=== PATIENT | female | born 1960 | race Caucasian/White ===

== ENCOUNTER → 2018-10-13 10:33 | Outpatient (CLI) | payer OTHER, SELFPAY ==
--- NOTE | 2018-10-13 10:36 | BI_ITS ---
MAMMOGRAPHY - BILATERAL SCREENING 3-D DARIO SYNTHESIS REASON FOR EXAM: Female, 58 years old. Bilateral Screening 3-D tomosynthesis PERTINENT HISTORY: History of benign right breast biopsy in July 2016. History of benign right stereotactic biopsy in 2007. 4-5 past aspirations bilaterally. TECHNIQUE: Digital bilateral breast dario (3D mammographic acquisition) in the CC and MLO projections. 2-D mediolateral oblique (MLO) and craniocaudad (CC) views of both breasts were obtained. CAD: Full Field Digital Mammography with Computer Added Detection was performed. COMPARISON: July 17, 2017 FINDINGS: The breast composition is heterogeneously dense that can obscure small breast masses. There are 4 tissue clip markers in the right breast unchanged. There are scattered benign calcifications are unchanged. At the 12:00 position of the right breast there are 2 partially obscured low density circumscribed masses, one measuring 11 mm and the other 17 mm in widest diameter. These are likely small cysts. However, the patient should return for compression spot images and targeted ultrasound of the upper half of the right breast to confirm this finding. The left breast is stable. BI/SCREENING MAMM (CAD), BILAT IMPRESSION: 2 low-density partially obscured masses in the upper aspect of the right breast for which ultrasound is recommended. See discussion above. ASSESSMENT CATEGORY: BIRADS Category 0: Incomplete. Need additional imaging evaluation as above. A letter regarding these results will be sent to the patient by the facility within 30 days. FOLLOW UP RECOMMENDATION: Additional imaging recommended as above. (E) Approximately 10% of breast cancers are not detected by mammography. A normal mammogram should not delay biopsy of a clinically suspicious abnormality. Electronically Signed: Andi Sanders MD at 12:02 EST , Service support ,
== END ==
PROVIDERS: Family Provider Family Medicine; PCP Family Medicine; Referring Provider Obstetrics & Gynecology; Visit Provider Obstetrics & Gynecology
DX: Z12.31 Encounter for screening mammogram for malignant neoplasm of breast (principal)
CPT/HCPCS: 77063; 77067

== ENCOUNTER → 2018-10-21 13:22 | Outpatient (CLI) | payer OTHER, SELFPAY ==
--- NOTE | 2018-10-21 13:24 | US_ITS ---
STUDY: ULTRASOUND BREAST - RIGHT REASON FOR EXAM: Female, 58 years old. Abnormal screening mammogram. TECHNIQUE: Axial and longitudinal images of the RIGHT breast were performed with a high resolution ultrasound transducer. COMPARISON: Comparison is made with prior mammogram dated October 13, 2018 and October 21, 2018. Comparison is also made to prior ultrasound right breast dated March 11, 2017. FINDINGS: RIGHT Breast: There is a 1.2 cm x 1.6 cm x 1.1 cm cyst at the 12:00 position breast at 1 cm from the nipple. There is also evidence of a 0.9 cm x 1.0 cm x 0.9 cm cyst at the 11:00 position breast at 1 cm from the nipple. US/Breast Limited Unilateral IMPRESSION: The mammographic abnormality corresponds to 2 cysts as described. Routine mammographic follow-up is recommended. ASSESSMENT CATEGORY: BIRADS Category 2: Benign. A letter regarding these results will be sent to the patient by the facility within 30 days. Electronically Signed: Mauri Cage MD at 14:38 EST Tel [phone], Service support ,
--- NOTE | 2018-10-21 13:24 | BI_ITS ---
MAMMOGRAPHY - UNILATERAL DIAGNOSTIC: RIGHT BREAST REASON FOR EXAM: Female, 58 years old. Abnormal screening mammogram. PERTINENT HISTORY: Non-contributory. TECHNIQUE: Compression spot views of the right breast in the craniocaudad and mediolateral oblique views were obtained. CAD: Full Field Digital Mammography with Computer Added Detection was performed. COMPARISON: Comparison is made with prior mammogram dated October 13, 2018. FINDINGS: Breast Composition: The breasts are heterogeneously dense, which may obscure small masses. Once again, there are 4 tissue markers in the right breast. This is unchanged. The previously seen 2 nodular densities in the central portion of the breast are once again seen. Correlation with ultrasound is recommended. No other significant abnormalities are identified. BI/DIAG MAMM W/CAD, UNILAT IMPRESSION: Persistent small nodular densities in the midportion of the right breast as described. Correlation with ultrasound is recommended. ASSESSMENT CATEGORY: BIRADS Category 0: Incomplete. Need additional imaging evaluation. A letter regarding these results will be sent to the patient by the facility within 30 days. Approximately 10% of breast cancers are not detected by mammography. A normal mammogram should not delay biopsy of a clinically suspicious abnormality. Electronically Signed: Mauri Cage MD at 14:37 EST Tel [phone], Service support ,
== END ==
PROVIDERS: Family Provider Family Medicine; PCP Family Medicine; Visit Provider Obstetrics & Gynecology
DX: N60.01 Solitary cyst of right breast (principal)
CPT/HCPCS: 76642; 77065

== ENCOUNTER → 2018-10-27 18:58 | Outpatient (CLI) | payer OTHER, SELFPAY ==
[2018-10-30 20:12] LABS: HPV Reflexed? NOT INDICATED
== END ==
PROVIDERS: Family Provider Family Medicine; PCP Family Medicine; Referring Provider Obstetrics & Gynecology; Visit Provider Obstetrics & Gynecology
DX: Z12.4 Encounter for screening for malignant neoplasm of cervix (principal)
CPT/HCPCS: 88175; G0145

== ENCOUNTER → 2019-10-28 13:33 | Outpatient (CLI) | payer OTHER, SELFPAY ==
[2018-10-29 15:10] VITALS: BMI 27.4
--- NOTE | 2019-10-28 11:00 | CER_PTH ---
PATIENT: SHELIA FLEMING LOC: [facility] U#:[id number] AGE/SX: 65/F ROOM: RE10/28/[address]: Dr. Tanya Viveros MD : 1960 BED: DIS: SPEC #: [id number] RECD: 10/28/19 13:59 STATUS: STEVE RENicole #: [id number] PILI: 10/28/19 11:[address]: Ernestina Ocampo DEPT: SURGICAL PATHOLOGY RECD BY: Jas Gilmore ENTERED: 10/31/19 08:50 SP TYPE: CERV OTHR DR: MD Dr. Rhett Brown III, MD Tissues: Uterine cervix, NOS Procedures: Surgery Specimen Level IV HEADER OPERATION: Polypectomy PRE-OP DIAGNOSIS: Cervical polyp TISSUE SUBMITTED: Cervical polyp MICROSCOPIC DIAGNOSIS Cervical polyp, polypectomy: Fragments of benign endocervical polyp, blood and mucous. SJ:patricia 10/31/19 MICROSCOPIC DESCRIPTION Slides are reviewed. GROSS DESCRIPTION Received in fixative is one container labeled with the patient's name and designated polyp. The specimen consists of multiple fragments of james-pink soft tissue mixed with mucoid tissue that in aggregate measure 2.5 x 2.5 x 0.1 cm. The specimen is totally submitted in one cassette. / SJ:patricia 10/28/19 TC:5 CPT: 48236
--- NOTE | 2019-10-28 13:35 | BI_ITS ---
MAMMOGRAPHY - BILATERAL SCREENING REASON FOR EXAM: Female, 59 years old. Routine annual screening examination. PERTINENT HISTORY: Non-contributory. Remote right excisional and stereotactic breast biopsies. TECHNIQUE: Digital bilateral breast dario (3D mammographic acquisition) in the CC and MLO projections. 2-D mediolateral oblique (MLO) and craniocaudad (CC) views of both breasts were obtained. CAD: Full Field Digital Mammography with Computer Added Detection was performed. COMPARISON: Comparison is made with prior study dated July 17, 2017 and October 13, 2018. FINDINGS: Breast Composition: The breasts are extremely dense, which lowers the sensitivity of mammography. There are no dominant masses or suspicious calcifications. 2 tissue markers from prior breast biopsies are seen in the right breast. Once again, 2 well-defined nodular densities are seen in the central slightly medial portion of the right breast. These are unchanged. Prior ultrasound demonstrated these to be cysts. No other significant abnormalities are identified. There has been no significant change since the prior study. BI/SCREEN MAMM (CAD) W/DARIO BILAT IMPRESSION: Stable bilateral screening mammogram. Yearly follow-up mammogram recommended. (A) ASSESSMENT CATEGORY: BIRADS Category 2: Benign. A letter regarding these results will be sent to the patient by the facility within 30 days. Approximately 10% of breast cancers are not detected by mammography. A normal mammogram should not delay biopsy of a clinically suspicious abnormality. [id number] Electronically Signed: Mauri Cage, at 14:37 EST , Service support ,
[2019-11-02 07:07] LABS: Age Gdln ACOG Testing 30-65 (.)
[2019-11-02 12:43] LABS: HPV APTIMA, High Risk Negative (Negative)
[2019-11-02 12:44] LABS: HPV Reflexed? YES, CHARGE PATIENT
== END ==
PROVIDERS: Family Provider Family Medicine; PCP Family Medicine; Referring Provider Obstetrics & Gynecology; Visit Provider Obstetrics & Gynecology
DX: Z12.31 Encounter for screening mammogram for malignant neoplasm of breast (principal); Z12.4 Encounter for screening for malignant neoplasm of cervix; N84.1 Polyp of cervix uteri
CPT/HCPCS: 77063; 77067; 87624; 88175; 88305; G0145

== ENCOUNTER → 2021-02-20 07:21 | Outpatient (CLI) | payer OTHER, SELFPAY ==
[2018-10-29 15:10] VITALS: BMI 27.4
--- NOTE | 2021-02-20 07:24 | BI_ITS ---
MAMMOGRAPHY - BILATERAL SCREENING REASON FOR EXAM: Female, 60 years old. Routine annual screening examination. PERTINENT HISTORY: Non-contributory. Prior right ultrasound guided N stereotactic breast biopsies. TECHNIQUE: Digital bilateral breast dario (3D mammographic acquisition) in the CC and MLO projections. 2-D mediolateral oblique (MLO) and craniocaudad (CC) views of both breasts were obtained. CAD: Full Field Digital Mammography with Computer Added Detection was performed. COMPARISON: Comparison is made with prior study dated 10/28/2019 and 10/13/2018. FINDINGS: Breast Composition: The breasts are extremely dense, which lowers the sensitivity of mammography. There are no dominant masses or suspicious calcifications. Once again, 3 tissue clip markers are seen in the right breast. The previously seen 2 well defined nodular densities in the central slightly medial portion of the right breast have decreased in size. On prior sonogram, these were demonstrated to be small cysts. No other significant abnormalities are identified. BI/SCRN MAMM (CAD)W/DARIO BILAT IMPRESSION: Stable bilateral screening mammogram. Yearly follow-up mammogram recommended. (A) ASSESSMENT CATEGORY: BIRADS Category 2: Benign. A letter regarding these results will be sent to the patient by the facility within 30 days. Approximately 10% of breast cancers are not detected by mammography. A normal mammogram should not delay biopsy of a clinically suspicious abnormality. [id number] Electronically Signed: Mauri Cage MD at 9:17 EDT , Service support ,
== END ==
PROVIDERS: PCP Family Medicine; Referring Provider Student in an Organized Health Care Education/Training Program; Visit Provider Student in an Organized Health Care Education/Training Program
DX: Z12.31 Encounter for screening mammogram for malignant neoplasm of breast (principal)
CPT/HCPCS: 77063; 77067

== ENCOUNTER → 2021-02-22 | Outpatient (CLI) | payer OTHER, SELFPAY ==
[2018-10-29 15:10] VITALS: BMI 27.4
[2021-02-27 13:08] LABS: HPV APTIMA, High Risk Negative (Negative)
== END | disposition home or self-care (01) ==
LOC: LABSPEC 13:56
PROVIDERS: PCP Family Medicine; Visit Provider Obstetrics & Gynecology
DX: Z12.4 Encounter for screening for malignant neoplasm of cervix (principal)
CPT/HCPCS: 87624; 88175; G0145

== ENCOUNTER → 2022-02-21 | Outpatient (CLI) | payer OTHER, SELFPAY ==
--- NOTE | 2022-02-21 07:32 | BI_ITS ---
MAMMOGRAPHY - BILATERAL SCREENING REASON FOR EXAM: Female, 61 years old. Routine annual screening examination. PERTINENT HISTORY: Non-contributory. History of multiple prior right ultrasound-guided breast biopsies. TECHNIQUE: Digital bilateral breast dario (3D mammographic acquisition) in the CC and MLO projections. 2-D mediolateral oblique (MLO) and craniocaudad (CC) views of both breasts were obtained. CAD: Full Field Digital Mammography with Computer Added Detection was performed. COMPARISON: Comparison is made with prior study dated 02/20/2021 and 10/28/2019. FINDINGS: Breast Composition: The breasts are extremely dense, which lowers the sensitivity of mammography. There are no dominant masses or suspicious calcifications. Once again, 3 tissue clip markers are seen in the right breast. Persistent 1.5 cm well-defined nodule in the central aspect of the right breast. Stable 9 mm well-defined nodule in the inferior aspect of the right breast. These were demonstrated to be small cysts on prior sonogram. No other significant abnormalities are identified. There has been no significant change since the prior study. BI/SCRN MAMM (CAD)W/DARIO BILAT IMPRESSION: Stable bilateral screening mammogram. Yearly follow-up mammogram recommended. (A) ASSESSMENT CATEGORY: BIRADS Category 2: Benign. A letter regarding these results will be sent to the patient by the facility within 30 days. Approximately 10% of breast cancers are not detected by mammography. A normal mammogram should not delay biopsy of a clinically suspicious abnormality. [id number] Electronically Signed: Mauri Cage MD at 8:47 EDT ,
== END | disposition home or self-care (01) ==
LOC: OPBI 07:31
PROVIDERS: PCP Physician Assistant; Referring Provider Student in an Organized Health Care Education/Training Program; Visit Provider Student in an Organized Health Care Education/Training Program
DX: Z12.31 Encounter for screening mammogram for malignant neoplasm of breast (principal)
CPT/HCPCS: 77063; 77067

== ENCOUNTER → 2023-04-20 | Outpatient (CLI) | payer OTHER, SELFPAY ==
--- NOTE | 2023-04-20 10:25 | BI_ITS ---
MAMMOGRAPHY - BILATERAL SCREENING REASON FOR EXAM: Female, 63 years old. Routine annual screening examination. PERTINENT HISTORY: Non-contributory. Prior right ultrasound breast biopsies and excisional and stereotactic breast biopsies. TECHNIQUE: Digital bilateral breast dario (3D mammographic acquisition) in the CC and MLO projections. 2-D mediolateral oblique (MLO) and craniocaudad (CC) views of both breasts were obtained. CAD: Full Field Digital Mammography with Computer Added Detection was performed. COMPARISON: Comparison is made with prior study dated February 21, 2022 and February 20, 2021. FINDINGS: Breast Composition: The breasts are extremely dense, which lowers the sensitivity of mammography. There are no dominant masses or suspicious calcifications. Once again, 3 tissue markers are seen in the right breast. Stable 1.5 cm well-defined nodule in the central aspect of the right breast. Stable 9 mm well-defined nodule in the inferior aspect of the right breast as well. No other significant abnormalities are identified. There has been no significant change since the prior study. BI/SCRN MAMM (CAD)W/DARIO BILAT IMPRESSION: Stable bilateral screening mammogram. Yearly follow-up mammogram recommended. (A) ASSESSMENT CATEGORY: BIRADS Category 2: Benign. A letter regarding these results will be sent to the patient by the facility within 30 days. Approximately 10% of breast cancers are not detected by mammography. A normal mammogram should not delay biopsy of a clinically suspicious abnormality. [id number] Electronically Signed: Mauri Cage MD at 12:05 EDT ,
== END | disposition home or self-care (01) ==
LOC: OPBI 10:21
PROVIDERS: PCP Physician Assistant; Referring Provider Obstetrics & Gynecology; Visit Provider Obstetrics & Gynecology
DX: Z12.31 Encounter for screening mammogram for malignant neoplasm of breast (principal)
CPT/HCPCS: 77063; 77067

== ENCOUNTER → 2023-08-27 | Outpatient (CLI) | payer OTHER, SELFPAY ==
--- NOTE | 2023-08-27 11:52 | EKG12_ITS ---
Test Reason : PRE OP Blood Pressure : / mmHG Vent. Rate : 076 BPM Atrial Rate : 076 BPM P-R Int : 136 ms QRS Dur : 154 ms QT Int : 410 ms P-R-T Axes : 040 -45 118 degrees QTc Int : 461 ms Normal sinus rhythm Sootr-Kwpriqicw-Cmtgb Abnormal ECG Confirmed by BERE SUTTON, RAUL ([id number]), story editor ATTILA REDDY ([id number]) on 08/31/2023 10:40:13 AM Referred By: Kobi Yan Confirmed By:JOHNNY BLACKBURN MD
[2023-08-27 12:18] LABS: Absolute Lymphocyte Count 1.67 X10^3/uL (0.83-4.51); Absolute Neutrophil Count 4.5 X10^3/uL (2.0-7.7); Basophil# 0.06 X10^3/uL; Basophil% 0.8 % (0-1); Eosinophil# 0.38 X10^3/uL; Eosinophils% 5.3 % (0-5); Hematocrit 41.9 % (37-47); Hemoglobin 14.3 g/dL (12.0-15.0); Lymphocyte # 1.67 X10^3/ul (0.83-4.51); Lymphocyte % 23.2 % (19-41); Mean Corp Hgb Conc 34.1 g/dL (32-36); Mean Corpuscular Hgb 31.7 pg (27.0-32.0); Mean Corpuscular Volume 92.9 fL (81-99); Mean Platelet Vol. 9.3 fl (6.2-12.0); Monocyte# 0.55 X10^3/uL; Monocyte% 7.6 % (0-10); NRBC Flagged by Analyzer 0 % (0-5); Neutrophil # 4.52 X10^3/uL (2.7-7.7); Platelet Count 278 K/mm3 (150-450); RBC Distribution Width CV 11.9 % (11.6-14.6); RBC Distribution Width SD 40.1 fl (35.1-43.9); Red Blood Count 4.51 M/mm3 (4.2-5.4); White Blood Count 7.2 K/mm3 (4.4-11.0)
[2023-08-27 12:52] LABS: Anion Gap 3 (5-15); BUN 25 mg/dL (7-18); BUN/Creat Ratio 27.3 RATIO (10-20); Calcium,Total 9.6 mg/dL (8.5-10.1); Chloride 108 mmol/L (98-107); Creatinine, Serum 0.92 mg/dL (0.55-1.02); EST Glomerular Filtration Rate 66 mL/min (>60); Est Glom Filt Rate - Afr Amer 80 mL/min (>60); Glucose 115 mg/dL (74-106); Sodium Level 140 mmol/L (136-145)
== END | disposition home or self-care (01) ==
LOC: PSN 11:51
PROVIDERS: PCP Physician Assistant; Referring Provider Specialist; Visit Provider Specialist
DX: Z01.810 Encounter for preprocedural cardiovascular examination (principal)
CPT/HCPCS: 36415; 80048; 85025; 93005

== ENCOUNTER 2024-03-02 10:00 | Outpatient (CLI) | payer OTHER, SELFPAY ==
[2024-03-02 10:28] LABS: Magnesium 2.2 mg/dL (1.6-2.6)
[2024-03-04 12:09] LABS: Vitamin D 1,25-Dihydroxy 46.7 pg/mL (24.8-81.5)
[2024-03-07 16:56] LABS: Cotinine Screen Blood <1.0 ng/mL (.); Nicotine Blood <1.0 ng/mL (.)
== END 2024-03-02 23:59 | disposition home or self-care (01) ==
LOC: PAT 09-08 10:26
PROVIDERS: PCP Physician Assistant; Referring Provider Podiatrist Foot & Ankle Surgery; Visit Provider Podiatrist Foot & Ankle Surgery
DX: Z01.818 Encounter for other preprocedural examination (principal)
CPT/HCPCS: 36415; 80323; 82652; 83036; 83735; 87081; G0480

== ENCOUNTER → 2024-04-07 | Outpatient (CLI) | payer OTHER, SELFPAY ==
--- NOTE | 2024-04-07 10:48 | ECHOCS_ITS ---
Reason For Study: CHEST PAIN Procedure This was a 2D Doppler, Color Flow transthoracic echocardiogram. The study was technically difficult. Contrast injection was performed. Exam performed in department. Left Ventricle Normal size and thickness. The left ventricular ejection fraction is 65 %. Diastolic function is indeterminate. Right Ventricle Normal right ventricle. Atria The left atrium is mildly enlarged. Normal right atrium. Mitral Valve Trivial mitral valve insufficiency. Tricuspid Valve Trivial tricuspid valve insufficiency. Right ventricular systolic pressure estimated to be 47 mmHg. Aortic Valve Trisinus/trileaflet aortic valve. Pulmonic Valve Trivial pulmonic valve insufficiency. Great Vessels Normal sized aortic root. Pericardium/Pleural No pericardial effusion. Medication 22 gauge I.V. with prn adaptor inserted into right arm. Diluted definity 2ml given slow IV push to enhance endocardial definition. MMode/2D Measurements & Calculations LVIDd: 4.6 cm IVSd: 1.0 cm Ao root diam: 3.2 cm LVIDs: 3.4 cm LVPWd: 0.76 cm FS: 24.9 % LAV(MOD-bp): 33.1 ml LVAd ap4: 28.4 cm2 SV(MOD-sp4): 61.6 ml LAV(MOD-bp) Indexed: 17.1 ml/m2 LVLd ap4: 7.7 cm LAV(MOD-sp2): 43.9 ml EDV(MOD-sp4): 86.7 ml LAV(MOD-sp4): 24.3 ml EDV(sp4-el): 88.7 ml LVAs ap4: 13.9 cm2 LVLs ap4: 6.4 cm ESV(MOD-sp4): 25.1 ml ESV(sp4-el): 25.6 ml EF(MOD-sp4): 71.1 % EF(sp4-el): 71.1 % SV(sp4-el): 63.1 ml LA A4 area: 12.1 cm2 LA dimension(2D): 4.2 cm RA A4 area: 11.0 cm2 TAPSE: 1.2 cm Time Measurements MV dec time: 0.22 sec Doppler Measurements & Calculations MV E max ayaz: 77.7 cm/sec Lat Peak E' Ayaz: 7.3 cm/sec Med Peak E' Ayaz: 6.6 cm/sec MV A max ayaz: 92.5 cm/sec E/E' lat: 10.6 E/E' med: 11.7 MV E/A: 0.84 MV V2 max: 89.5 cm/sec MV dec slope: 351.9 cm/sec2 Ao V2 max: 140.1 cm/sec MV max P.2 mmHg Ao max P.9 mmHg MV V2 mean: 58.2 cm/sec Ao V2 mean: 97.7 cm/sec MV mean P.5 mmHg Ao mean P.4 mmHg MV V2 VTI: 26.7 cm Ao V2 VTI: 28.8 cm AV (velocity ratio): 0.80 LV V1 max: 126.2 cm/sec PA V2 max: 156.2 cm/sec TR max ayaz: 304.7 cm/sec LV V1 max P.4 mmHg PA V2 mean: 95.0 cm/sec TR max P.1 mmHg LV V1 mean P.3 mmHg LV V1 mean: 83.2 cm/sec LV V1 VTI: 23.0 cm ECHO/Echo Complete W/ Contrast Interpretation Summary The left ventricular ejection fraction is 65 %. Diastolic function is indeterminate. The left atrium is mildly enlarged. Right ventricular systolic pressure estimated to be 47 mmHg. Ordering Physician: Kb Valdivia Referring Physician: Kb Valdivia Performed By: Lakia Xiong RCS
== END | disposition home or self-care (01) ==
PROVIDERS: PCP Physician Assistant; Referring Provider Internal Medicine Cardiovascular Disease; Visit Provider Internal Medicine Cardiovascular Disease
DX: I47.10 Supraventricular tachycardia, unspecified (principal)
CPT/HCPCS: 93306; Q9957; A4216; C8929

== ENCOUNTER 2024-04-15 11:47 | Day surgery (SDC) | payer OTHER, SELFPAY ==
[2024-04-11 09:26] LABS: Magnesium 2.2 mg/dL (1.6-2.6)
[2024-04-15] VITALS (9 sets, daily range): BP systolic 121–144; BP diastolic 76–97; PULSE 90–105; RESP 16; TEMP 36.3–36.6; O2SAT 94–100; BMI 29.0
--- NOTE | 2024-04-15 | TESH_PTH ---
PATIENT: SHELIA FLEMING LOC: [facility] [place] U#:[id number] AGE/SX: 64/F ROOM: RE04/15/[address]: Dr. Silvio Puente DPM : 1960 BED: DIS: 04/15/2024 SPEC #: [id number] RECD: 04/15/24 18:26 STATUS: STEVE TRANG #: [id number] PILI: 04/15/24 00:[address]: Silvio Puente DEPT: SURGICAL PATHOLOGY RECD BY: Wiliam Salcido ENTERED: 04/18/24 07:42 SP TYPE: TENDON OTHR DR: AYAAN Nova Tissues: Tendon and tendon sheath, NOS Procedures: Surgery Specimen Level III HEADER OPERATION: ERAS, Achilles tendon debirdment/repair and partial excision PRE-OP DIAGNOSIS: Achilles tendonitis, calcaneal heel spur, right leg pain TISSUE SUBMITTED: Tendosynovitis, Right Achilles tendon MICROSCOPIC DIAGNOSIS Right Achilles tendon, partial excision: Fragments of dense fibroconnective tissue with reactive changes. [facility] 04/19/2024 MICROSCOPIC DESCRIPTION Slides are reviewed. GROSS DESCRIPTION Received in fixative is one container labeled with the patient's name and designated Tendosynovitis right achilles tendon. The specimen consists of multiple irregular fragments of james-light yellow indurated tissue that in aggregate measure 4.5 x 3.2 x 1.0 cm. The specimen is totally submitted in one cassette. Belt Sewer sections are submitted in one cassette. [facility] 04/18/2024 TC:5 CPT:08671
[2024-04-15] MEDS: Acetaminophen 500 MG Tablet 1000 MG PO (12:22)
[2024-04-15] MEDS: Gabapentin 600 MG Tablet PO (12:22)
[2024-04-15] MEDS: Magnesium 1 GM over 15 mins IV (12:22)
[2024-04-15] MEDS: Lactated Ringers 1,000 ML 15 ML IV (12:22)
[2024-04-15 12:45] LABS: Bedside Glucose 104 mg/dL (74-106)
--- NOTE | 2024-04-15 13:40 | PRE.ANES_ITS ---
ASA Classification* ASA Classification ASA Classification: 3 Assessment & Plan Anesthesia* Anesthesia Assessment Anesthesia Assessment: Discussed sedation and/or anesthesia options, risks, benefits, and alternatives with patient/parents/legal guardian/POA. Questions invited. The patient/parents/legal guardian/POA seems to understand and agrees to proceed with anesthesia plan. Reviewed the physical assessment, medical history, allergy history and patient home medications list prior to surgery/procedure/anesthetic and documented any changes. Performed airway and anesthesia risk assessments. Anesthesia Type Anesthesia Type: General (Patient is also consented for a popliteal block for pain control) History Source History Obtained from:: Patient and Chart Anesthesia Focused Assessment* Temperature: 97.9 F Pulse Rate: 100 Blood Pressure: 121/88 Respiratory Rate: 16 Pulse Ox: 100 Oxygen Delivery Method: Room Air Airway Assessment Mouth opens: >3 cm Mallampati Score: III Teeth Condition: Chipped/Broken (Patient is on antibiotics for a cracked tooth. Patient just had a root canal on tooth #31.) Neck Range of motion (ROM): Full ROM Pertinent Findings EKG Pertinent Findings:: April 04, 2024 sinus rhythm. Left bundle branch block. 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 EKG appears similar to 1 done August 2023 at which time the EKG was read as Ovedy-Ffblkokbm-Nlvhl ECHO Pertinent Findings:: April 07, 2024. Ejection fraction 65%. Right ventricular systolic pressure is 47 mm Hg. Consults Pertinent Findings:: April 04, [address] Valdivia. Good functional capacity. Acceptable risk for proposed procedure. History of Lrlhw-Thnldzthf-Gccec. On diltiazem which we will continue. Hypertension continue medical management. Focused Labs Anesthesia Preop lab: CBC WBC 7.2 K/mm3 (4.4-11.0) 08/27/23 12:06 RBC 4.51 M/mm3 (4.2-5.4) 08/27/23 12:06 Hgb 14.3 g/dL (12.0-15.0) 08/27/23 12:06 Hct 41.9 % (37-47) 08/27/23 12:06 Plt Count 278 K/mm3 (150-450) 08/27/23 12:06 CHEMISTRY Potassium 4.0 mmol/L (3.5-5.1) 08/27/23 12:06 Sodium 140 mmol/L (136-145) 08/27/23 12:06 Magnesium 2.2 mg/dL (1.6-2.6) 04/11/24 08:27 BUN 25 mg/dL (7-18) H 08/27/23 12:06 Creatinine 0.92 mg/dL (0.55-1.02) 08/27/23 12:06 Glucose 115 mg/dL (74-106) H 08/27/23 12:06 POC Glucose 104 mg/dL (74-106) 04/15/24 12:16 TSH 1.80 uIU/mL (0.358-3.74) 09/05/16 14:19 COAG Pre-Assessment Diagnosis/Proposed Procedure Planned Operative Procedure(s): (R) Achilles tendon debridement/repair with partial excision of calcaneus, possible flexor hallucis longus transfer and excision of bursa Anesthesia History 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 When Was Last Pacemaker Check QUESTION #4 FULL TEXT: You/Your Family Experience fever (hyperthermia) with Anesthesia Last Oral Intake Last Oral intake: Last Oral Intake NPO since 07:15 04/15/24 12:07 Meds taken in AM with sips of Yes 04/15/24 12:07 water? Meds patient instructed to SEE 04/15/24 12:07 take am of surgery Any additional information?: Yes NPO since: 09:55 Meds taken in AM with sips of water?: Yes Meds patient instructed to take am of surgery: Patient had Ensure at 955 PONV PONV - pipe supervisor: PONV - pipe supervisor Female Yes 04/08/24 09:50 HX of Motion Sickness No 04/08/24 09:50 HX of N/V After Surgery No 04/08/24 09:50 Non-Smoker Yes 04/08/24 09:50 Duration of Surgery greater Yes 04/08/24 09:50 than 60 minutes Number of Risk Factors 3 04/08/24 09:50 PONV Score Moderate Risk 04/08/24 09:50 Height & Weight Height & Weight: Anesthesia: Height & Weight Height 5 ft 6 in 04/15/24 12:07 Weight: 81.647 kg 04/15/24 12:07 Body Mass Index (BMI) 29.0 04/15/24 12:07 Respiratory Assessment Respiratory Assessment - pipe supervisor: Respiratory Tract Infection Hx - pipe supervisor Hx Respiratory Tract Infection No 04/08/24 09:50 STOP Sleep Apnea STOP Sleep Apnea - pipe supervisor: STOP Sleep Apnea - pipe supervisor Hx Hypertension Yes: CONTROLLED WITH MED 04/08/24 09:50 Hx Sleep Apnea No 04/08/24 09:50 CPAP BIPAP Do you snore loudly (louder No 04/08/24 09:50 than talking or can be heard Do you often feel tired/ No 04/08/24 09:50 fatigued/ sleepy during daytime? Has anyone observed you stop No 04/08/24 09:50 breathing during sleep? STOP Results Negative 04/08/24 09:50 QUESTION #5 FULL TEXT : Do you snore loudly (louder than talking or can be heard through closed doors)? 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 Specify any problems Hx of Preganancy in last 3 No 04/08/24 09:50 Months Nurse Filling Out Transfusion MGRIFFITH 04/08/24 09:50 & Questions: Date: 04/08/24 04/08/24 09:50 Time: 09:52 04/08/24 09:50 Patient unable to answer at this time (ie. confused, unrespo /Reproduction History /Reproductive History - pipe supervisor: /Reproductive Hx- pipe supervisor Hx Now No 04/08/24 09:50 Gestational Age (in weeks): EDC: Hx Hx Para Hx Section SAB No 04/08/24 09:50 Active Medications Active Medications: Current Medications Generic Name Dose Route Start Last Admin Trade Name Freq PRN Reason Stop Dose Admin Acetaminophen 1,000 mg 04/15/24 14:00 04/15/24 12:22 Acetaminophen 500 Mg Tablet PO 04/15/24 14:01 1,000 mg X1 ONE Administration Gabapentin 600 mg 04/15/24 14:00 04/15/24 12:22 Gabapentin 600 Mg Tablet PO 04/15/24 14:01 600 mg X1 ONE Administration Cefazolin Sodium 2 gm/ Sodium 110 mls @ 150 mls/hr 04/15/24 14:00 Chloride IV 04/15/24 14:43 PREOP ONE Magnesium Sulfate 1 gm/ 102 mls @ 408 mls/hr 04/15/24 14:00 04/15/24 12:22 Dextrose IV 04/15/24 14:14 408 mls/hr X1 ONE Administration Lactated Ringer's 1,000 mls @ 15 mls/hr 04/15/24 12:00 04/15/24 12:22 IV 15 mls/hr .Q48H MYRNA Administration Insulin Human Lispro 1 - 6 unit 04/15/24 14:00 Insulin Lispro 100 Unit/Ml Insuln.Pen SC 04/15/24 20:00 Q4H PRN PRN BG>/= 180, SEE PROTOCOL Protocol PFSH Medical History Loose, teeth Hyperlipidemia SVT (supraventricular tachycardia) PVC (premature ventricular contraction) Diffuse cystic mastopathy of left breast Right foot pain Wears glasses Alcohol use Thyroid disease High cholesterol Non-smoker History of stress test History of echocardiogram Cardiology follow-up encounter History of atrial fibrillation History of irregular heartbeat Hypothyroid HTN (hypertension) Wtatd-Vpjkwftab-Soklx (WPW) syndrome Breast lesion on mammography Home Medications ?Medication ?Instructions ?Recorded ?Last Taken ?Type levothyroxine 25 mcg tablet 25 mcg PO DAILY 03/27/16 08/21/16 07:00 History coenzyme Q10 200 mg capsule 200 mg PO DAILY 08/22/16 08/21/16 07:00 History diltiazem HCl 120 mg 120 mg PO DAILY 08/22/16 04/15/24 07:15 History capsule,extended release 24 hr atorvastatin 20 mg tablet 20 mg PO QHS 03/01/24 Unknown History lisinopril 20 1 tab PO DAILY 03/22/24 04/15/24 07:15 History mg-hydrochlorothiazide 12.5 mg tablet multivitamin 1 tab PO DAILY 04/04/24 Unknown History amoxicillin 500 mg capsule 500 mg PO TID 04/08/24 Unknown History Allergy/AdvReac Type Severity Reaction Status Date / Time No Known Allergies Allergy Verified 04/15/24 12:05 Family History Brother Diabetes Mother Hypertension Father Hypertension Diabetes Grandmother Breast cancer Grandfather CVA (cerebral vascular accident) Son IBS (irritable bowel syndrome) Surgical History Hx of breast biopsy Hx of dilation and curettage Hx of section History of colonoscopy History of tonsillectomy History of arthroplasty of left knee History of cardiac radiofrequency ablation S/P right oophorectomy Social History Smoking Status: Never smoker alcohol intake: current alcohol intake frequency: a few times a week substance use type: does not use caffeine: Yes (2.5 cups/day) Type: coffee Number of servings: 2 Review of Systems (Anesthesia) ROS Narrative System reviewed and no additional complaints, except as documented.
--- NOTE | 2024-04-15 15:13 | PCM.OPRPT ---
Problems Associated Problem List Diagnoses (1) Achilles tendinitis, right leg: (2) Calcaneal spur, right foot: (3) Other bursitis, not elsewhere classified, right ankle and foot: (4) Right foot pain: Report of Operation Date of Procedure: 04/15/24 Pre-Operative Diagnosis: 1. Achilles tendinitis, right lower extremity 2. Retrocalcaneal bursitis, right lower extremity 3. Calcaneal spur, right foot 4. Pain, right foot Post-Operative Diagnosis: 1. Achilles tendinitis, right lower extremity 2. Retrocalcaneal bursitis, right lower extremity 3. Calcaneal spur, right foot 4. Pain, right foot Surgery/Procedure Performed:: 1. Acute Achilles tendon debridement repair, right lower extremity 2. Partial excision of calcaneus, right lower extremity 3. Excision of bursa, right lower extremity Description of Surgical Findings:: 1. Complete removal of bursa and exostosis of bone from the calcaneus, right lower extremity 2. Evidence of thickened Achilles/tenosynovitis which was removed and sent for pathology Surgeon: Silvio Puente raise miner: Le Paez Type of Anesthesia: Block,Regional, General and Local Anesthesiologist: Anderson Gillespie Special Medications: Per anesthesia Specimen's removed: 1. Tenosynovitis, right Achilles tendon Drains: None Estimated Blood Loss (mL): 30 mL Fluids Replaced: Per anesthesia Description of Procedure: Indications For Operation: Mrs Carballo is a 64-year-old female who was admitted to [facility] for elective surgery to right lower extremity consisting of Achilles tendon repair, partial excision of calcaneus, retrocalcaneal bursectomy, right lower extremity. Patient was seen in the office for surgical consultation with all risk and benefits discussed with her in great detail. Patient was explained the preop IntraOp and postoperative recovery for the procedure. She elects to move forward with the elective procedure above. Due to the increased pain, increased and retrocalcaneal bursitis as well as Achilles tendinitis versus tendinosis it had deemed necessary at this time to take the patient to the operating room to perform the procedure above to decrease and rid her of her constant pain. The nature of the problem, anticipated procedures, postop recovery/convalences and risk/complications include but not limited to infection, wound healing complications, hypertrophic scarring, numbness, tingling, chronic pain, CRPS, over and under correction, recurrence of deformity, DVT and or PE and the need for further surgery have been discussed in great detail with the patient. All questions have been answered to the patient's satisfaction. There are no guarantees given as to the outcome of the procedure. Description of Procedure: Under mild sedation, the patient was brought into the operating room and placed on the operating table in supine position. Once the patient was under general anesthesia with endotracheal tube, the right lower extremity was blocked using approximately 10 cc 0.5% Marcaine plain for saphenous block, anesthesia provided popliteal block please see per anesthesia note for further detail. Next, a well-padded thigh tourniquet was applied to the right lower extremity. Next, the right lower extremity was prepped and draped in normal aseptic manner. Next, a timeout was then undertaken verifying the correct patient, extremity, visibility of preoperative markings, availability of the equipment. Next, attention was directed to the right lower extremity. Using a 6 inch Esmarch, right lower extremity was exsanguinated and elevated to 60 degrees for 1 minute. Procedure #1: Excision of bursa, right lower extremity (CPT code: 63161) Next, attention was directed to the Achilles tendon, a skin marker was used to map out the incision which would be slightly posterior medial. Using a #15 blade a full-thickness incision down to subcutaneous tissue was made. Continued blunt dissection was carried down to the level of the peritenon. Next, using a deep #15 blade the Achilles tendon was incised centrally all the way down to the enthesophyte. The Achilles tendon was booked ended allowing for exposure of the Sayda's deformity as well as enthesophyte. The retrocalcaneus bursa was identified and removed at this time. Copious amounts of normal saline were used to flush the incision area. Procedure #2: Partial excision of calcaneus, right lower extremity (CPT code: 20487) Next, using a sagittal saw and blade, the enthesophyte was cut and removed without incident. It was noted that there was a depression after removal of the enthesophyte which was completely removed. Next, using the sagittal saw and blade, the Sayda's deformity was removed via partial excision of the calcaneus. All sharp edges were made smoothed with a reciprocating rasp. Procedure #3: Achilles tendon debridement and repair, right lower extremity (CPT code: 33400) Next, attention was redirected back to the Achilles tendon, there showed evidence on the operating table of Achilles tendinosis. Using a #15 blade Achilles tendon was debrided down to and including tendon which was removed and sent to the back table to be sent off for pathology. Incision area was again flushed with copious rounds of normal saline. Next, the Achilles tendon was reattached to its insertion using the Ras citrefix anchoring system and a double row fashion per the director informatics's recommendation with the rep in the room. The has Achilles tendon was reapproximated and closed with 2-0 FiberWire in running suture technique. Again, copious amounts of normal saline were used to flush out the incision area. Next, time was taken to perform a Daugherty test, the right lower extremity was elevated to 90 degrees with the knee flexed, palpation was applied to the gastrocnemius and soleus complex and plantarflexion of the right foot was observed. The right foot also showed a plantarflexory attitude with the foot in the air. Next the right thigh tourniquet was deflated with reperfusion noted instantly to the right lower extremity. All bleeders were cauterized and ligated as necessary. A 1 x 2 inch graft jacket was applied over the Achilles tendon and sutured in place with 4-0 Monocryl to decrease adhesions. The peritenon was reapproximated and closed with 4-0 Monocryl and running locking suture technique. The subcutaneous layer was reapproximated closed with 3-0 Monocryl and running suture technique. The vein was reapproximated and closed with 4-0 Monocryl and running subcuticular suture technique. 1 cc of via flow was injected to the incision to help with healing as well as decrease inflammatory effects in the postoperative phase. The patient tolerated the procedure and anesthesia well and apparent satisfactory condition and was transported to the PACU for further monitoring prior to discharge home. Vital signs stable and vascular status intact to all digits bilateral. Post Operative Plan: Weightbearing: Nonweightbearing to right lower extremity with assistive crutches for 2 to 4 weeks, right lower extremity Antibiotics: 2 g Ancef through the IV DVT Prophylaxis: 81 mg twice daily for 30 days Bueno: None Dressing: Steri-Strips, Betadine soaked Adaptic, dry sterile dressing and a double layer Juarez AO splint X-Rays: Post-operative films taken on the operating room. Pain Medication: Percocet 3/325, [id number] Tylenol and ibuprofen Follow-up: [address] Puente in office. Grafts/Implants Used: 1 cc of via flow Complications None Admit VTE Documentation VTE Present on Admission: No VTE Mechan Device Prophylaxis: SCD's VTE Pharm Prophylaxis ordered?: Yes
[2024-04-15] MEDS: Cefazolin 2 GM in 0.9% Normal Saline (100mL Bag) 100 ML IV (15:25)
--- NOTE | 2024-04-15 16:10 | RAD_ITS ---
STUDY: X-RAY - RIGHT ANKLE REASON FOR EXAM: Female, 64 years old. ERAS ACHILLES TENDON DEBRIDEMENT, REPAIR TECHNIQUE: 2 intraoperative fluoroscopic views of the posterior calcaneus were obtained. COMPARISON: None. FINDINGS: Lateral images of the posterior aspect of the calcaneus shows surgical instrumentation hardware over this region with subsequent intervention and multiple osteotomy defects with anchoring, as well as Achilles tendon repair. RAD/Ankle 2 Views IMPRESSION: 1. Intraoperative fluoroscopic visualization of the calcaneus Electronically Signed: Charles Roa MD at 16:58 EDT ,
--- NOTE | 2024-04-15 17:31 | PCM.POST.ANE ---
Anesthesia: Postop Eval I Current Vital Signs Temperature: 97.4 F Pulse Rate: 105 Blood Pressure: 144/86 Respiratory Rate: 16 Pulse Ox: 94 Oxygen Delivery Method: Room Air Assessment Airway patent: Yes Spontaneous unlabored respirations: Yes Mental status: Awake and Calm nausea: No Vomiting: No Anesthesia Complication: No Fluid Hydration Crystalloid volume administer (ml): 1,400 Total IV fluid infused: 1,400 Progress Note Anesthesia document: Postop Eval 1 completed: Yes
--- NOTE | 2024-04-15 17:32 | POSTOPAN2_ITS ---
Anesthesia Postop Eval I Sum Postop Eval Completion status Anesthesia document: Postop Eval 1 completed: Yes Anesthesia Postop Eval I Summary Anesthesia Postop Eval I Summary: Anesthesia Postop Eval I: Assessment Summary Airway patent Yes 04/15/24 17:32 HOMICIDE DETECTIVE.MDOT Spontaneous unlabored Yes 04/15/24 17:32 HOMICIDE DETECTIVE.MDOT respirations Mental status Awake,Calm 04/15/24 17:32 HOMICIDE DETECTIVE.MDOT nausea No 04/15/24 17:32 HOMICIDE DETECTIVE.MDOT Vomiting No 04/15/24 17:32 HOMICIDE DETECTIVE.MDOT Anesthesia Postop Eval I: Fluid Summary Crystalloid volume administer 1,400 04/15/24 17:32 HOMICIDE DETECTIVE.MDOT (ml) Colloids volume administered ( ml) Blood Product volume administered (ml) Total IV fluid infused 1,400 04/15/24 17:32 HOMICIDE DETECTIVE.MDOT Anesthesia Postop Eval I: Summary Notes Anesthesia Complication No 04/15/24 17:32 HOMICIDE DETECTIVE.MDOT Anesthesia Complication Comment: Post-operative progress note Anesthesia: Postop Eval II Evaluation Mental status: Awake and Calm Pain Level: 0 nausea: No Vomiting: No Complications Anesthesia Complication: No
--- NOTE | 2024-04-15 17:32 | PCM.POSTANE2 ---
Anesthesia Postop Eval I Sum Postop Eval Completion status Anesthesia document: Postop Eval 1 completed: Yes Anesthesia Postop Eval I Summary Anesthesia Postop Eval I Summary: Anesthesia Postop Eval I: Assessment Summary Airway patent Yes 04/15/24 17:32 CRIMINAL INTELLIGENCE ANALYST.MDOT Spontaneous unlabored Yes 04/15/24 17:32 CRIMINAL INTELLIGENCE ANALYST.MDOT respirations Mental status Awake,Calm 04/15/24 17:32 CRIMINAL INTELLIGENCE ANALYST.MDOT nausea No 04/15/24 17:32 CRIMINAL INTELLIGENCE ANALYST.MDOT Vomiting No 04/15/24 17:32 CRIMINAL INTELLIGENCE ANALYST.MDOT Anesthesia Postop Eval I: Fluid Summary Crystalloid volume administer 1,400 04/15/24 17:32 CRIMINAL INTELLIGENCE ANALYST.MDOT (ml) Colloids volume administered ( ml) Blood Product volume administered (ml) Total IV fluid infused 1,400 04/15/24 17:32 CRIMINAL INTELLIGENCE ANALYST.MDOT Anesthesia Postop Eval I: Summary Notes Anesthesia Complication No 04/15/24 17:32 CRIMINAL INTELLIGENCE ANALYST.MDOT Anesthesia Complication Comment: Post-operative progress note Anesthesia: Postop Eval II Evaluation Mental status: Awake and Calm Pain Level: 0 nausea: No Vomiting: No Complications Anesthesia Complication: No
== END 2024-04-15 18:35 | disposition home or self-care (01) ==
LOC: SDC 11:47 → AC 11:48
PROVIDERS: Anesthesiology; PCP Physician Assistant; Referring Provider Physician Assistant; Visit Provider Podiatrist Foot & Ankle Surgery
PROC: (CPT 27650; principal; 2024-04-15 13:45)
DX: M76.61 Achilles tendinitis, right leg (principal); M77.31 Calcaneal spur, right foot; M76.891 Other specified enthesopathies of right lower limb, excluding foot; I10 Essential (primary) hypertension; E03.9 Hypothyroidism, unspecified; E78.00 Pure hypercholesterolemia, unspecified; Z79.899 Other long term (current) drug therapy
CPT/HCPCS: 28090; 28120; 27652; 64445; 01470; 36415; 73600; 76000; 82962; 83735; 87081; 88304; C1713; J7120; J2405; J3475

== ENCOUNTER → 2025-04-07 | Outpatient (CLI) | payer BC, SELFPAY ==
--- OUTSIDE RECORDS SUMMARY | 2025-04-07 07:14 | XMS RPT_ITS | CCD ---
Author Organization [facility] CliniSyri Care Team Providers Care Funnel Coater Name Role Phone KIRIT Shay RN, Tanya A Unavailable Unavailabl e Jaspal TECHNICAL SUPPORT MANAGER, Tanya A Unavailable Unavailable Jaspal TECHNICAL SUPPORT MANAGER, Tanya A Unavailable Unavailable VITEBSKJaninaY, KACEY Attending Unavailable CEBUL, CEASAR Primary Care Unavailable CEBUL, CEASAR Referring Unavailable VITEBSKVICKEY KACEY Attending Unavailable CEBUL, CEASAR Referring Unavailable CEBUL, CEASAR Primary Care Unavailable Barrett SUTTNO, Alexandrea Elizabeth Unavailable Markie Gtz PA-C Primary Care Provider [phone] Markie Gtz PA-C Primary Care Provider [phone] Markie Gtz PA-C Primary Care Provider [phone] Markie Gtz PA-C Primary Care Provider [phone] CATHY NDIAYE Referring Unavailable Markie GTZ Primary Care Unavailable Umesh Gtz PA-C Primary Care Provider Unavailable Haagen DREDGE ENGINEER.PUBLIC HEALTH EPIDEMIOLOGIST, Nori Unavailable Suppan DREDGE ENGINEER.ABDULKADIR, Radha A Unavailable Suppan DREDGE ENGINEER.PUBLIC HEALTH EPIDEMIOLOGIST, Radha A Unavailable Suppan DREDGE ENGINEER.ABDULKADIR, Radha A Primary Care Provi marquita SUPPJHOAN, RADHA A Referring Unavailable UMESH GTZ Primary Care Unavailable UMESH GTZ Primary Care Unavailable UMESH GTZ Referring Unavailable UMESH GTZ Primary Care Unavailable HAAGEN, NORI Referring Unavailable GTZUMESH MADISON Primary Care Unavailable HAAGEN, NORI Attending Unavailable SUPPAN, RADHA A Primary Care Unavailable SUPPAN, RADHA A Referring Unavailable SUPPAN, RADHA A Primary Care Unavailable SUPPAN, RADHA A Attending Unavailable UMESH GTZ Primary Care Unavailable CATHY NDIAYE Attending Unavailable SUPPAN, RADHA A Referring Unavailable GTZUMESH MADISON Primary Care Unavailable SUPPAN, RADHA A Referring Unavailable Gtz Markie KUO Primary Care Unavailable Skip, Kb Attending Unavailable Suppan, Radha Primary Care Unavailable Skip, Kb Attending Unavailable Skip, Kb Referring Unavailable Gtz PA M Shivam Referring Unavailable Suppan, Radha Primary Care Unavailable Skip, Kb Attending Unavailable Gtz PA, M Shivam Primary Care Unavailable Gtz PA, M Shivam Referring Unavailable Skip, Kb Attending Unavailable Gtz PA, Markie Langley Primary Care Unavailable Gtz PAMarkie Referring Unavailable Silvio Puente Attending Unavailable Gtz PA, Markie Langley Primary Care Unavailable Skip, Kb Attending Unavailable Skip, Kb Referring Unavailable Gtz AYAAN M Shivam Referring Provider Dr. Kb Valdivia MD Attending Provider [phone] SuppRadha Culp Primary Care Provider [phone] Allergies Allergy Classification Reported Allergen(s) Allergy Type Date of Onset Reaction(s) Facility (20 sources) Seasonal allergy; Translations: [SEASONAL ALLERGIES] Propensity to adverse reactions (disorder) 1 Other: See Comments [facility] Repository Medications Current Medications Medication Drug Class(es) Dates Sig (Normalized) Sig (Original) aspirin 81 mg delayed release oral tablet (1 source) Platelet Aggregation Inhibitor, Nonsteroidal Anti-inflammatory Drug Start: 04-15-2024 take 1 tablet by mouth once daily Aspirin 81 mg tablet,delayed release (DR/EC) Active 81 mg PO DAILY April 15, 2024 12:00am azithromycin 10 mg/ml ophthalmic solution (1 source) Macrolide Antimicrobial Start: 08-13-2022 End: 08-13-2022 take 1 drop(s) into the eye(s) twice daily, then take 1 drop(s) into the eye(s) once daily Azithromycin 1 % ophthalmic solution Indications: Eye drainage One drop twice a day for 2 days, then one drop daily for 5 days to right eye 2.5 mL 0 08/13/2022 08/13/2022 Discontinued (Cost of medication) Comment on above: One drop twice a day for 2 days, then one drop daily for 5 days to right eye ubidecarenone 200 mg oral capsule (20 sources) Start: 08-22-2016 take 10 capsules by mouth once daily Coenzyme Q10 200 MG capsule Active 200 mg PO DAILY August 22, 2016 12:00am coenzyme Q10 (CO ENZYME Q-10) 100 mg cap capsule Take 200 mg by mouth. Active take 1 tablet by mouth once laure y COQ10 200 MG CAPS One tablet by mouth daily COENZYME Q10 [id number] Alexandrea Hyde MD Comment on above: Take 200 mg by mouth . Inhalational Spacing Device (1 source) Start: 01-01-2023 End: 01-01-2023 Inhalational Spacing Device Indications: Post-viral cough syndrome 1 Device one time only for 1 dose. 1 Each 0 01/01/2023 01/01/2023 Active Comment on above: 1 Device one time on ly for 1 dose. multivit with calcium,iron,min (WOMEN'S MULTIPLE VITAMINS ORAL) (20 sources) Start: 08-19-2017 multivit with calcium,iron,min (WOMEN'S MULTIPLE VITAMINS ORAL) 08/19/2017 Active Start: 08-19-2017 multivit with calcium,iron,min (WOMEN'S MULTIPLE VITAMINS ORAL) Multivitamin tablet (1 source) Start: 04-04-2024 Multivitamin tablet Active 1 {tbl} PO DAILY April 04, 2024 12:00am polymyxin b [id number] unt/ml / trimethoprim 1 mg/ml ophthalmic solution (1 source) Dihydrofolate Reductase Inhibitor Antibacterial, Polymyxin-class Antibacterial Start: 08-13-2022 End: 08-18-2022 take 1 drop(s) into the eye(s) every four hours trimethoprim-polymy radha (POLYTRIM) 10,000 unit- 1 mg/mL ophthalmic solution Use 1 Drop in the right eye every 4 hours for 5 days. 1.5 mL 0 08/13/2022 08/18/2022 Active Comment on above: Use 1 Drop in the ri ght eye every 4 hours for 5 days. predniSONE 20 mg oral tablet (2 sources) Start: 01-01-2023 End: 01-05-2023 take 2 tablets by mouth once daily at mealtime predniSONE (DELTASONE) 20 mg tablet Indications: Post-viral cough syndrome Take 2 tablets by mouth once daily for 4 days. Take daily with food. 8 tablet 0 01/01/2023 01/05/2023 Active Comment on above: Take 2 tablets by mo [facility] once daily for 4 days. Take daily with food. levothyroxine sodium 0.025 mg oral tablet (20 sources) l-Thyroxine Start: 11-11-2024 take 1 tablet by mouth once daily levothyroxine (SYNTHROID) 25 mcg tablet Indications: Acquired hypothyroidism TAKE 1 TABLET BY MOUTH ONCE DAILY. TAKE ON AN EMPTY STOMACH 90 tablet 1 11/11/2024 Active Start: 03-27-2016 End: 10-04-2024 take 1 tablet by mouth once daily levothyroxine (SYNTHROID) 25 mcg tablet Indications: Acquired hypothyroidism TAKE 1 TABLET BY MOUTH ONCE DAILY. TAKE ON AN EMPTY STOMACH 90 tablet 1 10/04/2024 10/04/2024 Discontinued Comment on above: TAKE 1 TABLET BY [facility] ONCE DAILY. TAKE ON AN EMPTY STOMACH Completed/Discontinued Medications Medication Drug Class(es) Dates Sig (Normalized) Sig (Original) acetaminophen 325 mg / oxyCODONE hydrochloride 5 mg oral tablet (1 source) Opioid Agonist Start: 04-15-2024 End: 03-22-2025 Oxycodone-Acetami nophen (Endocet) 5-325 mg tablet Discontinued 1 {tbl} PO EVERY 6 HOURS 15 05April 15, 2024 March 22, 2025 1:03pm [id number] 200 actuat albuterol 0.09 mg/actuat metered dose inhaler (3 sources) beta2-Adrenergic Agonist Start: 01-01-2023 End: 02-20-2023 take 2 puff(s) by inhalation every six hours as needed for wheezing albuterol HFA (PROVENTIL HFA, VENTOLIN HFA) 90 mcg/actuation inhaler Indications: Post-viral cough syndrome Inhale 2 Puffs as instructed every 6 hours as needed for wheezing/shortnes s of breath. 1 Each 0 01/01/2023 02/20/2023 Discontinued (Course of therapy completed) Comment on above: Inhale 2 Puffs as in structed every 6 hours as needed for wheezing/shortness of breath. amoxicillin 500 mg oral capsule (1 source) Penicillin-class Antibacterial Start: 04-08-2024 End: 03-22-2025 take 1 capsule by mouth three times daily Amoxicillin 500 mg capsule Discontinued 500 mg PO THREE TIMES A DAY April 08, 2024 12:00am March 22, 2025 1:01pm ascorbic acid 1000 mg oral tablet (1 source) Vitamin C Start: 04-15-2024 End: 03-22-2025 take 1 g by mouth once daily Ascorbic Acid (Vitamin C) (Vitamin C) 1,000 mg tablet Discontinued 1 g PO DAILY April 15, 2024 12:00am March 22, 2025 1:02pm atorvastatin 20 mg oral tablet (20 sources) HMG-CoA Reductase Inhibitor Start: 08-09-2021 End: 02-28-2026 take 1 tablet by mouth once daily at bedtime for hyperlipidemia atorvastatin (LIPITOR) 20 mg tablet Indications: Hyperlipidemia, mixed Take 1 tablet by mouth daily at bedtime. For cholesterol. 90 tablet 1 02/28/2025 02/28/2025 Discontinued Comment on above: Take 1 tablet by ceci th daily at bedtime. For cholesterol. benzonatate 100 mg oral capsule (3 sources) Non-narcotic Antitussive Start: 07-21-2022 End: 08-15-2022 take 100-200 mg by mouth every eight hours as needed for cough and cough benzonatate (TESSALON PERLES) 100 mg capsule Indications: Acute cough Take 1-2 capsules by mouth three times daily as needed. 30 capsule 0 07/21/2022 08/15/2022 Discontinued (Course of therapy completed) Comment on above: Take 1-2 capsules by mouth three times daily as needed. calcium carbonate 1250 mg / cholecalciferol 600 unt oral tablet (1 source) Vitamin D Start: 04-15-2024 End: 03-22-2025 Calcium Carbonate-Vitamin D3 (Os-Erica 500 + D3) 500 mg-15 mcg (600 unit) tablet Discontinued 1 {tbl} PO DAILY April 15, 2024 12:00am March 22, 2025 1:02pm 24 hr dilTIAZem hydrochloride 120 mg extended release oral capsule (20 sources) Calcium Channel Azeem Start: 11-11-2024 End: 02-28-2026 take 1 capsule by mouth once daily dilTIAZem CD (CARDIZEM CD, CARTIA XT) 120 mg 24 hr capsule Indications: WPW (Ezra-Parkinson- White syndrome) , Hypertension, essential Take 1 capsule by mouth once daily. 90 capsule 1 02/28/2025 02/28/2025 Discontinued Start: 08-22-2016 End: 10-04-2024 take 1 capsule by mouth once daily dilTIAZem CD (CARDIZEM CD, CARTIA XT) 12 0 mg 24 hr capsule Indications: WPW (Efscy-Ztttyojto-Htzxo syndrome) Take 1 capsule by mouth once daily. 90 capsule 3 10/04/2024 10/04/2024 Discontinued Comment on above: Take 1 capsule by mo [facility] once daily. docusate sodium 100 mg oral capsule (1 source) Start: End: take 1 capsule by mouth once daily Docusate Sodium (Colace) 100 mg capsule Discontinued 100 mg PO DAILY 07 28April 15, 2024 12:00am March 22, 2025 1:03pm hydroCHLOROthiazide 12.5 mg / lisinopril 20 mg oral tablet (20 sources) Thiazide Diuretic, Angiotensin Converting Enzyme Inhibitor Start: End: take 1 tablet by mouth once daily in the morning lisinopril-hydroCHLO ROthiazide (ZESTORETIC) 20-12.5 mg per tablet Indications: Hypertension, essential Take 1 tablet by mouth every morning. 90 tablet 1 02/28/2025 02/28/2025 Discontinued Comment on above: Take 1 tablet by ceci every morning. Lidocaine (1 source) Antiarrhythmic, Amide Local Anesthetic Start: End: OTHER, NEEDED, Starting on Thu08/12/24 at 1321, Until Thu08/12/24 at 1321, Intraprocedure lisinopril 10 mg oral tablet (7 sources) Angiotensin Converting Enzyme Inhibitor Start: End: take 2 tablets by mouth once daily lisinopril (ZESTRIL, PRINIVIL) 10 mg tablet Take 2 tablets by mouth once daily. 90 tablet 1 09/17/2021 02/13/2022 Discontinued (Dosage adjustment) Start: 10-29-2018 End: 03-22-2024 take 1 tablet by mouth once daily Lisinopril 5 mg tablet Discontinued 5 mg PO DAILY October 29, 2018 1:00am March 22, 2024 2:33pm Comment on above: Take 2 tablets by mo uth once daily. Melatonin (17 sources) End: 02-29-2024 MELATONIN ORAL Take by mouth. 0 02/29/2024 Discontinued MELATONIN ORAL T myles by mouth. 0 Active Comment on above: Take by mouth. meloxicam 15 mg oral tablet (6 sources) Nonsteroidal Anti-inflammatory Drug Start: 3 End: 4 take 1 tablet by mouth once meloxicam (MOBIC) 15 mg tablet Take 1 tablet by mouth every afternoon. 0 07/30/2023 02/29/2024 Discontinued Comment on above: Take 1 tablet by ceci th every afternoon. Problems Active Problems Problem Classification Problem Date Documented Date Episodic/Chronic Cardiac dysrhythmias (20 sources) Ventricular premature depolarization; Translations: [Persistent atrial fibrillation] Onset: 04-15-2016 Resolved: 09-02-2017 09-02-2017 Chronic Conduction disorders (20 sources) Mqcmq-Dlgucuuls-Krstc pattern; Translations: [Pre-excitation syndrome] Onset: 04-15-2016 07-25-2016 Chronic Diabetes mellitus without complication (4 sources) Increased glucose level; Translations: [Other abnormal glucose] Episodic Disorders of lipid metabolism (13 sources) Mixed hyperlipidemia; Translations: [Mixed hyperlipidemia] Onset: 02-28-2025 Chronic Essential hypertension (20 sources) Essential hypertension; Translations: [Essential (primary) hypertension] Onset: 05-25-2015 09-15-2018 Chronic Comment on above: PER PT, CONTROLLED O N MEDS Immunizations and screening for infectious disease (3 sources) Needs influenza immunization; Translations: [Encounter for immunization] Onset: 02-28-2025 Episodic Joint disorders and dislocations; trauma-related (1 source) Acute tear of meniscus of left knee; Translations: [Unspecified tear of unspecified meniscus, current injury, left knee, sequela] 08-24-2023 Episodic Nonmalignant breast conditions (7 sources) Fibrocystic disease of breast; Translations: [Diffuse cystic mastopathy of right breast] Onset: 02-28-2025 10-29-2018 Chronic Nutritional deficiencies (1 source) Vitamin D deficiency; Translations: [Vitamin D deficiency, unspecified] 02-29-2024 Chronic Other and unspecified benign neoplasm (20 sources) Melanocytic nevus of trunk; Translations: [Melanocytic nevi of trunk] Onset: 08-08-2019 08-08-2019 Episodic Other circulatory disease (1 source) H/O: atrial fibrillation; Translations: [Personal history of other diseases of the circulatory system] 03-22-2024 Episodic Comment on above: IN THE PAST Other connective tissue disease (1 source) Disorder of Achilles tendon; Translations: [Unspecified disorder of synovium and tendon, right ankle and foot] 04-06-2024 Episodic Other connective tissue disease (1 source) Right achilles tendonitis; Translations: [Achilles tendinitis, right leg] 04-16-2024 Episodic Other connective tissue disease (1 source) Bursitis of bursa of ankle and/or foot; Translations: [Other bursitis, not elsewhere classified, right ankle and foot] 04-16-2024 Episodic Other connective tissue disease (1 source) Foot pain; Translations: [Pain in right foot] 03-22-2024 Episodic Other connective tissue disease (1 source) Calcaneal spur; Translations: [Calcaneal spur, right foot] 04-16-2024 Episodic Other eye disorders (1 source) Discharge from eye; Translations: [Other specified disorders of eye and adnexa] Episodic Other lower respiratory disease (2 sources) Cough; Translations: [Subacute cough] Episodic Other lower respiratory disease (1 source) Postviral cough; Translations: [Post-viral cough syndrome] Episodic Other nervous system disorders (1 source) Acute postoperative pain; Translations: [Other acute postprocedural pain] 04-15-2024 Episodic Pulmonary heart disease (4 sources) Pulmonary hypertension, unspecified; Translations: [Mild pulmonary hypertension] Onset: 03-22-2025 03-22-2025 Chronic Screening and history of mental health and substance abuse codes (4 sources) Patient encounter status; Translations: [Encounter for screening for depression] Onset: 02-28-2025 02-28-2025 Episodic Thyroid disorders (20 sources) Hypothyroidism; Translations: [Acquired hypothyroidism] Onset: 05-23-2010 07-25-2016 Chronic Unclassified (20 sources) Mammography abnormal; Translations: [Mammographic breast mass] Onset: 07-06-2015 Resolved: 07-06-2015 07-25-2016 Episodic Comment on above: right breast at 7 Oc lock Unclassified (1 source) Cancer cervix screening status 02-28-2025 Unclassified (1 source) Supraventricular tachycardia, unspecified; Translations: [Supraventricular tachycardia, unspecified] Onset: 04-15-2024 Past or Other Problems Problem Classification Problem Date Documented Da te Episodic/Chronic Nonmalignant breast conditions (7 sources) Breast lump; Translations: [Lesion of breast] Onset: 07-25-2016 03-12-2017 Episodic Other and unspecified benign neoplasm (1 source) Melanocytic nevi of trunk; Translations: [Melanocytic nevus of trunk] Onset: 08-08-2019 Episodic Other circulatory disease (1 source) Personal history of other diseases of the circulatory system; Translations: [Personal history of other diseases of the circulatory system] Onset: 04-04-2024 Episodic Other connective tissue disease (1 source) Achilles tendinitis, right leg; Translations: [Achilles tendinitis, right leg] Onset: 04-25-2024 Episodic Results Test Name Value Interpretation Reference Range Facility Cardiology Visit Reporton Cardiology Visit Report [facility] [address] [place] [address] OFFICE VISIT Date of Service: 03/22/25 MR#: [id number] Acct: [id number] Name: BRITT CARBALLO Rep #: [id number] : 1960 Provider: Dr. 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 Denies any complaints. No palpitations. No chest pains. No shortness of breath. No orthopnea or PND. No ankle edema. Intake Vital Signs 04/15/24 12:07 03/22/25 07:58 Height 5 ft 6 in 5 ft 6 in Weight: 185 lb BMI 29.8 BP 140/86 H Blood Pressure Location Lt brachial Position Sitting Respiration 16 Pulse 80 Pulse Source NIBP Intake Visit Reasons: 1 Y FU Line Maintainer Required: No Accompanied by: Self Is patient in pain?: No Allergies No Known Allergies Allergy (Verified 03/22/25 13:01) Medications ???Medication ???Instructions ???Recorded ???Confirmed ???Type levothyroxine 25 mcg tablet 25 mcg PO DAILY 03/27/16 03/22/25 History coenzyme Q10 200 mg capsule 200 mg PO DAILY 08/22/16 03/22/25 History diltiazem HCl 120 mg 120 mg PO DAILY 08/22/16 03/22/25 History capsule,extended release 24 hr atorvastatin 20 mg tablet 20 mg PO QHS 03/01/24 03/22/25 His tory lisinopril 20 1 tab PO DAILY 03/22/24 03/22/25 H istory mg-hydrochlorothiazide 12.5 mg tablet multivitamin 1 tab PO DAILY 04/04/24 03/22/25 H istory aspirin 81 mg tablet,delayed 81 mg PO DAILY 30 days #30 tabs 03/22/25 Rx release Ejection fraction %: 65 Have you fallen in the past year?: No PFSH Medical History (Updated 03/22/25 @ 13:[address] Kb Valdivia MD) Sayda deformity of right heel Loose, teeth Hyperlipidemia SVT (supraventricular tachycardia) PVC (premature ventricular contraction) Diffuse cystic mastopathy of left breast Right foot pain Wears glasses Alcohol use Thyroid disease High cholesterol Non-smoker History of stress test History of echocardiogram Cardiology follow-up encounter History of atrial fibrillation History of irregular heartbeat Hypothyroid HTN (hypertension) Dkpji-Nakgnxtza-Vtqnj (WPW) syndrome Breast lesion on mammography Surgical History Hx of breast biopsy Hx of dilation and curettage Hx of section History of colonoscopy History of tonsillectomy History of arthroplasty of left knee History of cardiac radiofrequency ablation S/P right oophorectomy Family History Brother Diabetes Mother Hypertension Father Hypertension Diabetes Grandmother Breast cancer Grandfather CVA (cerebral vascular accident) Son IBS (irritable bowel syndrome) Social History Smoking Status: Never smoker alcohol intake: current alcohol intake frequency: a few times a week substance use type: does not use caffeine: Yes (2.5 cups/day) Type: coffee Number of servings: 2 ROS Const Const: Negative for fatigue, weakness, headache(s) or weight gain ENT ENT: Negative for headache(s), dizziness, Nosebleed/epistaxis or balance problems Cardio Chest Pain: No Palpitations: No Edema: None Muscle aches with walking: None Resp Respiratory: Negative for SOB with activity, SOB at rest or SOB orthopnea SOB lying down GI GI: Negative nausea, vomiting or heartburn Musc Musc: Positive for joint pain (arthritis; chronic; unchanged); Negative for muscle aches/ myalgia, muscle weakness or balance problems Neuro Neuro: Negative for dizziness, lightheadedness, near syncope, syncope, headache(s) or weakness Endo Endo: Negative for fatigue Cardiology Exam Const Appearance: comfortable and no acute distress Nutritional Appearance: well nourished Neck Neck: no JVD Carotids: Negative bruit Chest Auscultation: Bilateral: Clear to Auscultation Cardio Rate: regular rate Rhythm: regular rhythm Heart sounds: S1 normal and S2 normal Neuro General: patient alert, patient awake and patient oriented x3 Extremities Lower Extremity Edema: None: Bilateral Supplemental Info Supplemental Information Echocardiogram 04/07/2024: Interpretation Summary The left ventricular ejection fraction is 65 %. Diastolic function is indeterminate. The left atrium is mildly enlarged. Right ventricular systolic pressure estimated to be 47 mmHg. ECHOCARDIOGRAM 03/28/16: FINAL IMPRESSIONS Right Ventricle Normal right ventricular size and systolic function Left Atrium Mildly dila (more content not included)... Normal [facility] CBC W Auto Differential pane l (Bld)on 02-28-2025 Basophils (Bld) [#/Vol] 0.05 10*3/uL [facility] Basophils/100 WBC (Bld) 0.9 % [facility] Differential cell count method Nom (Bld) Auto [facility] Eosinophils (Bld) [#/Vol] 0.27 10*3/uL [facility] Eosinophils/100 WBC (Bld) 4.8 % [facility] Erythrocyte distribution width (RBC) [Ratio] 11.8 % 11.5 - 15.0 % [facility] Hematocrit (Bld) [Volume fraction] 42.8 % 36.0 - 46.0 % [facility] Hemoglobin (Bld) [Mass/Vol] 14.2 g/dL 11.5 - 15.5 g/dL [facility] Immature granulocytes (Bld) [#/Vol] [facility] Immature granulocytes/100 WBC (Bld) 0.2 % [facility] Lymphocytes (Bld) [#/Vol] 1.34 10*3/uL [facility] Lymphocytes/100 WBC (Bld) 23.9 % [facility] MCH (RBC) [Entitic mass] 30 pg 26.0 - 34.0 pg [facility] MCHC (RBC) [Mass/Vol] 33.2 g/dL 30.5 - 36.0 g/dL [facility] MCV (RBC) [Entitic vol] 90.5 fL 80.0 - 100.0 fL [facility] Monocytes (Bld) [#/Vol] 0.41 10*3/uL [facility] Monocytes/100 WBC (Bld) 7.3 % [facility] Neutrophils (Bld) [#/Vol] 3.52 10*3/uL [facility] Neutrophils/100 WBC (Bld) 62.9 % [facility] Nucleated RBC (Bld) [#/Vol] [facility] Nucleated RBC/100 WBC (Bld) [Ratio] 0 % /100 WBC [facility] Platelet mean volume (Bld) [Entitic vol] 10.4 fL 9.0 - 12.7 fL [facility] Platelets (Bld) [#/Vol] 278 10*3/uL [facility] RBC (Bld) [#/Vol] 4.73 10*6/uL 3.90 - 5.2 0 m/uL [facility] WBC (Bld) [#/Vol] 5.6 10*3/uL [facility] Basophils (Bld) [#/Vol] 0.05 10*3/uL Normal <0.11 [facility] Comment on above: Order Comment: Speci men Type: BLOOD SPECIMENOrdering Facility: [facility] Address: [address] [place] [address] Performed By: #### [id number] 7021-8 ####[facility] LABCLIA [id number] [address] [place] Basophils/100 WBC (Bld) 0.9 % Normal [facility] Comment on above: Order Comment: Speci men Type: BLOOD SPECIMENOrdering Facility: [facility] Address: [address] [place] [address] Performed By: #### 5 7021-8 ####[facility] LABCLIA [id number] [place] [address] [place] Differential cell count method Nom (Bld) Auto Normal [facility] Comment on above: Order Comment: Speci men Type: BLOOD SPECIMENOrdering Facility: [facility] Address: [address] [place] [address] Performed By: #### 5 7021-8 ####[facility] LABCLIA [id number] [place] [address] [place] Eosinophils (Bld) [#/Vol] 0.27 10*3/uL Normal <0.46 [facility] Comment on above: Order Comment: Speci men Type: BLOOD SPECIMENOrdering Facility: [facility] Address: [address] [place] [address] Performed By: #### 5 7021-8 ####[facility] LABCLIA [id number] [place] [address] [place] Eosinophils/100 WBC (Bld) 4.8 % Normal [facility] Comment on above: Order Comment: Speci men Type: BLOOD SPECIMENOrdering Facility: [facility] Address: [address] [place] [address] Performed By: #### 5 7021-8 ####[facility] LABCLIA [id number] [place] [address] [place] Erythrocyte distribution width (RBC) [Ratio] 11.8 % Normal 11.5-15.0 [facility] Comment on above: Order Comment: Speci men Type: BLOOD SPECIMENOrdering Facility: [facility] Address: [address] [place] [address] Performed By: #### 5 7021-8 ####[facility] LABCLIA [id number] [place] [address] [place] Hematocrit (Bld) [Volume fraction] 42.8 % Normal 36.0-46.0 [facility] Comment on above: Order Comment: Speci men Type: BLOOD SPECIMENOrdering Facility: [facility] Address: [address] [place] [address] Performed By: #### 5 7021-8 ####[facility] LABCLIA [id number] [address], [place] [address] [place] Hemoglobin (Bld) [Mass/Vol] 14.2 g/dL Normal 11.5-15.5 [facility] Comment on above: Order Comment: Speci men Type: BLOOD SPECIMENOrdering Facility: [facility] Address: [address] [place] [address] Performed By: #### 5 7021-8 ####[facility] LABCLIA [id number] [place] [address] [place] Immature granulocytes (Bld) [#/Vol] 10*3/uL Normal <0.10 [facility] Comment on above: Order Comment: Speci men Type: BLOOD SPECIMENOrdering Facility: [facility] Address: [address] [place] [address] Performed By: #### 5 7021-8 ####[facility] LABCLIA [id number] [place] [address] [place] Immature granulocytes/100 WBC (Bld) 0.2 % Normal [facility] Comment on above: Order Comment: Speci men Type: BLOOD SPECIMENOrdering Facility: [facility] Address: [address] [place] [address] Performed By: #### 5 7021-8 ####[facility] LABCLIA [id number] [place] [id number] [place] Lymphocytes (Bld) [#/Vol] 1.34 10*3/uL Normal 1.00-4.00 [facility] Comment on above: Order Comment: Speci men Type: BLOOD SPECIMENOrdering Facility: [facility] Address: [address] [place] [address] Performed By: #### 5 7021-8 ####[facility] LABIA [id number] [place] [address] [place] Lymphocytes/100 WBC (Bld) 23.9 % Normal [facility] Comment on above: Order Comment: Speci men Type: BLOOD SPECIMENOrdering Facility: [facility] Address: [address] [place] [address] Performed By: #### 5 7021-8 ####[facility] LABIA [id number] [place] [address] [place] MCH (RBC) [Entitic mass] 30.0 pg Normal 26.0-34.0 [facility] Comment on above: Order Comment: Speci men Type: BLOOD SPECIMENOrdering Facility: [facility] Address: [address] [place] [address] Performed By: #### 5 7021-8 ####[facility] LABIA [id number] [place] [address] [place] MCHC (RBC) [Mass/Vol] 33.2 g/dL Normal 30.5-36.0 [facility] Comment on above: Order Comment: Speci men Type: BLOOD SPECIMENOrdering Facility: [facility] Address: [address] [place] [address] Performed By: #### 5 7021-8 ####[facility] LABIA [id number] [place] [address] [place] MCV (RBC) [Entitic vol] 90.5 fL Normal 80.0-100.0 [facility] Comment on above: Order Comment: Speci men Type: BLOOD SPECIMENOrdering Facility: [facility] Address: [address] [place] [address] Performed By: #### 5 7021-8 ####[facility] LABCLIA [id number] [facility] [address], [place] [address] [place] Monocytes (Bld) [#/Vol] 0.41 10*3/uL Normal <0.87 [facility] Comment on above: Order Comment: Speci men Type: BLOOD SPECIMENOrdering Facility: [facility] Address: [address] [place] [address] Performed By: #### 5 7021-8 ####[facility] LABCLIA [id number] [address], [place] [address] [place] Monocytes/100 WBC (Bld) 7.3 % Normal [facility] Comment on above: Order Comment: Speci men Type: BLOOD SPECIMENOrdering Facility: [facility] Address: [address] [place] [address] Performed By: #### 5 7021-8 ####[facility] LABCLIA [id number] [place] [address] [place] Neutrophils (Bld) [#/Vol] 3.52 10*3/uL Normal 1.45-7.50 [facility] Comment on above: Order Comment: Speci men Type: BLOOD SPECIMENOrdering Facility: [facility] Address: [address] [place] [address] Performed By: #### 5 7021-8 ####[facility] LABCLIA [id number] [place] [id number] [place] Neutrophils/100 WBC (Bld) 62.9 % Normal [facility] Comment on above: Order Comment: Speci men Type: BLOOD SPECIMENOrdering Facility: [facility] Address: [address] [place] [address] Performed By: #### 5 7021-8 ####[facility] LABCLIA [id number] [address], [facility] [place] Nucleated RBC (Bld) [#/Vol] 10*3/uL Normal <0.01 [facility] Comment on above: Order Comment: Speci men Type: BLOOD SPECIMENOrdering Facility: [facility] Address: [address] [place] [address] Performed By: #### 5 7021-8 ####[facility] LABCLIA [id number] [place] [address] [place] Nucleated RBC/100 WBC (Bld) [Ratio] 0.0 /100 WBC Normal [facility] Comment on above: Order Comment: Speci men Type: BLOOD SPECIMENOrdering Facility: [facility] Address: [address] [place] [address] Performed By: #### 5 7021-8 ####[facility] LABIA [id number] [place] [address] [place] Platelet mean volume (Bld) [Entitic vol] 10.4 fL Normal 9.0-12.7 [facility] Comment on above: Order Comment: Speci men Type: BLOOD SPECIMENOrdering Facility: [facility] Address: [address] [place] [address] Performed By: #### 5 7021-8 ####[facility] LABIA [id number] [place] [address] [place] Platelets (Bld) [#/Vol] 278 10*3/uL Normal 150-400 [facility] Comment on above: Order Comment: Speci men Type: BLOOD SPECIMENOrdering Facility: [facility] Address: [address] [place] [address] Performed By: #### 5 7021-8 ####[facility] LABIA [id number] [place] [address] [place] RBC (Bld) [#/Vol] 4.73 10*6/uL Normal 3.90-5.20 [facility] Comment on above: Order Comment: Speci men Type: BLOOD SPECIMENOrdering Facility: [facility] Address: [address] [place] [id number] Performed By: #### 5 7021-8 ####[facility] [id number] [place] [id number] [place] WBC (Bld) [#/Vol] 5.60 10*3/uL Normal 3.70-11.00 [facility] Comment on above: Order Comment: Speci men Type: BLOOD SPECIMENOrdering Facility: [facility] Address: [address] [place] [address] Performed By: #### 5 7021-8 ####[facility] [id number] [place] [id number] [place] CNOVon 02-28-2025 CNOV Office Visit (FAMPWS ) FELECIA CARBALLO ([id number]) 1960 [facility] Time Provider Department 02/28/25 9:00 AM [facility] visit today, we recorded the following information about you: Pulse Blood pressure Weight 92/minute 116/78 83 kg Radha Hummel, DREDGE ENGINEER.[facility] 02/28/2025 9:49 AM Signed This is a 64 year old female who presents today with: Patient presents with: Establish Care: TRANSFER JANUSZ EISENBERG PT HISTORY OF PRESENT ILLNESS: Felecia Craballo is a 64 year old female. Patient presents with: Jillian Care: JANUSZ JOHNS PT Britt is a 64-year-old female presenting for evaluation of hair loss, follow-up on a recent breast biopsy, and left knee pain. Hair Loss: - Noticed hair loss; unsure if related to thyroid medication or aging. - No recent weight loss or gain. - Denies fever, chills, headaches, or neck swelling. Breast Biopsy Follow-Up: - Recent needle biopsy of the right breast was benign. - Confused about a letter recommending a follow-up in January, questioning the need for frequent visits to [place] for mammograms. Left Knee Pain: - History of left knee meniscus tear in 2022. - Experiences pain when using the elliptical machine. - Inquires whether to continue exercising through the pain. - Denies muscle aches or joint pain elsewhere. Arthritis: - Diagnosed with arthritis of the neck following an MRI for a meniscus tear. Skin Lesions: - Noticed spots on the back. 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 Martinez COLONOSCOPY FLX DX W/COLLJ SPEC WHEN PFRMD 07/06/2015 Colonoscopy EP STUDY 06/02/16 Dr. Martinez EVENT MONITOR 07/02/2016 30 day OOPHORECTOMY PARTIAL/TOTAL UNI/BI 10/04/08 right ovary PAST SURGICAL HISTORY OF dANDc PAST SURGICAL HISTORY OF 10/04/07 excision pelvic dermoid cyst, teratoma PLCIA LOCALZTN CLIP,PERC,DURING BREAST BX 10/04/07 RIGHT TONSILLECTOMY AND ADENOIDECTOMY ALEX CUT BX BREAST MASS Right 08/22/2016 UNLISTED PROCEDURE DENTOALVEOLAR STRUCTURES wisdom teeth US BRST CYST ASP PUNC RT 02/24/09 Right breast cysts x 3 aspirated ALLERGIES Seasonal Allergies MEDICATIONS Current Outpatient Medications Medication Sig levothyroxine (SYNTHROID) 25 mcg tablet TAKE 1 TABLET BY MOUTH ONCE DAILY. TAKE ON AN EMPTY STOMACH multivit with calcium,iron,min (WOMEN'S MULTIPLE VITAMINS ORAL) coenzyme Q10 (COENZYME Q-10) 100 mg cap capsule Take 200 mg by mouth. atorvastatin (LIPITOR) 20 mg tablet Take 1 tablet by mouth daily at bedtime. For cholesterol. dilTIAZem CD (CARDIZEM CD, CARTIA XT) 120 mg 24 hr capsule Take 1 capsule by mouth once daily. lisinopril-hydroCHLORO thiazide (ZESTORETIC) 20-12.5 mg per tablet Take 1 tablet by mouth every morning. No current facility-administered medications for this visit. FAMILY HISTORY Problem Relation Age of Onset Hypertension Mother Diabetes Father Hypertension Father Diabetes Brother Breast Cancer Paternal Grandmother Stroke Paternal Grandfather GI Son IBS Social History Tobacco Use Smoking status: Never Smokeless tobacco: Never Substance Use Topics Alcohol use: Yes Alcohol/week: 3.0 standard drinks of alcohol Types: 3 Glasses of wine per week Comment: moderate Drug use: No REVIEW OF SYSTEMS Constitutional: (-) fever, (-) chills, (-) weight loss, (-) weight gain Head: (-) headaches Eyes: (-) visual disturbances Ears/Nose/Mouth/Throat : (-) hearing changes Neck: (-) neck swelling Cardiovascular: (-) chest pain, (-) palpitations, (-) leg swelling Respiratory: (-) cough, (-) wheezing, (-) shortness of breath Gastrointestinal: (-) nausea, (-) vomiting, (-) diarrhea, (-) constipation, (-) heartburn Genitourinary: (-) dysuria, (-) hematuria Musculoskeletal: (-) myalgia, (+) left knee pain Skin: (+) back lesions (?spots?) Neurological: (-) seizures, (-) strokes, (-) tremors Endocrine: (+) hair loss EXAM: BP 116/78 Pulse 92 Wt 83 kg (183 lb) LMP 07/19/2015 SpO2 98% BMI 30.45 kg/m? PHYSICAL EXAM: GENERAL: NAD, alert and oriented. SKIN: Unremarkable, no rash or skin lesions. Actinic keratosis- right side of back- 2 that are about 1 cm. (more content not included)... Normal [facility] Comprehensive metabolic 2000 panelon 02-28-2025 Albumin [Mass/Vol] 4.6 g/dL Normal 3.9-4.9 [facility] Comment on above: Order Comment: Speci men Type: BLOOD SPECIMENOrdering Facility: [facility] Address: [address] [place] [address] Performed By: #### 2 4323-05, 2132-06 ####[facility] LABCLIA [id number] [address] [address] [place] ALP [Catalytic activity/Vol] 43 U/L Normal 34-123 [facility] Comment on above: Order Comment: Speci men Type: BLOOD SPECIMENOrdering Facility: [facility] Address: [address] [place], [place] [address] Performed By: #### 2 4323-05, 2132-06 ####[facility] LABCLIA [id number] [place] [id number] [place] ALT [Catalytic activity/Vol] 20 U/L Normal 7-38 [facility] Comment on above: Order Comment: Speci men Type: BLOOD SPECIMENOrdering Facility: [facility] Address: [address] [place], [place] [address] Performed By: #### 2 4323-05, 2132-06 ####[facility] LABCLIA [id number] [place] [id number] [place] Anion gap [Moles/Vol] 15 mmol/L Normal 8-15 [facility] Comment on above: Order Comment: Speci men Type: BLOOD SPECIMENOrdering Facility: [facility] Address: [address] [place] [address] Performed By: #### 2 4323-05, 2132-06 ####[facility] LABIA [id number] [address] [address] [place] AST [Catalytic activity/Vol] 19 U/L Normal 13-35 [facility] Comment on above: Order Comment: Speci men Type: BLOOD SPECIMENOrdering Facility: [facility] Address: [address] [place] [address] Performed By: #### 2 4323-05, 2132-06 ####[facility] LABCLIA [id number] [address] [address] [place] Bilirubin [Mass/Vol] 0.4 mg/dL Normal 0.2-1.3 [facility] Comment on above: Order Comment: Speci men Type: BLOOD SPECIMENOrdering Facility: [facility] Address: [address] [place], [place] [address] Performed By: #### 2 4328, 2132-06 ####[facility] LABCLIA [id number] [address] [address] [place] Calcium [Mass/Vol] 10.2 mg/dL Normal 8.5-10.2 [facility] Comment on above: Order Comment: Speci men Type: BLOOD SPECIMENOrdering Facility: [facility] Address: [address] [place] [address] Performed By: #### 2 43212-24, 2132-06 ####[facility] LABCLIA [id number] [place] [id number] [place] Chloride [Moles/Vol] 103 mmol/L Normal 98-107 [facility] Comment on above: Order Comment: Speci men Type: BLOOD SPECIMENOrdering Facility: [facility] Address: [address] [place], [place] [address] Performed By: #### 2 43212-24, 2132-06 ####[facility] LABCLIA [id number] [address] [address] [place] CO2 [Moles/Vol] 23 mmol/L Normal 22-30 [facility] Comment on above: Order Comment: Speci men Type: BLOOD SPECIMENOrdering Facility: [facility] Address: [address] [place], [place] [address] Performed By: #### 2 43238, 2132-06 ####[facility] LABCLIA [id number] [address] [address] [place] Creatinine [Mass/Vol] 0.85 mg/dL Normal 0.58-0.96 [facility] Comment on above: Order Comment: Felix saleh Type: BLOOD SPECIMENOrdering Facility: [facility] Address: [address] [place] [id number] Performed By: #### 2 4323-8, 2132-06 ####[facility] LABCLIA [id number] [place] [address] [facility] Creatinine and Glomerular filtration rate.predicted panel (S/P/Bld) 78 mL/min/1.73m??? Normal >=60 [facility] Comment on above: Order Comment: Felix saleh Type: BLOOD SPECIMENOrdering Facility: [facility] Address: [address] [place] [address] Result Comment: Heather mated Glomerular Filtration Rate (eGFR) is calculated using the 2020 CKD-EPI creatinine equation. This equation utilizes serum creatinine, sex, and age as parameters. The creatinine assay has traceable calibration to isotope dilution-mass spectrometry. Refer to KDIGO guidelines for clinical interpretation. In patients with unstable renal function, e.g. those with acute kidney injury, the eGFR may not accurately reflect actual GFR. Performed By: #### 2 8, 2132-06 ####[facility] LABCLIA [id number] [place] [id number] [place] Glucose [Mass/Vol] 108 mg/dL High 74-99 [facility] Comment on above: Order Comment: Felix saleh Type: BLOOD SPECIMENOrdering Facility: [facility] Address: [address] [place] [address] Result Comment: The [place] Diabetes Association (ADA) provides guidance for cutoff values for fasting glucose and random glucose. The ADA defines fasting as no caloric intake for at least 8 hours. Fasting plasma glucose results between 100 to 125 mg/dL indicate increased risk for diabetes (prediabetes). Fasting plasma glucose results greater than or equal to 126 mg/dL meet the criteria for diagnosis of diabetes. In the absence of unequivocal hyperglycemia, results should be confirmed by repeat testing. In a patient with classic symptoms of hyperglycemia or hyperglycemic crisis, random plasma glucose results greater than or equal to 200 mg/dL meet the criteria for diagnosis of diabetes. Reference: Standards of Medical Care in Diabetes 2016, [place] Diabetes Association. Diabetes Care. 2016.39(Suppl 1). Performed By: #### 2 4323-05, 2132-06 ####[facility] LABCLIA [id number] [address] [address] [place] Potassium [Moles/Vol] 4.2 mmol/L Normal 3.7-5.1 [facility] Comment on above: Order Comment: Speci men Type: BLOOD SPECIMENOrdering Facility: [facility] Address: [address] [place] [address] Performed By: #### 2 4323-05, 2132-06 ####[facility] LABIA [id number] [address] [address] [place] Protein [Mass/Vol] 7.1 g/dL Normal 6.3-8.0 [facility] Comment on above: Order Comment: Speci men Type: BLOOD SPECIMENOrdering Facility: [facility] Address: [address] [place] [address] Performed By: #### 2 4323-05, 2132-06 ####[facility] LABIA [id number] [address] [address] [place] Sodium [Moles/Vol] 141 mmol/L Normal 136-144 [facility] Comment on above: Order Comment: Speci men Type: BLOOD SPECIMENOrdering Facility: [facility] Address: [address] [place] [address] Performed By: #### 2 4323-05, 2132-06 ####[facility] LABIA [id number] [address] [address] [place] Urea nitrogen [Mass/Vol] 12 mg/dL Normal 7-21 [facility] Comment on above: Order Comment: Speci men Type: BLOOD SPECIMENOrdering Facility: [facility] Address: [address] [place] [address] Performed By: #### 2 4323-8, 2132-9 ####[facility] LABCLIA [id number] [address] [place] LIPID PANEL, NONFASTINGon Cholesterol [Mass/Vol] 158 mg/dL Normal <200 [facility] Comment on above: Order Comment: Speci men Type: BLOOD SPECIMENOrdering Facility: [facility] Address: [address] [place] [address] Result Comment: <200 mg/dL, Desirable 200-239 mg/dL, Borderline high >239 mg/dL, High Performed By: #### L IPDL, , 6-3, 3024-7 ####[facility] LABCLIA [id number] [address] [place] HDL CHOLESTEROL, NF 36 mg/dL Low >39 [facility] Comment on above: Order Comment: Felix men Type: BLOOD SPECIMENOrdering Facility: [facility] Address: [address] [place] [address] Result Comment: 40-5 9 mg/dL, Acceptable >59 mg/dL, High: Negative risk factor for coronary heart disease <40 mg/dL, Low: Positive risk factor for coronary heart disease Performed By: #### L IPNF, , 6-3, 3024-7 ####[facility] LABCLIA [id number] [address] [place] LDL CHOLESTEROL CALCULATED, NF 87 mg/dL Normal <100 [facility] Comment on above: Order Comment: Oliviai [facility] Type: BLOOD SPECIMENOrdering Facility: [facility] Address: [address] [place] [address] Result Comment: <100 mg/dL, Optimal 100-129 mg/dL, Near optimal/above optimal 130-159 mg/dL, Borderline high 160-189 mg/dL, High >189 mg/dL, Very high Secondary prevention optimal LDL Cholesterol levels are recommended to be <70 mg/dL LDL cholesterol is calculated using the Murillo-NIH equation. Performed By: #### L IPDL, 02772-1, 3015-3, 7 ####[facility] LABCLIA [id number] [address] [address] [facility] LDL/HDL RATIO, NF 2.42 mg/dL Normal <2.54 [facility] Comment on above: Order Comment: Speci men Type: BLOOD SPECIMENOrdering Facility: [facility] Address: [address] [place] [address] Result Comment: Refe rence: 1. National Cholesterol Education Program ATP III Guideline At-A-Glance Quick Desk Reference: National Heart, Lung, and Blood [place]. National Institutes of Health. 2001: NIH Publication No. 01-3305. 2. An International Atherosclerosis Society position paper: global recommendations for the management of dyslipidemia: executive summary, Atherosclerosis. 2014: 232(2):410-413. Performed By: #### L IPDL, , 3015-12, 3024-04 ####[facility] LABCLIA [id number] [address] [address] [place] [facility] NON HDL CHOL, NF 122 mg/dL Normal <130 [facility] Comment on above: Order Comment: Felix men Type: BLOOD SPECIMENOrdering Facility: [facility] Address: [address] [place] [address] Result Comment: <130 mg/dL, Optimal 130-159 mg/dL, Near optimal/above optimal 160-189 mg/dL, Borderline high 190-219 mg/dL, High >219 mg/dL, Very high Secondary prevention optimal non HDL Cholesterol levels are recommended to be <100 mg/dL Performed By: #### L IPNF, 41293-5, 3015-3, 7 ####[facility] LABCLIA [id number] [address] [address] [facility] T CHOL/HDL RATIO NF 4.39 mg/dL Normal <5.10 [facility] Comment on above: Order Comment: Speci men Type: BLOOD SPECIMENOrdering Facility: [facility] Address: [address] [place] [address] Performed By: #### L IPNF, , 3015-12, 3024-04 ####[facility] LABCLIA [id number] [place] [address] [place] TRIGLYCERIDES, NF 205 mg/dL High <150 [facility] Comment on above: Order Comment: Speci men Type: BLOOD SPECIMENOrdering Facility: [facility] Address: [address] [place] [address] Result Comment: <150 mg/dL, Normal 150-199 mg/dL, Borderline high 200-499 mg/dL, High >499 mg/dL, Very high Performed By: #### L TARIK, , 3015-12, 3024-04 ####[facility] LABCLIA [id number] [place] [address] [place] VLDL CHOLESTEROL, NF 32 mg/dL High <30 [facility] Comment on above: Order Comment: Speci men Type: BLOOD SPECIMENOrdering Facility: [facility] Address: [address] [place] [address] Performed By: #### L TARIK, , 3015-12, 3024-04 ####[facility] LABCLIA [id number] [place] [address] [place] Magnesium SerPl-mCncon 02-28 Magnesium [Mass/Vol] 2.2 mg/dL Normal 1.7-2.3 [facility] Comment on above: Order Comment: Speci men Type: BLOOD SPECIMENOrdering Facility: [facility] Address: [address] [place] [address] Performed By: #### L IPDL, , 3015-12, 3024-04 ####[facility] LABCLIA [id number] [place] [address] [place] T4 Free SerPl-mCncon 025 Free T4 [Mass/Vol] 1.5 ng/dL Normal 0.9-1.7 [facility] Comment on above: Order Comment: Speci men Type: BLOOD SPECIMENOrdering Facility: [facility] Address: [address] [place] [address] Performed By: #### L IPNF, 60456-9, 3016-3, 3024-7 ####[facility] LABCLIA [id number] [place] [address] [place] TSH SerPl-aCncon 02-28-2025 TSH Qn 2.160 m[IU]/L Normal 0.270-4.200 [facility] Comment on above: Order Comment: Speci men Type: BLOOD SPECIMENOrdering Facility: [facility] Address: [address] [place] [address] Performed By: #### L IPNF, 80306-9, 6-3, 3024-7 ####[facility] [id number] [address] [place] Vit B12 SerPl-ncon 025 Cobalamin (Vitamin B12) [Mass/Vol] 320 pg/mL Normal 232-1245 [facility] Comment on above: Order Comment: Speci men Type: BLOOD SPECIMENOrdering Facility: [facility] Address: [address] [place] [address] Performed By: #### 2 4323-8, 2132-9 ####[facility] [id number] [address] [place] CNPKaruna 08-16-2024 CNPN Telephone (ASWSTR) FELECIA CARBALLO ([id number]) 1960 F ERICA Date Time Provider Department 08/16/24 CATHY NDIAYE ASWSTR During your visit today, we recorded the following information about you: Cathy Ndiaye MD 08/16/2024 10:39 AM Signed Told patient pathology report - no breast cancer seen. Can follow up with her PCP for repeat right breast mammograms in 6 months. Patient acknowledges the above Allergies As of Date: 08/16/2024 Noted Allergy Reaction SEASONAL ALLERGIES 03/27/2011 14 - Other: See Comments Comments: Sinus head aches Date Reviewed: 08/12/2024 Reviewed by: Esha Herring, RT(R) - Fully Assessed Reason for Visit: Results [95] Prescriptions as of 08/16/2024 - lisinopril-hydroCHLORO thiazide (ZESTORETIC) 20-12.5 mg per tablet Take 1 tablet by mouth every morning. - atorvastatin (LIPITOR) 20 mg tablet Take 1 tablet by mouth daily at bedtime. For cholesterol. - levothyroxine (SYNTHROID) 25 mcg tablet TAKE 1 TABLET BY MOUTH ONCE DAILY. TAKE ON AN EMPTY STOMACH - dilTIAZem CD (CARDIZEM CD, CARTIA XT) 120 mg 24 hr capsule Take 1 capsule by mouth once daily. - multivit with calcium,iron,min (WOMEN'S MULTIPLE VITAMINS ORAL) - coenzyme Q10 (COENZYME Q-10) 100 mg cap capsule Take 200 mg by mouth. Problem List As Of Date 08/16/2024 Noted Resolved Hypothyroidism [E03.9] 05/23/2010 Hypertension, essential [I10] 05/25/2015 Special screening for malignant neoplasms, colo*07/06/2015 07/06/2015 WPW (Cgugy-Dwmzmdaqc-Slopr syndrome) [I45.6] 04/15/2016 Persistent atrial fibrillation (HCC) [I48.19] 04/15/2016 09/02/2017 A-fib (HCC) [I48.91] 09/02/2017 Melanocytic nevus of trunk [D22.5] 08/08/2019 Encounter Status:Closed by CATHY NDIAYE on 08/16/24 [facility] FELECIA CARBALLO ([id number]) 1960 F ER[place] Date Time Provider Department 08/16/24 WHITNEY BAEZA During your visit today, we recorded the following information about you: Allergies As of Date: 08/16/2024 Noted Allergy Reaction SEASONAL ALLERGIES 03/27/2011 14 - Other: See Comments Comments: Sinus head aches Date Reviewed: 08/12/2024 Reviewed by: Esha Herring, RT(R) - Fully Assessed Reason for Visit: Results [95] Prescriptions as of 08/16/2024 - lisinopril-hydroCHLORO thiazide (ZESTORETIC) 20-12.5 mg per tablet Take 1 tablet by mouth every morning. - atorvastatin (LIPITOR) 20 mg tablet Take 1 tablet by mouth daily at bedtime. For cholesterol. - levothyroxine (SYNTHROID) 25 mcg tablet TAKE 1 TABLET BY MOUTH ONCE DAILY. TAKE ON AN EMPTY STOMACH - dilTIAZem CD (CARDIZEM CD, CARTIA XT) 120 mg 24 hr capsule Take 1 capsule by mouth once daily. - multivit with calcium,iron,min (WOMEN'S MULTIPLE VITAMINS ORAL) - coenzyme Q10 (COENZYME Q-10) 100 mg cap capsule Take 200 mg by mouth. Problem List As Of Date 08/16/2024 Noted Resolved Hypothyroidism [E03.9] 05/23/2010 Hypertension, essential [I10] 05/25/2015 Special screening for malignant neoplasms, colo*07/06/2015 07/06/2015 WPW (Aaudo-Whcjsgxtl-Oqtrp syndrome) [I45.6] 04/15/2016 Persistent atrial fibrillation (HCC) [I48.19] 04/15/2016 09/02/2017 A-fib (HCC) [I48.91] 09/02/2017 Melanocytic nevus of trunk [D22.5] 08/08/2019 Encounter Status:Closed by WHITNEY BAEZA on 08/16/24 [facility] - right diagnosti c for implanton 08-12-2024 IMPRESSION: ULTRASOU ND GUIDED BIOPSY Site 1: Successful ultrasound guided biopsy of the mass at 7 o'clock, 1 cm from the nipple in the right breast with placement of a clip was successful. Waiting for pathology results. A final report will be issued when these become available. Interpreting Radiologist: Melissa Jean M.D. Electronically signed on: 08/12/2024 Band Instrument Repairer: ROBERT Transcribe Date/Time: Aug 12 2024 1:38P Dictated by : MELISSA JEAN MD This examination was interpreted and the report reviewed and electronically signed by: MELISSA JEAN MD on Aug 12 2024 2:12PM EST [facility] * * *Final Report* * * DATE OF EXAM: Aug 12 2024 2:08PM AAW 0629 - RANJAN DIAG Earnest BISHOP RT / PROCEDURE REASON: Abnormal ultrasound of breast * * * * Physician Interpretation * * * * [facility] [address] [place] [address] HISTORY: 64 year old patient presents for ultrasound guided core biopsy of mass at 7 o'clock, 1 cm from the nipple in the right breast. PATIENT CONSENT: A time out was performed immediately prior to procedure start with the radiology team, correctly identifying the patient name, date of , procedure, anatomy (including marking of site and side), patient position, relevant diagnostic and radiology test results, safety precautions, and procedure-specific equipment needs. The procedure was explained to the patient including the risks, benefits and alternatives. Medications and allergies were also reviewed. The risks, including but not limited to infection and bleeding, were reviewed by the performing physician and the patient agreed to undergo the procedure. The radiologist and technologist were present throughout the entire procedure. Correlation is made to exams dated: 02/21/2022 (mammogram), 06/22/2024 (mammogram), 07/20/2024 (mammogram), 07/20/2024 (ultrasound) and 08/12/2024 (mammogram). Site 1: Audible Time Out Time: 1317 Procedure Start Time: 1320 Procedure Stop Time: 1325 An ultrasound guided biopsy using real-time ultrasound was performed for the concerning mass located in the right breast at 7 o'clock 1 cm from the nipple. This was described on the previous ultrasound report. The skin was prepped in the usual manner. Local anesthetic was administered to the access site. A skin valente was made in the breast. The abnormality was approached from the superior aspect. A 14 gauge biopsy needle was placed adjacent to the abnormality under ultrasound guidance. Once the needle was documented to be in the correct location, 1 pass was made using a spring-loaded biopsy device. A coil biopsy marker was then placed under sonographic guidance. A skin closure strip and a sterile dressing were applied to the access site. During the procedure, there were no biopsy complications observed. The specimens were sent to the laboratory for pathological analysis. Post procedure imaging demonstrates the clip in appropriate position at the biopsy target. The breasts are extremely dense, which lowers the sensitivity of mammography. Please note: the biopsied area does not correlate with the marked mammographic finding from the 07.20.2024 study. However, after re review with comparisons from 02.18.2022, the area in the right breast is stable and consistent with benign fibroglandular tissue. [facility] * * *Final Report* * * DATE OF EXAM: Aug 12 2024 2:08PM DAVON 0629 - RANJAN TYLER BISHOP RT / PROCEDURE REASON: Abnormal ultrasound of breast * * * * Physician Interpretation * * * * [facility] [address] [place] [address] HISTORY: 64 year old patient presents for ultrasound guided core biopsy of mass at 7 o'clock, 1 cm from the nipple in the right breast. PATIENT CONSENT: A time out was performed immediately prior to procedure start with the radiology team, correctly identifying the patient name, date of , procedure, anatomy (including marking of site and side), patient position, relevant diagnostic and radiology test results, safety precautions, and procedure-specific equipment needs. The procedure was explained to the patient including the risks, benefits and alternatives. Medications and allergies were also reviewed. The risks, including but not limited to infection and bleeding, were reviewed by the performing physician and the patient agreed to undergo the procedure. The radiologist and technologist were present throughout the entire procedure. Correlation is made to exams dated: 02/21/2022 (mammogram), 06/22/2024 (mammogram), 07/20/2024 (mammogram), 07/20/2024 (ultrasound) and 08/12/2024 (mammogram). Site 1: Audible Time Out Time: 1317 Procedure Start Time: 1320 Procedure Stop Time: 1325 An ultrasound guided biopsy using real-time ultrasound was performed for the concerning mass located in the right breast at 7 o'clock 1 cm from the nipple. This was described on the previous ultrasound report. The skin was prepped in the usual manner. Local anesthetic was administered to the access site. A skin valente was made in the breast. The abnormality was approached from the superior aspect. A 14 gauge biopsy needle was placed adjacent to the abnormality under ultrasound guidance. Once the needle was documented to be in the correct location, 1 pass was made using a spring-loaded biopsy device. A coil biopsy marker was then placed under sonographic guidance. A skin closure strip and a sterile dressing were applied to the access site. During the procedure, there were no biopsy complications observed. The specimens were sent to the laboratory for pathological analysis. Post procedure imaging demonstrates the clip in appropriate position at the biopsy target. The breasts are extremely dense, which lowers the sensitivity of mammography. Please note: the biopsied area does not correlate with the marked mammographic finding from the 07.20.2024 study. However, after re review with comparisons from 02.18.2022, the area in the right breast is stable and consistent with benign fibroglandular tissue. IMPRESSION IMPRESSION: ULTRASOUND GUIDED BIOPSY Site 1: Successful ultrasound guided biopsy of the mass at 7 o'clock, 1 cm from the nipple in the right breast with placement of a clip was successful. Waiting for pathology results. A final report will be issued when these become available. Interpreting Radiologist: Melissa Jean M.D. Electronically signed on: 08/12/2024 Band Instrument Repairer: ROBERT Transcribe Date/Time: Aug 12 2024 1:38P Dictated by : MELISSA JEAN MD This examination was interpreted and the report reviewed and electronically signed by: MELISSA JEAN MD on Aug 12 2024 2:12PM EST [facility] Radiology Study observation (narrative) [facility] TYLER COMERO RTon 024 RANJAN BISHOP RT * * *Final Report* * * * * * SEE BOTTOM OF REPORT FOR ADDENDED TEXT * * * DATE OF EXAM: Aug 12 2024 2:08PM DAVON 0629 - RANJAN BISHOP RT / PROCEDURE REASON: Abnormal ultrasound of breast * * * * Physician Interpretation * * * * [facility] [address] [place] [address] - - - - - - - - - - ADDENDED REPORT - - - - - - - - - - 08/16/2024 at 11:02:33 Addendum: The final pathology results of the patient's ultrasound guided core biopsy demonstrate the following; Site 1 - (right breast) Benign Breast Tissue, Fibrous Stroma And Fragments of Cyst Wall. This is concordant with the imaging findings. RECOMMENDATION Site 1: Post Biopsy: Return to screen The patient was notified of the above results via telephone on 08/16/2024 and also asked to follow-up with her referring physician. Interpreting Radiologist: Melissa Jean M.D. Electronically signed on: 08/16/2024 - - - - - - - - - - ORIGINAL REPORT - - - - - - - - - - HISTORY: 64 year old patient presents for ultrasound guided core biopsy of mass at 7 o'clock, 1 cm from the nipple in the right breast. PATIENT CONSENT: A time out was performed immediately prior to procedure start with the radiology team, correctly identifying the patient name, date of , procedure, anatomy (including marking of site and side), patient position, relevant diagnostic and radiology test results, safety precautions, and procedure-specific equipment needs. The procedure was explained to the patient including the risks, benefits and alternatives. Medications and allergies were also reviewed. The risks, including but not limited to infection and bleeding, were reviewed by the performing physician and the patient agreed to undergo the procedure. The radiologist and technologist were present throughout the entire procedure. Correlation is made to exams dated: 02/21/2022 (mammogram), 06/22/2024 (mammogram), 07/20/2024 (mammogram), 07/20/2024 (ultrasound) and 08/12/2024 (mammogram). Site 1: Audible Time Out Time: 1317 Procedure Start Time: 1320 Procedure Stop Time: 1325 An ultrasound guided biopsy using real-time ultrasound was performed for the concerning mass located in the right breast at 7 o'clock 1 cm from the nipple. This was described on the previous ultrasound report. The skin was prepped in the usual manner. Local anesthetic was administered to the access site. A skin valente was made in the breast. The abnormality was approached from the superior aspect. A 14 gauge biopsy needle was placed adjacent to the abnormality under ultrasound guidance. Once the needle was documented to be in the correct location, 1 pass was made using a spring-loaded biopsy device. A coil biopsy marker was then placed under sonographic guidance. A skin closure strip and a sterile dressing were applied to the access site. During the procedure, there were no biopsy complications observed. The specimens were sent to the laboratory for pathological analysis. Post procedure imaging demonstrates the clip in appropriate position at the biopsy target. The breasts are extremely dense, which lowers the sensitivity of mammography. Please note: the biopsied area does not correlate with the marked mammographic finding from the 07.20.2024 study. However, after re review with comparisons from 02.18.2022, the area in the right breast is stable and consistent with benign fibroglandular tissue. IMPRESSION: ULTRASOUND GUIDED BIOPSY Site 1: Successful ultrasound guided biopsy of the mass at 7 o'clock, 1 cm from the nipple in the right breast with placement of a clip was successful. Waiting for pathology results. A final report will be issued when these become available. Interpreting Radiologist: Melissa Jean M.D. Electronically signed on: 08/12/2024 Band Instrument Repairer: ROBERT Transcrinicole Date/Time: Aug 12 2024 1:38P Dictated by : MELISSA JEAN MD This examination was interpreted and the report reviewed and electronically signed by: MELISSA JEAN MD on Aug 12 2024 2:12PM EST This document has been addended by: MELISSA JEAN MD on Aug 16 2024 11:02AM EST [id number] Normal [facility] US BIOPSY BREAST RTon [facility] US BIOPSY BREAST RT * * *Final Report* * * * * * SEE BOTTOM OF REPORT FOR ADDENDED TEXT * * * DATE OF EXAM: Aug 12 2024 1:34PM AAW 0598 - RANJAN US BIOPSY BREAST RT / PROCEDURE REASON: Abnormal ultrasound of breast * * * * Physician Interpretation * * * * [facility] [address] [place] [address] - - - - - - - - - - ADDENDED REPORT - - - - - - - - - - 08/16/2024 at 11:02:33 Addendum: The final pathology results of the patient's ultrasound guided core biopsy demonstrate the following; Site 1 - (right breast) Benign Breast Tissue, Fibrous Stroma And Fragments of Cyst Wall. This is concordant with the imaging findings. RECOMMENDATION Site 1: Post Biopsy: Return to screen The patient was notified of the above results via telephone on 08/16/2024 and also asked to follow-up with her referring physician. Interpreting Radiologist: Melissa Jean M.D. Electronically signed on: 08/16/2024 - - - - - - - - - - ORIGINAL REPORT - - - - - - - - - - HISTORY: 64 year old patient presents for ultrasound guided core biopsy of mass at 7 o'clock, 1 cm from the nipple in the right breast. PATIENT CONSENT: A time out was performed immediately prior to procedure start with the radiology team, correctly identifying the patient name, date of , procedure, anatomy (including marking of site and side), patient position, relevant diagnostic and radiology test results, safety precautions, and procedure-specific equipment needs. The procedure was explained to the patient including the risks, benefits and alternatives. Medications and allergies were also reviewed. The risks, including but not limited to infection and bleeding, were reviewed by the performing physician and the patient agreed to undergo the procedure. The radiologist and technologist were present throughout the entire procedure. Correlation is made to exams dated: 02/21/2022 (mammogram), 06/22/2024 (mammogram), 07/20/2024 (mammogram), 07/20/2024 (ultrasound) and 08/12/2024 (mammogram). Site 1: Audible Time Out Time: 1317 Procedure Start Time: 1320 Procedure Stop Time: 1325 An ultrasound guided biopsy using real-time ultrasound was performed for the concerning mass located in the right breast at 7 o'clock 1 cm from the nipple. This was described on the previous ultrasound report. The skin was prepped in the usual manner. Local anesthetic was administered to the access site. A skin valente was made in the breast. The abnormality was approached from the superior aspect. A 14 gauge biopsy needle was placed adjacent to the abnormality under ultrasound guidance. Once the needle was documented to be in the correct location, 1 pass was made using a spring-loaded biopsy device. A coil biopsy marker was then placed under sonographic guidance. A skin closure strip and a sterile dressing were applied to the access site. During the procedure, there were no biopsy complications observed. The specimens were sent to the laboratory for pathological analysis. Post procedure imaging demonstrates the clip in appropriate position at the biopsy target. The breasts are extremely dense, which lowers the sensitivity of mammography. Please note: the biopsied area does not correlate with the marked mammographic finding from the 07.20.2024 study. However, after re review with comparisons from 02.18.2022, the area in the right breast is stable and consistent with benign fibroglandular tissue. IMPRESSION: ULTRASOUND GUIDED BIOPSY Site 1: Successful ultrasound guided biopsy of the mass at 7 o'clock, 1 cm from the nipple in the right breast with placement of a clip was successful. Waiting for pathology results. A final report will be issued when these become available. Interpreting Radiologist: Melissa Jean M.D. Electronically signed on: 08/12/2024 Band Instrument Repairer: ROBERT Transcribe Date/Time: Aug 12 2024 12:58P Dictated by : MELISSA JEAN MD This examination was interpreted and the report reviewed and electronically signed by: MELISSA JEAN MD on Aug 12 2024 2:12PM EST This document has been addended by: MELISSA JEAN MD on Aug 16 2024 11:02AM EST [id number] Normal [facility] No Panel InformationOrdered By: Ccf Provider on 08-12-2024 [facility] SURGICAL PATHOLOGYon 024 CASE REPORT Normal [facility] Comment on above: Order Comment: Speci men Type: TISSUE SPECIMEN Ordering Facility: [facility] Address: [address] [place] [address] Result Comment: Surg ica Pathology Report Case: [id number] Authorizing Provider: Melissa Jean MD Collected: 08/12/2024 01:23 PM Ordering Location: [facility] Received: 08/15/2024 09:14 AM [facility] Pathologist: Bonnie Boo MD Specimen: Breast, Right, Core Biopsy, r/o papilloma time collected 1323 formalin 1323 coil clip Performed By: #### S #### [facility] CLIA [id number] [address] CLINICAL HISTORY abnormal exam Normal [facility] Comment on above: Order Comment: Speci men Type: TISSUE SPECIMEN Ordering Facility: [facility] Address: [address] [place] [address] Result Comment: Comm ent: Ultrasound Biopsy Performed By: #### S #### [facility] CLIA [id number] [address] FINAL DIAGNOSIS Normal [facility] Comment on above: Order Comment: Speci men Type: TISSUE SPECIMEN Ordering Facility: [facility] Address: [address] [place] [address] Result Comment: A. R ight breast, coil clip, ultrasound-guided core biopsy: -- Benign breast tissue with fibrous stroma and fragments of cyst wall. Performed By: #### S #### [facility] CLIA [id number] [address] [place] [address] FINAL PERFORMING LAB Normal [facility] Comment on above: Order Comment: Speci men Type: TISSUE SPECIMEN Ordering Facility: [facility] Address: [address] [place] [address] Result Comment: Diag nostic interpretation performed at [facility], [address] [place] [address] CLIA# [id number] Business Process Lead: Anderson Odom M.D. Performed By: #### S #### [facility] CLIA [id number] [address] [place] [address] GROSS DESCRIPTION Normal [facility] Comment on above: Order Comment: Speci men Type: TISSUE SPECIMEN Ordering Facility: [facility] Address: [address], [place] [address] Result Comment: Dolores vasquez, Right, Core Biopsy Received in formalin labeled right breast core biopsy coil clip are multiple white cylindrical segments of tissue aggregating to 0.8 x 0.5 x 0.1 cm. The specimens are totally submitted in formalin in 1 cassette. Time removed from patient is 1:23 PM on 08/12/2024. Time placed in formalin is 1:23 PM on 08/12/2024. Gross examination performed at [facility], [address] [place] [address] CLIA# [id number] KVB August 15, 2024 12:00 PM Performed By: #### S #### [facility] CLIA [id number] [address] [place] [address] [place] US Guidance for biopsy of Br east - righton 08-12-2024 IMPRESSION: ULTRASOU ND GUIDED BIOPSY Site 1: Successful ultrasound guided biopsy of the mass at 7 o'clock, 1 cm from the nipple in the right breast with placement of a clip was successful. Waiting for pathology results. A final report will be issued when these become available. Interpreting Radiologist: Melissa Jean M.D. Electronically signed on: 08/12/2024 Band Instrument Repairer: ROBERT Transcribe Date/Time: Aug 12 2024 12:58P Dictated by : MELISSA JEAN MD This examination was interpreted and the report reviewed and electronically signed by: MELISSA JEAN MD on Aug 12 2024 2:12PM EST [facility] * * *Final Report* * * DATE OF EXAM: Aug 12 2024 1:34PM AAW [id number] - RANJAN US BIOPSY BREAST RT / PROCEDURE REASON: Abnormal ultrasound of breast * * * * Physician Interpretation * * * * [facility] [address] [facility] [place] [address] HISTORY: 64 year old patient presents for ultrasound guided core biopsy of mass at 7 o'clock, 1 cm from the nipple in the right breast. PATIENT CONSENT: A time out was performed immediately prior to procedure start with the radiology team, correctly identifying the patient name, date of , procedure, anatomy (including marking of site and side), patient position, relevant diagnostic and radiology test results, safety precautions, and procedure-specific equipment needs. The procedure was explained to the patient including the risks, benefits and alternatives. Medications and allergies were also reviewed. The risks, including but not limited to infection and bleeding, were reviewed by the performing physician and the patient agreed to undergo the procedure. The radiologist and technologist were present throughout the entire procedure. Correlation is made to exams dated: 02/21/2022 (mammogram), 06/22/2024 (mammogram), 07/20/2024 (mammogram), 07/20/2024 (ultrasound) and 08/12/2024 (mammogram). Site 1: Audible Time Out Time: 1317 Procedure Start Time: 1320 Procedure Stop Time: 1325 An ultrasound guided biopsy using real-time ultrasound was performed for the concerning mass located in the right breast at 7 o'clock 1 cm from the nipple. This was described on the previous ultrasound report. The skin was prepped in the usual manner. Local anesthetic was administered to the access site. A skin valente was made in the breast. The abnormality was approached from the superior aspect. A 14 gauge biopsy needle was placed adjacent to the abnormality under ultrasound guidance. Once the needle was documented to be in the correct location, 1 pass was made using a spring-loaded biopsy device. A coil biopsy marker was then placed under sonographic guidance. A skin closure strip and a sterile dressing were applied to the access site. During the procedure, there were no biopsy complications observed. The specimens were sent to the laboratory for pathological analysis. Post procedure imaging demonstrates the clip in appropriate position at the biopsy target. The breasts are extremely dense, which lowers the sensitivity of mammography. Please note: the biopsied area does not correlate with the marked mammographic finding from the 07.20.2024 study. However, after re review with comparisons from 02.18.2022, the area in the right breast is stable and consistent with benign fibroglandular tissue. [facility]/12/[facility]24 * * *Final Report* * * DATE OF EXAM: Aug 12 2024 1:34PM DAVON [id number] - [facility] BIOPSY BREAST RT / PROCEDURE REASON: Abnormal ultrasound of breast * * * * Physician Interpretation * * * * [facility] [address] [facility] [place] [address] HISTORY: 64 year old patient presents for ultrasound guided core biopsy of mass at 7 o'clock, 1 cm from the nipple in the right breast. PATIENT CONSENT: A time out was performed immediately prior to procedure start with the radiology team, correctly identifying the patient name, date of , procedure, anatomy (including marking of site and side), patient position, relevant diagnostic and radiology test results, safety precautions, and procedure-specific equipment needs. The procedure was explained to the patient including the risks, benefits and alternatives. Medications and allergies were also reviewed. The risks, including but not limited to infection and bleeding, were reviewed by the performing physician and the patient agreed to undergo the procedure. The radiologist and technologist were present throughout the entire procedure. Correlation is made to exams dated: 02/21/2022 (mammogram), 06/22/2024 (mammogram), 07/20/2024 (mammogram), 07/20/2024 (ultrasound) and 08/12/2024 (mammogram). Site 1: Audible Time Out Time: 1317 Procedure Start Time: 1320 Procedure Stop Time: 1325 An ultrasound guided biopsy using real-time ultrasound was performed for the concerning mass located in the right breast at 7 o'clock 1 cm from the nipple. This was described on the previous ultrasound report. The skin was prepped in the usual manner. Local anesthetic was administered to the access site. A skin valente was made in the breast. The abnormality was approached from the superior aspect. A 14 gauge biopsy needle was placed adjacent to the abnormality under ultrasound guidance. Once the needle was documented to be in the correct location, 1 pass was made using a spring-loaded biopsy device. A coil biopsy marker was then placed under sonographic guidance. A skin closure strip and a sterile dressing were applied to the access site. During the procedure, there were no biopsy complications observed. The specimens were sent to the laboratory for pathological analysis. Post procedure imaging demonstrates the clip in appropriate position at the biopsy target. The breasts are extremely dense, which lowers the sensitivity of mammography. Please note: the biopsied area does not correlate with the marked mammographic finding from the 07.20.2024 study. However, after re review with comparisons from 02.18.2022, the area in the right breast is stable and consistent with benign fibroglandular tissue. IMPRESSION IMPRESSION: ULTRASOUND GUIDED BIOPSY Site 1: Successful ultrasound guided biopsy of the mass at 7 o'clock, 1 cm from the nipple in the right breast with placement of a clip was successful. Waiting for pathology results. A final report will be issued when these become available. Interpreting Radiologist: Melissa Jean M.D. Electronically signed on: 08/12/2024 Band Instrument Repairer: ROBERT Transcribe Date/Time: Aug 12 2024 12:58P Dictated by : MELISSA JEAN MD This examination was interpreted and the report reviewed and electronically signed by: MELISSA JEAN MD on Aug 12 2024 2:12PM EST [facility] Radiology Study observation (narrative) [facility] Dwani 07-29-2024 CNPN Telephone (GENSWS) FELECIA CARBALLO ([id number]) 1960 [facility] Date Time Provider Department 07/29/24 CATHY NDIAYE During your visit today, we recorded the following information about you: Izabel Holden RN 07/29/2024 9:33 AM Signed Pt calling in inquiring about referral to [facility] breast center. She was unsure as to whether she was supposed to call them or not. This Nurse advised patient that [facility] normailly contacts the patient and this process can take some time. This Nurse advised patient to call back if she still hasn't heard from them next week. She verbalized understanding.KIRIT Albrecht Breanna 07/29/2024 9:49 AM Signed Follow up email sent to [place] breast schedulers Melissa and Yusuf Piper Lacquer Sprayer Allergies As of Date: 07/29/2024 Noted Allergy Reaction SEASONAL ALLERGIES 03/27/2011 14 - Other: See Comments Comments: Sinus head aches Date Reviewed: 07/25/2024 Reviewed by: Josefina Alberts MA - Fully Assessed Prescriptions as of 07/29/2024 - lisinopril-hydroCHLORO thiazide (ZESTORETIC) 20-12.5 mg per tablet Take 1 tablet by mouth every morning. - atorvastatin (LIPITOR) 20 mg tablet Take 1 tablet by mouth daily at bedtime. For cholesterol. - levothyroxine (SYNTHROID) 25 mcg tablet TAKE 1 TABLET BY MOUTH ONCE DAILY. TAKE ON AN EMPTY STOMACH - dilTIAZem CD (CARDIZEM CD, CARTIA XT) 120 mg 24 hr capsule Take 1 capsule by mouth once daily. - multivit with calcium,iron,min (WOMEN'S MULTIPLE VITAMINS ORAL) - coenzyme Q10 (COENZYME Q-10) 100 mg cap capsule Take 200 mg by mouth. Problem List As Of Date 07/29/2024 Noted Resolved Hypothyroidism [E03.9] 05/23/2010 Hypertension, essential [I10] 05/25/2015 Special screening for malignant neoplasms, colo*07/06/2015 07/06/2015 WPW (Mibxr-Bmxdtiarv-Jzyzp syndrome) [I45.6] 04/15/2016 Persistent atrial fibrillation (HCC) [I48.19] 04/15/2016 09/02/2017 A-fib (HCC) [I48.91] 09/02/2017 Melanocytic nevus of trunk [D22.5] 08/08/2019 Encounter Status:Closed by DAE PIPER on 07/29/24 [facility] NARENOVbennett 07-25-2024 CNOV Office Visit (GENSWS ) FELECIA CARBALLO ([id number]) 1960 [facility] Date Time Provider Department 07/25/24 11:45 AM NDIAYE, CATHY BONIFACIO GENSWS During your visit today, we recorded the following information about you: Pulse Blood pressure Weight Height 101/minute 132/74 82.5 kg 1.651 m Cathy Ndiaye MD 07/28/2024 2:44 PM Signed Felecia Carballo 1960 REFERRING PHYSICIAN: Radha Hummel A* CHIEF COMPLAINT: No chief complaint on file. HPI: The patient is a 64 year old female presents with abnormal right breast ultrasound IMPRESSION: Finding 1: Mass and area of duct ectasia in the right breast is suspicious of malignancy. An ultrasound guided biopsy is recommended. uring 0.8 cm in the anterior depth region of the right breast at 7 o'clock. She denies palpable breast masses. She denies nipple discharge. She states that she had previous right breast biopsies x 3. She notes no ovarian or breast cancer in the family. 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 Her gynecological history is as follows: menarche age 14/13, (twin), first at age 25, breast feeding history 2 years, denies exogenous hormones use, menopause early 50s She denies chest pain, shortness of breath or neurological deficits PAST MEDICAL HISTORY Diagnosis Date A-fib (HCC) RVR Diffuse cystic mastopathy left Hypertension Hypothyroidism Persistent atrial fibrillation (HCC) 04/15/2016 PVC (premature ventricular contraction) SVT (supraventricular tachycardia) ([facility]) Tachyarrhythmia WPW (Xxqyz-Inkjclvau-Rebpl syndrome) 04/15/2016 PAST SURGICAL HISTORY Procedure Laterality Date ANESTH, SECTION BREAST BX US GUIDED Right 03/24/2017 BX BREAST PERC NEED W/GUID 04/17/10 U/S needle core right breast 6 Oclock BX BREAST PERC VACUUM/ROTN 10/04/07 RIGHT BX BREAST W/DEVICE 1ST LESION ULTRASOUND GUID Right 04/20/2017 U/S mammotone bx right breast 9 Oclock plus 6cm CATHETER, ABLATION 06/02/16 Dr. Martinez COLONOSCOPY FLX DX W/COLLJ SPEC WHEN PFRMD 07/06/2015 Colonoscopy EP STUDY 06/02/16 Dr. Martinez EVENT MONITOR 07/02/2016 30 day OOPHORECTOMY PARTIAL/TOTAL UNI/BI 10/04/08 right ovary PAST SURGICAL HISTORY OF dANDc PAST SURGICAL HISTORY OF 10/04/07 excision pelvic dermoid cyst, teratoma PLCMT LOCALZTN CLIP,PERC,DURING BREAST BX 10/04/07 RIGHT TONSILLECTOMY AND ADENOIDECTOMY ALEX CUT BX BREAST MASS Right 08/22/2016 UNLISTED PROCEDURE DENTOALVEOLAR STRUCTURES wisdom teeth US BRST CYST ASP PUNC RT 02/24/09 Right breast cysts x 3 aspirated Current Outpatient Medications Medication Sig lisinopril-hydroCHLORO thiazide (ZESTORETIC) 20-12.5 mg per tablet Take 1 tablet by mouth every morning. atorvastatin (LIPITOR) 20 mg tablet Take 1 tablet by mouth daily at bedtime. For cholesterol. levothyroxine (SYNTHROID) 25 mcg tablet TAKE 1 TABLET BY MOUTH ONCE DAILY. TAKE ON AN EMPTY STOMACH dilTIAZem CD (CARDIZEM CD, CARTIA XT) 120 mg 24 hr capsule Take 1 capsule by mouth once daily. multivit with calcium,iron,min (WOMEN'S MULTIPLE VITAMINS ORAL) coenzyme Q10 (COENZYME Q-10) 100 mg cap capsule Take 200 mg by mouth. No current facility-administered medications for this visit. ALLERGIES: Seasonal Allergies PERSONAL HISTORY: Social History Tobacco Use Smoking status: Never Smokeless tobacco: Never Substance Use Topics Alcohol use: Yes Alcohol/week: 3.0 standard drinks of alcohol Types: 3 Glasses of wine per week Comment: moderate Drug use: No FAMILY HISTORY Problem Relation Age of Onset Hypertension Mother Diabetes Father Hypertension Father Diabetes Brother Breast Cancer Paternal Grandmother Stroke Paternal Grandfather GI Son IBS REVIEW OF SYMPTOMS: The review of systems data was entered by the nurse and reviewed by me There are no exam notes on file for this visit. PHYSICAL EXAMINATION: General: The patient is 64 year old female, well nourished, well hydrated in no acute distress. The patient is oriented to time, place, and person. VITALS: Blood pressure 132/74, pulse 101, height 165.1 cm (5' 5), weight 82.5 kg (181 lb 12.8 oz), last menstrual period 07/19/2015, SpO2 99%. Body mass index is 30.25 kg/m?. Head - Normocephalic. EOM intact with sclera clear and no icterus noted. Mouth with mucus membranes moist. Neck - supple with no jugular venous distention noted. Trachea is midline. No thyroid enlargement or thyroid nodules detected. No masses noted. Chest/breast - no asymmetry of breasts noted, no suspicious skin lesions noted, no nipple discharge and both nipples everted, no breast masses noted Lungs - clear to auscultation. Normal breath sounds. No rales/rhonchi/wheezing noted. No labored breathing noted, such as retractions. No cough heard. Heart - normal S1 and S2 auscultated. N (more content not included)... [facility] FELECIA CARBALLO ([id number]) 1960 F [facility] Date Time Provider Department 07/21/24 RADHA HUMMEL [facility] During your visit today, we recorded the following information about you: Radha Hummel, RAFAELA.[facility] 07/21/2024 12:18 PM Signed Please let pt. Know that there is an abnormality on mammogram in right breast. We cannot know what it is until a biopsy is complete. I am referring her to [facility] for further evaluation Melissa Lombardi MA 07/21/2024 1:45 PM Signed Pt was already notified and scheduled with [facility] on 07/25/24 Allergies As of Date: 07/21/2024 Noted Allergy Reaction SEASONAL ALLERGIES 03/27/2011 14 - Other: See Comments Comments: Sinus head aches Date Reviewed: 04/05/2024 Reviewed by: Mat Bailey LPN - Fully Assessed Primary Visit Diagnosis:Abnormal finding on radiological examination of breast [R92.8] Order(s):CONSULT TO GENERAL SURGERY [9011] Order #: [id number]: 1 FUTURE Prescriptions as of 07/21/2024 - lisinopril-hydroCHLORO thiazide (ZESTORETIC) 20-12.5 mg per tablet Take 1 tablet by mouth every morning. - atorvastatin (LIPITOR) 20 mg tablet Take 1 tablet by mouth daily at bedtime. For cholesterol. - levothyroxine (SYNTHROID) 25 mcg tablet TAKE 1 TABLET BY MOUTH ONCE DAILY. TAKE ON AN EMPTY STOMACH - dilTIAZem CD (CARDIZEM CD, CARTIA XT) 120 mg 24 hr capsule Take 1 capsule by mouth once daily. - multivit with calcium,iron,min (WOMEN'S MULTIPLE VITAMINS ORAL) - coenzyme Q10 (COENZYME Q-10) 100 mg cap capsule Take 200 mg by mouth. Problem List As Of Date 07/21/2024 Noted Resolved Hypothyroidism [E03.9] 05/23/2010 Hypertension, essential [I10] 05/25/2015 Special screening for malignant neoplasms, colo*07/06/2015 07/06/2015 WPW (Fmjgg-Tzycztcly-Zbpkh syndrome) [I45.6] 04/15/2016 Persistent atrial fibrillation (HCC) [I48.19] 04/15/2016 09/02/2017 A-fib (HCC) [I48.91] 09/02/2017 Melanocytic nevus of trunk [D22.5] 08/08/2019 Encounter Status:Closed by MELISSA LOMBARDI on 07/21/24 Normal [facility] DBT Breast - bilateral diagn ostic for implanton 07-20-2024 IMPRESSION: Finding 1: Focal asymmetry in the right breast requires additional evaluation. A breast ultrasound exam is recommended. Finding 2: Asymmetry in the left breast requires additional evaluation. A breast ultrasound exam is recommended. BI-RADS Category 0: Incomplete: Needs Additional Imaging Evaluation RISK: Based on the Tyrer-Cuzick (TC) risk assessment model, this patient has a 16.6% lifetime risk of developing breast cancer, meaning they are at average risk for developing breast cancer. However, this is only an estimate based on available history provided on the patient's questionnaire. We encourage all patients talk with their providers about these results, further recommendations for managing breast health, and appropriate supplemental screening options if the patient has dense breast tissue. Interpreting Radiologist: Francheska Gonsalves M.D. Band Instrument Repairer: ROBERT Transcribe Date/Time: Jul 20 2024 1:21P Dictated by: FRANCHESKA GONSALVES MD This examination was interpreted and the report reviewed and electronically signed by: FRANCHESKA GONSALVES MD on Jul 20 2024 1:47PM [facility] DIVISION OF RADIOLOGY * * *Final Report* * * DATE OF EXAM: Jul 20 2024 1:35PM [facility] 0627 - RANJAN DIAG W DARIO ANTON / PROCEDURE REASON: Abnormal findings on diagnostic imaging of breast * * * * Physician Interpretation * * * * RESULT: [facility] [address] [id number] HISTORY: Patient is 64 years old and is seen for diagnostic evaluation of abnormal mammogram in both breasts. The patient has no personal history of cancer. COMPARISON STUDIES: The present examination has been compared to a prior imaging study dated 06/22/2024 (mammogram). MAMMOGRAM TECHNIQUE: The study was acquired using full field digital technology and interpreted from soft copy. Digital Breast Tomosynthesis (DBT) images were obtained and used to assist in the interpretation of this examination. Computer-aided detection was utilized by the radiologist in the interpretation of this examination. MAMMOGRAM FINDINGS: The breasts are extremely dense, which lowers the sensitivity of mammography. Finding 1: There is an isodense focal asymmetry measuring 1.3 cm with obscured margins in the central region of the right breast. Finding 2: There is an asymmetry measuring 2 cm with indistinct margins in the superior left breast. This finding resembles fibroglandular tissue. DIVISION OF RADIOLOGY Provider, [facility] - 07/20/2024 * * *Final Report* * * DATE OF EXAM: Jul 20 2024 1:35PM [facility] 0627 - RANJAN DIAG W DARIO ANTON / PROCEDURE REASON: Abnormal findings on diagnostic imaging of breast * * * * Physician Interpretation * * * * RESULT: [facility] [address] [id number] HISTORY: Patient is 64 years old and is seen for diagnostic evaluation of abnormal mammogram in both breasts. The patient has no personal history of cancer. COMPARISON STUDIES: The present examination has been compared to a prior imaging study dated 06/22/2024 (mammogram). MAMMOGRAM TECHNIQUE: The study was acquired using full field digital technology and interpreted from soft copy. Digital Breast Tomosynthesis (DBT) images were obtained and used to assist in the interpretation of this examination. Computer-aided detection was utilized by the radiologist in the interpretation of this examination. MAMMOGRAM FINDINGS: The breasts are extremely dense, which lowers the sensitivity of mammography. Finding 1: There is an isodense focal asymmetry measuring 1.3 cm with obscured margins in the central region of the right breast. Finding 2: There is an asymmetry measuring 2 cm with indistinct margins in the superior left breast. This finding resembles fibroglandular tissue. IMPRESSION IMPRESSION: Finding 1: Focal asymmetry in the right breast requires additional evaluation. A breast ultrasound exam is recommended. Finding 2: Asymmetry in the left breast requires additional evaluation. A breast ultrasound exam is recommended. BI-RADS Category 0: Incomplete: Needs Additional Imaging Evaluation RISK: Based on the Tyrer-Cuzick (TC) risk assessment model, this patient has a 16.6% lifetime risk of developing breast cancer, meaning they are at average risk for developing breast cancer. However, this is only an estimate based on available history provided on the patient's questionnaire. We encourage all patients talk with their providers about these results, further recommendations for managing breast health, and appropriate supplemental screening options if the patient has dense breast tissue. Interpreting Radiologist: Francheska Gonsalves M.D. Band Instrument Repairer: ROBERT Transcribe Date/Time: Jul 20 2024 1:21P Dictated by: FRANCHESKA GONSALVES MD This examination was interpreted and the report reviewed and electronically signed by: FRANCHESKA GONSALVES MD on Jul 20 2024 1:47PM EST [facility] DBT Breast - bilateral diagn ostic for implantOrdered By: Ccf Provider on 07-20-2024 [facility] RANJAN DIAG W DARIO BILon 2023 [facility] DIAG W DARIO ANTON * * *Final Report* * * DATE OF EXAM: Jul 20 2024 1:35PM [facility] 0627 - RANJAN DIAG W DARIO ANTON / PROCEDURE REASON: Abnormal findings on diagnostic imaging of breast * * * * Physician Interpretation * * * * RESULT: [address] [address] HISTORY: Patient is 64 years old and is seen for diagnostic evaluation of abnormal mammogram in both breasts. The patient has no personal history of cancer. COMPARISON STUDIES: The present examination has been compared to a prior imaging study dated 06/22/2024 (mammogram). MAMMOGRAM TECHNIQUE: The study was acquired using full field digital technology and interpreted from soft copy. Digital Breast Tomosynthesis (DBT) images were obtained and used to assist in the interpretation of this examination. Computer-aided detection was utilized by the radiologist in the interpretation of this examination. MAMMOGRAM FINDINGS: The breasts are extremely dense, which lowers the sensitivity of mammography. Finding 1: There is an isodense focal asymmetry measuring 1.3 cm with obscured margins in the central region of the right breast. Finding 2: There is an asymmetry measuring 2 cm with indistinct margins in the superior left breast. This finding resembles fibroglandular tissue. IMPRESSION: Finding 1: Focal asymmetry in the right breast requires additional evaluation. A breast ultrasound exam is recommended. Finding 2: Asymmetry in the left breast requires additional evaluation. A breast ultrasound exam is recommended. BI-RADS Category 0: Incomplete: Needs Additional Imaging Evaluation RISK: Based on the Tyrer-Cuzick (TC) risk assessment model, this patient has a 16.6% lifetime risk of developing breast cancer, meaning they are at average risk for developing breast cancer. However, this is only an estimate based on available history provided on the patient's questionnaire. We encourage all patients talk with their providers about these results, further recommendations for managing breast health, and appropriate supplemental screening options if the patient has dense breast tissue. Interpreting Radiologist: Francheska Gonsalves M.D. Band Instrument Repairer: ROBERT Transcribe Date/Time: Jul 20 2024 1:21P Dictated by: FRANCHESKA GONSALVES MD This examination was interpreted and the report reviewed and electronically signed by: FRANCHESKA GONSALVES MD on Jul 20 2024 1:47PM EST [id number] Normal [facility] [employer] BREAST LTD LTon 07-20 RANJAN [employer] BREAST LTD LT * * *Final Report* * * DATE OF EXAM: Jul 20 2024 2:04PM WRU 0593 - [employer] US BREAST LTD LT / PROCEDURE REASON: Abnormal findings on diagnostic imaging of breast * * * * Physician Interpretation * * * * [place] [address] HISTORY: Patient is 64 years old and is seen for diagnostic exam and abnormal mammogram in both breasts. The patient has no personal history of cancer. COMPARISON STUDIES: The present examination has been compared to a prior imaging study dated 06/22/2024 (mammogram). ULTRASOUND TECHNIQUE: Targeted ultrasound of the indicated area was performed. Torrez scale images were saved. ULTRASOUND FINDINGS: Finding 1: There is an oval mass and area of duct ectasia with circumscribed margins and an abrupt interface measuring 0.8 cm in the anterior depth region of the right breast at 7 o'clock. No abnormality is noted in the right axilla. Finding 2: No abnormality is seen at the site of clinical concern. IMPRESSION: Finding 1: Mass and area of duct ectasia in the right breast is suspicious of malignancy. An ultrasound guided biopsy is recommended. Finding 2: Area in the left breast is not seen. BI-RADS Category 4: Suspicious RISK: Based on the Tyrer-Cuzick (TC) risk assessment model, this patient has a 17.2% lifetime risk of developing breast cancer, meaning they are at average risk for developing breast cancer. However, this is only an estimate based on available history provided on the patient's questionnaire. We encourage all patients talk with their providers about these results, further recommendations for managing breast health, and appropriate supplemental screening options if the patient has dense breast tissue. Band Instrument Repairer: ROBERT Transcribe Date/Time: Jul 20 2024 1:47P Dictated by : FRANCHESKA GONSALVES MD This examination was interpreted and the report reviewed and electronically signed by: FRANCHESKA GONSALVES MD on Jul 20 2024 2:25PM EST [id number] Normal [facility] US BREAST LTD RTon 07-20 [facility] US BREAST LTD RT * * *Final Report* * * DATE OF EXAM: Jul 20 2024 2:03PM WR[facility] 0594 - RANJAN US BREAST LTD RT / PROCEDURE REASON: Abnormal findings on diagnostic imaging of breast * * * * Physician Interpretation * * * * [place] [address] HISTORY: Patient is 64 years old and is seen for diagnostic exam and abnormal mammogram in both breasts. The patient has no personal history of cancer. COMPARISON STUDIES: The present examination has been compared to a prior imaging study dated 06/22/2024 (mammogram). ULTRASOUND TECHNIQUE: Targeted ultrasound of the indicated area was performed. Torrez scale images were saved. ULTRASOUND FINDINGS: Finding 1: There is an oval mass and area of duct ectasia with circumscribed margins and an abrupt interface measuring 0.8 cm in the anterior depth region of the right breast at 7 o'clock. No abnormality is noted in the right axilla. Finding 2: No abnormality is seen at the site of clinical concern. IMPRESSION: Finding 1: Mass and area of duct ectasia in the right breast is suspicious of malignancy. An ultrasound guided biopsy is recommended. Finding 2: Area in the left breast is not seen. BI-RADS Category 4: Suspicious RISK: Based on the Tyrer-Cuzick (TC) risk assessment model, this patient has a 17.2% lifetime risk of developing breast cancer, meaning they are at average risk for developing breast cancer. However, this is only an estimate based on available history provided on the patient's questionnaire. We encourage all patients talk with their providers about these results, further recommendations for managing breast health, and appropriate supplemental screening options if the patient has dense breast tissue. Band Instrument Repairer: Awdio Transcribe Date/Time: Jul 20 2024 1:48P Dictated by : FRANCHESKA GONSALVES MD This examination was interpreted and the report reviewed and electronically signed by: FRANCHESKA GONSALVES MD on Jul 20 2024 2:25PM EST [id number] Normal [facility] No Panel Informationon 07-20 Radiology Study observation (narrative) [facility] US Breast - left limitedon 1 IMPRESSION: Finding 1: Mass and area of duct ectasia in the right breast is suspicious of malignancy. An ultrasound guided biopsy is recommended. Finding 2: Area in the left breast is not seen. BI-RADS Category 4: Suspicious RISK: Based on the Tyrer-Cuzick (TC) risk assessment model, this patient has a 17.2% lifetime risk of developing breast cancer, meaning they are at average risk for developing breast cancer. However, this is only an estimate based on available history provided on the patient's questionnaire. We encourage all patients talk with their providers about these results, further recommendations for managing breast health, and appropriate supplemental screening options if the patient has dense breast tissue. Band Instrument Repairer: ROBERT Transcribe Date/Time: Jul 20 2024 1:47P Dictated by : FRANCHESKA GONSALVES MD This examination was interpreted and the report reviewed and electronically signed by: FRANCHESKA GONSALVES MD on Jul 20 2024 2:25PM [facility] DIVISION OF RADIOLOGY * * *Final Report* * * DATE OF EXAM: Jul 20 2024 2:04PM [facility] [place] [address] [facility] LoLo LT / PROCEDURE REASON: Abnormal findings on diagnostic imaging of breast * * * * Physician Interpretation * * * * [address] [address] HISTORY: Patient is 64 years old and is seen for diagnostic exam and abnormal mammogram in both breasts. The patient has no personal history of cancer. COMPARISON STUDIES: The present examination has been compared to a prior imaging study dated 06/22/2024 (mammogram). ULTRASOUND TECHNIQUE: Targeted ultrasound of the indicated area was performed. Torrez scale images were saved. ULTRASOUND FINDINGS: Finding 1: There is an oval mass and area of duct ectasia with circumscribed margins and an abrupt interface measuring 0.8 cm in the anterior depth region of the right breast at 7 o'clock. No abnormality is noted in the right axilla. Finding 2: No abnormality is seen at the site of clinical concern. DIVISION OF RADIOLOGY [facility], [facility] * * *Final Report* * * DATE OF EXAM: Jul 20 2024 2:04PM [facility] [place] [address] [employer] [facility] LoLo LT / PROCEDURE REASON: Abnormal findings on diagnostic imaging of breast * * * * Physician Interpretation * * * * [place] [address] [place] [address] HISTORY: Patient is 64 years old and is seen for diagnostic exam and abnormal mammogram in both breasts. The patient has no personal history of cancer. COMPARISON STUDIES: The present examination has been compared to a prior imaging study dated 06/22/2024 (mammogram). ULTRASOUND TECHNIQUE: Targeted ultrasound of the indicated area was performed. Torrez scale images were saved. ULTRASOUND FINDINGS: Finding 1: There is an oval mass and area of duct ectasia with circumscribed margins and an abrupt interface measuring 0.8 cm in the anterior depth region of the right breast at 7 o'clock. No abnormality is noted in the right axilla. Finding 2: No abnormality is seen at the site of clinical concern. IMPRESSION IMPRESSION: Finding 1: Mass and area of duct ectasia in the right breast is suspicious of malignancy. An ultrasound guided biopsy is recommended. Finding 2: Area in the left breast is not seen. BI-RADS Category 4: Suspicious RISK: Based on the Tyrer-Cuzick (TC) risk assessment model, this patient has a 17.2% lifetime risk of developing breast cancer, meaning they are at average risk for developing breast cancer. However, this is only an estimate based on available history provided on the patient's questionnaire. We encourage all patients talk with their providers about these results, further recommendations for managing breast health, and appropriate supplemental screening options if the patient has dense breast tissue. Band Instrument Repairer: ROBERT Transcribe Date/Time: Jul 20 2024 1:47P Dictated by : FRANCHESKA GONSALVES MD This examination was interpreted and the report reviewed and electronically signed by: FRANCHESKA GONSALVES MD on Jul 20 2024 2:25PM EST [facility] US Breast - right limitedon 07-20-2024 IMPRESSION: Finding 1: Mass and area of duct ectasia in the right breast is suspicious of malignancy. An ultrasound guided biopsy is recommended. Finding 2: Area in the left breast is not seen. BI-RADS Category 4: Suspicious RISK: Based on the Tyrer-Cuzick (TC) risk assessment model, this patient has a 17.2% lifetime risk of developing breast cancer, meaning they are at average risk for developing breast cancer. However, this is only an estimate based on available history provided on the patient's questionnaire. We encourage all patients talk with their providers about these results, further recommendations for managing breast health, and appropriate supplemental screening options if the patient has dense breast tissue. Band Instrument Repairer: ROBERT Transcribe Date/Time: Jul 20 2024 1:48P Dictated by : FRANCHESKA GONSALVES MD This examination was interpreted and the report reviewed and electronically signed by: FRANCHESKA GONSALVES MD on Jul 20 2024 2:25PM [facility] DIVISION OF RADIOLOGY * * *Final Report* * * DATE OF EXAM: Jul 20 2024 2:03PM [facility] [place] 0594 - [facility] Socrative [facility] RT / PROCEDURE REASON: Abnormal findings on diagnostic imaging of breast * * * * Physician Interpretation * * * * [place] [address] HISTORY: Patient is 64 years old and is seen for diagnostic exam and abnormal mammogram in both breasts. The patient has no personal history of cancer. COMPARISON STUDIES: The present examination has been compared to a prior imaging study dated 06/22/2024 (mammogram). ULTRASOUND TECHNIQUE: Targeted ultrasound of the indicated area was performed. Torrez scale images were saved. ULTRASOUND FINDINGS: Finding 1: There is an oval mass and area of duct ectasia with circumscribed margins and an abrupt interface measuring 0.8 cm in the anterior depth region of the right breast at 7 o'clock. No abnormality is noted in the right axilla. Finding 2: No abnormality is seen at the site of clinical concern. DIVISION OF RADIOLOGY Provider, [facility] - 07/20/2024 * * *Final Report* * * DATE OF EXAM: Jul 20 2024 2:03PM [facility] [place] [address] [employer] [facility] Socrative [facility] RT / PROCEDURE REASON: Abnormal findings on diagnostic imaging of breast * * * * Physician Interpretation * * * * [address] [address] HISTORY: Patient is 64 years old and is seen for diagnostic exam and abnormal mammogram in both breasts. The patient has no personal history of cancer. COMPARISON STUDIES: The present examination has been compared to a prior imaging study dated 06/22/2024 (mammogram). ULTRASOUND TECHNIQUE: Targeted ultrasound of the indicated area was performed. Torrez scale images were saved. ULTRASOUND FINDINGS: Finding 1: There is an oval mass and area of duct ectasia with circumscribed margins and an abrupt interface measuring 0.8 cm in the anterior depth region of the right breast at 7 o'clock. No abnormality is noted in the right axilla. Finding 2: No abnormality is seen at the site of clinical concern. IMPRESSION IMPRESSION: Finding 1: Mass and area of duct ectasia in the right breast is suspicious of malignancy. An ultrasound guided biopsy is recommended. Finding 2: Area in the left breast is not seen. BI-RADS Category 4: Suspicious RISK: Based on the Tyrer-Cuzick (TC) risk assessment model, this patient has a 17.2% lifetime risk of developing breast cancer, meaning they are at average risk for developing breast cancer. However, this is only an estimate based on available history provided on the patient's questionnaire. We encourage all patients talk with their providers about these results, further recommendations for managing breast health, and appropriate supplemental screening options if the patient has dense breast tissue. Band Instrument Repairer: ROBERT Transcribe Date/Time: Jul 20 2024 1:48P Dictated by : FRANCHESKA GONSALVES MD This examination was interpreted and the report reviewed and electronically signed by: FRANCHESKA GONSALVES MD on Jul 20 2024 2:25PM [facility] US Breast - right limitedOrd ered By: [facility] Provider on 07-20-2024 [facility] 06-28-2024 CNPN Telephone (RADMN) FELECIA CARBALLO ([id number]) 1960 [facility] Date Time Provider Department 06/28/24 SUSIE BAEZ RADMN During your visit today, we recorded the following information about you: Luis Santiago 06/28/2024 8:43 AM Signed Patient called to schedule CB imaging Allergies As of Date: 06/28/2024 Noted Allergy Reaction SEASONAL ALLERGIES 03/27/2011 14 - Other: See Comments Comments: Sinus head aches Date Reviewed: 04/05/2024 Reviewed by: Mat Bailey LPN - Fully Assessed Reason for Visit: Mammogram Result Call Back [[id number]] Prescriptions as of 06/28/2024 - lisinopril-hydroCHLORO thiazide (ZESTORETIC) 20-12.5 mg per tablet Take 1 tablet by mouth every morning. - atorvastatin (LIPITOR) 20 mg tablet Take 1 tablet by mouth daily at bedtime. For cholesterol. - levothyroxine (SYNTHROID) 25 mcg tablet TAKE 1 TABLET BY MOUTH ONCE DAILY. TAKE ON AN EMPTY STOMACH - dilTIAZem CD (CARDIZEM CD, CARTIA XT) 120 mg 24 hr capsule Take 1 capsule by mouth once daily. - multivit with calcium,iron,min (WOMEN'S MULTIPLE VITAMINS ORAL) - coenzyme Q10 (COENZYME Q-10) 100 mg cap capsule Take 200 mg by mouth. 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 Service: ? Author Type: Physician Type: Letter Filed: 06/23/2024 08:18 Note Text: June 23, 2024 PID: [id number] Felecia Carballo [address] [place] [address] Dear Ms. Carballo, Your recent breast imaging exam on 06/22/2024 showed a possible finding that requires additional imaging studies for a complete evaluation. Most such findings are probably benign (not cancer). Breast tissue can be either dense or not dense. Dense tissue makes it harder to find breast cancer on a mammogram and also raises the risk of developing breast cancer. Your breast tissue is dense. In some people with dense tissue, other imaging tests in addition to a mammogram may help find cancers. Talk to your healthcare provider about breast density, risks for breast cancer, and your individual situation. If you have a healthcare provider who ordered/prescribed your screening mammogram: Please call [phone] or EXT: [phone] to schedule an appointment for your additional imaging (if you have not already done so). If you DO NOT have a healthcare provider (ie you did not have an order/prescription for your screening mammogram): Please call to schedule an appointment for your additional imaging (if you have not already done so). You must have an order/prescription from your physician when calling to schedule your appointment. If your order/prescription is not electronic, you must bring the hard copy with you on the day of your exam to avoid delays. Your imaging studies and reports are kept on file at [facility] as part of your permanent medical record, and are available for your continuing care. Thank you for allowing us to help in meeting your health care needs. Sincerely, Dr. Baez Interpreting Radiologist [facility] (Additional imaging) Normal [facility] 06-23-2024 CNPN Telephone (FAMWS) FELECIA CARBALLO ([id number]) 1960 [facility] Date Time Provider Department 06/23/24 [facility] During your visit today, we recorded the following information about you: Radha Hummel, DREDGE ENGINEER.PUBLIC HEALTH EPIDEMIOLOGIST 06/23/2024 10:18 AM Signed Due to density and asymmetry, mammogram and ultrasound need done. An order has been placed. Please call to schedule. Alvin Carranza LPN 06/23/2024 4:05 PM Signed Patient notified. Given number to call and set up additional images. Allergies As of Date: 06/23/2024 Noted Allergy Reaction SEASONAL ALLERGIES 03/27/2011 14 - Other: See Comments Comments: Sinus head aches Date Reviewed: 04/05/2024 Reviewed by: Mat Bailey LPN - Fully Assessed Primary Visit Diagnosis:Abnormal findings on diagnostic imaging of breast [R92.8] Order(s):[facility] DIAGNOSTIC BILATERAL [[id number]] Order #: [id number] FUTURE US BREAST LTD LEFT [[id number]] Order #: [id number] FUTURE US BREAST LTD RIGHT [[id number]] Order #: [id number] FUTURE Prescriptions as of 06/23/2024 - lisinopril-hydroCHLORO thiazide (ZESTORETIC) 20-12.5 mg per tablet Take 1 tablet by mouth every morning. - atorvastatin (LIPITOR) 20 mg tablet Take 1 tablet by mouth daily at bedtime. For cholesterol. - levothyroxine (SYNTHROID) 25 mcg tablet TAKE 1 TABLET BY MOUTH ONCE DAILY. TAKE ON AN EMPTY STOMACH - dilTIAZem CD (CARDIZEM CD, CARTIA XT) 120 mg 24 hr capsule Take 1 capsule by mouth once daily. - multivit with calcium,iron,min (WOMEN'S MULTIPLE VITAMINS ORAL) - coenzyme Q10 (COENZYME Q-10) 100 mg cap capsule Take 200 mg by mouth. 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] 04/15/2016 Persistent atrial fibrillation (HCC) [I48.19] 04/15/2016 09/02/2017 A-fib (HCC) [I48.91] 09/02/2017 Melanocytic nevus of trunk [D22.5] 08/08/2019 Encounter Status:Closed by ALVIN CARRANZA on 06/23/24 [facility] SCREENINGon 06-22-2024 [facility] SCREENING * * *Final Report* * * DATE OF EXAM: Jun 22 2024 10:53AM REMEDIOS 0581 - [facility] SCREENING / PROCEDURE REASON: Encounter for screening mammogram for breast cancer * * * * Physician Interpretation * * * * RESULT: #[id number] - [facility] SCREENING BILATERAL DIGITAL SCREENING MAMMOGRAM WITH CAD: 06/22/2024 HISTORY: /Patient has signed release for outside images that is scanned into syngo priors done at [facility] /Screening Mammogram - patient reports NO breast symptoms Encounter For Screening Mammogram For Breast Cancer. RESULT: TECHNIQUE: The study was acquired using full field digital technology and interpreted from soft copy. Current study was also evaluated with a Computer Aided Detection (CAD). Comparison is made to exams dated: 02/21/2022 mammogram and 10/28/2019 mammogram. The breasts are extremely dense, which lowers the sensitivity of mammography. There are three stable biopsy clips in the right breast. There is an asymmetry in the right breast superior medial quadrant anterior depth. There is an asymmetry in the left breast superior lateral quadrant middle depth. No other significant masses or calcifications are seen in either breast. IMPRESSION: INCOMPLETE: NEED ADDITIONAL IMAGING EVALUATION The asymmetry in the right breast superior medial quadrant anterior depth is indeterminate. Additional views are recommended. The asymmetry in the left breast superior lateral quadrant middle depth is indeterminate. Additional views are recommended. Susie Baez M.D., mc/mika:06/23/2024 08:18:30 Commissary Steward(s): RT Nelsy(R)(M), [facility] letter sent: Additional Imaging Needed Mammogram BI-RADS: Category 0: Incomplete: Need Additional Imaging Evaluation If this report indicates you need additional imaging, and it has NOT yet been performed, please call , to schedule. We sincerely thank you for choosing the [facility] for your breast imaging needs. Multiple national specialty organizations have released breast cancer screening guidelines for women at average risk for developing breast cancer - guidelines that are based on both evidence and opinion, yet differ on when to start and how often to screen for breast cancer. With representation from Breast Imaging, Internal Medicine, Women's Health, Family Medicine, and Medical/Surgical Oncology, the [facility] has carefully reviewed the data and reached the following consensus: 1) All women should engage in shared decision-making with their providers to decide when to start and how often to screen; 2) All women should have the opportunity to start screening mammography at age 40; 3) For women ages 45-55, we recommend annual screening mammograms; 4) For women ages 55 and over, we support both the transition from an annual to a biennial interval if this aligns more with patient's values and preferences, or continuation with annual screening; 5) All women should discuss with their providers when to stop screening mammograms. Band Instrument Repairer: Mika Transcribe Date/Time: Jun 22 2024 10:36A Dictated by: SUSIE BAEZ MD This examination was interpreted and the report reviewed and electronically signed by: SUSIE BAEZ MD on Jun 23 2024 8:18AM EST [id number] Normal [facility] Ankle 2 Viewson 04-15-2024 Ankle 2 Views [facility] Imaging Services [address] [place] [address] Ankle 2 Views MR#: [id number] Acct: [id number] Name: BRITT CARBALLO Rep #: [id number] : 1960 F 64 From: Charles schrader MD PCP: AYAAN Nova Status: [facility] Study: Ankle 2 Views Date of Exam: 04/15/24 Exam# [id number] Ordering Dr: Silvio Puente DPM [id number] STUDY: X-RAY - RIGHT ANKLE REASON FOR EXAM: Female, 64 years old. ERAS ACHILLES TENDON DEBRIDEMENT, REPAIR TECHNIQUE: 2 intraoperative fluoroscopic views of the posterior calcaneus were obtained. COMPARISON: None. FINDINGS: Lateral images of the posterior aspect of the calcaneus shows surgical instrumentation hardware over this region with subsequent intervention and multiple osteotomy defects with anchoring, as well as Achilles tendon repair. RAD/Ankle 2 Views IMPRESSION: 1. Intraoperative fluoroscopic visualization of the calcaneus Electronically Signed: Charles Roa MD at 16:58 EDT , CC: GEORGINA Puente; AYAAN Nova Band Instrument Repairer: Signed Normal [facility] Bedside Glucoseon 04-15-2024 FINGERSTICK GLU 104 mg/dL Normal 74-106 [facility] Comment on above: Result Comment: CLARA ANGELICA OF PATIENT CARE PER NURSING PROTOCOL Performed By: #### L 501.080 #### [facility] [address] [facility] [place], [address] MR/POSTOP.ANEon 04-15-2024 MR/POSTOP.ANE [facility] Medical Records Department [address] [place] [address] Anesthesia Postop Eval I 04/15/241730 MR#: [id number] Acct: [id number] Name: BRITT CARBALLO Rep #: [id number] : 1960 64 From: Marlon Hope PCP: AYAAN Nova Status:[facility] Y Race: C Location: [place] [address] Anesthesia: Postop Eval I Current Vital Signs Temperature: 97.4 F Pulse Rate: 105 Blood Pressure: 144/86 Respiratory Rate: 16 Pulse Ox: 94 Oxygen Delivery Method: Room Air Assessment Airway patent: Yes Spontaneous unlabored respirations: Yes Mental status: Awake and Calm nausea: No Vomiting: No Anesthesia Complication: No Fluid Hydration Crystalloid volume administer (ml): 1,400 Total IV fluid infused: 1,400 Progress Note Anesthesia document: Postop Eval 1 completed: Yes 04/15/241731 Date Marlon Rodríguez Signature: Date CC: Signed Normal [facility] [id number] 04-15-2024 MR/POSTOPAN2 [facility] Medical Records Department [address] [place] [address] Anesthesia Postop Eval II 04/15/24 173 MR#: [id number] Acct: [id number] Name: BRITT CARBALLO Rep #: [id number] : 1960 64 From: Marlon Hope PCP: AYAAN Nova Status:REG SDC Y Race: C Location: [place] [address]- Anesthesia Postop Eval I Sum Postop Eval Completion status Anesthesia document: Postop Eval 1 completed: Yes Anesthesia Postop Eval I Summary Anesthesia Postop Eval I Summary: Anesthesia Postop Eval I: Assessment Summary Airway patent Yes 04/15/24 17:32 NURSING SUPPORT WORKER.MDOT Spontaneous unlabored Yes 04/15/24 17:32 NURSING SUPPORT WORKER.MDOT respirations Mental status Awake,Calm 04/15/24 17:32 NURSING SUPPORT WORKER.MDOT nausea No 04/15/24 17:32 NURSING SUPPORT WORKER.MDOT Vomiting No 04/15/24 17:32 NURSING SUPPORT WORKER.MDOT Anesthesia Postop Eval I: Fluid Summary Crystalloid volume administer 1,400 04/15/24 17:32 NURSING SUPPORT WORKER.MDOT (ml) Colloids volume administered ( ml) Blood Product volume administered (ml) Total IV fluid infused 1,400 04/15/24 17:32 NURSING SUPPORT WORKER.MDOT Anesthesia Postop Eval I: Summary Notes Anesthesia Complication No 04/15/24 17:32 NURSING SUPPORT WORKER.MDOT Anesthesia Complication Comment: Post-operative progress note Anesthesia: Postop Eval II Evaluation Mental status: Awake and Calm Pain Level: 0 nausea: No Vomiting: No Complications Anesthesia Complication: No 04/15/24 173 Date Marlon Rodríguez Signature: Date CC: Signed Normal [facility] Operative Reporton 4 Operative Report [facility] Medical Records Department [address] [place] [address] Operative Report 04/15/24 1513 MR#: [id number] Acct: [id number] Name: BRITT CARBALLO Rep #: [id number] : 1960 64 From: Silvio Puente DPM PCP: AYAAN Nova Status:DEP [facility] Location: [facility] Problems Associated Problem List Diagnoses (1) Achilles tendinitis, right leg: (2) Calcaneal spur, right foot: (3) Other bursitis, not elsewhere classified, right ankle and foot: (4) Right foot pain: Report of Operation Date of Procedure: 04/15/24 Pre-Operative Diagnosis: 1. Achilles tendinitis, right lower extremity 2. Retrocalcaneal bursitis, right lower extremity 3. Calcaneal spur, right foot 4. Pain, right foot Post-Operative Diagnosis: 1. Achilles tendinitis, right lower extremity 2. Retrocalcaneal bursitis, right lower extremity 3. Calcaneal spur, right foot 4. Pain, right foot Surgery/Procedure Performed:: 1. Acute Achilles tendon debridement repair, right lower extremity 2. Partial excision of calcaneus, right lower extremity 3. Excision of bursa, right lower extremity Description of Surgical Findings:: 1. Complete removal of bursa and exostosis of bone from the calcaneus, right lower extremity 2. Evidence of thickened Achilles/tenosynovitis which was removed and sent for pathology Surgeon: Silvio Puente dough catcher: Le Paez Type of Anesthesia: Block,Regional, General and Local Anesthesiologist: Anderson Gillespie Special Medications: Per anesthesia Specimen's removed: 1. Tenosynovitis, right Achilles tendon Drains: None Estimated Blood Loss (mL): 30 mL Fluids Replaced: Per anesthesia Description of Procedure: Indications For Operation: Mrs Carballo is a 64-year-old female who was admitted to [facility] for elective surgery to right lower extremity consisting of Achilles tendon repair, partial excision of calcaneus, retrocalcaneal bursectomy, right lower extremity. Patient was seen in the office for surgical consultation with all risk and benefits discussed with her in great detail. Patient was explained the preop IntraOp and postoperative recovery for the procedure. She elects to move forward with the elective procedure above. Due to the increased pain, increased and retrocalcaneal bursitis as well as Achilles tendinitis versus tendinosis it had deemed necessary at this time to take the patient to the operating room to perform the procedure above to decrease and rid her of her constant pain. The nature of the problem, anticipated procedures, postop recovery/convalences and risk/complications include but not limited to infection, wound healing complications, hypertrophic scarring, numbness, tingling, chronic pain, CRPS, over and under correction, recurrence of deformity, DVT and or PE and the need for further surgery have been discussed in great detail with the patient. All questions have been answered to the patient's satisfaction. There are no guarantees given as to the outcome of the procedure. Description of Procedure: Under mild sedation, the patient was brought into the operating room and placed on the operating table in supine position. Once the patient was under general anesthesia with endotracheal tube, the right lower extremity was blocked using approximately 10 cc 0.5% Marcaine plain for saphenous block, anesthesia provided popliteal block please see per anesthesia note for further detail. Next, a well-padded thigh tourniquet was applied to the right lower extremity. Next, the right lower extremity was prepped and draped in normal aseptic manner. Next, a timeout was then undertaken verifying the correct patient, extremity, visibility of preoperative markings, availability of the equipment. Next, attention was directed to the right lower extremity. Using a 6 inch Esmarch, right lower extremity was exsanguinated and elevated to 60 degrees for 1 minute. Procedure #1: Excision of bursa, right lower extremity (CPT code: 90964) Next, attention was directed to the Achilles tendon, a skin marker was used to map out the incision which would be slightly posterior medial. Using a #15 blade a full-thickness incision down to subcutaneous tissue was made. Continued blunt dissection was carried down to the level of the peritenon. Next, using a deep #15 blade the Achilles tendon was incised centrally all the way down to the enthesophyte. The Achilles tendon was booked ended allowing for exposure of the Sayda's deformity as well as enthesophyte. The retrocalcaneus bursa was identified and removed at this time. Copious amounts of normal saline were used to flush the incision area. Procedure #2: Partial excision of calcaneus, right lower extremity (CPT code: 08954) Next, using a sagittal saw and blade, the enthesophyte was cut and removed without incident. It was noted that there was a depression after removal of the e (more content not included)... Normal [facility] Surgery Specimen Level IIIon 04-15-2024 Surgery Specimen Level III ---- Patient Age/Sex Location Account Attending Physician ---- BRITT CARBALLO 64/F [facility] [id number] Dr. Silvio Puente DPM ---- Specimen: [id number] Received: 04/15/24 Status: STEVE Heavenly Num: [id number] Spec Type: TENDON Subm Dr: Dr. Silvio Puente DPM HEADER OPERATION: ERAS, Achilles tendon debirdment/repair and partial excision PRE-OP DIAGNOSIS: Achilles tendonitis, calcaneal heel spur, right leg pain TISSUE SUBMITTED: Tendosynovitis, Right Achilles tendon ---- MICROSCOPIC DIAGNOSIS Right Achilles tendon, partial excision: Fragments of dense fibroconnective tissue with reactive changes. [facility] 04/19/2024 MICROSCOPIC DESCRIPTION Slides are reviewed. GROSS DESCRIPTION Received in fixative is one container labeled with the patient's name and designated Tendosynovitis right achilles tendon. The specimen consists of multiple irregular fragments of james-light yellow indurated tissue that in aggregate measure 4.5 x 3.2 x 1.0 cm. The specimen is totally submitted in one cassette. Director Of Email Marketing sections are submitted in one cassette. [facility] 04/18/2024 TC:5 CPT:46258 ---- Patient Age/Sex Location Account Attending Physician ---- BRITT CARBALLO 64/F [facility] [id number] Dr. Silvio Puente DPM ---- Signed (signature on file) Dr. Adama oGff MD 04/19/24 1050 ---- Normal [facility] Comment on above: Performed By: #### P SUIII #### [facility] [address] [place], [place], [address] MRSA/SAID NASAL SCREENon MRSA+SAID SCRN Reason for Exam: PRE OP MRSA MRSA Negative S. AUREUS S. aureus Negative Normal [facility] Comment on above: Performed By: #### L 501.5200, M100.65 #### [facility] [address] [place], [place], [address] Magnesiumon 04-11-2024 Magnesium [Mass/Vol] 2.2 mg/dL Normal 1.6-2.6 [facility] Comment on above: Performed By: #### L 501.5200, M100.65 #### [facility] [address] [place], [place], [address] CNPNon 04-08-2024 CNPN Telephone (PARMJIT) FELECIA CARBALLO ([id number]) 1960 [facility] Date Time Provider Department 04/08/24 NORI THORPE During your visit today, we recorded the following information about you: Nori Thorpe APRN.CNP 04/08/2024 4:55 PM Signed Labs are all back and within normal limits. Can we please forward this to her surgeon's office. Nori Thorpe APRN.Mat Lee LPN 04/08/2024 4:59 PM Signed Results faxed to [facility]. F# [phone] Allergies As of Date: 04/08/2024 Noted Allergy Reaction SEASONAL ALLERGIES 03/27/2011 14 - Other: See Comments Comments: Sinus head aches Date Reviewed: 04/05/2024 Reviewed by: Mta Bailey LPN - Fully Assessed Reason for Visit: Results [95] Prescriptions as of 04/08/2024 - lisinopril-hydroCHLORO thiazide (ZESTORETIC) 20-12.5 mg per tablet Take 1 tablet by mouth every morning. - atorvastatin (LIPITOR) 20 mg tablet Take 1 tablet by mouth daily at bedtime. For cholesterol. - levothyroxine (SYNTHROID) 25 mcg tablet TAKE 1 TABLET BY MOUTH ONCE DAILY. TAKE ON AN EMPTY STOMACH - dilTIAZem CD (CARDIZEM CD, CARTIA XT) 120 mg 24 hr capsule Take 1 capsule by mouth once daily. - multivit with calcium,iron,min (WOMEN'S MULTIPLE VITAMINS ORAL) - coenzyme Q10 (COENZYME Q-10) 100 mg cap capsule Take 200 mg by mouth. 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] 04/15/2016 Persistent atrial fibrillation (HCC) [I48.19] 04/15/2016 09/02/2017 A-fib (HCC) [I48.91] 09/02/2017 Melanocytic nevus of trunk [D22.5] 08/08/2019 Encounter Status:Closed by MAT BAILEY on 04/08/24 [facility] FELECIA CARBALLO ([id number]) 1960 F ERICA Date Time Provider Department 04/08/24 NORI THORPE During your visit today, we recorded the following information about you: Melissa Brewster LPN 04/08/2024 10:16 AM Signed [facility] calling for copies of labs done for surgical clearance. FAX: [phone]. Pt identified with name and date of . Done. Melissa Brewster LPN Allergies As of Date: 04/08/2024 Noted Allergy Reaction SEASONAL ALLERGIES 03/27/2011 14 - Other: See Comments Comments: Sinus head aches Date Reviewed: 04/05/2024 Reviewed by: Mat Bailey LPN - Fully Assessed Reason for Visit: copy of recent labs [Other] Prescriptions as of 04/08/2024 - lisinopril-hydroCHLORO thiazide (ZESTORETIC) 20-12.5 mg per tablet Take 1 tablet by mouth every morning. - atorvastatin (LIPITOR) 20 mg tablet Take 1 tablet by mouth daily at bedtime. For cholesterol. - levothyroxine (SYNTHROID) 25 mcg tablet TAKE 1 TABLET BY MOUTH ONCE DAILY. TAKE ON AN EMPTY STOMACH - dilTIAZem CD (CARDIZEM CD, CARTIA XT) 120 mg 24 hr capsule Take 1 capsule by mouth once daily. - multivit with calcium,iron,min (WOMEN'S MULTIPLE VITAMINS ORAL) - coenzyme Q10 (COENZYME Q-10) 100 mg cap capsule Take 200 mg by mouth. Problem List As Of Date 04/08/2024 Noted Resolved Hypothyroidism [E03.9] 05/23/2010 Hypertension, essential [I10] 05/25/2015 Special screening for malignant neoplasms, colo*07/06/2015 07/06/2015 WPW (Hwdfi-Hwhdshhpe-Hdvkk syndrome) [I45.6] 04/15/2016 Persistent atrial fibrillation (HCC) [I48.19] 04/15/2016 09/02/2017 A-fib (HCC) [I48.91] 09/02/2017 Melanocytic nevus of trunk [D22.5] 08/08/2019 Encounter Status:Closed by MELISSA BREWSTER on 04/08/24 Normal [facility] Echo Complete W/ Contraston 04-07-2024 Echo Complete W/ Contrast [facility] [address] [place] [address] Echo Complete W/ Contrast 04/07/24 1057 MR#: [id number] Acct: [id number] Name: BRITT CARBALLO Rep #: [id number] : 1960 64 From: Kb Valdivia MD Attending Dr: Dr. Kb Valdivia MD Status: REG CLI Ordering Dr: Kb Valdivia MD Date: 04/07/24 Location: [facility] Sex: F C Admitted: Reason For Study: CHEST PAIN Procedure This was a 2D Doppler, Color Flow transthoracic echocardiogram. The study was technically difficult. Contrast injection was performed. Exam performed in department. Left Ventricle Normal size and thickness. The left ventricular ejection fraction is 65 %. Diastolic function is indeterminate. Right Ventricle Normal right ventricle. Atria The left atrium is mildly enlarged. Normal right atrium. Mitral Valve Trivial mitral valve insufficiency. Tricuspid Valve Trivial tricuspid valve insufficiency. Right ventricular systolic pressure estimated to be 47 mmHg. Aortic Valve Trisinus/trileaflet aortic valve. Pulmonic Valve Trivial pulmonic valve insufficiency. Great Vessels Normal sized aortic root. Pericardium/Pleural No pericardial effusion. Medication 22 gauge I.V. with prn adaptor inserted into right arm. Diluted definity 2ml given slow IV push to enhance endocardial definition. MMode/2D Measurements Calculations LVIDd: 4.6 cm IVSd: 1.0 cm Ao root diam: 3.2 cm LVIDs: 3.4 cm LVPWd: 0.76 cm FS: 24.9 % LAV(MOD-bp): 33.1 ml LVAd ap4: 28.4 cm2 SV(MOD-sp4): 61.6 ml LAV(MOD-bp) Indexed: 17.1 ml/m2 LVLd ap4: 7.7 cm LAV(MOD-sp2): 43.9 ml EDV(MOD-sp4): 86.7 ml LAV(MOD-sp4): 24.3 ml EDV(sp4-el): 88.7 ml LVAs ap4: 13.9 cm2 LVLs ap4: 6.4 cm ESV(MOD-sp4): 25.1 ml ESV(sp4-el): 25.6 ml EF(MOD-sp4): 71.1 % EF(sp4-el): 71.1 % SV(sp4-el): 63.1 ml LA A4 area: 12.1 cm2 LA dimension(2D): 4.2 cm RA A4 area: 11.0 cm2 TAPSE: 1.2 cm Time Measurements MV dec time: 0.22 sec Doppler Measurements Calculations MV E max wilmer: 77.7 cm/sec Lat Peak E' Wilmer: 7.3 cm/sec Med Peak E' Wilmer: 6.6 cm/sec MV A max wilmer: 92.5 cm/sec E/E' lat: 10.6 E/E' med: 11.7 MV E/A: 0.84 MV V2 max: 89.5 cm/sec MV dec slope: 351.9 cm/sec2 Ao V2 max: 140.1 cm/sec MV max P.2 mmHg Ao max P.9 mmHg MV V2 mean: 58.2 cm/sec Ao V2 mean: 97.7 cm/sec MV mean P.5 mmHg Ao mean P.4 mmHg MV V2 VTI: 26.7 cm Ao V2 VTI: 28.8 cm AV (velocity ratio): 0.80 LV V1 max: 126.2 cm/sec PA V2 max: 156.2 cm/sec TR max wilmer: 304.7 cm/sec LV V1 max P.4 mmHg PA V2 mean: 95.0 cm/sec TR max P.1 mmHg LV V1 mean P.3 mmHg LV V1 mean: 83.2 cm/sec LV V1 VTI: 23.0 cm ECHO/Echo Complete W/ Contrast Interpretation Summary The left ventricular ejection fraction is 65 %. Diastolic function is indeterminate. The left atrium is mildly enlarged. Right ventricular systolic pressure estimated to be 47 mmHg. Ordering Physician: Kb Valdivia Referring Physician: Kb Valdivia Performed By: Lakia Xiong RCS 04/07/24 160 Date Kb Valdivia MD CC: Dr. Kb Valdivia MD; AYAAN Nova Date Dictated: 04/07/24 1057 Date Transcribed: 04/07/241603 Band Instrument Repairer: Signed Normal [facility] CBC W Auto Differential pane l (Bld)on 04-06-2024 Basophils (Bld) [#/Vol] 0.08 10*3/uL [facility]F [facility] Basophils/100 WBC (Bld) 1.2 % [facility] Differential cell count method Nom (Bld) Auto [facility] Eosinophils (Bld) [#/Vol] 0.33 10*3/uL [facility] Eosinophils/100 WBC (Bld) 4.8 % [facility] Erythrocyte distribution width (RBC) [Ratio] 11.5 % 11.5 - 15.0 % [facility] Hematocrit (Bld) [Volume fraction] 43.0 % 36.0 - 46.0 % [facility] Hemoglobin (Bld) [Mass/Vol] 14.5 g/dL 11.5 - 15.5 g/dL [facility] Immature granulocytes (Bld) [#/Vol] NINF [facility] Immature granulocytes/100 WBC (Bld) 0.3 % [facility] Lymphocytes (Bld) [#/Vol] 1.78 10*3/uL [facility] Lymphocytes/100 WBC (Bld) 26.1 % [facility] MCH (RBC) [Entitic mass] 31.3 pg 26.0 - 34.0 pg [facility] MCHC (RBC) [Mass/Vol] 33.7 g/dL 30.5 - 36.0 g/dL [facility] MCV (RBC) [Entitic vol] 92.7 fL 80.0 - 100.0 fL [facility] Monocytes (Bld) [#/Vol] 0.61 10*3/uL [facility]F [facility] Monocytes/100 WBC (Bld) 9.0 % [facility] Neutrophils (Bld) [#/Vol] 3.99 10*3/uL [facility] Neutrophils/100 WBC (Bld) 58.6 % [facility] Nucleated RBC (Bld) [#/Vol] NINF [facility] Nucleated RBC/100 WBC (Bld) [Ratio] 0.0 % /100 WBC [facility] Platelet mean volume (Bld) [Entitic vol] 11.2 fL 9.0 - 12.7 fL [facility] Platelets (Bld) [#/Vol] 238 10*3/uL [facility] RBC (Bld) [#/Vol] 4.64 10*6/uL 3.90 - 5.2 0 m/uL [facility] WBC (Bld) [#/Vol] 6.81 10*3/uL [facility] Comprehensive metabolic 2000 panelon 04-06-2024 Albumin [Mass/Vol] 4.6 g/dL 3.9 - 4.9 g/dL [facility] ALP [Catalytic activity/Vol] 50 U/L 34 - 123 U/L [facility] ALT [Catalytic activity/Vol] 26 U/L 7 - 38 U/L [facility] Anion gap [Moles/Vol] 15 mmol/L 8 - 15 mmol/L [facility] AST [Catalytic activity/Vol] 22 U/L 13 - 35 U/L [facility] Bilirubin [Mass/Vol] 0.2 mg/dL 0.2 - 1 .3 mg/dL [facility] Calcium [Mass/Vol] 10.2 mg/dL 8.5 - 10. 2 mg/dL [facility] Chloride [Moles/Vol] 104 mmol/L 98 - 10 7 mmol/L [facility] CO2 [Moles/Vol] 24 mmol/L 22 - 30 mmol/L [facility] Creatinine [Mass/Vol] 0.85 mg/dL 0.58 - 0.96 mg/dL [facility] GFR/1.73 sq M.predicted among non-blacks MDRD (S/P/Bld) [Vol rate/Area] 78 mL/min/{1.73_m2} - PINF [facility] Comment on above: Estimated Glomerular Filtration Rate (eGFR) is calculated using the 2020 CKD-EPI creatinine equation. This equation utilizes serum creatinine, sex, and age as parameters. The creatinine assay has traceable calibration to isotope dilution-mass spectrometry. Refer to KDIGO guidelines for clinical interpretation. In patients with unstable renal function, e.g. those with acute kidney injury, the eGFR may not accurately reflect actual GFR. Glucose [Mass/Vol] 89 mg/dL 74 - 99 mg/dL [facility] Comment on above: The [place] Diabete s Association (ADA) provides guidance for cutoff values for fasting glucose and random glucose. The ADA defines fasting as no caloric intake for at least 8 hours. Fasting plasma glucose results between 100 to 125 mg/dL indicate increased risk for diabetes (prediabetes). Fasting plasma glucose results greater than or equal to 126 mg/dL meet the criteria for diagnosis of diabetes. In the absence of unequivocal hyperglycemia, results should be confirmed by repeat testing. In a patient with classic symptoms of hyperglycemia or hyperglycemic crisis, random plasma glucose results greater than or equal to 200 mg/dL meet the criteria for diagnosis of diabetes. Reference: Standards of Medical Care in Diabetes 2016, [place] Diabetes Association. Diabetes Care. 2016.39(Suppl 1). Interpretation and review of laboratory results Normal [facility] Potassium [Moles/Vol] 3.7 mmol/L 3.7 - 5.1 mmol/L [facility] Protein [Mass/Vol] 7.4 g/dL 6.3 - 8.0 g/dL [facility] Sodium [Moles/Vol] 143 mmol/L 136 - 144 mmol/L [facility] Urea nitrogen [Mass/Vol] 14 mg/dL 7 - 21 mg/dL [facility] 25(OH)D3 Sheng-Jt 2023 25-hydroxyvitamin D3 [Mass/Vol] 36.1 ng/mL Normal 31.0-80.0 [facility] Comment on above: Order Comment: Speci men Type: BLOOD SPECIMENOrdering Facility: [facility] Address: [address] [place] [address] Result Comment: Clas sification of 25 [place] Vitamin D status: Deficiency/Insufficiency: < or = 30 ng/ml. Sufficiency/Optimal Levels: 31-80 ng/mL Toxicity: > 100 ng/mL. Test performed by chemiluminescent immunoassay. Performed By: #### 1 989-3 ####[facility] LABCLIA [id number] [place] [address] [place] CBC W Auto Differential pane l (Bld)on 04-05-2024 Basophils (Bld) [#/Vol] 0.08 10*3/uL Normal <0.11 [facility] Comment on above: Order Comment: Speci men Type: BLOOD SPECIMENOrdering Facility: [facility] Address: [address] [place] [address] Performed By: #### 5 7021-8 ####[facility] LABCLIA [id number] [place] [address] [place] Basophils/100 WBC (Bld) 1.2 % Normal [facility] Comment on above: Order Comment: Speci men Type: BLOOD SPECIMENOrdering Facility: [facility] Address: [address] [place] [address] Performed By: #### 5 7021-8 ####[facility] LABCLIA [id number] [place] [address] [place] Differential cell count method Nom (Bld) Auto Normal [facility] Comment on above: Order Comment: Speci men Type: BLOOD SPECIMENOrdering Facility: [facility] Address: [address] [place] [address] Performed By: #### 5 7021-8 ####[facility] LABCLIA [id number] [place] [address] [place] Eosinophils (Bld) [#/Vol] 0.33 10*3/uL Normal <0.46 [facility] Comment on above: Order Comment: Speci men Type: BLOOD SPECIMENOrdering Facility: [facility] Address: [address] [place] [address] Performed By: #### 5 7021-8 ####[facility] LABCLIA [id number] [place] [address] [place] Eosinophils/100 WBC (Bld) 4.8 % Normal [facility] Comment on above: Order Comment: Speci men Type: BLOOD SPECIMENOrdering Facility: [facility] Address: [address] [place] [address] Performed By: #### 5 7021-8 ####[facility] LABCLIA [id number] [place] [address] [place] Erythrocyte distribution width (RBC) [Ratio] 11.5 % Normal 11.5-15.0 [facility] Comment on above: Order Comment: Speci men Type: BLOOD SPECIMENOrdering Facility: [facility] Address: [address] [place] [address] Performed By: #### 5 7021-8 ####[facility] LABIA [id number] [place] [address] [place] Hematocrit (Bld) [Volume fraction] 43.0 % Normal 36.0-46.0 [facility] Comment on above: Order Comment: Speci men Type: BLOOD SPECIMENOrdering Facility: [facility] Address: [address] [place] [address] Performed By: #### 5 7021-8 ####[facility] LABIA [id number] [place] [address] [place] Hemoglobin (Bld) [Mass/Vol] 14.5 g/dL Normal 11.5-15.5 [facility] Comment on above: Order Comment: Speci men Type: BLOOD SPECIMENOrdering Facility: [facility] Address: [address] [place] [address] Performed By: #### 5 7021-8 ####[facility] LABIA [id number] [place] [address] [place] Immature granulocytes (Bld) [#/Vol] 10*3/uL Normal <0.10 [facility] Comment on above: Order Comment: Speci men Type: BLOOD SPECIMENOrdering Facility: [facility] Address: [address] [place] [address] Performed By: #### 5 7021-8 ####[facility] LABIA [id number] [place] [address] [place] Immature granulocytes/100 WBC (Bld) 0.3 % Normal [facility] Comment on above: Order Comment: Speci men Type: BLOOD SPECIMENOrdering Facility: [facility] Address: [address] [place] [address] Performed By: #### 5 7021-8 ####[facility] LABCLIA [id number] [place] [address] [place] Lymphocytes (Bld) [#/Vol] 1.78 10*3/uL Normal 1.00-4.00 [facility] Comment on above: Order Comment: Speci men Type: BLOOD SPECIMENOrdering Facility: [facility] Address: [address] [place] [address] Performed By: #### 5 7021-8 ####[facility] LABCLIA [id number] [place] [address] [place] Lymphocytes/100 WBC (Bld) 26.1 % Normal [facility] Comment on above: Order Comment: Speci men Type: BLOOD SPECIMENOrdering Facility: [facility] Address: [address] [place] [address] Performed By: #### 5 7021-8 ####[facility] LABCLIA [id number] [place] [address] [place] MCH (RBC) [Entitic mass] 31.3 pg Normal 26.0-34.0 [facility] Comment on above: Order Comment: Speci men Type: BLOOD SPECIMENOrdering Facility: [facility] Address: [address] [place] [address] Performed By: #### 5 7021-8 ####[facility] LABCLIA [id number] [place] [address] [place] MCHC (RBC) [Mass/Vol] 33.7 g/dL Normal 30.5-36.0 [facility] Comment on above: Order Comment: Speci men Type: BLOOD SPECIMENOrdering Facility: [facility] Address: [address] [place] [address] Performed By: #### 5 7021-8 ####[facility] LABCLIA [id number] [place] [address] [place] MCV (RBC) [Entitic vol] 92.7 fL Normal 80.0-100.0 [facility] Comment on above: Order Comment: Speci men Type: BLOOD SPECIMENOrdering Facility: [facility] Address: [address] [place] [address] Performed By: #### 5 7021-8 ####[facility] LABCLIA [id number] [place] [address] [place] Monocytes (Bld) [#/Vol] 0.61 10*3/uL Normal <0.87 [facility] Comment on above: Order Comment: Speci men Type: BLOOD SPECIMENOrdering Facility: [facility] Address: [address] [place] [address] Performed By: #### 5 7021-8 ####[facility] LABIA [id number] [place] [address] [place] Monocytes/100 WBC (Bld) 9.0 % Normal [facility] Comment on above: Order Comment: Speci men Type: BLOOD SPECIMENOrdering Facility: [facility] Address: [address] [place] [address] Performed By: #### 5 7021-8 ####[facility] LABCLIA [id number] [place] [address] [place] Neutrophils (Bld) [#/Vol] 3.99 10*3/uL Normal 1.45-7.50 [facility] Comment on above: Order Comment: Speci men Type: BLOOD SPECIMENOrdering Facility: [facility] Address: [address] [place] [address] Performed By: #### 5 7021-8 ####[facility] LABCLIA [id number] [place] [address] [place] Neutrophils/100 WBC (Bld) 58.6 % Normal [facility] Comment on above: Order Comment: Speci men Type: BLOOD SPECIMENOrdering Facility: [facility] Address: [address] [place] [address] Performed By: #### 5 7021-8 ####[facility] LABCLIA [id number] [place] [address] [place] Nucleated RBC (Bld) [#/Vol] 10*3/uL Normal <0.01 [facility] Comment on above: Order Comment: Speci men Type: BLOOD SPECIMENOrdering Facility: [facility] Address: [address] [place] [address] Performed By: #### 5 7021-8 ####[facility] LABCLIA [id number] [place] [address] [place] Nucleated RBC/100 WBC (Bld) [Ratio] 0.0 /100 WBC Normal [facility] Comment on above: Order Comment: Speci men Type: BLOOD SPECIMENOrdering Facility: [facility] Address: [address] [place] [address] Performed By: #### 5 7021-8 ####[facility] LABCLIA [id number] [place] [address] [place] Platelet mean volume (Bld) [Entitic vol] 11.2 fL Normal 9.0-12.7 [facility] Comment on above: Order Comment: Speci men Type: BLOOD SPECIMENOrdering Facility: [facility] Address: [address] [place] [address] Performed By: #### 5 7021-8 ####[facility] LABCLIA [id number] [place] [address] [place] Platelets (Bld) [#/Vol] 238 10*3/uL Normal 150-400 [facility] Comment on above: Order Comment: Speci men Type: BLOOD SPECIMENOrdering Facility: [facility] Address: [address] [place] [address] Performed By: #### 5 7021-8 ####[facility] LABIA [id number] [place] [id number] [place] RBC (Bld) [#/Vol] 4.64 10*6/uL Normal 3.90-5.20 [facility] Comment on above: Order Comment: Speci men Type: BLOOD SPECIMENOrdering Facility: [facility] Address: [address] [place] [address] Performed By: #### 5 7021-8 ####[facility] LABIA [id number] [place] [address] [place] WBC (Bld) [#/Vol] 6.81 10*3/uL Normal 3.70-11.00 [facility] Comment on above: Order Comment: Speci men Type: BLOOD SPECIMENOrdering Facility: [facility] Address: [address] [place] [address] Performed By: #### 5 7021-8 ####[facility] LABIA [id number] [place] [address] [place] CNOVon 04-05-2024 [facility] FELECIA CARBALLO ([id number]) 1960 F [facility] Date Time Provider Department 04/05/24 3:40 PM [facility] During your visit today, we recorded the following information about you: Pulse Respiration Blood pressure Weight 100/minute 16/minute 146/82 83.9 kg Nori Thorpe APRN.PUBLIC HEALTH EPIDEMIOLOGIST 04/06/2024 9:02 AM Signed HISTORY AND PHYSICAL EXAMINATION SUBJECTIVE 64 year old female is here for consult to determine preoperative surgical clearance requested by Dr. Puente for anticipated surgery: right achilles tendon debridement and repair with partial excision of calcaneus, possible flexor hallucis longus transfer and excision of bursa, scheduled for 04/15/2024. Patient's history of surgical problem: none. Hx of previous anesthesia problems: No. Family hx of anesthesia problems: No. Current signs of infection: No. Chest pain/ hx Cardiac complications: No. Hx of WPW. Shortness of breath: No. Hx sleep apnea: No. Hx of clotting issues: No. Current bleeding or bruising tendencies: No. Hx GERD No. On anticoagulant medication: No. 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 Martinez COLONOSCOPY FLX DX W/COLLJ SPEC WHEN PFRMD 07/06/2015 Colonoscopy EP STUDY 06/02/16 Dr. Martinez EVENT MONITOR 07/02/2016 30 day OOPHORECTOMY PARTIAL/TOTAL UNI/BI 10/04/08 right ovary PAST SURGICAL HISTORY OF dANDc PAST SURGICAL HISTORY OF 10/04/07 excision pelvic dermoid cyst, teratoma PLCMT LOCALZTN CLIP,PERC,DURING BREAST BX 10/04/07 RIGHT TONSILLECTOMY AND ADENOIDECTOMY ALEX CUT BX BREAST MASS Right 08/22/2016 UNLISTED PROCEDURE DENTOALVEOLAR STRUCTURES wisdom teeth US BRST CYST ASP PUNC RT 02/24/09 Right breast cysts x 3 aspirated Social History Tobacco Use Smoking status: Never Smokeless tobacco: Never Substance Use Topics Alcohol use: Yes Alcohol/week: 3.0 standard drinks of alcohol Types: 3 Glasses of wine per week Comment: moderate Drug use: No ACTIVE PROBLEM LIST Hypothyroidism Hypertension, Essential 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 90 tablet 3 atorvastatin (LIPITOR) 20 mg tablet Take 1 tablet by mouth daily at bedtime. For cholesterol. 90 tablet 3 levothyroxine (SYNTHROID) 25 mcg tablet TAKE 1 TABLET BY MOUTH ONCE DAILY. TAKE ON AN EMPTY STOMACH 90 tablet 3 dilTIAZem CD (CARDIZEM CD, CARTIA XT) 120 mg 24 hr capsule Take 1 capsule by mouth once daily. 90 capsule 3 multivit with calcium,iron,min (WOMEN'S MULTIPLE VITAMINS ORAL) coenzyme Q10 (COENZYME Q-10) 100 mg cap capsule Take 200 mg by mouth. No current facility-administered medications for this visit. Allergies: Seasonal Allergies Other: See Comments Comment:Sinus head aches REVIEW OF SYSTEMS: General: No weight loss, malaise or fevers. Neuro: Denies: No Hx of stroke or seizures Parkinson's Disease Multiple Sclerosis Peripheral neuropathy Respiratory: No history of current cough or dyspnea, or pneumonia in the past 6 weeks. No history of respiratory/pulmonary symptoms or problems Cardiovascular: Negative for: Recent [place], CHF, DVT/PE, [place], Valvular Heart Disease. + Hx of WPW and a fib (resolved). + HTN and hyperlipidemia. GI: No history of GI symptoms or problems. No history of esophageal varices, recent ascites, or ETOH greater than 2 drinks per day. : No history of UTI in past 6 weeks. No history of renal failure. Not currently on or requiring dialysis. No history of symptoms or problems. 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 : Denies Endocrine: No history of diabetes. Has not taken steroids within the past 30 days. No history of endocrinological symptoms or problems., + hypothyroidism. Hematology: No history of bleeding or clotting disorder. Pt is not taking anti-coagulation (more content not included)... Normal [facility] metabolic 2000 panelon 06-18-2024 Albumin [Mass/Vol] 4.6 g/dL Normal 3.9-4.9 [facility] Comment on above: Order Comment: Speci men Type: BLOOD SPECIMENOrdering Facility: [facility] Address: [address] [place] [address] Performed By: #### 2 4323-8 ####[facility] LABCLIA [id number] [place] [address] [place] ALP [Catalytic activity/Vol] 50 U/L Normal 34-123 [facility] Comment on above: Order Comment: Speci men Type: BLOOD SPECIMENOrdering Facility: [facility] Address: [address] [place] [address] Performed By: #### 2 4323-8 ####[facility] LABCLIA [id number] [place] [address] [place] ALT [Catalytic activity/Vol] 26 U/L Normal 7-38 [facility] Comment on above: Order Comment: Speci men Type: BLOOD SPECIMENOrdering Facility: [facility] Address: [address] [place] [address] Performed By: #### 2 4323-8 ####[facility] LABCLIA [id number] [place] [address] [place] Anion gap [Moles/Vol] 15 mmol/L Normal 8-15 [facility] Comment on above: Order Comment: Speci men Type: BLOOD SPECIMENOrdering Facility: [facility] Address: [address] [place] [address] Performed By: #### 2 4323-8 ####[facility] LABCLIA [id number] [place] [address] [place] AST [Catalytic activity/Vol] 22 U/L Normal 13-35 [facility] Comment on above: Order Comment: Speci men Type: BLOOD SPECIMENOrdering Facility: [facility] Address: [address] [place] [address] Performed By: #### 2 4323-8 ####[facility] LABCLIA [id number] [facility] [place] [address] [place] Bilirubin [Mass/Vol] 0.2 mg/dL Normal 0.2-1.3 [facility] Comment on above: Order Comment: Speci men Type: BLOOD SPECIMENOrdering Facility: [facility] Address: [address] [place] [address] Performed By: #### 2 4323-8 ####[facility] LABCLIA [id number] [facility] [address] [place] Calcium [Mass/Vol] 10.2 mg/dL Normal 8.5-10.2 [facility] Comment on above: Order Comment: Speci men Type: BLOOD SPECIMENOrdering Facility: [facility] Address: [address] [place] [address] Performed By: #### 2 4323-8 ####[facility] LABCLIA [id number] [place] [address] [place] Chloride [Moles/Vol] 104 mmol/L Normal 98-107 [facility] Comment on above: Order Comment: Speci men Type: BLOOD SPECIMENOrdering Facility: [facility] Address: [address] [place] [address] Performed By: #### 2 4323-8 ####[facility] LABCLIA [id number] [place] [address] [place] CO2 [Moles/Vol] 24 mmol/L Normal 22-30 [facility] Comment on above: Order Comment: Speci men Type: BLOOD SPECIMENOrdering Facility: [facility] Address: [address] [place] [address] Performed By: #### 2 4323-8 ####[facility] LABCLIA [id number] [place] [id number] [place] Creatinine [Mass/Vol] 0.85 mg/dL Normal 0.58-0.96 [facility] Comment on above: Order Comment: Felix saleh Type: BLOOD SPECIMENOrdering Facility: [facility] Address: [address] [place] [address] Performed By: #### 2 4323-8 ####[facility] LABCLIA [id number] [place] [address] [place] Creatinine and Glomerular filtration rate.predicted panel (S/P/Bld) 78 mL/min/1.73m??? Normal >=60 [facility] Comment on above: Order Comment: Felix saleh Type: BLOOD SPECIMENOrdering Facility: [facility] Address: [address] [place] [address] Result Comment: Heather mated Glomerular Filtration Rate (eGFR) is calculated using the 2020 CKD-EPI creatinine equation. This equation utilizes serum creatinine, sex, and age as parameters. The creatinine assay has traceable calibration to isotope dilution-mass spectrometry. Refer to KDIGO guidelines for clinical interpretation. In patients with unstable renal function, e.g. those with acute kidney injury, the eGFR may not accurately reflect actual GFR. Performed By: #### 2 4323-8 ####[facility] LABCLIA [id number] [place] [address] [place] Glucose [Mass/Vol] 89 mg/dL Normal 74-99 [facility] Comment on above: Order Comment: Felix saleh Type: BLOOD SPECIMENOrdering Facility: [facility] Address: [address] [place] [address] Result Comment: The [place] Diabetes Association (ADA) provides guidance for cutoff values for fasting glucose and random glucose. The ADA defines fasting as no caloric intake for at least 8 hours. Fasting plasma glucose results between 100 to 125 mg/dL indicate increased risk for diabetes (prediabetes). Fasting plasma glucose results greater than or equal to 126 mg/dL meet the criteria for diagnosis of diabetes. In the absence of unequivocal hyperglycemia, results should be confirmed by repeat testing. In a patient with classic symptoms of hyperglycemia or hyperglycemic crisis, random plasma glucose results greater than or equal to 200 mg/dL meet the criteria for diagnosis of diabetes. Reference: Standards of Medical Care in Diabetes 2016, [place] [employer]. Diabetes Care. 2016.39(Suppl 1). Performed By: #### 2 4323-8 ####[facility] LABCLIA [id number] [place] [address] [place] Potassium [Moles/Vol] 3.7 mmol/L Normal 3.7-5.1 [facility] Comment on above: Order Comment: Speci men Type: BLOOD SPECIMENOrdering Facility: [facility] Address: [address] [place] [address] Performed By: #### 2 4323-8 ####[facility] LABCLIA [id number] [place] [address] [place] Protein [Mass/Vol] 7.4 g/dL Normal 6.3-8.0 [facility] Comment on above: Order Comment: Speci men Type: BLOOD SPECIMENOrdering Facility: [facility] Address: [address] [place] [address] Performed By: #### 2 4323-8 ####[facility] LABIA [id number] [place] [address] [place] Sodium [Moles/Vol] 143 mmol/L Normal 136-144 [facility] Comment on above: Order Comment: Speci men Type: BLOOD SPECIMENOrdering Facility: [facility] Address: [address] [place] [address] Performed By: #### 2 4323-8 ####[facility] LABCLIA [id number] [place] [address] [place] Urea nitrogen [Mass/Vol] 14 mg/dL Normal 7-21 [facility] Comment on above: Order Comment: Speci men Type: BLOOD SPECIMENOrdering Facility: [facility] Address: [address] [place] [address] Performed By: #### 2 4323-8 ####[facility] LABCLIA [id number] [place] [address] [place] HISTORY PHYSICALon HISTORY PHYSICAL HNO ID: [id number] Author: NORI THORPE APRN.PUBLIC HEALTH EPIDEMIOLOGIST Service: ? Author Type: Nurse Practitioner Type: H&P Filed: 04/06/2024 09:02 Note Text: HISTORY AND PHYSICAL EXAMINATION SUBJECTIVE 64 year old female is here for consult to determine preoperative surgical clearance requested by Dr. Puente for anticipated surgery: right achilles tendon debridement and repair with partial excision of calcaneus, possible flexor hallucis longus transfer and excision of bursa, scheduled for 04/15/2024. Patient's history of surgical problem: none. Hx of previous anesthesia problems: No. Family hx of anesthesia problems: No. Current signs of infection: No. Chest pain/ hx Cardiac complications: No. Hx of WPW. Shortness of breath: No. Hx sleep apnea: No. Hx of clotting issues: No. Current bleeding or bruising tendencies: No. Hx GERD No. On anticoagulant medication: No. 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 Martinez COLONOSCOPY FLX DX W/COLLJ SPEC WHEN PFRMD 07/06/2015 Colonoscopy EP STUDY 06/02/16 Dr. Martinez EVENT MONITOR 07/02/2016 30 day OOPHORECTOMY PARTIAL/TOTAL UNI/BI 10/04/08 right ovary PAST SURGICAL HISTORY OF dANDc PAST SURGICAL HISTORY OF 10/04/07 excision pelvic dermoid cyst, teratoma PLCMT LOCALZTN CLIP,PERC,DURING BREAST BX 10/04/07 RIGHT TONSILLECTOMY AND ADENOIDECTOMY ALEX CUT BX BREAST MASS Right 08/22/2016 UNLISTED PROCEDURE DENTOALVEOLAR STRUCTURES wisdom teeth US BRST CYST ASP PUNC RT 02/24/09 Right breast cysts x 3 aspirated Social History Tobacco Use Smoking status: Never Smokeless tobacco: Never Substance Use Topics Alcohol use: Yes Alcohol/week: 3.0 standard drinks of alcohol Types: 3 Glasses of wine per week Comment: moderate Drug use: No ACTIVE PROBLEM LIST Hypothyroidism Hypertension, Essential Wpw (Ciwtz-Rkyamkfnk-Azftv Syndrome) Melanocytic Nevus of Trunk Current Outpatient Medications Medication Sig Dispense Refill lisinopril-hydroCHLORO thiazide (ZESTORETIC) 20-12.5 mg per tablet Take 1 tablet by mouth every morning. 90 tablet 3 atorvastatin (LIPITOR) 20 mg tablet Take 1 tablet by mouth daily at bedtime. For cholesterol. 90 tablet 3 levothyroxine (SYNTHROID) 25 mcg tablet TAKE 1 TABLET BY MOUTH ONCE DAILY. TAKE ON AN EMPTY STOMACH 90 tablet 3 dilTIAZem CD (CARDIZEM CD, CARTIA XT) 120 mg 24 hr capsule Take 1 capsule by mouth once daily. 90 capsule 3 multivit with calcium,iron,min (WOMEN'S MULTIPLE VITAMINS ORAL) coenzyme Q10 (COENZYME Q-10) 100 mg cap capsule Take 200 mg by mouth. No current facility-administered medications for this visit. Allergies: Seasonal Allergies Other: See Comments Comment:Sinus head aches REVIEW OF SYSTEMS: General: No weight loss, malaise or fevers. Neuro: Denies: No Hx of stroke or seizures Parkinson's Disease Multiple Sclerosis Peripheral neuropathy Respiratory: No history of current cough or dyspnea, or pneumonia in the past 6 weeks. No history of respiratory/pulmonary symptoms or problems Cardiovascular: Negative for: Recent [place], CHF, DVT/PE, [place], Valvular Heart Disease. + Hx of WPW and a fib (resolved). + HTN and hyperlipidemia. GI: No history of GI symptoms or problems. No history of esophageal varices, recent ascites, or ETOH greater than 2 drinks per day. : No history of UTI in past 6 weeks. No history of renal failure. Not currently on or requiring dialysis. No history of symptoms or problems. 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 : Denies Endocrine: No history of diabetes. Has not taken steroids within the past 30 days. No history of endocrinological symptoms or problems., + hypothyroidism. Hematology: No history of bleeding or clotting disorder. Pt is not taking anti-coagulation or platelet medications. No history of hematological symptoms or problems. Oncology: No history of CA metastasis, chemo within 30 days, or radiotherapy within 90 days. Has not lost 10% of body wt in 6 months. No history of oncological symptoms or problems. Psych: No his (more content not included)... Normal [facility] NICOTINE/COTININEon 04-05-20 24 Cotinine [Mass/Vol] <2 Normal <2 [facility] Comment on above: Order Comment: Speci men Type: BLOOD SPECIMENOrdering Facility: [facility] Address: [address] [place] [address] Result Comment: Acti ve tobacco product user: Nicotine concentration: 30 - 50 ng/mL Cotinine concentration: 200 - 800 ng/mL Passive exposure to tobacco: Nicotine concentration: < 2 ng/mL Cotinine concentration: < 8 ng/mL Unexposed non-tobacco user or abstinent user for > 2 weeks: Nicotine concentration: < 2 ng/mL Cotinine concentration: < 2 ng/mL This test was developed and its performance characteristics determined by [facility]'s [facility] Pathology and Laboratory Medicine [place] ([facility] It has not been cleared or approved by the FDA. [facility] is regulated under CLIA as qualified to perform high-complexity testing. This test is used for clinical purposes. It should not be regarded as investigational or for research. Performed By: #### N ICOT ####[facility] LABCLIA [id number] [place] [address] [place] Nicotine [Mass/Vol] <2 Normal <2 [facility] Comment on above: Order Comment: Oliviai therese Type: BLOOD SPECIMENOrdering Facility: [facility] Address: [address] [place] [address] Performed By: #### N ICOT ####[facility] LABCLIA [id number] [place] [address] [place] 12 Lead EKG performed by [facility] on 04-04-2024 12 Lead EKG performed by [facility] [address] [place] [address] 12 Lead EKG performed by [facility] 04/04/24 1013 MR#: [id number] Acct: [id number] Name: BRITT CARBALLO Rep #: [id number] : 1960 64 From: Kb Valdivia MD Attending Dr: Dr. Kb Valdivia MD Status: DEP AMB Ordering Dr: Kb Valdivia MD Date: 04/04/24 Location: [facility] Sex: F C Admitted: [facility]/12 Lead EKG performed by [facility] ECG Report Interpretation ----Sinus Rhythm -Left bundle branch block and left axis. 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 ABNORMAL Electronically signed on 11/14/2024 at 09:[address] Kb Valdivia [employer] Software Version 8610 11/14/24923 Date Kb Valdivia MD CC: AYAAN Nova Date Dictated: 04/04/24 1013 Date Transcribed: 04/04/241012 Band Instrument Repairer: MERRILL Signed Normal [facility] Cardiology Visit Reporton Cardiology Visit Report [facility] [address] [place] [address] OFFICE VISIT Date of Service: 04/04/24 MR#: [id number] Acct: [id number] Name: BRITT CARBALLO Rep #: [id number] : 1960 Provider: Dr. Kb Valdivia MD Age/Sex: 64/F Location: [facility] Status: Signed [facility] History of Present Illness Details: This lady has past medical history significant for WPW with atrial fibrillation as well. She has had 2 attempts at ablation of the accessory pathway however these were unsuccessful. Electrophysiology then started her on diltiazem and advised medical management. She has been asymptomatic since. She is being contemplated for surgery on her right foot. We are asked for assessment of the cardiac risk for the proposed procedure. Patient denies any chest pains either at rest or with exertion. Denies any shortness of breath. According to her, she can climb 2 flights of stairs without any shortness of breath or chest pain. No orthopnea. No PND. No ankle edema. She denies any palpitations. No syncope or presyncope. Patient only recently has had surgery done on her left meniscus. The operative and postop course was uncomplicated. Intake Vital Signs 04/04/24 10:02 Height 5 ft 6 in Weight: 184 lb BMI 29.7 BP 131/87 H Blood Pressure Location Lt brachial Position Sitting Respiration 16 Pulse 97 Pulse Source Monitor Intake Visit Reasons: SURG CLEARANCE (SELF) Line Maintainer Required: No Accompanied by: Is patient in pain?: No Allergies No Known Allergies Allergy (Verified 04/04/24 10:02) Medications ???Medication ???Instructions ???Recorded ???Confirmed ???Type levothyroxine 25 mcg tablet 25 mcg PO DAILY 03/27/16 03/22/24 History coenzyme Q10 200 mg capsule 200 mg PO DAILY 08/22/16 04/04/24 History diltiazem HCl 120 mg 120 mg PO DAILY 08/22/16 03/22/24 History capsule,extended release 24 hr atorvastatin 20 mg tablet 20 mg PO QHS 03/01/24 03/22/24 History lisinopril 20 1 tab PO DAILY 03/22/24 03/22/24 History mg-hydrochlorothiazide 12.5 mg tablet multivitamin 1 tab PO DAILY 04/04/24 04/04/24 History Ejection fraction %: 50 PFSH Medical History Hyperlipidemia SVT (supraventricular tachycardia) PVC (premature ventricular contraction) Diffuse cystic mastopathy of left breast Right foot pain Wears glasses Alcohol use Thyroid disease High cholesterol Non-smoker History of stress test History of echocardiogram Cardiology follow-up encounter History of atrial fibrillation History of irregular heartbeat Hypothyroid HTN (hypertension) Idijp-Sxwavujfi-Wodgv (WPW) syndrome Breast lesion on mammography Surgical History Hx of breast biopsy Hx of dilation and curettage Hx of section History of colonoscopy History of tonsillectomy History of arthroplasty of left knee History of cardiac radiofrequency ablation S/P right oophorectomy Family History Brother Diabetes Mother Hypertension Father Hypertension Diabetes Grandmother Breast cancer Grandfather CVA (cerebral vascular accident) Son IBS (irritable bowel syndrome) Social History Smoking Status: Never smoker alcohol intake: current alcohol intake frequency: a few times a week substance use type: does not use caffeine: Yes (2.5 cups/day) Type: coffee Number of servings: 2 ROS Const Const: Positive for daytime sleepiness and difficulty sleeping; Negative for fatigue, weakness, headache(s), frequent falls or excessive sweating Eyes Eyes: Positive for change in vision; Negative for loss of peripheral vision, transient loss of vision, blurry vision, double vision or tunnel vision ENT ENT: Negative for headache(s), dizziness, Nosebleed/epistaxis or balance problems Cardio Chest Pain: No Palpitations: No Edema: Right Muscle aches with walking: None Resp Respiratory: Negative for SOB with activity, SOB at rest, SOB orthopnea SOB lying down, Cough or paroxysmal nocturnal dyspnea GI GI: Negative nausea, vomiting, heartburn or black,tarry stools : Positive for frequent nighttime urination/ nocturia; Negative for hematuria Musc Musc: Positive for joint pain; Negative for muscle aches/ myalgia, muscle weakness or balance problems Skin Skin: Negative non-healing lesions, rash or unusual bruising Neuro Neuro: Negative for dizziness, lightheadedness, near syncope, syncope, frequent falls, headache(s), weakness, blurry vision, double vision or lack of coordination Roel Hematologic/Lymphatic: Negative for easy bleeding or easy bruising Endo Endo: Negative for fatigue, excessive sweat (more content not included)... [facility] Tele[facility] (FAMPWS) LONNIEFELECIA ([id number]) 1960 F ERICA Date Time Provider Department 03/03/24 Markie GTZ During your visit today, we recorded the following information about you: Markie Martin, RN 03/03/2024 9:01 AM Signed [facility]- reports [facility] anesthesiologist, is questioning cardiac clearance for upcoming surgery. 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 Are you going to refer patient to cardiology for clearance? Are you willing to fill out the cardiac clearance form if not referring patient to cardiology? Please phone Mat Alejandra with reply: [phone] (make sure you ask for Mat Alejandra b/c they have several Mat's there) Markie Gtz PA-C 03/03/2024 1:15 PM Signed Phoned and left message with my number, advised as written in chart that she had ablation and has had no symptoms since then. If still concerned, I can order cardiac clearance. MARLEE Renae M Gregory, PA-C 03/03/2024 2:11 PM Signed Spoke with Mat at [facility] Anesthesia is questioning why no cardiology clearance. Has no lead advisor. Was sent directly to golf tournament consultant who declines to do a cardiac clearance. Consult first available cardiology provider with preference closest to [facility] but will take what's open. Telephone on 03/03/24 CONSULT TO CARDIOLOGY Thanks, MARLEE Renae Melody 03/08/2024 9:15 AM Signed 1st attempt called pt about Cardio consult. LVM. Consult was scheduled at first available within [facility]. ([facility] [place] is June) Barbara Lemus, KIRIT 03/08/2024 9:26 AM Signed Pt called in and reports she was able to get an appointment with Dr Valdivia with [facility] on 04/04/24. Canceled consult with [facility] in June. Allergies As of Date: 03/03/2024 Noted Allergy Reaction SEASONAL ALLERGIES 03/27/2011 14 - Other: See Comments Comments: Sinus head aches Date Reviewed: 02/29/2024 Reviewed by: Radha Ernandez LPN - Fully Assessed Reason for Visit: Question r/t cardiac clearance [Other] Primary Visit Diagnosis:Ezra-[place] son-White (WPW) pattern [I45.6] Order(s):CONSULT TO CARDIOLOGY [9004] Order #: [id number]: 1 FUTURE Prescriptions as of 03/08/2024 - levothyroxine (SYNTHROID) 25 mcg tablet TAKE 1 TABLET BY MOUTH ONCE DAILY. TAKE ON AN EMPTY STOMACH - dilTIAZem CD (CARDIZEM CD, CARTIA XT) 120 mg 24 hr capsule Take 1 capsule by mouth once daily. - lisinopril-hydroCHLORO thiazide (ZESTORETIC) 20-12.5 mg per tablet Take 1 tablet by mouth every morning. - atorvastatin (LIPITOR) 20 mg tablet Take 1 tablet by mouth daily at bedtime. For cholesterol. - multivit with calcium,iron,min (WOMEN'S MULTIPLE VITAMINS ORAL) - coenzyme Q10 (COENZYME Q-10) 100 mg cap capsule Take 200 mg by mouth. Problem List As Of Date 03/03/2024 Noted Resolved Hypothyroidism [E03.9] 05/23/2010 Hypertension, essential [I10] 05/25/2015 Special screening for malignant neoplasms, colo*07/06/2015 07/06/2015 WPW (Ruyhy-Hkqyvwlym-Owvhk syndrome) [I45.6] 04/15/2016 Persistent atrial fibrillation (HCC) [I48.19] 04/15/2016 09/02/2017 A-fib (HCC) [I48.91] 09/02/2017 Melanocytic nevus of trunk [D22.5] 08/08/2019 Encounter Status:Closed by BARBARA LEMUS on 03/08/24 Normal [facility] HBA1C (OUTSIDE)Ordered By: Clara Alberts on 03-02-2024 HbA1c (Bld) [Mass fraction] 5.5 % [facility] Absolute lymphocyte countOrd ered By: Kobi Yan on 08-27-2023 Lymphocytes Auto (Unsp spec) [#/Vol] 1.67 10*3/uL 0.83-4.51 [facility] Basophil percentageOrdered B y: Kobi Yan on 08-27-2023 Basophils/100 WBC (Bld) 0.8 % 0-1 [facility] Chloride [Moles/Vol] 108 mmol/L 98-107 [facility] Eosinophils/100 WBC (Bld) 5.3 % 0-5 [facility] Glucose [Mass/Vol] 115 mg/dL 74-106 [facility] Comment on above: Fasting Glucose resu lt from 100 to 125 mg/dL suggests IMPAIRED HOMEOSTASIS per A.D.A. criteria. Neutrophils (Bld) [#/Vol] 4.5 10*3/uL 2.0-7.7 [facility] Neutrophils/100 WBC (Bld) 63.0 % 47-70 [facility] Potassium [Moles/Vol] 4.0 mmol/L 3.5-5.1 [facility] Sodium [Moles/Vol] 140 mmol/L 136-145 [facility] WBC (Bld) [#/Vol] 7.2 10*3/uL 4.4-11.0 [facility] Blood erythrocytes count (nu mber/volume)Ordered By: Kobi Yan on 08-27-2023 RBC (Bld) [#/Vol] 4.51 10*6/uL 4.2-5.4 [facility] Blood hemoglobin measurement (mass/volume)Ordered By: Kobi Yan on 08-27-2023 Hemoglobin (Bld) [Mass/Vol] 14.3 g/dL 12.0-15.0 [facility] Blood lymphocytes/100 leukoc ytesOrdered By: Kobi Yan on 08-27-2023 Lymphocytes/100 WBC (Bld) 23.2 % 19-41 [facility] Blood monocytes/100 leukocyt esOrdered By: Kobi Yan on 08-27-2023 Monocytes/100 WBC (Bld) 7.6 % 0-10 [facility] Blood platelet mean volumeOr dered By: Kobi Yan on 08-27-2023 Platelet mean volume (Bld) [Entitic vol] 9.3 fL 6.2-12.0 [facility] Determination of erythrocyte mean corpuscular volume (MCV)Ordered By: Kobi Yan on 08-27-2023 MCV (RBC) [Entitic vol] 92.9 fL 81-99 [facility] Hematocrit Auto (Bld) [Volum e fraction]Ordered By: Kobi Yan on 08-27-2023 Hematocrit (Bld) [Volume fraction] 41.9 % 37-47 [facility] Laboratory - Chemistry and C hemistry - challengeOrdered By: Kobi Yan on 08-27-2023 CO2 [Moles/Vol] 29.0 mmol/L 21.0-32.0 [facility] Urea nitrogen/Creatinine [Mass ratio] 27.3 mg/mg 10-20 [facility] - Hematology and Cell countsOrdered By: Kobi Yan on 08-27-2023 Erythrocyte distribution width (RBC) [Entitic vol] 40.1 fL 35.1-43.9 [facility] Erythrocyte distribution width (RBC) [Ratio] 11.9 % 11.6-14.6 [facility] Immature granulocytes/100 WBC (Bld) 0.100 % 0.0-0.9 [facility] Comment on above: IG% - Immature Granu locytes (promyelocytes, myelocytes and metamyelocytes) > 1% indicates that a LEFT SHIFT is Present. MCH (RBC) [Entitic mass] 31.7 pg 27.0-32.0 [facility] Nucleated RBC/100 WBC (Bld) [Ratio] 0 % 0-5 [facility] MCHC Auto (RBC) [Mass/Vol]Or dered By: Kobi Yan on 08-27-2023 MCHC (RBC) [Mass/Vol] 34.1 g/dL 32-36 [facility] No Panel InformationOrdered By: Kobi Yan on 08-27-2023 Estimated GFR (MDRD) Amer 80 mL/min >60 [facility] Comment on above: GFR Calc Estimated GFR (MDRD) Non-Af Amer 66 mL/min >60 [facility] Comment on above: Non- GFR Calc Platelets bldOrdered By: Dakota Yan on 08-27-2023 Platelets (Bld) [#/Vol] 278 10*3/uL 150-450 [facility] Serum or plasma calcium raquel urement (mass/volume)Ordered By: Kobi Yan on 08-27-2023 Calcium [Mass/Vol] 9.6 mg/dL 8.5-10.1 [facility] Serum or plasma creatinine m easurement (mass/volume)Ordered By: Kobi Yan on 08-27-2023 Creatinine [Mass/Vol] 0.92 mg/dL 0.55-1.02 [facility] Comment on above: The validity of the calculated GFR & GFRAA in patients over 70 years has not been determined. Clinical correlation is essential. Serum or plasma urea nitroge n measurement (mass/volume)Ordered By: Kobi Yan on 08-27-2023 Urea nitrogen [Mass/Vol] 25 mg/dL 7-18 [facility] Thin prep Papanicolaou smear with manual screeningOrdered By: Kobi Yan on 08-27-2023 Thin prep Papanicolaou smear with manual screening 3 5-15 [facility] XR CHEST 2V FRONTAL/LATon [facility] XR Chest PA and Lateralon IMPRESSION: No acute radiographic abnormality. Band Instrument Repairer: [facility] Transcribe Date/Time: Jan 01 2023 11:48A Dictated by : MANDEEP CRISTOBAL MD This examination was interpreted and the report reviewed and electronically signed by: MANDEEP CRISTOBAL MD on Jan 01 2023 11:49AM [facility] DIVISION OF RADIOLOGY * * *Final Report* * * DATE OF EXAM: Jan 01 2023 11:36AM WOX [id number] - XR CHEST 2V FRONTAL/LAT / PROCEDURE REASON: Subacute cough * * * * Physician Interpretation * * * * EXAMINATION: CHEST RADIOGRAPH (2 VIEW FRONTAL & LATERAL) CLINICAL HISTORY: Subacute cough MQ: XC2_6 EXAM DATE/TIME: 01/01/2023 11:36 AM COMPARISON: No relevant prior studies available. RESULT: Lines, tubes, and devices: None. Lungs and pleura: No consolidation. No lung mass. No pleural effusion. No pneumothorax. There is a large left-sided pericardial fat pad. Cardiomediastinal silhouette: Normal cardiomediastinal silhouette. Bones and soft tissues: The spine shows degenerative changes. DIVISION OF RADIOLOGY Provider, [facility] S[facility]hu [facility] - 01/01/2023 * * *Final Report* * * DATE OF EXAM: Jan 01 2023 11:36AM WOX [id number] - XR CHEST 2V FRONTAL/LAT / PROCEDURE REASON: Subacute cough * * * * Physician Interpretation * * * * EXAMINATION: CHEST RADIOGRAPH (2 VIEW FRONTAL & LATERAL) CLINICAL HISTORY: Subacute cough MQ: XC2_6 EXAM DATE/TIME: 01/01/2023 11:36 AM COMPARISON: No relevant prior studies available. RESULT: Lines, tubes, and devices: None. Lungs and pleura: No consolidation. No lung mass. No pleural effusion. No pneumothorax. There is a large left-sided pericardial fat pad. Cardiomediastinal silhouette: Normal cardiomediastinal silhouette. Bones and soft tissues: The spine shows degenerative changes. IMPRESSION IMPRESSION: No acute radiographic abnormality. Band Instrument Repairer: [employer] Transcribe Date/Time: Jan 01 2023 11:48A Dictated by : MANDEEP CRISTOBAL MD This examination was interpreted and the report reviewed and electronically signed by: MANDEEP CRISTOBAL MD on Jan 01 2023 11:49AM EST [facility] Radiology Study observation (narrative) [facility] XR Chest PA and LateralOrder ed By: [facility] Provider on 01-01-2023 [facility] Office Visit: Post Op Breast Biopsyon 09-05-2016 Dietary management education, guidance, and counseling (procedure) yes Invalid Interpretation Code [facility] [employer] Work Phone: Documentation of current medications (procedure) Done Invalid Interpretation Code [facility] [employer] Work Phone: Tobacco smoking status NHIS Never Invalid Interpretation Code [facility] [employer] Work Phone: Tobacco smoking status NHIS Never smoker [facility] [employer] Work Phone: Tobacco use [facility] Never smoker Invalid Interpretation Code [facility] [employer] Work Phone: Office Visit: New patient: A bnormal mammogramon 07-02-2016 General categories [interpretation] of Cervical or vaginal smear or scraping by Cyto stain Normal Invalid Interpretation Code [employer] Work Phone: Breast Mammogram screening Abnormal Right Invalid Interpretation Code [facility] [employer] Work Phone: Office Visit: New patient: A bnormal mammogramon 07-23-2015 Colonoscopy (procedure) Colonoscopy (procedure) Invalid Interpretation Code [facility] [employer] Work Phone: Vital Signs Date Time Vital Sign Value Performing Clinician Facility 03-22-2025 07:58-0400 Body height 167.64 cm NA Gtz PA Work Phone: [facility] 03-22-2025 07:58-0400 Body mass index (BMI) [Ratio] 29.8 kg/m2 NA Gtz PA Work Phone: [facility] 03-22-2025 07:58-0400 Body weight 83.91 kg NA Gtz PA Work Phone: [facility] 03-22-2025 07:58-0400 Diastolic blood pressure 86 mm[Hg] NA Gtz PA Work Phone: [phone] [place] [address] 03-22-2025 07:58-0400 Heart rate 80 /min NA Gtz PA Work Phone: [phone] [place] [address] 03-22-2025 07:58-0400 Respiratory rate 16 /min NA Gtz PA Work Phone: [phone] [place] [address] 03-22-2025 07:58-0400 Systolic blood pressure 140 mm[Hg] NA Gtz PA Work Phone: [phone] [place] [address] 02-28-2025 09:14-0400 Diastolic blood pressure 78 mm[Hg] Radha Suppan DREDGE ENGINEER.PUBLIC HEALTH EPIDEMIOLOGIST Work Phone: [facility] 02-28-2025 09:14-0400 Systolic blood pressure 116 mm[Hg] Radha Suppan DREDGE ENGINEER.PUBLIC HEALTH EPIDEMIOLOGIST Work Phone: [facility] 02-28-2025 08:56-0400 Body mass index (BMI) [Ratio] 30.45 kg/m2 Radha Suppan DREDGE ENGINEER.PUBLIC HEALTH EPIDEMIOLOGIST Work Phone: [facility] 02-28-2025 08:56-0400 Body weight 83.01 kg Radha Suppan DREDGE ENGINEER.PUBLIC HEALTH EPIDEMIOLOGIST Work Phone: [facility] 02-28-2025 08:56-0400 Heart rate 92 /min Radha Suppan DREDGE ENGINEER.PUBLIC HEALTH EPIDEMIOLOGIST Work Phone: [facility] 02-28-2025 08:56-0400 SaO2% (BldA) [Mass fraction] 98 % Radha Hummel DREDGE ENGINEER.PUBLIC HEALTH EPIDEMIOLOGIST Work Phone: [facility] 07-25-2024 11:30-0400 Body height 165.1 cm Cathy Ndiaye MD Work Phone: [facility] 07-25-2024 11:30-0400 Body mass index (BMI) [Ratio] 30.25 kg/m2 Cathy Ndiaye MD Work Phone: [facility] 07-25-2024 11:30-0400 Body weight 82.46 kg Cathy Ndiaye MD Work Phone: [facility] 07-25-2024 11:30-0400 Diastolic blood pressure 74 mm[Hg] Cathy Ndiaye MD Work Phone: [facility] 07-25-2024 11:30-0400 Heart rate 101 /min Cathy Ndiaye MD Work Phone: [facility] 07-25-2024 11:30-0400 SaO2% (BldA) [Mass fraction] 99 % Cathy Ndiaye MD Work Phone: [facility] 07-25-2024 11:30-0400 Systolic blood pressure 132 mm[Hg] Cathy Ndiaye MD Work Phone: [facility] 04-05-2024 15:39-0400 Body mass index (BMI) [Ratio] 30.34 kg/m2 Nori Bhattagen DREDGE ENGINEER.PUBLIC HEALTH EPIDEMIOLOGIST Work Phone: [facility] 04-05-2024 15:39-0400 Body weight 83.92 kg Nori Haagen DREDGE ENGINEER.PUBLIC HEALTH EPIDEMIOLOGIST Work Phone: [facility] 04-05-2024 15:39-0400 Diastolic blood pressure 82 mm[Hg] Nori Haagen DREDGE ENGINEER.PUBLIC HEALTH EPIDEMIOLOGIST Work Phone: [facility] 04-05-2024 15:39-0400 Heart rate 100 /min Nori Haagen DREDGE ENGINEER.PUBLIC HEALTH EPIDEMIOLOGIST Work Phone: [facility] 04-05-2024 15:39-0400 Respiratory rate 16 /min Nori Thorpe DREDGE ENGINEER.PUBLIC HEALTH EPIDEMIOLOGIST Work Phone: [facility] 04-05-2024 15:39-0400 Systolic blood pressure 146 mm[Hg] Nori Thorpe DREDGE ENGINEER.PUBLIC HEALTH EPIDEMIOLOGIST Work Phone: [facility] 02-29-2024 08:53-0400 Body height 166.3 cm NA Gtz PA-C Work Phone: [facility] 02-29-2024 08:53-0400 Body mass index (BMI) [Ratio] 30.51 kg/m2 NA Gtz PA-C Work Phone: [facility] 02-29-2024 08:53-0400 Body weight 84.37 kg NA Gtz PA-C Work Phone: [facility] 02-29-2024 08:53-0400 Diastolic blood pressure 76 mm[Hg] NA Gtz PA-C Work Phone: [facility] 02-29-2024 08:53-0400 Heart rate 91 /min NA Gtz PA-C Work Phone: [facility] 02-29-2024 08:53-0400 Respiratory rate 16 /min NA Gtz PA-C Work Phone: [facility] 02-29-2024 08:53-0400 SaO2% (BldA) [Mass fraction] 98 % NA Gtz PA-C Work Phone: [facility] 02-29-2024 08:53-0400 Systolic blood pressure 130 mm[Hg] NA Gtz PA-C Work Phone: [facility] 08-24-2023 13:53-0500 Body weight 82.56 kg NA Gtz PA-C Work Phone: [facility] 08-24-2023 13:53-0500 Diastolic blood pressure 66 mm[Hg] NA Gtz PA-C Work Phone: [facility] 08-24-2023 13:53-0500 Heart rate 76 /min NA Gtz PA-C Work Phone: [facility] 08-24-2023 13:53-0500 Respiratory rate 16 /min NA Gtz PA-C Work Phone: [facility] 08-24-2023 13:53-0500 SaO2% (BldA) [Mass fraction] 96 % NA Gtz PA-C Work Phone: [facility] 08-24-2023 13:53-0500 Systolic blood pressure 118 mm[Hg] NA Gtz PA-C Work Phone: [facility] 02-20-2023 08:00-0400 Body weight 78.93 kg NA Gtz PA-C Work Phone: [facility] 02-20-2023 08:00-0400 Diastolic blood pressure 80 mm[Hg] NA Gtz PA-C Work Phone: [facility] 02-20-2023 08:00-0400 Heart rate 80 /min NA Gtz PA-C Work Phone: [facility] 02-20-2023 08:00-0400 Respiratory rate 16 /min NA Gtz PA-C Work Phone: [facility] 02-20-2023 08:00-0400 SaO2% (BldA) [Mass fraction] 98 % NA Gtz PA-C Work Phone: [facility] 02-20-2023 08:00-0400 Systolic blood pressure 122 mm[Hg] NA Gtz PA-C Work Phone: [facility] 01-01-2023 11:20-0400 Body temperature 100.51 [degF] Britt Prakrystaller-Wood DREDGE ENGINEER.PUBLIC HEALTH EPIDEMIOLOGIST Work Phone: [facility] 01-01-2023 11:20-0400 Body weight 79.47 kg Britt Prajeffry-Gopal DREDGE ENGINEER.PUBLIC HEALTH EPIDEMIOLOGIST Work Phone: [facility] 01-01-2023 11:20-0400 Diastolic blood pressure 82 mm[Hg] Britt Praisler-Wood DREDGE ENGINEER.PUBLIC HEALTH EPIDEMIOLOGIST Work Phone: [facility] 01-01-2023 11:20-0400 Heart rate 126 /min Britt Praisler-Wood DREDGE ENGINEER.PUBLIC HEALTH EPIDEMIOLOGIST Work Phone: [facility] 01-01-2023 11:20-0400 Respiratory rate 20 /min Britt Praisler-Wood DREDGE ENGINEER.PUBLIC HEALTH EPIDEMIOLOGIST Work Phone: [facility] 01-01-2023 11:20-0400 SaO2% (BldA) [Mass fraction] 98 % Britt Praisler-Wood DREDGE ENGINEER.PUBLIC HEALTH EPIDEMIOLOGIST Work Phone: [facility] 01-01-2023 11:20-0400 Systolic blood pressure 128 mm[Hg] Britt Praisler-Wood DREDGE ENGINEER.PUBLIC HEALTH EPIDEMIOLOGIST Work Phone: [facility] 08-15-2022 09:49-0400 Body height 170 cm NA Gtz PA-C Work Phone: [facility] 08-15-2022 09:49-0400 Body weight 78.93 kg NA Gtz PA-C Work Phone: [facility] 08-15-2022 09:49-0400 Diastolic blood pressure 74 mm[Hg] NA Gtz PA-C Work Phone: [facility] 08-15-2022 09:49-0400 Heart rate 99 /min NA Gtz PA-C Work Phone: [facility] 08-15-2022 09:49-0400 Respiratory rate 16 /min NA Gtz PA-C Work Phone: [facility] 08-15-2022 09:49-0400 SaO2% (BldA) [Mass fraction] 97 % NA Gtz PA-C Work Phone: [facility] 08-15-2022 09:49-0400 Systolic blood pressure 126 mm[Hg] NA Gtz PA-C Work Phone: [facility] 08-13-2022 08:39-0400 Body temperature 98.29 [degF] Karlie Phan DREDGE ENGINEER.PUBLIC HEALTH EPIDEMIOLOGIST Work Phone: [facility] 08-13-2022 08:39-0400 Body weight 79.2 kg Karlie Podlogar DREDGE ENGINEER.PUBLIC HEALTH EPIDEMIOLOGIST Work Phone: [facility] 08-13-2022 08:39-0400 Diastolic blood pressure 82 mm[Hg] Karlie Podlogar DREDGE ENGINEER.PUBLIC HEALTH EPIDEMIOLOGIST Work Phone: [facility] 08-13-2022 08:39-0400 Heart rate 92 /min Karlie Podlogar DREDGE ENGINEER.PUBLIC HEALTH EPIDEMIOLOGIST Work Phone: [facility] 08-13-2022 08:39-0400 Respiratory rate 16 /min Karlie Podlogar DREDGE ENGINEER.PUBLIC HEALTH EPIDEMIOLOGIST Work Phone: [facility] 08-13-2022 08:39-0400 SaO2% (BldA) [Mass fraction] 99 % Karlie Podlogar DREDGE ENGINEER.PUBLIC HEALTH EPIDEMIOLOGIST Work Phone: [facility] 08-13-2022 08:39-0400 Systolic blood pressure 142 mm[Hg] Karlie Podlogar DREDGE ENGINEER.PUBLIC HEALTH EPIDEMIOLOGIST Work Phone: [facility] 02-13-2022 16:21-0400 Body weight 79.83 kg NA Gtz PA-C Work Phone: [facility] 02-13-2022 16:21-0400 Diastolic blood pressure 72 mm[Hg] NA Gtz PA-C Work Phone: [facility] 02-13-2022 16:21-0400 Heart rate 96 /min NA Gtz PA-C Work Phone: [facility] 02-13-2022 16:21-0400 Respiratory rate 16 /min NA Gtz PA-C Work Phone: [facility] 02-13-2022 16:21-0400 SaO2% (BldA) [Mass fraction] 97 % NA Gtz PA-C Work Phone: [facility] 02-13-2022 16:21-0400 Systolic blood pressure 120 mm[Hg] NA Gtz PA-C Work Phone: [facility] 09-05-2016 15:23-0500 BMI (Body Mass Index) 27.27 kg/m2 Tanya Shay LPN [facility] Work Phone: 09-05-2016 15:23-0500 Body Temperature 98.1 [degF] Tanya Shay LPN [facility] Work Phone: 09-05-2016 15:23-0500 Body weight 76.66 kg Alexandrea Hyde MD [facility] Work Phone: 09-05-2016 15:23-0500 Body weight 76.82 kg Alexandrea Hyde MD [facility] [employer] Work Phone: 09-05-2016 15:23-0500 BP Diastolic 98 mm[Hg] Tanya Shay LPN [facility] [employer] Work Phone: 09-05-2016 15:23-0500 BP Systolic 160 mm[Hg] Tanya Shay LPN [facility] [employer] Work Phone: 09-05-2016 15:23-0500 BSA (Body Surface Area) 1.86 m2 Tanya Shay LPN [facility] Work Phone: 09-05-2016 15:23-0500 Height 167.64 cm Tanya Shay LPN [facility] Work Phone: 09-05-2016 15:23-0500 Pulse (Heart Rate) 82 /min Tanya Shay LPN [facility] Work Phone: 09-05-2016 15:23-0500 Pulse Oximetry 99 % Tanya Shay LPN [facility] [employer] Work Phone: 09-05-2016 15:23-0500 Respiratory Rate 16 /min Tanya Shay LPN [facility] Work Phone: 09-05-2016 15:23-0500 Weight 76.66 kg Tanya Shay LPN [facility] Work Phone: 09-05-2016 15:23-0500 Weight 76.82 kg Tanya Shay LPN [facility] Work Phone: Encounters Encounter Date Encounter Type Care Provider Facility Start: 05-01-2025 ambulatory Radha Hummel Facil ity:[facility] Start: 03-22-2025 End: 03-22-[address] bK Valdivia MD -[facility] Work Phone: Start: 03-22-2025 End: 03-22-2025 ambulatory Markie KUO [facility] Start: 02-28-2025 End: 02-28-2025 Office outpatient visit 25 minutes Radha Hummel DREDGE ENGINEER.PUBLIC HEALTH EPIDEMIOLOGIST Work Phone: [facility] Comment on above: Hypertension, essent ial (Primary Dx); WPW (Mtdli-Sjipclvop-Nhrvq syndrome); Screening for depression; Encounter for screening examination for other mental health and behavioral disorders; Acquired hypothyroidism; Melanocytic nevus of trunk; Hyperlipidemia, mixed; Fibrocystic breast disease (FCBD), unspecified laterality; Encounter for immunization; Screening for cervical cancer Start: 02-28-2025 End: 02-28-2025 ambulatory RADHA HUMMEL Facility:[facility] Start: 10-03-2024 End: 10-04-2024 ambulatory Nori Thorpe APRN.PUBLIC HEALTH EPIDEMIOLOGIST Work Phone: [facility] Comment on above: Medications Start: 08-16-2024 End: 08-16-2024 Telephone encounter [place] Baeza RN Mammography Comment on above: Results Start: 08-12-2024 ambulatory CATHY NDIAYE Facili ty:[facility] Start: 08-12-2024 End: 08-12-2024 Subsequent hospital visit by physician Stereo/Ultrasound Biopsy [facility] Comment on above: Abnormal ultrasound of breast [R92.8] Start: 08-11-2024 End: 08-11-2024 ambulatory Sonali Good MD Work Phone: Mammography Comment on above: Breast Problem Start: 08-11-2024 End: 08-11-2024 Patient encounter procedure Sonali Good MD Work Phone: Mammography Start: 08-10-2024 End: 08-11-2024 ambulatory Markie Gtz PA-C Work Phone: [facility] Comment on above: Physical Start: 07-29-2024 End: 07-29-2024 Telephone encounter Cathy Ndiaye MD Work Phone: General Surgery Start: 07-25-2024 End: 07-25-2024 ambulatory UMESH GTZ Facility:[facility] Start: 07-25-2024 End: 07-25-2024 Patient encounter procedure Cathy Ndiaye MD Work Phone: General Surgery Comment on above: Abnormal ultrasound of breast (Primary Dx) Start: 07-21-2024 End: 07-21-2024 Telephone encounter Radha Hummel DREDGE ENGINEER.PUBLIC HEALTH EPIDEMIOLOGIST Work Phone: [facility] Start: 07-20-2024 End: 07-20-2024 ambulatory UMESH GTZ Facility:[facility] Start: 07-20-2024 End: 07-20-2024 Subsequent hospital visit by physician Us [facility] 1 Work Phone: Radiology Comment on above: Abnormal findings on diagnostic imaging of breast [R92.8] Start: 06-28-2024 End: 06-28-2024 Telephone encounter Susie Baez MD Work Phone: Mammography Comment on above: Mammogram Result Erica l Back Start: 06-23-2024 End: 06-24-2024 Documentation procedure Mammography Coordinator [facility] Department Start: 06-23-2024 End: 06-24-2024 Letter encounter Mammography Coordinator [facility] Department Start: 06-23-2024 End: 06-23-2024 Telephone encounter Radha Hummel APRN.PUBLIC HEALTH EPIDEMIOLOGIST Work Phone: [facility] Start: 06-22-2024 End: 06-22-2024 ambulatory UMESH GTZ Facility:[facility] Start: 06-22-2024 End: 06-22-2024 Subsequent hospital visit by physician Screen Mammo [facility] Mammogram Comment on above: Encounter for screen ing mammogram for breast cancer [Z12.31] Start: 04-15-2024 End: 04-15-2024 ambulatory Markie Gtz [place] Facility:[facility] Start: 04-08-2024 Telephone encounter Nori monreal APRN.PUBLIC HEALTH EPIDEMIOLOGIST Work Phone: [facility] Comment on above: copy of recent labs Results Start: 04-07-2024 ambulatory Markie KUO Fac ility:[facility] Start: 04-07-2024 End: 04-07-2024 ambulatory Markie KUO Facility:[facility] Start: 04-05-2024 Encounter for other preprocedural examination RADHA SHAHEED [facility] Start: 04-05-2024 End: 04-05-2024 ambulatory UMESH GTZ Facility:[facility] Start: 04-05-2024 End: 04-05-2024 Patient encounter procedure Nori Thorpe APRN.PUBLIC HEALTH EPIDEMIOLOGIST Work Phone: [facility] Comment on above: Preop examination (P rimary Dx); Disorder of right Achilles tendon Start: 04-05-2024 End: 04-05-2024 Preprocedural examination done Nori Thorpe APRN.PUBLIC HEALTH EPIDEMIOLOGIST Work Phone: [facility] Work Phone: Start: 04-04-2024 Encounter for preprocedural cardiovascular examination Kb Valdivia [facility] Start: 04-04-2024 End: 04-04-2024 ambulatory Markie KUO Facility[place] Start: 03-30-2024 Refill Markie DONAHUEC Work Phone: [facility] Comment on above: Refill Request Start: 03-03-2024 Telephone encounter Markie DONAHUEC Work Phone: [facility] Comment on above: Question r/t cardiac clearance Start: 03-02-2024 Chart abstracting Markie DONAHUEC Work Phone: [facility] Start: 02-29-2024 End: 02-29-2024 Patient encounter procedure Markie KUO-C Work Phone: [facility] Comment on above: WPW (Ezra-Parkinson -White syndrome) (Primary Dx); Hypertension, essential; Hyperlipidemia, mixed; Acquired hypothyroidism; Elevated glucose; Wellness examination; Preoperative clearance; Vitamin D deficiency Start: 02-29-2024 End: 02-29-2024 Patient encounter status Markie Shivam Ulisses WHALEN Work Phone: [facility] Start: 02-29-2024 End: 02-29-2024 Preoperative state Markie Shivam KUO-C Work Phone: [facility] Start: 01-27-2024 ambulatory Markie Shivam Dario KUO-C Work Phone: [facility] Start: 01-24-2024 MC Get Medical Advice Markie KUO-C Work Phone: [facility] [place] Comment on above: Labs ordered Start: 01-18-2024 Telephone encounter Markie Shivam Gtz PA-C Work Phone: [facility] [place] Comment on above: Appointment; Orders Start: 09-02-2023 Telephone encounter Markie Shivam Gtz PA-C Work Phone: [facility] Comment on above: Release Of Medical R ecords Start: 08-27-2023 End: 08-27-2023 ambulatory [facility] Work Phone: Start: 08-27-2023 End: 08-27-2023 Patient encounter procedure [facility]-P[facility] Services/Neurology Work Phone: Start: 08-24-2023 End: 08-24-2023 Patient encounter procedure Markie Shivam Gtz PA-C Work Phone: [facility] [place] Comment on above: Preoperative clearan ce (Primary Dx); WPW (Ahbfx-Invukdocy-Ghfak syndrome); Hypertension, essential; Hyperlipidemia, mixed; Acquired hypothyroidism; Elevated glucose; Acute meniscal tear of left knee, sequela Start: 08-24-2023 End: 08-24-2023 Preoperative state Markie Shivam Ulisses WHALEN Work Phone: [facility] Work Phone: Start: 04-20-2023 End: 04-20-2023 ambulatory [facility] Work Phone: Start: 04-20-2023 End: 04-20-2023 Patient encounter procedure [facility]-Outpatient Breast Imaging Work Phone: Start: 02-20-2023 End: 02-20-2023 Patient encounter procedure Markie Gtz PA-C Work Phone: [facility] Comment on above: WPW (Ezra-Parkinson -White syndrome) (Primary Dx); Hypertension, essential; Hyperlipidemia, mixed; Acquired hypothyroidism; Wellness examination Start: 02-20-2023 End: 02-20-2023 Patient encounter status Markie Bishopon PA-C Work Phone: [facility] Start: 02-18-2023 ambulatory Markie Bishop bennett PA-C Work Phone: [facility] Start: 01-02-2023 Telephone encounter Silviano KUO Work Phone: [facility] Comment on above: Results Start: 01-01-2023 End: 01-01-2023 Subsequent hospital visit by physician [facility]r [facility] Work Phone: Radiology Comment on above: Subacute cough [R05. 2] Start: 01-01-2023 End: 01-01-2023 Patient encounter procedure Britt Granado APRN.CNP Work Phone: [facility] Comment on above: Subacute cough (Prim elise Dx); Post-viral cough syndrome Start: 10-15-2022 Refill Markie BoudreauxShivam Dario madison PA-C Work Phone: [facility] Comment on above: Refill Request Start: 08-15-2022 End: 08-15-2022 Patient encounter procedure Markie Shivam Ulisses PA-C Work Phone: [facility] Comment on above: WPW (Ezra-Parkinson -White syndrome) (Primary Dx); Hypertension, essential; Acquired hypothyroidism; Need for influenza vaccination; Hyperlipidemia, mixed; Elevated glucose Start: 08-13-2022 End: 08-13-2022 Patient encounter procedure Karlie Phan APRN.PUBLIC HEALTH EPIDEMIOLOGIST Work Phone: [facility] Comment on above: Eye drainage (Primar y Dx) Start: 07-25-2022 Refill Markie Bishop on PA-C Work Phone: [facility] Comment on above: Refill Request Start: 02-21-2022 End: 02-21-2022 Patient encounter procedure [facility] Start: 02-13-2022 End: 02-13-2022 Patient encounter procedure Markie Bishopon PA-C Work Phone: [facility] Comment on above: WPW (Ezra-Parkinson -White syndrome) (Primary Dx); Hypertension, essential; Hyperlipidemia, mixed; Acquired hypothyroidism; Elevated glucose Start: 01-22-2022 Refill Markie Bishop on PA-C Work Phone: [facility] Comment on above: Refill Request Start: 01-13-2022 Refill [facility] Provider [facility] [place] Comment on above: Refill Request Start: 12-28-2018 [facility] Start: 12-22-2017 End: 12-22-2017 Patient encounter procedure [facility] Facility:[facility] Procedures Date Procedure Procedure Detail Performing Clinician Start: 02-28-2025 Adult depression scr eening assessment Radha Hummel APRN.PUBLIC HEALTH EPIDEMIOLOGIST Work Phone: Start: 08-12-2024 Digital breast tomosynthesis unilateral Cathy Ndiaye MD Work Phone: Start: 08-12-2024 Bx breast w/device 1 st lesion ultrasound guid Cathy Ndiaye MD Work Phone: Start: 07-20-2024 End: 07-20-2024 Us breast uni real time with image limited Radha Hummel APRN.PUBLIC HEALTH EPIDEMIOLOGIST Work Phone: Start: 07-20-2024 Digital breast tomosynthesis bilateral [facility] Provider Start: 03-02-2024 Hemoglobin A1c/Hemoglobin.total in Blood [facility] Provider Start: 02-29-2024 Adult depression scr eening assessment Screen [facility] Start: 02-19-2024 Lipid 1996 panel - S deuce or Plasma [place] Gtz PA-C Work Phone: Start: 04-20-2023 Screening mammography Start: 02-06-2023 Lipid 1996 panel - S deuce or Plasma [place] Gtz PA-C Work Phone: Start: 01-01-2023 Radiologic exam ches t 2 views Britt McclainJa RUSSO.PUBLIC HEALTH EPIDEMIOLOGIST Work Phone: Start: 08-15-2022 INFLUENZA VACCINE QUADRIVALENT 6 MO - 64 YRS IM M Shivam Gtz PA-C Work Phone: Start: 02-21-2022 Screening mammography Start: 08-07-2021 Adult depression scr eening assessment [facility] Provider Start: 02-20-2021 Mammography [facility] Provid er Start: 09-05-2016 End: 09-05-2016 Dietary management education, guidance, and counseling Alexandrea Hyde MD Start: 09-05-2016 End: 09-05-2016 Documentation of current medications Alexandrea Hyde MD Start: 07-25-2016 End: 08-11-2016 Us guidance needle placement img s&i Alexandrea Hyde MD Work Phone: Start: 07-25-2016 End: 08-11-2016 Echo guide for biopsy Alexandrea Hyde MD Work Phone: Start: 07-23-2015 End: 07-23-2015 Colonoscopy Alexandrea Hyde MD Start: 07-06-2015 Colonoscopy [facility] Provid er Plan of Treatment Date Care Activity Detail Author Start: 2037 RSV Vaccine (1 - 1-d ose 75+ series) RSV Vaccine (1 - 1-dose 75+ series) [facility] Start: 02-18-2029 Lipid panel Lipid Screening [facility] Start: 02-07-2028 Lipid 1996 panel - Serum or Plasma Lipid Screening [facility] Start: 02-07-2028 Lipid panel Lipid Screening [facility] Start: 02-07-2028 LIPID SCREEN LIPID SCREEN [facility] Start: 11-12-2027 Urine microalbumin profile [facility] Start: 04-05-2027 Diabetes Screening Diabetes Screenin g [facility] Start: 03-02-2027 Diabetes Screening Diabetes Screenin g [facility] Start: 02-18-2027 Diabetes Screening Diabetes Screenin g [facility] Start: 01-29-2027 LIPID SCREEN LIPID SCREEN [facility] Start: 08-02-2026 LIPID SCREEN LIPID SCREEN [facility] Start: 03-01-2026 End: 03-01-2026 Patient encounter procedure 03/01/2026 9:00 AM EDT Office Visit [facility] [place] [address] [facility] [place] [address] Radha Hummel APRN.PUBLIC HEALTH EPIDEMIOLOGIST [address] [address] Physical [facility] [place] Comment on above: Physical Start: 02-28-2026 Annual PCP Team [employer] Disease Visit Annual PCP Team Chronic Disease Visit [facility] Start: 02-28-2026 Anxiety Screening Anxiety Screening [facility] Start: 02-28-2026 BP Controlled (<130/80) BP Controlle d (<130/80) [facility] Start: 02-28-2026 Covid-19 Vaccine () Covid-19 Vaccine () [facility] Comment on above: Postponed from 06/19 (Declined at this time) Start: 02-28-2026 Depression Screening Depression Scre ening [facility] Start: 08-04-2025 DIABETES SCREEN DIABETES SCREEN [facility] Start: 08-04-2025 Diabetes Screening Diabetes Screenin g [facility] Start: 07-31-2025 End: 03-30-2026 DBT Breast - bilateral screening RANJAN SCREENING W DARIO Radiology Routine Fibrocystic breast disease (FCBD), unspecified laterality Expected: 07/31/2025, Expires: 03/30/2026 [facility] Work Phone: Comment on above: Expected: 07/31/2025 , Expires: 03/30/2026 Start: 07-31-2025 End: 07-31-2025 Patient encounter procedure 07/31/2025 9:10 AM EDT Appointment Mammogram [address] [place] [id number] Fibrocystic breast disease (FCBD), unspecified laterality [N60.19] Mammogram Comment on above: Fibrocystic breast d isease (FCBD), unspecified laterality [N60.19] Start: 07-20-2025 Screening for malign ant neoplasm of breast Mammogram Screening [facility] Start: 07-06-2025 Colonoscopy COLONOSCOPY [facility] Start: 07-06-2025 COLORECTAL CANCER SCREENING COLORECTAL CANCER SCREENING [facility] Start: 07-06-2025 Screening for malign ant neoplasm of colon [facility] Start: 06-22-2025 Screening for malign ant neoplasm of breast Mammogram Screening [facility] Start: 06-19-2025 Influenza vaccination Influenz a Vaccine (Season Ended) [facility] Start: 05-31-2025 Screening for malign ant neoplasm of cervix Cervical Cancer Screening [facility] Comment on above: Postponed from 10/30 (Currently Scheduled) Start: 04-07-2025 End: 04-07-2025 Patient encounter procedure 04/07/2025 9:15 AM EDT Office Visit OB/Gynecology [address] [place], [place] [id number] Tanya Fontanez APRN.PUBLIC HEALTH EPIDEMIOLOGIST [address] [place] [place] [address] Screening for cervical cancer [Z12.4] OB/Gynecology Comment on above: Screening for cervic al cancer [Z12.4] Start: 04-05-2025 Annual PCP Team [employer] Disease Visit Annual PCP Team Chronic Disease Visit [facility] Start: 02-28-2025 Annual PCP Team [employer] Disease Visit Annual PCP Team Chronic Disease Visit [facility] Start: 02-28-2025 Anxiety Screening Anxiety Screening [facility] Start: 02-28-2025 End: 05-30-2025 Cobalamin (Vitamin B12) [Mass/volume] in Serum or Plasma [facility] Comment on above: Expected: 02/28/2025 , Expires: 05/30/2025 Start: 02-28-2025 End: 05-30-2025 Comprehensive metabolic 2000 panel - Serum or Plasma [facility] Comment on above: Expected: 02/28/2025 , Expires: 05/30/2025 Start: 02-28-2025 Depression Screening Depression Scre ening [facility] Start: 02-28-2025 End: 05-30-2025 LIPID PANEL, NONFASTING [facility] Comment on above: Expected: 02/28/2025 , Expires: 05/30/2025 Start: 02-28-2025 End: 05-30-2025 Magnesium [Mass/volume] in Serum or Plasma [facility] Comment on above: Expected: 02/28/2025 , Expires: 05/30/2025 Start: 02-28-2025 End: 05-30-2025 Thyrotropin [Units/volume] in Serum or Plasma [facility] Comment on above: Expected: 02/28/2025 , Expires: 05/30/2025 Start: 02-28-2025 End: 05-30-2025 Thyroxine (T4) free [Mass/volume] in Serum or Plasma [facility] Comment on above: Expected: 02/28/2025 , Expires: 05/30/2025 Start: 02-28-2025 End: 02-28-2025 Patient encounter procedure [facility] [place] Comment on above: Yearly exam physical Start: 01-29-2025 DIABETES SCREEN DIABETES SCREEN [facility] Start: 08-24-2024 Annual PCP Team [employer] Disease Visit Annual PCP Team Chronic Disease Visit [facility] Start: 08-24-2024 BP Controlled (<130/80) BP Controlle d (<130/80) [facility] Start: 08-12-2024 End: 08-12-2024 Patient encounter procedure 08/12/2024 1:30 PM EDT Appointment [facility] [address] [place], [place] [id number] right breast ultrasound guided biopsy Dr. Ndiaye referred [facility] Comment on above: right breast ultraso und guided biopsy Dr. Ndiaye referred Start: 07-25-2024 End: 07-25-2024 Patient encounter procedure 07/25/2024 11:45 AM EDT Office Visit General Surgery [address] [place], [place] [phone] Cathy Ndiaye MD [address] [place] [phone] rt breast consult General Surgery Comment on above: rt breast consult Start: 07-20-2024 End: 07-20-2024 Patient encounter procedure 07/20/2024 1:00 PM EDT Appointment Mammogram [address] [place] [address] Comp- B/L CB asyms ([place] needs scheduled) Mammogram Comment on above: Comp- B/L CB asyms ( [place] needs scheduled) Start: 06-19-2024 Covid-19 Vaccine () Covid-19 Vaccine () [facility] Start: 06-19-2024 Influenza vaccination Influenza Vacc ine (#1) [facility] Start: 04-05-2024 End: 04-05-2024 Patient encounter procedure 04/05/2024 3:40 PM EDT Office Visit [facility] [address] [place] [address] Nori Thorpe APRN.PUBLIC HEALTH EPIDEMIOLOGIST [address] [place] [address] Pro op clearance [facility] Comment on above: Pro op clearance Start: 02-29-2024 End: 05-30-2024 25-hydroxyvitamin D3 [Mass/volume] in Serum or Plasma VITAMIN D 25 HYDROXY Lab Routine Preoperative clearance Expected: 02/29/2024, Expires: 05/30/2024 [facility] Work Phone: Comment on above: Expected: 02/29/2024 , Expires: 05/30/2024 Start: 02-29-2024 End: 05-30-2024 CBC W Auto Differential panel - Blood CBC + DIFF Lab Routine Acquired hypothyroidism Hypertension, essential Hyperlipidemia, mixed Expected: 02/29/2024, Expires: 05/30/2024 [facility] Work Phone: Comment on above: Expected: 02/29/2024 , Expires: 05/30/2024 Start: 02-29-2024 End: 05-30-2024 Comprehensive metabolic 2000 panel - Serum or Plasma COMP METABOLIC PANEL Lab Routine Acquired hypothyroidism Hypertension, essential Hyperlipidemia, mixed Expected: 02/29/2024, Expires: 05/30/2024 [facility] Work Phone: Comment on above: Expected: 02/29/2024 , Expires: 05/30/2024 Start: 02-29-2024 End: 05-30-2024 Lipid 1996 panel - Serum or Plasma LIPID PANEL BASIC Lab Routine Acquired hypothyroidism Hypertension, essential Hyperlipidemia, mixed Expected: 02/29/2024, Expires: 05/30/2024 [facility] Work Phone: Comment on above: Expected: 02/29/2024 , Expires: 05/30/2024 Start: 02-29-2024 End: 05-30-2024 NICOTINE/COTININE NICOTINE/COTININE Lab Routine Preoperative clearance Expected: 02/29/2024, Expires: 05/30/2024 [facility] Comment on above: Expected: 02/29/2024 , Expires: 05/30/2024 Start: 02-29-2024 End: 05-30-2024 Thyrotropin [Units/volume] in Serum or Plasma TSH BLD Lab Routine Acquired hypothyroidism Hypertension, essential Hyperlipidemia, mixed Expected: 02/29/2024, Expires: 05/30/2024 [facility] Work Phone: Comment on above: Expected: 02/29/2024 , Expires: 05/30/2024 Start: 02-21-2024 ANNUAL PCP TEAM FOREST MANAGEMENT PROFESSOR BLAZE DISEASE VISIT ANNUAL PCP TEAM CHRONIC DISEASE VISIT [facility] Start: 02-21-2024 PAP TESTING PAP TESTING [facility] Comment on above: Postponed from 10/30 (Declined at this time) Start: 02-21-2024 Screening for malign ant neoplasm of cervix Pap Testing [facility] Comment on above: Postponed from 10/30 (Declined at this time) Start: 10-30-2023 HPV TESTING HPV TESTING [facility] Start: 10-30-2023 Screening for malign ant neoplasm of cervix HPV Testing [facility] Start: 10-26-2023 DIABETES SCREEN DIABETES SCREEN [facility] Start: 10-19-2023 Behavioral Health Screening Behavioral Health Screening [facility] Start: 10-19-2023 Depression Assessment Depression Ass essment [facility] Start: 08-15-2023 ANNUAL PCP TEAM FOREST MANAGEMENT PROFESSOR BLAZE DISEASE VISIT ANNUAL PCP TEAM CHRONIC DISEASE VISIT [facility] Start: 08-15-2023 BP CONTROLLED (<130/80) BP CONTROLLE D (<130/80) [facility] Start: 08-13-2023 ANNUAL PCP TEAM FOREST MANAGEMENT PROFESSOR BLAZE DISEASE VISIT ANNUAL PCP TEAM CHRONIC DISEASE VISIT [facility] Start: 06-19-2023 Covid-19 Vaccine ( season) Covid-19 Vaccine () [facility] Start: 06-19-2023 Influenza vaccination Influenza Vacc ine (#1) [facility] Start: 02-20-2023 End: 04-22-2023 Comprehensive metabolic 2000 panel - Serum or Plasma COMP METABOLIC PANEL Lab Routine WPW (Luvfy-Ymnoinxbj-Zphvl syndrome) Hypertension, essential Hyperlipidemia, mixed Expected: 02/20/2023, Expires: 04/22/2023 [facility] Work Phone: Comment on above: Expected: 02/20/2023 , Expires: 04/22/2023 Start: 02-20-2023 End: 04-22-2023 Lipid 1996 panel - Serum or Plasma LIPID PANEL BASIC Lab Routine Hyperlipidemia, mixed Expected: 02/20/2023, Expires: 04/22/2023 [facility] Work Phone: Comment on above: Expected: 02/20/2023 , Expires: 04/22/2023 Start: 02-13-2023 ANNUAL PCP TEAM FOREST MANAGEMENT PROFESSOR BLAZE DISEASE VISIT ANNUAL PCP TEAM CHRONIC DISEASE VISIT [facility] Start: 02-13-2023 BP CONTROLLED (<130/80) BP CONTROLLE D (<130/80) [facility] Start: 02-13-2023 End: 04-15-2023 Lipid 1996 panel - Serum or Plasma LIPID PANEL BASIC Lab Routine Hyperlipidemia, mixed Expected: 02/13/2023, Expires: 04/15/2023 [facility] Work Phone: Comment on above: Expected: 02/13/2023 , Expires: 04/15/2023 Start: 02-13-2023 Mammography MAMMOGRAM [facility] Comment on above: Postponed from 02/20 (Currently Scheduled) Start: 02-13-2023 PAP TESTING PAP TESTING [facility] Comment on above: Postponed from 10/30 (Currently Scheduled) Start: 10-19-2022 DEPRESSION ASSESSMENT DEPRESSION ASS ESSMENT [facility] Start: 08-15-2022 End: 10-15-2022 Basic metabolic 2000 panel - Serum or Plasma BASIC METABOLIC PNL Lab Routine WPW (Ziexi-Etfsaoiuy-Sosyd syndrome) Hypertension, essential Acquired hypothyroidism Elevated glucose Expected: 08/15/2022, Expires: 10/15/2022 [facility] Work Phone: Comment on above: Expected: 08/15/2022 , Expires: 10/15/2022 Start: 08-15-2022 End: 10-15-2022 Comprehensive metabolic 2000 panel - Serum or Plasma COMP METABOLIC PANEL Lab Routine Hypertension, essential Hyperlipidemia, mixed Elevated glucose Expected: 08/15/2022, Expires: 10/15/2022 [facility] Work Phone: Comment on above: Expected: 08/15/2022 , Expires: 10/15/2022 Start: 08-15-2022 End: 10-15-2022 Thyrotropin [Units/volume] in Serum or Plasma TSH BLD Lab Routine Acquired hypothyroidism Expected: 08/15/2022, Expires: 10/15/2022 [facility] Work Phone: Comment on above: Expected: 08/15/2022 , Expires: 10/15/2022 Start: 08-09-2022 ANNUAL PCP TEAM FOREST MANAGEMENT PROFESSOR BLAZE DISEASE VISIT ANNUAL PCP TEAM CHRONIC DISEASE VISIT [facility] Start: 08-09-2022 HIV SCREENING HIV SCREENING [facility] Comment on above: Postponed from 03/07 (Declined at this time) Start: 08-07-2022 Adult depression screening assessment DEPRESSION SCREENING [facility] Start: 06-19-2022 Influenza vaccination INFLUENZA (#1) [facility] Start: 2022 RSV Vaccine (1 - 1-d ose 60+ series) RSV Vaccine (1 - 1-dose 60+ series) [facility] Start: 02-20-2022 Mammography [facility] Start: 02-20-2022 Screening for malign ant neoplasm of breast Mammogram Screening [facility] Start: 10-30-2021 PAP TESTING PAP TESTING [facility] Start: 10-30-2021 Screening for malign ant neoplasm of cervix [facility] Start: 10-19-2021 DEPRESSION ASSESSMENT DEPRESSION ASS ESSMENT [facility] Start: 03-24-2017 End: 03-24-2017 Appointment Appointment [facility] [employer] Work Phone: Start: 03-12-2017 End: 03-12-2017 Bx breast 1st Lesion US imag Bx Breast, device placement, US guidance [facility] [employer] Work Phone: Start: 03-02-2017 End: 02-23-2017 Mammogram, both breasts Mammogram, Diagnostic, both breasts [employer] [employer] Work Phone: Start: 03-02-2017 End: 02-23-2017 Us exam, breast(s) US Breast(s) [facility] [employer] Work Phone: Start: 01-23-2017 End: 09-05-2016 Follow Up Appt Other Follow Up Appt Other [facility] [employer] Work Phone: Start: 01-23-2017 End: 09-05-2016 Follow Up Appt Other Follow Up Appt Other [facility] [employer] Work Phone: Start: 09-05-2016 End: 09-08-2016 Primary Care Physician Primary Care Physician Ceasar Madera, [facility], [address] [place] [address], [place], [address] [facility] [employer] Work Phone: Start: 09-05-2016 End: 09-08-2016 Primary Care Physician Primary Care Physician Ceasar Madera, [facility], [address] [place] [address], [place], [address] [facility] [employer] Work Phone: Start: 08-12-2016 End: 08-12-2016 Bx breast w/device 1st lesion ultrasound guid Bx Breast, device placement, US guidance [facility] [employer] Work Phone: Start: 08-12-2016 End: 08-12-2016 Bx breast 1st Lesion US imag Bx Breast, device placement, US guidance [facility] [employer] Work Phone: Start: 07-25-2016 End: 07-25-2016 Follow Up after Imaging/labs Follow Up after Imaging/labs [facility] [employer] Work Phone: Start: 07-25-2016 End: 08-11-2016 Us guidance needle placement img s&i Ultrasonic guidance for needle placement biopsy, aspiration, imaging [facility] [employer] Work Phone: Start: 07-25-2016 End: 08-11-2016 Echo guide for biopsy Ultrasonic guidance for needle placement biopsy, aspiration, imaging [facility] [employer] Work Phone: Start: 07-25-2016 End: 07-25-2016 Follow Up after Imaging/labs Follow Up after Imaging/labs [facility] [employer] Work Phone: Start: 2012 Pneumococcal Vaccine : 50+ (1 of 1 - PCV) Pneumococcal Vaccine: 50+ (1 of 1 - PCV) [facility] Start: 2007 COLOGUARD (FIT-DNA) COLOGUARD (FIT-D NA) [facility] Start: [address] COLONOGRAPHY [facility] Start: 2007 FECAL OCCULT BLOOD FECAL OCCULT BLOO D [facility] Start: 2007 Screening for malign ant neoplasm of colon [facility] Start: 2007 SIGMOIDOSCOPY SIGMOIDOSCOPY [facility] Start: 1980 BP CONTROLLED (<130/80) BP CONTROLLE D (<130/80) [facility] Start: 1980 HIV SCREENING HIV SCREENING [facility] Influenza virus A an d B RNA and SARS-CoV-2 (COVID-19) N gene panel - Respiratory specimen by SOFI with probe detection COVID WITH FLUA+B, ROUTINE Microbiology Routine Subacute cough 01/01/2023 1:15 PM EDT [facility] Work Phone: End: 03-19-2024 RANJAN SCREENING RANJAN SCREENING Radiology Routine Encounter for screening mammogram for breast cancer 1 Occurrences starting 02/18/2023 until 03/19/2024 [facility] Work Phone: Comment on above: 1 Occurrences starti ng 02/18/2023 until 03/19/2024 End: 07-23-2025 MG Breast - bilateral Diagnostic RANJAN DIAGNOSTIC BILATERAL Radiology Routine Abnormal findings on diagnostic imaging of breast 1 Occurrences starting 06/23/2024 until 07/23/2025 [facility] Work Phone: Comment on above: 1 Occurrences starti ng 06/23/2024 until 07/23/2025 End: 02-25-2025 MG Breast Screening RANJAN SCREENING Radiology Routine Encounter for screening mammogram for breast cancer 1 Occurrences starting 01/27/2024 until 02/25/2025 [facility] Work Phone: Comment on above: 1 Occurrences starti ng 01/27/2024 until 02/25/2025 MG Breast Screening RANJAN SCREENIN G Radiology Routine Encounter for screening mammogram for breast cancer 06/22/2024 10:53 AM EDT [facility] Work Phone: End: 08-12-2024 SURGICAL PATHOLOGY SURGICAL PATHOLOGY Lab Routine ONCE for 1 Occurrences starting 08/12/2024 until 08/12/2024 [facility] Work Phone: Comment on above: ONCE for 1 Occurrenc es starting 08/12/2024 until 08/12/2024 End: 07-23-2025 US Breast - left limited US BREAST LTD LEFT Radiology Routine Abnormal findings on diagnostic imaging of breast 1 Occurrences starting 06/23/2024 until 07/23/2025 [facility] Comment on above: 1 Occurrences starti ng 06/23/2024 until 07/23/2025 End: 07-23-2025 US Breast - right limited US BREAST LTD RIGHT Radiology Routine Abnormal findings on diagnostic imaging of breast 1 Occurrences starting 06/23/2024 until 07/23/2025 [facility] Comment on above: 1 Occurrences starti ng 06/23/2024 until 07/23/2025 End: 08-24-2025 US Guidance for biopsy of Breast - right US BIOPSY BREAST RIGHT Radiology Routine Abnormal ultrasound of breast 1 Occurrences starting 07/25/2024 until 08/24/2025 [facility] Work Phone: Comment on above: 1 Occurrences starti ng 07/25/2024 until 08/24/[address] [facility] Immunizations Immunization Date Immunization Notes Care Provider Fa abhay 02-28-2025 pneumococcal conjuga te (PCV20) vaccine, 20 valent (PREVNAR 20) Radha Hummel DREDGE ENGINEER.PUBLIC HEALTH EPIDEMIOLOGIST Work Phone: [facility] 02-28-2025 pneumococcal Conjugate, unspecified formulation Radha Hummel DREDGE ENGINEER.PUBLIC HEALTH EPIDEMIOLOGIST Work Phone: [facility] 09-21-2023 COVID-19 vaccine, ag e 12+ yr, season ([employer]) NA Ulisses PA-C Work Phone: [facility] 09-21-2023 Influenza, injectabl e, Madin [place] Canine Kidney, preservative free, quadrivalent Radha Hummel DREDGE ENGINEER.PUBLIC HEALTH EPIDEMIOLOGIST Work Phone: [facility] 09-21-2023 influenza, injectabl e, quadrivalent, preservative free NA Gtz PA-C Work Phone: [facility] 09-21-2023 influenza virus vaccine, unspecified formulation Screen Wstr [facility] 08-15-2022 influenza, injectabl e, quadrivalent, contains preservative NA Gtz PA-C Work Phone: [facility] 08-15-2022 influenza virus vaccine, unspecified formulation NA Gtz PA-C Work Phone: [facility] 08-09-2021 influenza, injectabl e, quadrivalent, contains preservative [facility] 10-26-2020 zoster vaccine recombinant [facility]cf Provider [facility] Work Phone: 08-24-2020 zoster vaccine recombinant [facility]cf Provider [facility] 08-02-2020 influenza virus vaccine, unspecified formulation [facility]cf Provider [facility] 08-02-2020 Seasonal, quadrivalent, recombinant, injectable influenza vaccine, preservative free [facility] 08-08-2019 influenza, injectabl e, quadrivalent, contains preservative [facility]cf Provider [facility] 08-17-2018 influenza virus vaccine, unspecified formulation [facility]cf Provider [facility] 08-17-2018 influenza, injectabl e, quadrivalent, contains preservative [facility] Work Phone: 11-12-2017 tetanus toxoid, reduced diphtheria toxoid, and acellular pertussis vaccine, adsorbed [facility] 09-02-2017 influenza, injectabl e, quadrivalent, preservative free [facility] Work Phone: 09-05-2016 influenza, injectabl e, quadrivalent, contains preservative [facility] 09-05-2016 tuberculin skin test ; purified protein derivative solution, intradermal [facility] 08-10-2009 influenza virus vaccine, whole virus [facility] 11-01-2007 influenza virus vaccine, unspecified formulation [facility] Work Phone: 11-01-2007 measles, mumps and rubella virus vaccine [facility] Work Phone: 11-01-2007 tetanus toxoid, reduced diphtheria toxoid, and acellular pertussis vaccine, adsorbed [facility] Work Phone: 11-01-2007 tuberculin skin test ; purified protein derivative solution, intradermal [facility] Work Phone: 11-04-2004 diphtheria and tetan us toxoids, adsorbed for pediatric use [facility] 11-04-2004 tuberculin skin test ; purified protein derivative solution, intradermal [facility] 05-10-2001 hepatitis B vaccine, adult dosage [facility] 05-10-2001 tuberculin skin test ; purified protein derivative solution, intradermal [facility] Payers Date Payer Category [facility] [id number] 2024 Unknown [id number] 2024 Self-pay [id number] 2023 Private Health Insurance [id number] 2021 Private Health Insurance [employer] OAP [id number] 2021-Present [phone] [facility] [id number] [facility] [id number] Open Access [id number] 2021 Private Health Insurance [id number] 2016 Unknown [id number] 1960 Unknown [id number] 1960 Unknown [id number] Unknown [facility] PACKAGE PLAN [id number] Unknown [id number] Unknown [id number] Unknown [id number] Unknown [id number] Unknown [id number] Unknown [id number] Social History Date Type Detail Facility Start: 07-18-2016 End: 04-08-2024 Tobacco smoking status NHIS Never smoked tobacco [facility] Start: 09-16-2021 End: 02-28-2025 Alcohol intake Current drinker of alcohol (finding) [facility] Start: 09-16-2021 End: 08-24-2023 Alcohol intake [facility] Start: 08-22-2020 End: 02-14-2023 History SDOH Alcohol Frequency 4 [facility] Start: 08-22-2020 End: 02-14-2023 History SDOH Alcohol Std Drinks 1 [facility] Start: 07-18-2016 History SDOH Alcohol Comment moderate [facility] Start: 08-22-2020 End: 02-14-2023 History SDOH Social Connections Phone 3 [facility] Start: 08-22-2020 End: 02-14-2023 History SDOH Social Connections Get Together 5 [facility] Start: 08-22-2020 End: 02-14-2023 History SDOH Social Connections Taoism 98 [facility] Start: 08-22-2020 End: 02-14-2023 History SDOH Social Connections Membership 2 [facility] Start: 08-22-2020 Education 12 [facility] Start: 1960 Sex Assigned At Not on file [facility] Start: 10-29-2018 End: 10-29-2018 Tobacco smoking status NHIS Unknown if ever smoked [facility] Start: 1960 Sex Assigned At Female [facility] Start: 07-18-2016 Tobacco use and exposure Smoke less tobacco non-user [facility] Start: 07-11-2022 End: 08-15-2022 Exposure to SARS-CoV-2 (event) Not sure [facility] Work Phone: Start: 02-14-2023 End: 08-24-2023 Social connection and isolation panel [facility] How often do you att end restorationism or jew services? Patient refused [facility] Do you belong to any clubs or organizations such as restorationism groups, unions, fraternal or athletic groups, or school groups? No [facility] Are you now , , , , never or living with a partner? [facility] How often to you hav e a drink containing alcohol? 2-3 time sa week [facility] How many standard dr inks containing alcohol do you have on a typical day? 1 or 2 [facility] How often do you hav e 6 or more drinks on 1 occasion? Never [facility] Do you feel stress - tense, restless, nervous, or anxious, or unable to sleep at night because your mind is troubled all the time - these days [OSQ] Only a little [facility] (I/We) worried whejacquelin er (my/our) food would run out before (I/we) got money to buy more. Never true [facility] Do you feel stress - tense, restless, nervous, or anxious, or unable to sleep at night because your mind is troubled all the time - these days [OSQ] Not at all [facility] How often to you hav e a drink containing alcohol? 2-4 times a month [facility] Medical Equipment Procedure Code Equipment Code Equipment Origin al Text Equipment Identifier Dates Repair, tendon, Achilles GRAFT JACKET FDA Start: 04-15-2024 Repair, tendon, Achilles PUTTY,BONE .5CC DBX FDA Start: 04-15-2024 Repair, tendon, Achilles VIAFLOW, 1CC FDA Start: 04-15-2024 Repair, tendon, Achilles Tendon/ligament bone anchor, bioabsorbable [id number] FDA Start: 04-15-2024 Repair, tendon, Achilles [id number] FDA Start: 04-15-2024 Repair, tendon, Achilles [id number] FDA Start: 04-15-2024 Functional Status Date Assessment Result Facility 05-25-2015 Are you deaf, or do you have serious difficulty hearing No 05/25/2015 10:58 AM Lyla Castillo LPN No [facility] 05-25-2015 Are you blind, or do you have serious difficulty seeing, even when wearing glasses No 05/25/2015 10:58 AM Lyla Castillo LPN No [facility] 05-25-2015 Do you have serious difficulty walking or climbing stairs No 05/25/2015 10:58 AM EDT Lyla Pena LPN No [facility] 05-25-2015 Do you have difficul ty dressing or bathing No 05/25/2015 10:58 AM EDT Lyla Pena LPN No [facility] 05-25-2015 Because of a physica l, mental, or emotional condition, do you have difficulty doing errands alone such as visiting a physician's office or shopping No 05/25/2015 10:58 AM EDT Lyla Pena LPN No [facility] Mental Status Date Assessment Result Facility 05-25-2015 Because of a physica l, mental, or emotional condition, do you have serious difficulty concentrating, remembering, or making decisions No 05/25/2015 10:58 AM EDT Lyla Pena LPN No [facility] Clinical Notes 04-15-2016 to 03-22-2025 Patient InstructionsSuRadha chen APRN.PUBLIC HEALTH EPIDEMIOLOGIST - 02/28/2025 9:03 AM EDTTelephone Encounter - Cathy Ndiaye MD - 08/16/2024 10:38 AM CHANGTSEsha schilling RT(Liborio) - 08/12/2024 1:30 PM EDT Note Date & Type Note Facility 03-22-2025 Progress note [facility] 02-28-2025 Instructions Radha Hummel APRN.ABDULKADIR - 02/28/2025 9:23 AM EDT - Please schedule your routine mammogram appointment in July in [place] for your right breast imaging (use the prescription provided if needed). - Follow the lab orders for your thyroid screening; have your blood drawn as scheduled so we can review your thyroid levels. - For your left knee discomfort when using the elliptical, use an uaqt-scy-xadiuen knee sleeve for support and consider applying Voltaren (diclofenac) gel morning and night as needed. - Consider the one-time pneumonia vaccine; contact our office if you want more details or to arrange for it. - BURGLARY INVESTIGATOR consult placed documented in this encounter [facility] 02-28-2025 Note HNO ID: [id number] Author: RADHA HUMMEL APRN.PUBLIC HEALTH EPIDEMIOLOGIST Service: ? Author Type: Nurse Practitioner Type: Progress Notes Filed: 02/28/2025 09:49 Note Text: This is a 64 year old female who presents today with: Patient presents with: Establish Care: TRANSFER CARE, JANUSZ GTZ PT HISTORY OF PRESENT ILLNESS: Felecia Carballo is a 64 year old female. Patient presents with: Establish Care: TRANSFER CAREJANUSZ PT Britt is a 64-year-old female presenting for evaluation of hair loss, follow-up on a recent breast biopsy, and left knee pain. Hair Loss: - Noticed hair loss; unsure if related to thyroid medication or aging. - No recent weight loss or gain. - Denies fever, chills, headaches, or neck swelling. Breast Biopsy Follow-Up: - Recent needle biopsy of the right breast was benign. - Confused about a letter recommending a follow-up in January, questioning the need for frequent visits to [place] for mammograms. Left Knee Pain: - History of left knee meniscus tear in 2022. - Experiences pain when using the elliptical machine. - Inquires whether to continue exercising through the pain. - Denies muscle aches or joint pain elsewhere. Arthritis: - Diagnosed with arthritis of the neck following an MRI for a meniscus tear. Skin Lesions: - Noticed spots on the back. 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 Martinez COLONOSCOPY FLX DX W/COLLJ SPEC WHEN PFRMD 07/06/2015 Colonoscopy EP STUDY 06/02/16 Dr. Martinez EVENT MONITOR 07/02/2016 30 day OOPHORECTOMY PARTIAL/TOTAL UNI/BI 10/04/08 right ovary PAST SURGICAL HISTORY OF dANDc PAST SURGICAL HISTORY OF 10/04/07 excision pelvic dermoid cyst, teratoma PLCMT LOCALZTN CLIP,PERC,DURING BREAST BX 10/04/07 RIGHT TONSILLECTOMY AND ADENOIDECTOMY ALEX CUT BX BREAST MASS Right 08/22/2016 UNLISTED PROCEDURE DENTOALVEOLAR STRUCTURES wisdom teeth US BRST CYST ASP PUNC RT 02/24/09 Right breast cysts x 3 aspirated ALLERGIES Seasonal Allergies MEDICATIONS Current Outpatient Medications Medication Sig levothyroxine (SYNTHROID) 25 mcg tablet TAKE 1 TABLET BY MOUTH ONCE DAILY. TAKE ON AN EMPTY STOMACH multivit with calcium,iron,min (WOMEN'S MULTIPLE VITAMINS ORAL) coenzyme Q10 (COENZYME Q-10) 100 mg cap capsule Take 200 mg by mouth. atorvastatin (LIPITOR) 20 mg tablet Take 1 tablet by mouth daily at bedtime. For cholesterol. dilTIAZem CD (CARDIZEM CD, CARTIA XT) 120 mg 24 hr capsule Take 1 capsule by mouth once daily. lisinopril-hydroCHLOROthiazide (ZESTORETIC) 20-12.5 mg per tablet Take 1 tablet by mouth every morning. No current facility-administered medications for this visit. FAMILY HISTORY Problem Relation Age of Onset Hypertension Mother Diabetes Father Hypertension Father Diabetes Brother Breast Cancer Paternal Grandmother Stroke Paternal Grandfather GI Son IBS Social History Tobacco Use Smoking status: Never Smokeless tobacco: Never Substance Use Topics Alcohol use: Yes Alcohol/week: 3.0 standard drinks of alcohol Types: 3 Glasses of wine per week Comment: moderate Drug use: No REVIEW OF SYSTEMS Constitutional: (-) fever, (-) chills, (-) weight loss, (-) weight gain Head: (-) headaches Eyes: (-) visual disturbances Ears/Nose/Mouth/Throat: (-) hearing changes Neck: (-) neck swelling Cardiovascular: (-) chest pain, (-) palpitations, (-) leg swelling Respiratory: (-) cough, (-) wheezing, (-) shortness of breath Gastrointestinal: (-) nausea, (-) vomiting, (-) diarrhea, (-) constipation, (-) heartburn Genitourinary: (-) dysuria, (-) hematuria Musculoskeletal: (-) myalgia, (+) left knee pain Skin: (+) back lesions (?spots?) Neurological: (-) seizures, (-) strokes, (-) tremors Endocrine: (+) hair loss EXAM: BP 116/78 Pulse 92 Wt 83 kg (183 lb) LMP 07/19/2015 SpO2 98% BMI 30.45 kg/m? PHYSICAL EXAM: GENERAL: NAD, alert and oriented. SKIN: Unremarkable, no rash or skin lesions. Actinic keratosis- right side of back- 2 that are about 1 cm. HEAD: Normocephalic. NECK: Supple, no lymphadenopathy, normal thyroid, no carotid bruits. LUNGS: Clear to auscultation bilaterally, no wheezes/rhonchi/rales. HEART: Regular rate and rhythm, no murmurs. No ectopy. EXTREMITIES: Normal, no defo (more content not included)... [facility] 02-28-2025 History of Present illness Narrative This is a 64 year old female who presents today with: Patient presents with: Establish Care: TRANSFER CAREJANUSZ PT HISTORY OF PRESENT ILLNESS: Felecia Carballo is a 64 year old female. Patient presents with: Establish Care: TRANSFER CAREJANUSZ PT Britt is a 64-year-old female presenting for evaluation of hair loss, follow-up on a recent breast biopsy, and left knee pain. Hair Loss: - Noticed hair loss; unsure if related to thyroid medication or aging. - No recent weight loss or gain. - Denies fever, chills, headaches, or neck swelling. Breast Biopsy Follow-Up: - Recent needle biopsy of the right breast was benign. - Confused about a letter recommending a follow-up in January, questioning the need for frequent visits to [place] for mammograms. Left Knee Pain: - History of left knee meniscus tear in 2022. - Experiences pain when using the elliptical machine. - Inquires whether to continue exercising through the pain. - Denies muscle aches or joint pain elsewhere. Arthritis: - Diagnosed with arthritis of the neck following an MRI for a meniscus tear. Skin Lesions: - Noticed spots on the back. PAST MEDICAL HISTORY: PAST MEDICAL HISTORY Diagnosis Date A-fib (HCC) RVR Diffuse cystic mastopathy left Hypertension Hypothyroidism Persistent atrial fibrillation (HCC) 04/15/2016 PVC (premature ventricular contraction) SVT (supraventricular tachycardia) ([facility]) Tachyarrhythmia WPW (Fohnp-Ssmnuqdev-Idjhr syndrome) 04/15/2016 PAST SURGICAL HISTORY Procedure Laterality Date ANESTH, SECTION BREAST BX US GUIDED Right 03/24/2017 BX BREAST PERC NEED W/GUID 04/17/10 U/S needle core right breast 6 Oclock BX BREAST PERC VACUUM/ROTN 10/04/07 RIGHT BX BREAST W/DEVICE 1ST LESION ULTRASOUND GUID Right 04/20/2017 U/S mammotone bx right breast 9 Oclock plus 6cm CATHETER, ABLATION 06/02/16 Dr. Martinez COLONOSCOPY FLX DX W/COLLJ SPEC WHEN PFRMD 07/06/2015 Colonoscopy EP STUDY 06/02/16 Dr. Martinez EVENT MONITOR 07/02/2016 30 day OOPHORECTOMY PARTIAL/TOTAL UNI/BI 10/04/08 right ovary PAST SURGICAL HISTORY OF d&c PAST SURGICAL HISTORY OF 10/04/07 excision pelvic dermoid cyst, teratoma PLCMT LOCALZTN CLIP,PERC,DURING BREAST BX 10/04/07 RIGHT TONSILLECTOMY & ADENOIDECTOMY <AGE 14 ALEX CUT BX BREAST MASS Right 08/22/2016 UNLISTED PROCEDURE DENTOALVEOLAR STRUCTURES wisdom teeth US BRST CYST ASP PUNC RT 02/24/09 Right breast cysts x 3 aspirated ALLERGIES Seasonal Allergies MEDICATIONS Current Outpatient Medications Medication Sig levothyroxine (SYNTHROID) 25 mcg tablet TAKE 1 TABLET BY MOUTH ONCE DAILY. TAKE ON AN EMPTY STOMACH multivit with calcium,iron,min (WOMEN'S MULTIPLE VITAMINS ORAL) coenzyme Q10 (COENZYME Q-10) 100 mg cap capsule Take 200 mg by mouth. atorvastatin (LIPITOR) 20 mg tablet Take 1 tablet by mouth daily at bedtime. For cholesterol. dilTIAZem CD (CARDIZEM CD, CARTIA XT) 120 mg 24 hr capsule Take 1 capsule by mouth once daily. lisinopril-hydroCHLOROthiazide (ZESTORETIC) 20-12.5 mg per tablet Take 1 tablet by mouth every morning. No current facility-administered medications for this visit. FAMILY HISTORY Problem Relation Age of Onset Hypertension Mother Diabetes Father Hypertension Father Diabetes Brother Breast Cancer Paternal Grandmother Stroke Paternal Grandfather GI Son IBS Social History Tobacco Use Smoking status: Never Smokeless tobacco: Never Substance Use Topics Alcohol use: Yes Alcohol/week: 3.0 standard drinks of alcohol Types: 3 Glasses of wine per week Comment: moderate Drug use: No REVIEW OF SYSTEMS Constitutional: (-) fever, (-) chills, (-) weight loss, (-) weight gain Head: (-) headaches Eyes: (-) visual disturbances Ears/Nose/Mouth/Throat: (-) hearing changes Neck: (-) neck swelling Cardiovascular: (-) chest pain, (-) palpitations, (-) leg swelling Respiratory: (-) cough, (-) wheezing, (-) shortness of breath Gastrointestinal: (-) nausea, (-) vomiting, (-) diarrhea, (-) constipation, (-) heartburn Genitourinary: (-) dysuria, (-) hematuria Musculoskeletal: (-) myalgia, (+) left knee pain Skin: (+) back lesions ( spots ) Neurological: (-) seizures, (-) strokes, (-) tremors Endocrine: (+) hair loss EXAM: BP 116/78 Pulse 92 Wt 83 kg (183 lb) LMP 07/19/2015 SpO2 98% BMI 30.45 kg/m PHYSICAL EXAM: GENERAL: NAD, alert and oriented. SKIN: Unremarkable, no rash or skin lesions. Actinic keratosis- right side of back- 2 that are about 1 cm. HEAD: Normocephalic. NECK: Supple, no lymphadenopathy, normal thyroid, no carotid bruits. LUNGS: Clear to auscultation bilaterally, no wheezes/rhonchi/rales. HEART: Regular rate and rhythm, no murmurs. No ectopy. EXTREMITIES: Normal, no deformities, no skin discoloration, no edema. NEURO: Awake, alert and oriented x3, cranial nerves II-XII grossly intact, normal gait, no involuntary motions. LABS: Check labs today Imaging: (07/20) Mammogram: - Right breast: Suspicious area leading to subsequent needle biopsy - Left breast: Fibrous tissue MRI: - Meniscal tear in the left knee - Arthritic changes in the cervical spine Tests: Needle biopsy: Benign ASSESSMENT/PLAN: 1. Hypertension, essential - ICD9: 401.9, ICD10: I10 (primary diagnosis) - Controlled - Recommend home blood pressure monitoring, to bring results to next visit - Encouraged sodium restriction, DASH or Mediterranean diet - Recommend regular aerobic exercise - DILTIAZEM SR 120 MG 24 HR CAP - LISINOPRIL 20 MG-HYDROCHLOROTHIAZIDE 12.5 MG TABLET - COMPREHENSIVE METABOLIC PANEL - MAGNESIUM - VITAMIN B12 2. WPW (Gbpvx-Rwjdvbzux-Wxbir syndrome) - ICD9: 426.7, ICD10: I45.6 Had ablation - DILTIAZEM SR 120 MG 24 HR CAP - COMPLETE BLOOD COUNT AND DIFFERENTIAL - COMPREHENSIVE METABOLIC PANEL - THYROID STIMULATING HORMONE - T4 FREE/FREE THYROXINE - VITAMIN B12 3. Screening for depression - ICD9: V79.0, ICD10: Z13.31 Stable - DEPRESSION SCREENING 4. Encounter for screening examination for other mental health and behavioral disorders - ICD9: V79.8, ICD10: Z13.39 Negative - ANXIETY SCREENING 5. Acquired hypothyroidism - ICD9: 244.9, ICD10: E03.9 - Instructed patient on importance of taking on an empty stomach either first thing in the morning or at bedtime. - THYROID STIMULATING HORMONE - T4 FREE/FREE THYROXINE - VITAMIN B12 6. Melanocytic nevus of trunk - ICD9: 216.5, ICD10: D22.5 Actinic keratosis 7. Hyperlipidemia, mixed - ICD9: 272.2, ICD10: E78.2 - Control undetermined, due for labs - Counseled on healthy diet and regular exercise - ATORVASTATIN 20 MG TABLET - LIPID PANEL, NONFASTING - VITAMIN B12 8. Fibrocystic breast disease (FCBD), unspecified laterality - ICD9: 610.1, ICD10: N60.19 Recheck mammogram in Jul. - RANJAN SCREENING W DARIO 9. Encounter for immunization - ICD9: V03.89, ICD10: Z23 Wants pneumonia vaccine Discussed treatment plan and patient voices understanding. Patient's questions answered appropriately. Medications and potential side effects were discussed and patient voices understanding. Return to the office as scheduled or as needed for worsening/no improvement. Follow up in 12 m Radha Hummel APRN.CNP documented in this encounter [facility] 08-16-2024 Telephone encounter Note Told patient pathology report - no breast cancer seen. Can follow up with her PCP for repeat right breast mammograms in 6 months. Patient acknowledges the above [facility] Work Phone: 08-16-2024 Miscellaneous Notes Told patient pathology report - no breast cancer seen. Can follow up with her PCP for repeat right breast mammograms in 6 months. Patient acknowledges the above documented in this encounter [facility] 08-12-2024 History of Present illness Narrative Radiology Service Progress Note PATIENT NAME: Felecia Carballo DATE OF SERVICE: August 12, 2024 TIME: 1:36 PM PATIENT IDENTITY VERIFICATION COMPLETED USING TWO (2) IDENTIFIERS: Name and Date of confirmed by patient verbally. FALL SCREENING: Has the patient had 2 falls in the last year or 1 fall with injury or currently using an Ambulatory Assistive Device (Walker, Cane, Wheelchair, Crutches, etc.)? No PATIENT GENDER DATA: Female. status: : No status: NO. PATIENT RELEVANT IMPLANT DATA REVIEWED: Not Applicable PATIENT PRESENTS WITH AN IMPLANTABLE OR ATTACHED WOUND SPECIALIST: No RADIOLOGY DEPARTMENT: Biopsy PERIPHERAL IV DATA: Not applicable SIGNED BY: JINNY Cruz) August 12, 2024 1:36 PM documented in this encounter [facility] 08-12-2024 Note HNO ID: [id number] Author: ESHA HERRING RT(R) Service: ? Author Type: Technologist Type: Progress Notes Filed: 08/12/2024 13:36 Note Text: Radiology Service Progress Note PATIENT NAME: Felecia Carballo DATE OF SERVICE: August 12, 2024 TIME: 1:36 PM PATIENT IDENTITY VERIFICATION COMPLETED USING TWO (2) IDENTIFIERS: Name and Date of confirmed by patient verbally. FALL SCREENING: Has the patient had 2 falls in the last year or 1 fall with injury or currently using an Ambulatory Assistive Device (Walker, Cane, Wheelchair, Crutches, etc.)? No PATIENT GENDER DATA: Female. status: : No status: NO. PATIENT RELEVANT IMPLANT DATA REVIEWED: Not Applicable PATIENT PRESENTS WITH AN IMPLANTABLE OR ATTACHED WOUND SPECIALIST: No RADIOLOGY DEPARTMENT: Biopsy PERIPHERAL IV DATA: Not applicable SIGNED BY: RT Anthony(R) August 12, 2024 1:36 PM [facility] 08-11-2024 Note HNO ID: [id number] Author: SONALI GOOD MD Service: ? Author Type: Physician Type: Progress Notes Filed: 08/11/2024 21:03 Note Text: Patient had imaging performed at [facility]. I agree with recommendation for right ultrasound guided biopsy of the mass in the 7:00/retroareolar position. [facility] 08-11-2024 History of Present illness Narrative Patient had imaging performed at [facility]. I agree with recommendation for right ultrasound guided biopsy of the mass in the 7:00/retroareolar position. documented in this encounter [facility] 07-29-2024 Telephone encounter Note Follow up email sent to [place] breast schedulers Binu Piper [employer] [facility] 07-29-2024 Miscellaneous Notes Follow up email sent to [place] [facility] schedulers Binu Piper [employer] Pt calling in inquiring about referral to [facility] breast center. She was unsure as to whether she was supposed to call them or not. This Nurse advised patient that [facility] normailly contacts the patient and this process can take some time. This Nurse advised patient to call back if she still hasn't heard from them next week. She verbalized understanding.Izabel Holden RN documented in this encounter [facility] 07-29-2024 Telephone encounter Note Pt calling in inquiring about referral to [facility] breast center. She was unsure as to whether she was supposed to call them or not. This Nurse advised patient that [facility] normailly contacts the patient and this process can take some time. This Nurse advised patient to call back if she still hasn't heard from them next week. She verbalized understanding.Izabel Holden RN [facility] 07-25-2024 Note HNO ID: [id number] Author: CATHY NDIAYE MD Service: ? Author Type: Physician Type: Progress Notes Filed: 07/28/2024 14:44 Note Text: Felecia Carballo 1960 REFERRING PHYSICIAN: Radha Hummel A* CHIEF COMPLAINT: No chief complaint on file. HPI: The patient is a 64 year old female presents with abnormal right breast ultrasound IMPRESSION: Finding 1: Mass and area of duct ectasia in the right breast is suspicious of malignancy. An ultrasound guided biopsy is recommended. uring 0.8 cm in the anterior depth region of the right breast at 7 o'clock. She denies palpable breast masses. She denies nipple discharge. She states that she had previous right breast biopsies x 3. She notes no ovarian or breast cancer in the family. 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 Her gynecological history is as follows: menarche age 14/13, (twin), first at age 25, breast feeding history 2 years, denies exogenous hormones use, menopause early 50s She denies chest pain, shortness of breath or neurological deficits PAST MEDICAL HISTORY Diagnosis Date A-fib (HCC) RVR Diffuse cystic mastopathy left Hypertension Hypothyroidism Persistent atrial fibrillation (HCC) 04/15/2016 PVC (premature ventricular contraction) SVT (supraventricular tachycardia) ([facility]) Tachyarrhythmia WPW (Uulgc-Zpflsvmvv-Btefw syndrome) 04/15/2016 PAST SURGICAL HISTORY Procedure Laterality Date ANESTH, SECTION BREAST BX US GUIDED Right 03/24/2017 BX BREAST PERC NEED W/GUID 04/17/10 U/S needle core right breast 6 Oclock BX BREAST PERC VACUUM/ROTN 10/04/07 RIGHT BX BREAST W/DEVICE 1ST LESION ULTRASOUND GUID Right 04/20/2017 U/S mammotone bx right breast 9 Oclock plus 6cm CATHETER, ABLATION 06/02/16 Dr. Martinez COLONOSCOPY FLX DX W/COLLJ SPEC WHEN PFRMD 07/06/2015 Colonoscopy EP STUDY 06/02/16 Dr. Martinez EVENT MONITOR 07/02/2016 30 day OOPHORECTOMY PARTIAL/TOTAL UNI/BI 10/04/08 right ovary PAST SURGICAL HISTORY OF dANDc PAST SURGICAL HISTORY OF 10/04/07 excision pelvic dermoid cyst, teratoma PLCMT LOCALZTN CLIP,PERC,DURING BREAST BX 10/04/07 RIGHT TONSILLECTOMY AND ADENOIDECTOMY ALEX CUT BX BREAST MASS Right 08/22/2016 UNLISTED PROCEDURE DENTOALVEOLAR STRUCTURES wisdom teeth US BRST CYST ASP PUNC RT 02/24/09 Right breast cysts x 3 aspirated Current Outpatient Medications Medication Sig lisinopril-hydroCHLOROthiazide (ZESTORETIC) 20-12.5 mg per tablet Take 1 tablet by mouth every morning. atorvastatin (LIPITOR) 20 mg tablet Take 1 tablet by mouth daily at bedtime. For cholesterol. levothyroxine (SYNTHROID) 25 mcg tablet TAKE 1 TABLET BY MOUTH ONCE DAILY. TAKE ON AN EMPTY STOMACH dilTIAZem CD (CARDIZEM CD, CARTIA XT) 120 mg 24 hr capsule Take 1 capsule by mouth once daily. multivit with calcium,iron,min (WOMEN'S MULTIPLE VITAMINS ORAL) coenzyme Q10 (COENZYME Q-10) 100 mg cap capsule Take 200 mg by mouth. No current facility-administered medications for this visit. ALLERGIES: Seasonal Allergies PERSONAL HISTORY: Social History Tobacco Use Smoking status: Never Smokeless tobacco: Never Substance Use Topics Alcohol use: Yes Alcohol/week: 3.0 standard drinks of alcohol Types: 3 Glasses of wine per week Comment: moderate Drug use: No FAMILY HISTORY Problem Relation Age of Onset Hypertension Mother Diabetes Father Hypertension Father Diabetes Brother Breast Cancer Paternal Grandmother Stroke Paternal Grandfather GI Son IBS REVIEW OF SYMPTOMS: The review of systems data was entered by the nurse and reviewed by me There are no exam notes on file for this visit. PHYSICAL EXAMINATION: General: The patient is 64 year old female, well nourished, well hydrated in no acute distress. The patient is oriented to time, place, and person. VITALS: Blood pressure 132/74, pulse 101, height 165.1 cm (5' 5), weight 82.5 kg (181 lb 12.8 oz), last menstrual period 07/19/2015, SpO2 99%. Body mass index is 30.25 kg/m?. Head - Normocephalic. EOM intact with sclera clear and no icterus noted. Mouth with mucus membranes moist. Neck - supple with no jugular venous distention noted. Trachea is midline. No thyroid enlargement or thyroid nodules detected. No masses noted. Chest/breast - no asymmetry of breasts noted, no suspicious skin lesions noted, no nipple discharge and both nipples everted, no breast masses noted Lungs - clear to auscultation. Normal breath sounds. No rales/rhonchi/wheezing noted. No labored breathing noted, such as retractions. No cough heard. Heart - normal S1 and S2 auscultated. No rubs/clicks/murmurs noted. Regular rate. Abdomen - soft and benign. Extremities - no calf tenderness noted. No pitting edema noted. Skin - normal skin integrity. Lymph - no cervical adenopathy detected, no supraclavicular adenopathy detected, no axillary adenopathy de (more content not included)... [facility] 07-25-2024 History of Present illness Narrative Felecia Carballo 1960 REFERRING PHYSICIAN: Radha Hummel A* CHIEF COMPLAINT: No chief complaint on file. HPI: The patient is a 64 year old female presents with abnormal right breast ultrasound IMPRESSION: Finding 1: Mass and area of duct ectasia in the right breast is suspicious of malignancy. An ultrasound guided biopsy is recommended. uring 0.8 cm in the anterior depth region of the right breast at 7 o'clock. She denies palpable breast masses. She denies nipple discharge. She states that she had previous right breast biopsies x 3. She notes no ovarian or breast cancer in the family. 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 Her gynecological history is as follows: menarche age 12/13, (twin), first at age 25, breast feeding history 2 years, denies exogenous hormones use, menopause early 50s She denies chest pain, shortness of breath or neurological deficits PAST MEDICAL HISTORY Diagnosis Date A-fib (HCC) RVR Diffuse cystic mastopathy left Hypertension Hypothyroidism Persistent atrial fibrillation (HCC) 04/15/2016 PVC (premature ventricular contraction) SVT (supraventricular tachycardia) ([facility]) Tachyarrhythmia WPW (Bnibo-Mtcusgqfe-Jtywa syndrome) 04/15/2016 PAST SURGICAL HISTORY Procedure Laterality Date ANESTH, SECTION BREAST BX US GUIDED Right 03/24/2017 BX BREAST PERC NEED W/GUID 04/17/10 U/S needle core right breast 6 Oclock BX BREAST PERC VACUUM/ROTN 10/04/07 RIGHT BX BREAST W/DEVICE 1ST LESION ULTRASOUND GUID Right 04/20/2017 U/S mammotone bx right breast 9 Oclock plus 6cm CATHETER, ABLATION 06/02/16 Dr. Martinez COLONOSCOPY FLX DX W/COLLJ SPEC WHEN PFRMD 07/06/2015 Colonoscopy EP STUDY 06/02/16 Dr. Martinez EVENT MONITOR 07/02/2016 30 day OOPHORECTOMY PARTIAL/TOTAL UNI/BI 10/04/08 right ovary PAST SURGICAL HISTORY OF d&c PAST SURGICAL HISTORY OF 10/04/07 excision pelvic dermoid cyst, teratoma PLCMT LOCALZTN CLIP,PERC,DURING BREAST BX 10/04/07 RIGHT TONSILLECTOMY & ADENOIDECTOMY <AGE 12 ALEX CUT BX BREAST MASS Right 08/22/2016 UNLISTED PROCEDURE DENTOALVEOLAR STRUCTURES wisdom teeth US BRST CYST ASP PUNC RT 02/24/09 Right breast cysts x 3 aspirated Current Outpatient Medications Medication Sig lisinopril-hydroCHLOROthiazide (ZESTORETIC) 20-12.5 mg per tablet Take 1 tablet by mouth every morning. atorvastatin (LIPITOR) 20 mg tablet Take 1 tablet by mouth daily at bedtime. For cholesterol. levothyroxine (SYNTHROID) 25 mcg tablet TAKE 1 TABLET BY MOUTH ONCE DAILY. TAKE ON AN EMPTY STOMACH dilTIAZem CD (CARDIZEM CD, CARTIA XT) 120 mg 24 hr capsule Take 1 capsule by mouth once daily. multivit with calcium,iron,min (WOMEN'S MULTIPLE VITAMINS ORAL) coenzyme Q10 (COENZYME Q-10) 100 mg cap capsule Take 200 mg by mouth. No current facility-administered medications for this visit. ALLERGIES: Seasonal Allergies PERSONAL HISTORY: Social History Tobacco Use Smoking status: Never Smokeless tobacco: Never Substance Use Topics Alcohol use: Yes Alcohol/week: 3.0 standard drinks of alcohol Types: 3 Glasses of wine per week Comment: moderate Drug use: No FAMILY HISTORY Problem Relation Age of Onset Hypertension Mother Diabetes Father Hypertension Father Diabetes Brother Breast Cancer Paternal Grandmother Stroke Paternal Grandfather GI Son IBS REVIEW OF SYMPTOMS: The review of systems data was entered by the nurse and reviewed by me There are no exam notes on file for this visit. PHYSICAL EXAMINATION: General: The patient is 64 year old female, well nourished, well hydrated in no acute distress. The patient is oriented to time, place, and person. VITALS: Blood pressure 132/74, pulse 101, height 165.1 cm (5' 5), weight 82.5 kg (181 lb 12.8 oz), last menstrual period 07/19/2015, SpO2 99%. Body mass index is 30.25 kg/m . Head - Normocephalic. EOM intact with sclera clear and no icterus noted. Mouth with mucus membranes moist. Neck - supple with no jugular venous distention noted. Trachea is midline. No thyroid enlargement or thyroid nodules detected. No masses noted. Chest/breast - no asymmetry of breasts noted, no suspicious skin lesions noted, no nipple discharge and both nipples everted, no breast masses noted Lungs - clear to auscultation. Normal breath sounds. No rales/rhonchi/wheezing noted. No labored breathing noted, such as retractions. No cough heard. Heart - normal S1 and S2 auscultated. No rubs/clicks/murmurs noted. Regular rate. Abdomen - soft and benign. Extremities - no calf tenderness noted. No pitting edema noted. Skin - normal skin integrity. Lymph - no cervical adenopathy detected, no supraclavicular adenopathy detected, no axillary adenopathy detected Neurological - gait normal, no focal deficits noted Psych - calm and appropriate Assessment IMPRESSION: abnormal ultrasound of breast PLAN: I have discussed the above with the patient. I have rec'd US guided needle core breast biopsy; patient to be referred to [facility] breast imaging center. I have explained the procedure to the patient. I told patient that I will call her with results and she is OK with results to be discussed via phone. The patient acknowledges the above I have answered all questions to the patient s satisfaction and the patient has no further questions. I have confirmed and edited as necessary, the PFSH and ROS obtained by others. Consultation requested by Radha Hummel for an opinion regarding patients' abnormal breast ultrasound. My final recommendations will be communicated back to the requesting physician by way of shared Medical record or letter to requesting physician via US mail. . Diagnoses: (R92.8) Abnormal ultrasound of breast (primary encounter diagnosis) Medical Decision Making: Problems: Moderate: New problem with uncertain prognosis Risk: Low: Low risk from testing/treatment Medical Decision Making Level: 3 - Low Cathy Ndiaye MD documented in this encounter [facility] 07-21-2024 Telephone encounter Note Pt was already notified and scheduled with [facility] Surgery on 07/25/24 [facility] 07-21-2024 Miscellaneous Notes Pt was already notified and scheduled with [facility] Surgery on 07/25/24 Please let pt. Know that there is an abnormality on mammogram in right breast. We cannot know what it is until a biopsy is complete. I am referring her to [facility] Surgery for further evaluation documented in this encounter [facility] 07-21-2024 Telephone encounter Note Please let pt. Know that there is an abnormality on mammogram in right breast. We cannot know what it is until a biopsy is complete. I am referring her to [facility] Surgery for further evaluation [facility] 07-20-2024 History of Present illness Narrative Radiology Service Progress Note PATIENT NAME: Felecia Carballo DATE OF SERVICE: July 20, 2024 TIME: 12:59 PM PATIENT IDENTITY VERIFICATION COMPLETED USING TWO (2) IDENTIFIERS: Name and Date of confirmed by patient verbally. FALL SCREENING: Has the patient had 2 falls in the last year or 1 fall with injury or currently using an Ambulatory Assistive Device (Walker, Cane, Wheelchair, Crutches, etc.)? No PATIENT GENDER DATA: Female. status: : No status: NO. PATIENT RELEVANT IMPLANT DATA REVIEWED: Not Applicable PATIENT PRESENTS WITH AN IMPLANTABLE OR ATTACHED WOUND SPECIALIST: No RADIOLOGY DEPARTMENT: Mammography PERIPHERAL IV DATA: Not applicable SIGNED BY: RT Rebecca(Liborio) July 20, 2024 12:59 PM documented in this encounter [facility] 07-20-2024 Note HNO ID: [id number] Author: JANNET RAM RT(Liborio) Service: ? Author Type: Technologist Type: Progress Notes Filed: 07/20/2024 12:59 Note Text: Radiology Service Progress Note PATIENT NAME: Felecia Carballo DATE OF SERVICE: July 20, 2024 TIME: 12:59 PM PATIENT IDENTITY VERIFICATION COMPLETED USING TWO (2) IDENTIFIERS: Name and Date of confirmed by patient verbally. FALL SCREENING: Has the patient had 2 falls in the last year or 1 fall with injury or currently using an Ambulatory Assistive Device (Walker, Cane, Wheelchair, Crutches, etc.)? No PATIENT GENDER DATA: Female. status: : No status: NO. PATIENT RELEVANT IMPLANT DATA REVIEWED: Not Applicable PATIENT PRESENTS WITH AN IMPLANTABLE OR ATTACHED WOUND SPECIALIST: No RADIOLOGY DEPARTMENT: Mammography PERIPHERAL IV DATA: Not applicable SIGNED BY: RT Rebecca(Liborio) July 20, 2024 12:59 PM [facility] 06-28-2024 Telephone encounter Note Patient called to schedule CB imaging [facility] Work Phone: 06-28-2024 Miscellaneous Notes Patient called to schedule CB imaging documented in this encounter [facility] 06-23-2024 Telephone encounter Note Patient notified. Given number to call and set up additional images. [facility] 06-23-2024 Miscellaneous Notes Patient notified. Given number to call and set up additional images. Due to density and asymmetry, mammogram and ultrasound need done. An order has been placed. Please call to schedule. documented in this encounter [facility] 06-23-2024 Telephone encounter Note Due to density and asymmetry, mammogram and ultrasound need done. An order has been placed. Please call to schedule. [facility] 06-23-2024 Note Formatting of this n ote might be different from the original. June 23, 2024 PID: [id number] Felecia Carballo [address] [place] [address] Dear Ms. Carballo, Your recent breast imaging exam on 06/22/2024 showed a possible finding that requires additional imaging studies for a complete evaluation. Most such findings are probably benign (not cancer). Breast tissue can be either dense or not dense. Dense tissue makes it harder to find breast cancer on a mammogram and also raises the risk of developing breast cancer. Your breast tissue is dense. In some people with dense tissue, other imaging tests in addition to a mammogram may help find cancers. Talk to your healthcare provider about breast density, risks for breast cancer, and your individual situation. If you have a healthcare provider who ordered/prescribed your screening mammogram: Please call [phone] or EXT: [phone] to schedule an appointment for your additional imaging (if you have not already done so). If you DO NOT have a healthcare provider (ie you did not have an order/prescription for your screening mammogram): Please call to schedule an appointment for your additional imaging (if you have not already done so). You must have an order/prescription from your physician when calling to schedule your appointment. If your order/prescription is not electronic, you must bring the hard copy with you on the day of your exam to avoid delays. Your imaging studies and reports are kept on file at [facility] as part of your permanent medical record, and are available for your continuing care. Thank you for allowing us to help in meeting your health care needs. Sincerely, Dr. Baez Interpreting Radiologist [facility] (Additional imaging) [facility] 06-23-2024 Miscellaneous Notes June 23, 2024 PID: [id number] Felecia Carballo [address] [place] [address] Dear Ms. Carballo, Your recent breast imaging exam on 06/22/2024 showed a possible finding that requires additional imaging studies for a complete evaluation. Most such findings are probably benign (not cancer). Breast tissue can be either dense or not dense. Dense tissue makes it harder to find breast cancer on a mammogram and also raises the risk of developing breast cancer. Your breast tissue is dense. In some people with dense tissue, other imaging tests in addition to a mammogram may help find cancers. Talk to your healthcare provider about breast density, risks for breast cancer, and your individual situation. If you have a healthcare provider who ordered/prescribed your screening mammogram: Please call [phone] or EXT: [phone] to schedule an appointment for your additional imaging (if you have not already done so). If you DO NOT have a healthcare provider (ie you did not have an order/prescription for your screening mammogram): Please call to schedule an appointment for your additional imaging (if you have not already done so). You must have an order/prescription from your physician when calling to schedule your appointment. If your order/prescription is not electronic, you must bring the hard copy with you on the day of your exam to avoid delays. Your imaging studies and reports are kept on file at [facility] as part of your permanent medical record, and are available for your continuing care. Thank you for allowing us to help in meeting your health care needs. Sincerely, Dr. Baez Interpreting Radiologist [facility] (Additional imaging) documented in this encounter [facility] 06-22-2024 History of Present illness Narrative Radiology Service Progress Note PATIENT NAME: Feleica Carballo DATE OF SERVICE: June 22, 2024 TIME: 10:53 AM PATIENT IDENTITY VERIFICATION COMPLETED USING TWO (2) IDENTIFIERS: Name and Date of confirmed by patient verbally. FALL SCREENING: Has the patient had 2 falls in the last year or 1 fall with injury or currently using an Ambulatory Assistive Device (Walker, Cane, Wheelchair, Crutches, etc.)? No PATIENT GENDER DATA: Female. status: : No status: NO. PATIENT RELEVANT IMPLANT DATA REVIEWED: Not Applicable PATIENT PRESENTS WITH AN IMPLANTABLE OR ATTACHED WOUND SPECIALIST: No RADIOLOGY DEPARTMENT: Mammography PERIPHERAL IV DATA: Not applicable SIGNED BY: Supa Whittington June 22, 2024 10:53 AM documented in this encounter [facility] 06-22-2024 Note HNO ID: [id number] Author: VIC KING Mammo Tech Service: ? Author Type: Junior High School Teacher Type: Progress Notes Filed: 06/22/2024 10:53 Note Text: Radiology Service Progress Note PATIENT NAME: Felecia Carballo DATE OF SERVICE: June 22, 2024 TIME: 10:53 AM PATIENT IDENTITY VERIFICATION COMPLETED USING TWO (2) IDENTIFIERS: Name and Date of confirmed by patient verbally. FALL SCREENING: Has the patient had 2 falls in the last year or 1 fall with injury or currently using an Ambulatory Assistive Device (Walker, Cane, Wheelchair, Crutches, etc.)? No PATIENT GENDER DATA: Female. status: : No status: NO. PATIENT RELEVANT IMPLANT DATA REVIEWED: Not Applicable PATIENT PRESENTS WITH AN IMPLANTABLE OR ATTACHED WOUND SPECIALIST: No RADIOLOGY DEPARTMENT: Mammography PERIPHERAL IV DATA: Not applicable SIGNED BY: Vic King [employer] June 22, 2024 10:53 AM [facility] 04-08-2024 Telephone encounter Note Results faxed to [facility]. F# [phone] [facility] 04-08-2024 Miscellaneous Notes Results faxed to [facility]. F# [phone] Labs are all back and within normal limits. Can we please forward this to her surgeon's office. Nori Thorpe APRN.PUBLIC HEALTH EPIDEMIOLOGIST documented in this encounter [facility] 04-08-2024 Telephone encounter Note Labs are all back and within normal limits. Can we please forward this to her surgeon's office. Nori Thorpe APRN.PUBLIC HEALTH EPIDEMIOLOGIST [facility] Work Phone: 04-08-2024 Telephone encounter Note [facility] [place] calling for copies of labs done for surgical clearance. FAX: [phone]. Pt identified with name and date of . Done. Melissa Brewster LPN [facility] 04-08-2024 Miscellaneous Notes [facility] calling for copies of labs done for surgical clearance. FAX: [phone]. Pt identified with name and date of . Done. Melissa Brewster LPN documented in this encounter [facility] 04-05-2024 History and physical note HISTORY AND PHYSICAL EXAMINATION SUBJECTIVE 64 year old female is here for consult to determine preoperative surgical clearance requested by Dr. Puente for anticipated surgery: right achilles tendon debridement and repair with partial excision of calcaneus, possible flexor hallucis longus transfer and excision of bursa, scheduled for 04/15/2024. Patient's history of surgical problem: none. Hx of previous anesthesia problems: No. Family hx of anesthesia problems: No. Current signs of infection: No. Chest pain/ hx Cardiac complications: No. Hx of WPW. Shortness of breath: No. Hx sleep apnea: No. Hx of clotting issues: No. Current bleeding or bruising tendencies: No. Hx GERD No. On anticoagulant medication: No. 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 Martinez COLONOSCOPY FLX DX W/COLLJ SPEC WHEN PFRMD 07/06/2015 Colonoscopy EP STUDY 06/02/16 Dr. Martinez EVENT MONITOR 07/02/2016 30 day OOPHORECTOMY PARTIAL/TOTAL UNI/BI 10/04/08 right ovary PAST SURGICAL HISTORY OF d&c PAST SURGICAL HISTORY OF 10/04/07 excision pelvic dermoid cyst, teratoma PLCMT LOCALZTN CLIP,PERC,DURING BREAST BX 10/04/07 RIGHT TONSILLECTOMY & ADENOIDECTOMY ALEX CUT BX BREAST MASS Right 08/22/2016 UNLISTED PROCEDURE DENTOALVEOLAR STRUCTURES wisdom teeth US BRST CYST ASP PUNC RT 02/24/09 Right breast cysts x 3 aspirated Social History Tobacco Use Smoking status: Never Smokeless tobacco: Never Substance Use Topics Alcohol use: Yes Alcohol/week: 3.0 standard drinks of alcohol Types: 3 Glasses of wine per week Comment: moderate Drug use: No ACTIVE PROBLEM LIST Hypothyroidism Hypertension, Essential 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 90 tablet 3 atorvastatin (LIPITOR) 20 mg tablet Take 1 tablet by mouth daily at bedtime. For cholesterol. 90 tablet 3 levothyroxine (SYNTHROID) 25 mcg tablet TAKE 1 TABLET BY MOUTH ONCE DAILY. TAKE ON AN EMPTY STOMACH 90 tablet 3 dilTIAZem CD (CARDIZEM CD, CARTIA XT) 120 mg 24 hr capsule Take 1 capsule by mouth once daily. 90 capsule 3 multivit with calcium,iron,min (WOMEN'S MULTIPLE VITAMINS ORAL) coenzyme Q10 (COENZYME Q-10) 100 mg cap capsule Take 200 mg by mouth. No current facility-administered medications for this visit. Allergies: Seasonal Allergies Other: See Comments Comment:Sinus head aches REVIEW OF SYSTEMS: General: No weight loss, malaise or fevers. Neuro: Denies: No Hx of stroke or seizures Parkinson's Disease Multiple Sclerosis Peripheral neuropathy Respiratory: No history of current cough or dyspnea, or pneumonia in the past 6 weeks. No history of respiratory/pulmonary symptoms or problems Cardiovascular: Negative for: Recent [place], CHF, DVT/PE, [place], Valvular Heart Disease. + Hx of WPW and a fib (resolved). + HTN and hyperlipidemia. GI: No history of GI symptoms or problems. No history of esophageal varices, recent ascites, or ETOH greater than 2 drinks per day. : No history of UTI in past 6 weeks. No history of renal failure. Not currently on or requiring dialysis. No history of symptoms or problems. 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 : Denies Endocrine: No history of diabetes. Has not taken steroids within the past 30 days. No history of endocrinological symptoms or problems., + hypothyroidism. Hematology: No history of bleeding or clotting disorder. Pt is not taking anti-coagulation or platelet medications. No history of hematological symptoms or problems. Oncology: No history of CA metastasis, chemo within 30 days, or radiotherapy within 90 days. Has not lost 10% of body wt in 6 months. No history of oncological symptoms or problems. Psych: No history of psychiatric symptoms or problems. Musculoskeletal: Negative for joint pain or swelling, back pain or muscle pain. Except right foot/achilles. Skin: Negative for lesions, rash and itching. PHYSICAL EXAM: VITALS: BP 146/82 Pulse 100 Resp 16 Wt 83.9 kg (185 lb) LMP 07/19/2015 BMI 30.34 kg/m General Appearance: Well appearing, alert, in no acute distress, well-hydrated, well nourished.. Skin: Skin color, texture, turgor normal, no suspicious rashes or lesions. Head: Normocephalic, no masses, lesions, tenderness or abnormalities. Eyes: Anicteric sclera. Pupils are equally round and reactive to light. Extraocular movements are intact. . Ears: External ears normal, canals clear. Normal TMs bilaterally. Oropharynx: Lips, mucosa, and tongue normal, teeth and gums normal, oropharynx normal. Neck: Supple, no adenopathy; thyroid symmetric, normal size, no bruits. Lungs: Lungs clear to auscultation. No wheezing, rhonchi, rales.. Heart: RRR without murmur, gallop, or rubs. No ectopy. Abdomen: Abdomen soft, non-tender. Bowel sounds normal. No masses, organomegaly. Extremities: No deformities, edema, skin discoloration, clubbing or cyanosis. Good capillary refill. . Neurologic: Gait normal. Diagnostic tests reviewed for today's visit: PENDING Clinical Risk Factors for Possible Cardiac Complications: None Patient is scheduled for a intermediate-risk procedure. FUNCTIONAL STATUS: Climb a flight of stairs or walk up a hill (5.50 METs) Participate in moderate recreational activities, such as golf, bowling, dancing, doubles tennis, or throwing a baseball or football (6.00 METs) Do heavy work around the house, such as scrubbing floors, lifting or moving heavy furniture (8.00 METs) Functional Class (NYHA): I-II ROWAN CARDIAC RISK CALCULATOR - 0.02 ASSESSMENT/PLAN: 1. Preop examination - ICD9: V72.84, ICD10: Z01.818 (primary diagnosis) Pt is acceptable risk to proceed with moderate risk procedure pending acceptable labs. Today's notes will be faxed to Dr. Puente's office. Thank you for allowing us to participate in Felecia's care. Please let us know if we can be of any further assistance. Patient has the following medical conditions which may affect gerard-operative course HTN - Well controlled WPW -close cardiac monitoring during surgery and post-op. CONSULTS: Pt has been cleared by cardiology to proceed w/ procedure. The Following Tests/Procedures Have Been Initiated: - COMPLETE BLOOD COUNT AND DIFFERENTIAL - COMPREHENSIVE METABOLIC PANEL - NICOTINE/COTININE - VITAMIN D 25 HYDROXY 2. Disorder of right Achilles tendon - ICD9: 727.9, ICD10: M67.971 Per ortho. Discussed treatment plan and patient voices understanding. Patient's questions answered appropriately. Medications and potential side effects were discussed and patient voices understanding. Return to the office as scheduled or as needed for worsening/no improvement. Nori Thorpe APRN.PUBLIC HEALTH EPIDEMIOLOGIST T [facility] 04-05-2024 History and physical note HISTORY AND PHYSICAL EXAMINATION SUBJECTIVE 64 year old female is here for consult to determine preoperative surgical clearance requested by Dr. Puente for anticipated surgery: right achilles tendon debridement and repair with partial excision of calcaneus, possible flexor hallucis longus transfer and excision of bursa, scheduled for 04/15/2024. Patient's history of surgical problem: none. Hx of previous anesthesia problems: No. Family hx of anesthesia problems: No. Current signs of infection: No. Chest pain/ hx Cardiac complications: No. Hx of WPW. Shortness of breath: No. Hx sleep apnea: No. Hx of clotting issues: No. Current bleeding or bruising tendencies: No. Hx GERD No. On anticoagulant medication: No. HISTORIES FAMILY HISTORY Problem Relation Age of Onset Hypertension Mother Diabetes Father Hypertension Father Diabetes Brother Breast Cancer Paternal Grandmother Stroke Paternal Grandfather GI Son IBS PAST MEDICAL HISTORY Diagnosis Date A-fib (HCC) RVR Diffuse cystic mastopathy left Hypertension Hypothyroidism Persistent atrial fibrillation (HCC) 04/15/2016 PVC (premature ventricular contraction) SVT (supraventricular tachycardia) (HCC) Tachyarrhythmia WPW (Xrwva-Ynytstpcv-Prngj syndrome) 04/15/2016 PAST SURGICAL HISTORY Procedure Laterality Date ANESTH, SECTION BREAST BX US GUIDED Right 03/24/2017 BX BREAST PERC NEED W/GUID 04/17/10 U/S needle core right breast 6 Oclock BX BREAST PERC VACUUM/ROTN 10/04/07 RIGHT BX BREAST W/DEVICE 1ST LESION ULTRASOUND GUID Right 04/20/2017 U/S mammotone bx right breast 9 Oclock plus 6cm CATHETER, ABLATION 06/02/16 Dr. Martinez COLONOSCOPY FLX DX W/COLLJ SPEC WHEN PFRMD 07/06/2015 Colonoscopy EP STUDY 06/02/16 Dr. Martinez EVENT MONITOR 07/02/2016 30 day OOPHORECTOMY PARTIAL/TOTAL UNI/BI 10/04/08 right ovary PAST SURGICAL HISTORY OF d&c PAST SURGICAL HISTORY OF 10/04/07 excision pelvic dermoid cyst, teratoma PLCMT LOCALZTN CLIP,PERC,DURING BREAST BX 10/04/07 RIGHT TONSILLECTOMY & ADENOIDECTOMY <AGE 14 ALEX CUT BX BREAST MASS Right 08/22/2016 UNLISTED PROCEDURE DENTOALVEOLAR STRUCTURES wisdom teeth US BRST CYST ASP PUNC RT 02/24/09 Right breast cysts x 3 aspirated Social History Tobacco Use Smoking status: Never Smokeless tobacco: Never Substance Use Topics Alcohol use: Yes Alcohol/week: 3.0 standard drinks of alcohol Types: 3 Glasses of wine per week Comment: moderate Drug use: No ACTIVE PROBLEM LIST Hypothyroidism Hypertension, Essential Wpw (Ychrn-Vlcwisgba-Jbcmt Syndrome) Melanocytic Nevus of Trunk Current Outpatient Medications Medication Sig Dispense Refill lisinopril-hydroCHLOROthiazide (ZESTORETIC) 20-12.5 mg per tablet Take 1 tablet by mouth every morning. 90 tablet 3 atorvastatin (LIPITOR) 20 mg tablet Take 1 tablet by mouth daily at bedtime. For cholesterol. 90 tablet 3 levothyroxine (SYNTHROID) 25 mcg tablet TAKE 1 TABLET BY MOUTH ONCE DAILY. TAKE ON AN EMPTY STOMACH 90 tablet 3 dilTIAZem CD (CARDIZEM CD, CARTIA XT) 120 mg 24 hr capsule Take 1 capsule by mouth once daily. 90 capsule 3 multivit with calcium,iron,min (WOMEN'S MULTIPLE VITAMINS ORAL) coenzyme Q10 (COENZYME Q-10) 100 mg cap capsule Take 200 mg by mouth. No current facility-administered medications for this visit. Allergies: Seasonal Allergies Other: See Comments Comment:Sinus head aches REVIEW OF SYSTEMS: General: No weight loss, malaise or fevers. Neuro: Denies: No Hx of stroke or seizures Parkinson's Disease Multiple Sclerosis Peripheral neuropathy Respiratory: No history of current cough or dyspnea, or pneumonia in the past 6 weeks. No history of respiratory/pulmonary symptoms or problems Cardiovascular: Negative for: Recent [place], CHF, DVT/PE, [place], Valvular Heart Disease. + Hx of WPW and a fib (resolved). + HTN and hyperlipidemia. GI: No history of GI symptoms or problems. No history of esophageal varices, recent ascites, or ETOH greater than 2 drinks per day. : No history of UTI in past 6 weeks. No history of renal failure. Not currently on or requiring dialysis. No history of symptoms or problems. 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 : Denies Endocrine: No history of diabetes. Has not taken steroids within the past 30 days. No history of endocrinological symptoms or problems., + hypothyroidism. Hematology: No history of bleeding or clotting disorder. Pt is not taking anti-coagulation or platelet medications. No history of hematological symptoms or problems. Oncology: No history of CA metastasis, chemo within 30 days, or radiotherapy within 90 days. Has not lost 10% of body wt in 6 months. No history of oncological symptoms or problems. Psych: No history of psychiatric symptoms or problems. Musculoskeletal: Negative for joint pain or swelling, back pain or muscle pain. Except right foot/achilles. Skin: Negative for lesions, rash and itching. PHYSICAL EXAM: VITALS: BP 146/82 Pulse 100 Resp 16 Wt 83.9 kg (185 lb) LMP 07/19/2015 BMI 30.34 kg/m General Appearance: Well appearing, alert, in no acute distress, well-hydrated, well nourished.. Skin: Skin color, texture, turgor normal, no suspicious rashes or lesions. Head: Normocephalic, no masses, lesions, tenderness or abnormalities. Eyes: Anicteric sclera. Pupils are equally round and reactive to light. Extraocular movements are intact. . Ears: External ears normal, canals clear. Normal TMs bilaterally. Oropharynx: Lips, mucosa, and tongue normal, teeth and gums normal, oropharynx normal. Neck: Supple, no adenopathy; thyroid symmetric, normal size, no bruits. Lungs: Lungs clear to auscultation. No wheezing, rhonchi, rales.. Heart: RRR without murmur, gallop, or rubs. No ectopy. Abdomen: Abdomen soft, non-tender. Bowel sounds normal. No masses, organomegaly. Extremities: No deformities, edema, skin discoloration, clubbing or cyanosis. Good capillary refill. . Neurologic: Gait normal. Diagnostic tests reviewed for today's visit: PENDING Clinical Risk Factors for Possible Cardiac Complications: None Patient is scheduled for a intermediate-risk procedure. FUNCTIONAL STATUS: Climb a flight of stairs or walk up a hill (5.50 METs) Participate in moderate recreational activities, such as golf, bowling, dancing, doubles tennis, or throwing a baseball or football (6.00 METs) Do heavy work around the house, such as scrubbing floors, lifting or moving heavy furniture (8.00 METs) Functional Class (NYHA): I-II ROWAN CARDIAC RISK CALCULATOR - 0.02 ASSESSMENT/PLAN: 1. Preop examination - ICD9: V72.84, ICD10: Z01.818 (primary diagnosis) Pt is acceptable risk to proceed with moderate risk procedure pending acceptable labs. Today's notes will be faxed to Dr. Puente's office. Thank you for allowing us to participate in Felecia's care. Please let us know if we can be of any further assistance. Patient has the following medical conditions which may affect gerard-operative course HTN - Well controlled WPW -close cardiac monitoring during surgery and post-op. CONSULTS: Pt has been cleared by cardiology to proceed w/ procedure. The Following Tests/Procedures Have Been Initiated: - COMPLETE BLOOD COUNT AND DIFFERENTIAL - COMPREHENSIVE METABOLIC PANEL - NICOTINE/COTININE - VITAMIN D 25 HYDROXY 2. Disorder of right Achilles tendon - ICD9: 727.9, ICD10: M67.971 Per ortho. Discussed treatment plan and patient voices understanding. Patient's questions answered appropriately. Medications and potential side effects were discussed and patient voices understanding. Return to the office as scheduled or as needed for worsening/no improvement. Nori Thorpe APRN.[email or web address] documented in this encounter [facility] 03-30-2024 Telephone encounter Note Prescription Refill Information The patient has been identified by name and date of : Yes Caregiver verified no other encounters exist for this prescription request: Yes Caregiver confirmed with patient/requestor that no other refills are due, in the near future, with this provider at this time: Yes The last office visit in the department: 02/29/24 Does the patient have a future office visit with this provider/department: Yes yearly with Janusz and upcoming per op with Nori Requested Prescriptions Pending Prescriptions Disp Refills lisinopril-hydroCHLOROthiazide (ZESTORETIC) 20-12.5 mg per tablet 90 tablet 3 Sig: Take 1 tablet by mouth every morning. atorvastatin (LIPITOR) 20 mg tablet 90 tablet 3 Sig: Take 1 tablet by mouth daily at bedtime. For cholesterol. Alvin Carranza LPN March 30, 2024 8:47 AM [facility] 03-30-2024 Miscellaneous Notes Prescription Refill Information The patient has been identified by name and date of : Yes Caregiver verified no other encounters exist for this prescription request: Yes Caregiver confirmed with patient/requestor that no other refills are due, in the near future, with this provider at this time: Yes The last office visit in the department: 02/29/24 Does the patient have a future office visit with this provider/department: Yes yearly with Janusz and upcoming per op with Nori Requested Prescriptions Pending Prescriptions Disp Refills lisinopril-hydroCHLOROthiazide (ZESTORETIC) 20-12.5 mg per tablet 90 tablet 3 Sig: Take 1 tablet by mouth every morning. atorvastatin (LIPITOR) 20 mg tablet 90 tablet 3 Sig: Take 1 tablet by mouth daily at bedtime. For cholesterol. Alvin Carranza LPN March 30, 2024 8:47 AM documented in this encounter [facility] 03-08-2024 Miscellaneous Notes Pt called in and reports she was able to get an appointment with Dr Valdivia with [facility] on 04/04/24. Canceled consult with [facility] Cardiology in June. 1st attempt called pt about Cardio consult. LVM. Consult was scheduled at first available within [facility]. ([place] is June) Spoke with Mat at [facility] [place] [facility] is questioning why no cardiology clearance. Has no lead advisor. Was sent directly to golf tournament consultant who declines to do a cardiac clearance. Consult first available cardiology provider with preference closest to [facility] but will take what's open. Telephone on 03/03/24 CONSULT TO CARDIOLOGY Thanks, Janusz Gtz PA-C Phoned and left message with my number, advised as written in chart that she had ablation and has had no symptoms since then. If still concerned, I can order cardiac clearance. Janusz Gtz PA-C [facility] reports [facility] anesthesiologist, is questioning cardiac clearance for upcoming surgery. 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 Are you going to refer patient to cardiology for clearance? Are you willing to fill out the cardiac clearance form if not referring patient to cardiology? Please phone Mat Alejandra with reply: [phone] (make sure you ask for Mat Alejandra b/c they have several Mat's there) documented in this encounter [facility] 03-08-2024 Telephone encounter Note Pt called in and reports she was able to get an appointment with Dr Valdivia with [facility] on 04/04/24. Canceled consult with [facility] in June. [facility] 03-08-2024 Telephone encounter Note 1st attempt called pt about Cardio consult. LVM. Consult was scheduled at first available within [facility]. ([place] is June) [facility] 03-03-2024 Telephone encounter Note Spoke with Mat at [facility] [place] is questioning why no cardiology clearance. Has no lead advisor. Was sent directly to golf tournament consultant who declines to do a cardiac clearance. Consult first available cardiology provider with preference closest to [facility] but will take what's open. Telephone on 03/03/24 CONSULT TO CARDIOLOGY Thanks, Janusz Gtz PA-C [facility] 03-03-2024 Telephone encounter Note Phoned and left message with my number, advised as written in chart that she had ablation and has had no symptoms since then. If still concerned, I can order cardiac clearance. Janusz Gtz PA-C [facility] 03-03-2024 Telephone encounter Note [facility]- reports [facility] anesthesiologist, is questioning cardiac clearance for upcoming surgery. 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 Are you going to refer patient to cardiology for clearance? Are you willing to fill out the cardiac clearance form if not referring patient to cardiology? Please phone Mat Alejandra with reply: [phone] (make sure you ask for Mat Alejandra b/c they have several Mat's there) [facility] 02-29-2024 Note Addended by: Markie GTZ on: 02/29/2024 05:50 PM Modules accepted: Orders [facility] 02-29-2024 Miscellaneous Notes Addended by: Markie GTZ on: 02/29/2024 05:50 PM Modules accepted: Orders documented in this encounter [facility] 02-29-2024 Instructions Markie Gtz PA-C - 02/29/2024 10:20 AM EDT Please hold all OTC medicines or supplement 1 week prior to surgery. If needed you may use OTC Tylenol for pain. You make take all your other medications with a sip of water the morning of your surgery. Do well!!!! documented in this encounter [facility] 02-29-2024 History of Present illness Narrative HISTORY AND PHYSICAL EXAMINATION SERVICE DATE: 02/29/2024\ SERVICE TIME: 10:07 AM PRIMARY CARE PROVIDER: Alison Gtz PA-C Patient presents for presurgical consultation from Dr. Ismael Puente DPM. for medical preop clearance. My findings and recommendations will be communicated through this medical record. Upcoming surgery for: Achilles tendon debridement and repair with partial excision of calcaneus, possible flexor halicus longus transfer and excision of bursa. Pertinent history and review: Current signs of infection: No. Chest pain: No. Cardiac history or testing: remote Shortness of breath: No. Pulmonary testing to date: none Known sleep apnea: No. Hx of clotting issues: No. Current bleeding or bruising: No. 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 Young 05/21/2016 Admitted through ER to [facility] with palpitation 2015, was found to have pre-excited atrial fibrillationwith RVR. The electrophysiologic study demonstrated evidence of right posterior accessory pathway, suspect epicardial location based on 12-lead ECG features, large area of simultaneous activation in the right posterior wall and failure to interrupt pathway conduction despite extensive mapping and ablation attempts. Accessory pathway was capable of 1-1 AV conduction up to 290 ms cycle length. Building Insulation Installer: Current meds: Atorvastatin 20 mg daily at bedtime Diltiazem CD 120 1 capsule daily Lisinopril-hydrochlorothiazide 20-12.5 mg daily Use of NTG: n/a Chest pain, arm, jaw pain, neck, or upper back pain suggestive of angina: No. SOB: No Dyspnea with exertion: No orthopnea: No racing or irregular heartbeats: No palpitations: No syncopal sx: No Unexplainable fatigue No Leg swelling: No Nausea: No diaphoresis: No Heartburn: No Claudication: No Smoking: No Following Low cholesterol, high fiber diet? Not much. Not a lot of red meat. If on statin: muscle aches? No If on statin: GI sx or diarrhea? No Additional history. Lab review: Latest Ref Rng 10/26/2020 02/19/2024 WBC 3.70 - 11.00 k/uL 5.53 RBC 3.90 - 5.20 m/uL 4.63 Hemoglobin 11.5 - 15.5 g/dL 14.3 Hematocrit 36.0 - 46.0 % 43.0 MCV 80.0 - 100.0 fL 92.9 MCH 26.0 - 34.0 pg 30.9 MCHC 30.5 - 36.0 g/dL 33.3 RDW-CV 11.5 - 15.0 % 12.1 Platelet Count 150 - 400 k/uL 263 MPV 9.0 - 12.7 fL 10.4 Neut% % 59.2 Abs Neut (ANC) 1.45 - 7.50 k/uL 3.27 Lymph% % 26.9 Abs Lymph 1.00 - 4.00 k/uL 1.49 [place]% % 7.2 Abs [place] <0.87 k/uL 0.40 Eosin% % 5.4 Abs Eosin <0.46 k/uL 0.30 Baso% % 1.1 Abs Baso <0.11 k/uL 0.06 Immature Gran % % 0.2 IMMATURE GRANS (ABS) <0.10 k/uL <0.03 NRBC /100 WBC 0.0 Absolute nRBC <0.01 k/uL <0.01 DTYPE Auto Protein, Total 6.3 - 8.0 g/dL 7.3 7.2 Albumin 3.9 - 4.9 g/dL 4.7 4.5 Calcium 8.5 - 10.2 mg/dL 9.7 10.0 Bilirubin, Total 0.2 - 1.3 mg/dL 0.2 0.4 Alkaline Phosphatase 34 - 123 U/L 43 37 AST 13 - 35 U/L 16 21 Glucose 74 - 99 mg/dL 113 (H) 99 BUN 7 - 21 mg/dL 16 21 Creatinine 0.58 - 0.96 mg/dL 0.92 0.90 Sodium 136 - 144 mmol/L 141 141 Potassium 3.7 - 5.1 mmol/L 4.0 4.3 Chloride 97 - 105 mmol/L 103 104 CO2 22 - 30 mmol/L 26 25 Anion Gap 9 - 18 mmol/L 12 12 ALT 7 - 38 U/L 16 20 eGFR- >60 eGFR-All Other Races . >60 eGFR >=60 mL/min/1.73m 73 Latest Ref Rng 02/06/2023 02/19/2024 Cholesterol, Total <200 mg/dL 155 166 Triglyceride <150 mg/dL 93 157 (H) HDL Cholesterol >39 mg/dL 43 37 (L) Non HDL Cholesterol <130 mg/dL 112 129 Fasting Time hrs 13 12 VLDL Cholesterol <30 mg/dL 19 31 (H) TC:HDL Ratio <5.10 3.60 4.49 LDL Cholesterol <100 mg/dL 93 98 LDL:HDL Ratio <2.54 2.16 2.65 (H) Acquired hypothyroidism Current medication: Levothyroxine 25 mcg daily AC Taking as directed on an empty stomach? Yes. Thyroid pain: No. Mass effect: No. Change in energy level/ fatigue? No. Sleep disturbance ?No. Temperature Intolerance: cold No, hot No. In females, menstrual cycle issues? climacteric, If yes: Change in bowel habits? No. If yes: Constipation? No. If yes: Diarrhea? No. If yes: Weight changes? Increasing post surgery Memory issues: No. Diaphoresis: No. Numbness, tingling none Change in hair or skin? No. If yes: Other symptoms: sleep is good. Uses melatonin 10mg at night. Last 2 Encounter Wt Readings: Date: Wt: 02/29/2024 84.4 kg (186 lb) 08/24/2023 82.6 kg (182 lb) Last thyroid labs: TSH Date Value 02/19/2024 2.410 mIU/L 08/04/2022 2.570 mIU/L 08/02/2021 2.190 uU/mL 10/26/2020 2.010 uU/mL ) Elevated glucose: 5.2 (01/29/2022) Sayda deformity right ankle: having surgery MRI knee 3/4 arthritis Taking collagen REVIEW OF SYMPTOMS: General: + a little fatigue, + gain. No fevers, chills. Energy Level: good. 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 Caffeine use: 2.5 cups / day. ETOH use: moderate 3-4 beers or wine a week. Marijuana use: none. Illicit drug use: none. Eyes: denies change in vision, glaucoma, cataracts. Reading glasses OTC. Last eye exam: 2 months. EENT: denies recurrent sinus infection, unusual nasal drainage, hoarsemess, sore throat, or recurrent sore in mouth or tongue. Cardiovascular See HPI: denies history of rheumatic fever Respiratory: denies unusual cough, SOB, wheezing, history of recurrent bronchitis, pneumonia or tuberculosis. Denies day time drowsiness. +Snoring disruptive, no day time drowsiness. No witnessed sleep apnea. No recent infections in last 6 weeks or hx COPD or pneumonia. GI: denies difficulty swallowing, nausea, vomiting, change in appetite. No change in bowel habits. Denies constipation, diarrhea, rectal bleeding or hemorrhoids, incontinence. No history of GERD, PUD, jaundice/hepatitis, GB disease, diverticulosis, colorectal cancer, hernias. Kidney/Bladder: Denies frequency, burning. Nocturia 1, incontinence none. No history of kidney stones, recurrent UTI or kidney infection[facility] No abnormal paps. [facility] pap l[facility] year at [facility]. Skin: Lots of moles. denies unusual rashes. No history of skin cancer, bleeding/changing moles, or unusual skin lesions. Neurologic: Denies recurrent BHATT, change in vision, hearing or smell, tremors, unusual weakness, loss of sensation, or difficulty with balance or gait. No history of epilepsy/convulsions, migraine, head/spinal injuries, or stroke/TIA. Psychiatric: Feels usually in a good mood. denies unusual worry, moodiness, depression, suicidal ideation or unusual disturbance in relationships. No history of psychiatric illness. PHQ-9 Score: 2 (Minimal Depression) No further intervention at this time Endocrine: as above. No history of thryoid, pituitary or hormonal problems. Hematologic: denies unusual bleeding, bruising, or history of anemia or blood transfusion. Denies hx blood clots. Infections: denies risk factors for HIV, hepatitis or history of unusual infection. Immunizations are up to date. Musculoskeletal: right ankle sayda's, left meniscal surgery, [facility]. Pain is severe enough to keep her from doing activities, steady, chronic aching and burning, moderate to severe at times.denies unusual stiffness, muscles aches, joint pain, or swelling. Denies recurrent sprain or disruption of joints, debilitating arthritis, gout, or other musculoskeletal disease. No Hx back injury, spinal stenosis, radiculopathy. 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 Martinez COLONOSCOPY FLX DX W/COLLJ SPEC WHEN PFRMD 07/06/2015 Colonoscopy EP STUDY 06/02/16 Dr. Martinez EVENT MONITOR 07/02/2016 30 day OOPHORECTOMY PARTIAL/TOTAL UNI/BI 10/04/08 right ovary PAST SURGICAL HISTORY OF d&c PAST SURGICAL HISTORY OF 10/04/07 excision pelvic dermoid cyst, teratoma PLCMT LOCALZTN CLIP,PERC,DURING BREAST BX 10/04/07 RIGHT TONSILLECTOMY & ADENOIDECTOMY <AGE 14 ALEX CUT BX BREAST MASS Right 08/22/2016 UNLISTED PROCEDURE DENTOALVEOLAR STRUCTURES wisdom teeth US BRST CYST ASP PUNC RT 02/24/09 Right breast cysts x 3 aspirated Social History Tobacco Use Smoking status: Never Smokeless tobacco: Never Substance Use Topics Alcohol use: Yes Alcohol/week: 3.0 standard drinks of alcohol Types: 3 Glasses of wine per week Comment: moderate Drug use: No PHYSICAL EXAM: VITALS: BP 130/76 Pulse 91 Resp 16 Ht 166.3 cm (5' 5.47) Wt 84.4 kg (186 lb) LMP 07/19/2015 SpO2 98% BMI 30.51 kg/m Pleasant overweight adult woma in no acute distress. Alert and oriented all spheres. Normal affect and cognition. Speech normal. No deficits to learning or comprehension. Skin warm, dry, pink to lips and nailbeds. Normal turgor. Respirations regular and unlabored. HEENT: NCAT. No scleral icterus or conjunctival injection. TM's clear. Nose and oropharynx free from injection or lesion. Oral membranes moist and pink. No cervical lymph nodes. Thyroid non-tender, no masses, or enlargement. Carotids pulses 2+/4+ without bruits. No JVD with HOB at 30 degrees. Chest is normal shape. Lungs are clear to all hamlin with good air exchange through out. HRRR without murmur or gallop. No lifts, heaves, or rubs. Abdomen: active bowel sounds throughout, soft, nontender, no masses or organomegaly. No CVAT. No abdominal bruits, axillary or inguinal nodes. Femoral pulses 2/4+ without bruit. Extrem: no clubbing, cyanosis, edema. Distal pulses 2+/4, prompt capillary refill. Moderate deformity right posterior heel, tender. Moderate swelling left knee TKA anterior and posterior with stiffness on motion. Extrem: no clubbing or cyanosis. Edema: none. Extremities are warm and pink with prompt capillary refill. Pulses: 2/4+ carotids without bruits, 2/4+ radial and dorsal pedal bilaterally Gait and balance normal. Sensation grossly intact. Negative findings: speech normal, mental status intact, cranial nerves 2-12 intact, muscle tone normal, DTRs 2/4+ and symmetric Diagnostic tests reviewed for today's visit: Labs as above Last EKG 12/22/2017 NSR, WPW ASSESSMENT There is no known pertinent medical condition which may affect gerard-operative course Thank you Dr. Puente for your kind request for consultation on this very pleasant woman. ASSESSMENT/PLAN: 1. 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 Hypertension, essential - ICD9: 401.9, ICD10: I10 - Controlled - Recommend home blood pressure monitoring, to bring results to next visit - Encouraged sodium restriction, DASH or Mediterranean diet - Recommend regular aerobic exercise 3. Hyperlipidemia, mixed - ICD9: 272.2, ICD10: E78.2 - Controlled - Continue current medications - Counseled on healthy diet and regular exercise 4. Acquired hypothyroidism - ICD9: 244.9, ICD10: E03.9 - Instructed patient on importance of taking on an empty stomach either first thing in the morning or at bedtime. 5. Elevated glucose - ICD9: 790.29, ICD10: R73.09 5.2 (01/29/2022) Hgba1c not indicated with normal fasting glucose. 6. Wellness examination - ICD9: V70.0, ICD10: Z00.00 - Counseled on healthy diet and regular exercise - Discussed need and benefit for weight loss. BMI 30.51 kg/(m^2) - Pap per BURGLARY INVESTIGATOR consult - complete outstanding mammogram - Mammogram ordered - exam recommended once yearly - Recommend bonemineral density screening- asked to wait until recovered from surgery - Follow up for annual exam in one year Office Visit on 02/29/24 BEHAVIORAL HEALTH SCREENING Markie Gtz PA-C Clinical Risk Factors for Possible Cardiac Complications: Hx of WPW resolved for several years following ablation Patient is scheduled for a low-risk procedure. FUNCTIONAL STATUS: Run a short distance (8.00 METs) Functional Class (NYHA): I-II ANESTHESIA FINDINGS: Intubation History: No history of difficult intubation Significant Anesthesia Considerations: None Airway Exam: General: Normal appearance Mallampati Score is CLASS IV ULBT: Class I - Lower incisors can bite the upper lip above the abhijit line Neck: Normal appearance and function, Distance from hyoid to mentum during neck extension is at least 3 finger breaths Mouth: Normal tongue size Dentition: Intact Airway History: No abnormal airway history [facility]: Not obtained PLAN CONSULTS: Patient does not require consults for optimization at this time. The Following Tests/Procedures Have Been Initiated: None Instructions Given to Patient: Patient given verbal and written preop instructions and voices comprehension and compliance. SIGNATURE: Markie Gtz PA-C PATIENT NAME: Felecia Carballo DATE: 02/29/2024 TIME: 10:07 AM PAGER/CONTACT #: [phone] Some of this note may have been copied and pasted for the purpose of history context and comparison. All questions listed were asked and adjusted for changes in prior data. Markie Gtz PA-C documented in this encounter [facility] 01-18-2024 Miscellaneous Notes Telephone on 01/18/24 TSH BLD LIPID PANEL BASIC COMP METABOLIC PANEL CBC + DIFF Thanks, Janusz Gtz PA-C Please file lab orders for pt's upcoming physical in february Call to pt to set up pre-op appt for achilles tendon repair, [facility] from [facility]. Can schedule with Janusz or Esmer. Transferred to project controls scheduler to set up due to insurance. Melissa Lombardi MA documented in this encounter [facility] 09-02-2023 Miscellaneous Notes Cassandra with [facility] calls to request most recent OV note with Janusz Gtz and cardiology. Faxed per request to [phone]. Roxane Rodriguez RN documented in this encounter [facility] 08-24-2023 Instructions Markie Gtz PA-C - 08/24/2023 2:17 PM EST Please stop all over the counter medications 7 days prior to surgery including any anti-inflammatory medications. You may take Tylenol is needed for pain. Please hold Meloxicam for 1 week prior to surgery. You may take you other medications with a sip of water on the day of your surgery. documented in this encounter [facility] 08-24-2023 History of Present illness Narrative HISTORY AND PHYSICAL EXAMINATION SERVICE DATE: 08/24/2023\ SERVICE TIME: 6:55 AM PRIMARY CARE PHYSICIAN: Markie Gtz PA-C Patient presents for consultation from Dr. Yan for medical preop clearance. My findings and recommendations will be communicated through this medical record. Upcoming surgery for: 09/02/2023 for meniscal repair left knee. History surgical problem: Left knee started 2 weeks ago walking in cool weather at the [facility]. Had sudden pain and unable to move. MRI demonstrated arthritis Pertinent history and review: Current signs of infection: No. Chest pain: No. Cardiac history or testing: none Shortness of breath: No. Pulmonary testing to date: none Known sleep apnea: No. Hx of clotting issues: No. Current bleeding or bruising: No. Additional history of potential concern: Wpw (iylsb-bqcwxslem-xsmuo syndrome) (primary encounter diagnosis) Hypertension, essential Hyperlipidemia, mixed Cardiovascular interval hx: no recent sx Current meds: Atorvastatin 20 mg daily at bedtime Diltiazem CD 120 1 capsule daily Lisinopril-hydrochlorothiazide 20-12.5 mg daily Use of NTG: n/a Chest pain, arm, jaw pain, neck, or upper back pain suggestive of angina: No. SOB: No Dyspnea with exertion: No orthopnea: No racing or irregular heartbeats: No palpitations: No syncopal sx: No Unexplainable fatigue No Leg swelling: No Nausea: No diaphoresis: No Heartburn: No Claudication: No Smoking: No Following Low cholesterol, high fiber diet? Not much. Not a lot of red meat. If on statin: muscle aches? No If on statin: GI sx or diarrhea? NoAdditional history. Lab review: Component Latest Ref Rng & Units 01/29/2022 02/06/2023 Cholesterol, Total <200 mg/dL 153 155 Triglyceride <150 mg/dL 142 93 HDL Cholesterol >39 mg/dL 39 (L) 43 Non HDL Cholesterol <130 mg/dL 114 112 Fasting Time hrs 15 13 VLDL Cholesterol <30 mg/dL 28 19 TC:HDL Ratio <5.10 3.92 3.60 LDL Cholesterol <100 mg/dL 86 93 LDL:HDL Ratio <2.54 2.21 2.16 AST 13 - 35 U/L 20 CK 42 - 196 U/L 85 Acquired hypothyroidism Current medication: Levothyroxine 25 mcg daily AC Taking as directed on an empty stomach? Yes. Thyroid pain: No. Mass effect: No. Change in energy level/ fatigue? No. Sleep disturbance ?No. Temperature Intolerance: cold No, hot No. In females, menstrual cycle issues? climacteric, If yes: Change in bowel habits? No. If yes: Constipation? No. If yes: Diarrhea? No. If yes: Weight changes?No. Memory issues: No. Diaphoresis: No. Numbness, tingling none Change in hair or skin? No. If yes: Other symptoms: sleep is good. Uses melatonin 10mg at night. Last 2 Encounter Wt Readings: Last 2 Encounter Wt Readings: Date: Wt: 02/20/2023 78.9 kg (174 lb) 01/01/2023 79.5 kg (175 lb 3.2 oz) Last thyroid labs: TSH Date Value 08/04/2022 2.570 mIU/L 08/02/2021 2.190 uU/mL 10/26/2020 2.010 uU/mL Elevated glucose: 5.2 (01/29/2022) REVIEW OF SYSTEMS: PAIN ASSESSMENT: Is the patient having any pain? Currently 11/28, left knee. Taking Meloxicam. General: No weight loss, malaise or fevers. Neuro: No Hx of stroke or seizures Respiratory: No history of current cough or dyspnea, or pneumonia in the past 6 weeks. No history of respiratory/pulmonary symptoms or problems Cardiovascular: Positive for: see HPI GI: No history of GI symptoms or problems. No history of esophageal varices, recent ascites, or ETOH greater than 2 drinks per day. : No history of UTI in past 6 weeks. No history of renal failure. Not currently on or requiring dialysis. No history of symptoms or problems. 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 : N/A Endocrine: No history of diabetes. Has not taken steroids within the past 30 days. No history of endocrinological symptoms or problems. Hematology: No history of bleeding or clotting disorder. Pt is not taking anti-coagulation or platelet medications. No history of hematological symptoms or problems. Oncology: No history of CA metastasis, chemo within 30 days, or radiotherapy within 90 days. Has not lost 10% of body wt in 6 months. No history of oncological symptoms or problems. Psych: No history of psychiatric symptoms or problems. Musculoskeletal: Negative for joint pain or swelling, back pain or muscle pain. Skin: Negative for lesions, rash and itching. 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 Martinez COLONOSCOPY FLX DX W/COLLJ SPEC WHEN PFRMD 07/06/2015 Colonoscopy EP STUDY 06/02/16 Dr. Martinez EVENT MONITOR 07/02/2016 30 day OOPHORECTOMY PARTIAL/TOTAL UNI/BI 10/04/08 right ovary PAST SURGICAL HISTORY OF d&c PAST SURGICAL HISTORY OF 10/04/07 excision pelvic dermoid cyst, teratoma PLCMT LOCALZTN CLIP,PERC,DURING BREAST BX 10/04/07 RIGHT TONSILLECTOMY & ADENOIDECTOMY <AGE 14 ALEX CUT BX BREAST MASS Right 08/22/2016 UNLISTED PROCEDURE DENTOALVEOLAR STRUCTURES wisdom teeth US BRST CYST ASP PUNC RT 02/24/09 Right breast cysts x 3 aspirated Social History Tobacco Use Smoking status: Never Smokeless tobacco: Never Substance Use Topics Alcohol use: Yes Alcohol/week: 3.0 standard drinks of alcohol Types: 3 Glasses of wine per week Comment: moderate Drug use: No PHYSICAL EXAM: VITALS: BP 110/62 Pulse 103 Wt 195 lb (88.5kg) SpO2 95% LMP 03/19/2010 General: Alert and oriented Skin: Normal color, no rash, no lesions. HEENT: EOM, pupils equal, round and reactive. Cardiovascular: Normal S1 & S2, no rubs, murmurs or gallops. No JVD. Pulse regular. Lungs: Normal breath sounds, no wheezes or crackles. Abdomen: Soft, non-tender, no rigidity. Extremities: No deformity, no edema or tenderness, no joint swelling or clubbing. Neurological: Normal cognition and motor skills. Pulses: Carotid and radial pulses normal +2. Diagnostic tests reviewed for today's visit: As above ASSESSMENT ASSESSMENT/PLAN: 1. Preoperative clearance - ICD9: V72.84, ICD10: Z01.818 (primary diagnosis) Thank you Dr. Yan for you kind request for consultation on this very pleasant woman and mutual patient, Britt Carballo. She is optimized for surgery from my standpoint without need for additional consults. It is my understanding you will manage preop labs and EKG findings as indicated by your orders through [facility]. Please don't hesitate to contact me if you have questions or need and additional assistance. 2. 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 3. Hypertension, essential - ICD9: 401.9, ICD10: I10 - Controlled - Continue current medications - Recommend home blood pressure monitoring, to bring results to next visit - Encouraged sodium restriction, DASH or Mediterranean diet - Recommend regular aerobic exercise 4. Hyperlipidemia, mixed - ICD9: 272.2, ICD10: E78.2 - Controlled - Continue current medications - Counseled on healthy diet and regular exercise 5. Acquired hypothyroidism - ICD9: 244.9, ICD10: E03.9 Controlled Continue current mnedication 6. Elevated glucose - ICD9: 790.29, ICD10: R73.09 Stable, previously non-diabetic range 7. Acute meniscal tear of left knee, sequela - ICD9: 905.7, ICD10: S83.207S M Shivam Gtz PA-C Clinical Risk Factors for Possible Cardiac Complications: - Hx of SVT well controlled. Patient is scheduled for a low-risk procedure. FUNCTIONAL STATUS: Do heavy work around the house, such as scrubbing floors, lifting or moving heavy furniture (8.00 METs) Functional Class (NYHA): II ANESTHESIA FINDINGS: Intubation History: No history of difficult intubation Significant Anesthesia Considerations: None Airway Exam: General: Normal appearance Mallampati Score is CLASS II ULBT: Class I - Lower incisors can bite the upper lip above the abhijit line Neck: Normal appearance and function, Distance from hyoid to mentum during neck extension is at least 3 finger breaths Mouth: Normal tongue size Dentition: Caps/crowns Airway History: No abnormal airway history [facility]: Not obtained PLAN CONSULTS: Patient does not require consults for optimization at this time. The Following Tests/Procedures Have Been Initiated: Per surgeon Instructions Given to Patient: Patient given verbal and written preop instructions and voices comprehension and compliance. SIGNATURE: Markie Gtz PA-C PATIENT NAME: Felecia Carballo DATE: 08/24/2023 TIME: 6:55 AM PAGER/CONTACT #: [phone] documented in this encounter [facility] 02-20-2023 History of Present illness Narrative 62 year old female with c/o here for 6 month follow up Wpw (ugbeo-ucqgrhgoa-pfvca syndrome) (primary encounter diagnosis) Hypertension, essential Hyperlipidemia, mixed Cardiovascular interval hx: no recent sx Current meds: Atorvastatin 20 mg daily at bedtime Diltiazem CD 120 1 capsule daily Lisinopril-hydrochlorothiazide 20-12.5 mg daily Use of NTG: n/a Chest pain, arm, jaw pain, neck, or upper back pain suggestive of angina: No. SOB: No Dyspnea with exertion: No orthopnea: No racing or irregular heartbeats: No palpitations: No syncopal sx: No Unexplainable fatigue No Leg swelling: No Nausea: No diaphoresis: No Heartburn: No Claudication: No Smoking: No Following Low cholesterol, high fiber diet? Not much. Not a lot of red meat. If on statin: muscle aches? No If on statin: GI sx or diarrhea? NoAdditional history. Lab review: Component Latest Ref Rng & Units 01/29/2022 02/06/2023 Cholesterol, Total <200 mg/dL 153 155 Triglyceride <150 mg/dL 142 93 HDL Cholesterol >39 mg/dL 39 (L) 43 Non HDL Cholesterol <130 mg/dL 114 112 Fasting Time hrs 15 13 VLDL Cholesterol <30 mg/dL 28 19 TC:HDL Ratio <5.10 3.92 3.60 LDL Cholesterol <100 mg/dL 86 93 LDL:HDL Ratio <2.54 2.21 2.16 AST 13 - 35 U/L 20 CK 42 - 196 U/L 85 Acquired hypothyroidism Current medication: Levothyroxine 25 mcg daily AC Taking as directed on an empty stomach? Yes. Thyroid pain: No. Mass effect: No. Change in energy level/ fatigue? No. Sleep disturbance ?No. Temperature Intolerance: cold No, hot No. In females, menstrual cycle issues? climacteric, If yes: Change in bowel habits? No. If yes: Constipation? No. If yes: Diarrhea? No. If yes: Weight changes?No. Memory issues: No. Diaphoresis: No. Numbness, tingling none Change in hair or skin? No. If yes: Other symptoms: sleep is good. Uses melatonin 10mg at night. Last 2 Encounter Wt Readings: Last 2 Encounter Wt Readings: Date: Wt: 02/20/2023 78.9 kg (174 lb) 01/01/2023 79.5 kg (175 lb 3.2 oz) Last thyroid labs: TSH Date Value 08/04/2022 2.570 mIU/L 08/02/2021 2.190 uU/mL 10/26/2020 2.010 uU/mL ) 01/01/2023 Express care visit fever, chills, cough, negative Covid and Flu testing Prescribed prednisone burst 40mg x 5 days, albuteral 90mcg MDI Sx resolved. Also had Covid in November Tired a lot, Sleeping about 8h, interrupted by urinating. HISTORIES FAMILY HISTORY Problem Relation Age of Onset Hypertension Mother Diabetes Father Hypertension Father Diabetes Brother Breast Cancer Paternal Grandmother Stroke Paternal Grandfather GI Son IBS PAST MEDICAL HISTORY Diagnosis Date A-fib (HCC) RVR Diffuse cystic mastopathy left Hypertension Hypothyroidism Persistent atrial fibrillation (HCC) 04/15/2016 PVC (premature ventricular contraction) SVT (supraventricular tachycardia) ([facility]) Tachyarrhythmia WPW (Rxezp-Opsomgvgo-Lqhic syndrome) 04/15/2016 PAST SURGICAL HISTORY Procedure Laterality Date ANESTH, SECTION BREAST BX US GUIDED Right 03/24/2017 BX BREAST PERC NEED W/GUID 04/17/10 U/S needle core right breast 6 Oclock BX BREAST PERC VACUUM/ROTN 10/04/07 RIGHT BX BREAST W/DEVICE 1ST LESION ULTRASOUND GUID Right 04/20/2017 U/S mammotone bx right breast 9 Oclock plus 6cm CATHETER, ABLATION 06/02/16 Dr. Martinez COLONOSCOPY FLX DX W/COLLJ SPEC WHEN PFRMD 07/06/2015 Colonoscopy EP STUDY 06/02/16 Dr. Martinez EVENT MONITOR 07/02/2016 30 day OOPHORECTOMY PARTIAL/TOTAL UNI/BI 10/04/08 right ovary PAST SURGICAL HISTORY OF d&c PAST SURGICAL HISTORY OF 10/04/07 excision pelvic dermoid cyst, teratoma PLCMT LOCALZTN CLIP,PERC,DURING BREAST BX 10/04/07 RIGHT TONSILLECTOMY & ADENOIDECTOMY <AGE 14 ALEX CUT BX BREAST MASS Right 08/22/2016 UNLISTED PROCEDURE DENTOALVEOLAR STRUCTURES wisdom teeth US BRST CYST ASP PUNC RT 02/24/09 Right breast cysts x 3 aspirated Social History Tobacco Use Smoking status: Never Smokeless tobacco: Never Substance Use Topics Alcohol use: Yes Alcohol/week: 3.0 standard drinks Types: 3 Glasses of wine per week Comment: moderate Drug use: No ACTIVE PROBLEM LIST Hypothyroidism Hypertension, Essential Wpw (Wtyua-Ijwvcorkk-Kaekk Syndrome) Melanocytic Nevus of Trunk Current Outpatient Medications Medication Sig Dispense Refill albuterol HFA (PROVENTIL HFA, VENTOLIN HFA) 90 mcg/actuation inhaler Inhale 2 Puffs as instructed every 6 hours as needed for wheezing/shortness of breath. 1 Each 0 dilTIAZem CD (CARDIZEM CD, CARTIA XT) 120 mg 24 hr capsule Take 1 capsule by mouth once daily. 90 capsule 3 lisinopril-hydroCHLOROthiazide (PRINZIDE,ZESTORETIC) 20-12.5 mg per tablet Take 1 tablet by mouth every morning. 90 tablet 1 levothyroxine (SYNTHROID) 25 mcg tablet TAKE 1 TABLET BY MOUTH ONCE DAILY. TAKE ON AN EMPTY STOMACH 90 tablet 3 atorvastatin (LIPITOR) 20 mg tablet Take 1 tablet by mouth daily at bedtime. For cholesterol. 90 tablet 1 MELATONIN ORAL Take by mouth. multivit with calcium,iron,min (WOMEN'S MULTIPLE VITAMINS ORAL) coenzyme Q10 (COENZYME Q-10) 100 mg cap capsule Take 200 mg by mouth. No current facility-administered medications for this visit. HIV SCREENING Never done BP CONTROLLED (<130/80) Never done PAP TESTING due on 10/30/2021 MAMMOGRAM due on 02/20/2022 DEPRESSION ASSESSMENT due on 10/19/2022 EXAM: BP 122/80 Pulse 80 Resp 16 Wt 78.9 kg (174 lb) LMP 07/19/2015 SpO2 98% BMI 27.31 kg/m Pleasant well appearing woman in no acute distress. Alert and oriented all spheres. Normal affect and cognition. Speech normal. No deficits to learning or comprehension. Skin warm, dry, pink to lips and nailbeds. Normal turgor. Respirations regular and unlabored. Chest is normal shape. Lungs are clear to all hamlin with good air exchange through out. HRRR without murmur or gallop. No lifts, heaves, or rubs. Extrem: no clubbing or cyanosis. Edema: none. Extremities are warm and pink with prompt capillary refill ASSESSMENT/PLAN: 1. WPW (Hymug-Auwyhrfnk-Alytw syndrome) - ICD9: 426.7, ICD10: I45.6 (primary diagnosis) stable - COMP METABOLIC PANEL 2. Hypertension, essential - ICD9: 401.9, ICD10: I10 - good control - Continue current medication(s) - Recommended regular aerobic exercise. - Recommend home blood pressure monitoring, to bring results in on next visit - Goal of BP <130/80 - COMP METABOLIC PANEL 3. Hyperlipidemia, mixed - ICD9: 272.2, ICD10: E78.2 - good control - Continue current medication. - Encouraged following a low fat, low cholesterol diet. - COMP METABOLIC PANEL - LIPID PANEL BASIC 4. Acquired hypothyroidism - ICD9: 244.9, ICD10: E03.9 - Instructed patient on importance of taking on an empty stomach either first thing in the morning or at bedtime. Stable 5. Wellness examination - ICD9: V70.0, ICD10: Z00.00 - Counseled on healthy diet and regular exercise - Calcium intake with supplements or by diet of 1000 mg/day for under 50, 8973-0852 mg/day for 50+ - Mammogram ordered - exam recommended once yearly - Bone mineral density overlooked, sent message to schedule if she approves. - Depression screening tool completed and reviewed with patient. Based on score and interview, patient is not at risk for depression and recommended no further intervention at this time. - Follow up for annual exam in one year Markie Gtz PA-C F/u 1 year Markie Gtz PA-C documented in this encounter [facility] 01-02-2023 Miscellaneous Notes Pt was notified of the results. Pt verbalized understanding. Heydi Girard MA Negative for COVID and flu documented in this encounter [facility] 01-01-2023 Instructions Britt Granado APRN.CNP - 01/01/2023 12:24 PM EDT ASSESSMENT/PLAN: 1. Subacute cough - ICD9: 786.2, ICD10: R05.2 (primary diagnosis) - XR CHEST 2V FRONTAL/LAT Radiologist IMPRESSION: No acute radiographic abnormality. Band Instrument Repairer: JAKE Transcribe Date/Time: Jan 01 2023 11:48A Dictated by : MANDEEP CRISTOBAL MD 2. Post-viral cough syndrome - ICD9: 786.2, ICD10: R05.8 - PREDNISONE 20 MG TABLET - ALBUTEROL SULFATE HFA 90 MCG/ACTUATION AEROSOL INHALER - INHALATIONAL SPACING DEVICE - Follow-up with your PCP in 3-5 days if symptoms have not improved or sooner if symptoms worsen - Discussed red flags and need for immediate medical evaluation if any occur. - Discussed supportive care treatment with fluids, rest and analgesia. - Discussed expected course of illness Britt Granado APRN.PUBLIC HEALTH EPIDEMIOLOGIST COUGH: The body has a cough reflex which helps expel mucous secretions and irritants from the lung and airway passages. Cough spasms are periods of continuous coughing lasting several minutes. Most coughs is caused by virus infections which may last for up to 2-3 weeks. Coughing helps to protect the lung from pneumonia. A persistent cough lasting longer than 4-6 weeks requires medical evaluation by your primary care doctor. Treatment of cough includes measures to loosen the cough and thin the mucous. Warm liquids, cough drops, and nonprescription cough medicine may help reduce dry hacking cough. Use a humidifier if necessary as dry air can make coughs worse. Ultrasonic humidifiers are especially useful as they kill molds and many bacteria. Some cough medicines have antihistamines, decongestants, or alcohol in them; there is no proof that any of these help control cough. Prescription cough medicine or those with dextromethorphan (DM) should be reserved for dry coughs that prevent sleep or cause spasms or chest pain. Avoid any exposure to cigarette smoke as this will worsen the cough or make it last much longer. Call your doctor right away if you or your child have increased breathing difficulty, a high fever, a cough that lasts longer than 3 weeks, or other serious complaints. documented in this encounter [facility] 01-01-2023 History of Present illness Narrative Subjective Cough Associated symptoms include chills. Pertinent negatives include no sore throat and no myalgias. Felecia Carballo is a 62 year old female who presents with cough and chest congestion for the past month since being diagnosed with COVID on 12/05. Cough is non-productive. She denies pain or shortness of breath. She has not taken any medication at home for her cough. She has a fever today. She has been having chills at night. Review of Systems Constitutional: Positive for chills and fever. HENT: Negative for congestion and sore throat. Respiratory: Positive for cough. Negative for sputum production. Musculoskeletal: Negative for myalgias. BP 128/82 Pulse (!) 126 Temp (!) 38.1 C (100.5 F) Resp 20 Wt 79.5 kg (175 lb 3.2 oz) LMP 07/19/2015 SpO2 98% BMI 27.50 kg/m PAST MEDICAL HISTORY Diagnosis Date A-fib (HCC) RVR Diffuse cystic mastopathy left Hypertension Hypothyroidism Persistent atrial fibrillation (HCC) 04/15/2016 PVC (premature ventricular contraction) SVT (supraventricular tachycardia) ([facility]) Tachyarrhythmia WPW (Groly-Olfcnotjt-Yvmdc syndrome) 04/15/2016 PAST SURGICAL HISTORY Procedure Laterality Date ANESTH, SECTION BREAST BX US GUIDED Right 03/24/2017 BX BREAST PERC NEED W/GUID 04/17/10 U/S needle core right breast 6 Oclock BX BREAST PERC VACUUM/ROTN 10/04/07 RIGHT BX BREAST W/DEVICE 1ST LESION ULTRASOUND GUID Right 04/20/2017 U/S mammotone bx right breast 9 Oclock plus 6cm CATHETER, ABLATION 06/02/16 Dr. Martinez COLONOSCOPY FLX DX W/COLLJ SPEC WHEN PFRMD 07/06/2015 Colonoscopy EP STUDY 06/02/16 Dr. Martinez EVENT MONITOR 07/02/2016 30 day OOPHORECTOMY PARTIAL/TOTAL UNI/BI 10/04/08 right ovary PAST SURGICAL HISTORY OF d&c PAST SURGICAL HISTORY OF 10/04/07 excision pelvic dermoid cyst, teratoma PLCMT LOCALZTN CLIP,PERC,DURING BREAST BX 10/04/07 RIGHT TONSILLECTOMY & ADENOIDECTOMY <AGE 14 ALEX CUT BX BREAST MASS Right 08/22/2016 UNLISTED PROCEDURE DENTOALVEOLAR STRUCTURES wisdom teeth US BRST CYST ASP PUNC RT 02/24/09 Right breast cysts x 3 aspirated ALLERGIES Seasonal Allergies MEDICATIONS dilTIAZem CD (CARDIZEM CD, CARTIA XT) 120 mg 24 hr capsule Take 1 capsule by mouth once daily. lisinopril-hydroCHLOROthiazide (PRINZIDE,ZESTORETIC) 20-12.5 mg per tablet Take 1 tablet by mouth every morning. levothyroxine (SYNTHROID) 25 mcg tablet TAKE 1 TABLET BY MOUTH ONCE DAILY. TAKE ON AN EMPTY STOMACH atorvastatin (LIPITOR) 20 mg tablet Take 1 tablet by mouth daily at bedtime. For cholesterol. MELATONIN ORAL Take by mouth. multivit with calcium,iron,min (WOMEN'S MULTIPLE VITAMINS ORAL) coenzyme Q10 (COENZYME Q-10) 100 mg cap capsule Take 200 mg by mouth. FAMILY HISTORY Problem Relation Age of Onset Hypertension Mother Diabetes Father Hypertension Father Diabetes Brother Breast Cancer Paternal Grandmother Stroke Paternal Grandfather GI Son IBS Social History Tobacco Use Smoking status: Never Smokeless tobacco: Never Substance Use Topics Alcohol use: Yes Alcohol/week: 3.0 standard drinks Types: 3 Glasses of wine per week Comment: moderate Drug use: No Objective Physical Exam Vitals and nursing note reviewed. Constitutional: General: She is not in acute distress. Appearance: Normal appearance. She is not toxic-appearing. Cardiovascular: Rate and Rhythm: Regular rhythm. Tachycardia present. Heart sounds: Normal heart sounds. Pulmonary: Effort: Pulmonary effort is normal. No respiratory distress. Breath sounds: Normal breath sounds. No wheezing or rales. Skin: General: Skin is warm and dry. Findings: No erythema or rash. Neurological: Mental Status: She is alert. ASSESSMENT/PLAN: 1. Subacute cough - ICD9: 786.2, ICD10: R05.2 (primary diagnosis) - XR CHEST 2V FRONTAL/LAT Radiologist IMPRESSION: No acute radiographic abnormality. Band Instrument Repairer: JAKE Transcribe Date/Time: Jan 01 2023 11:48A Dictated by : MANDEEP CRISTOBAL MD 2. Post-viral cough syndrome - ICD9: 786.2, ICD10: R05.8 - PREDNISONE 20 MG TABLET - ALBUTEROL SULFATE HFA 90 MCG/ACTUATION AEROSOL INHALER - INHALATIONAL SPACING DEVICE - Follow-up with your PCP in 3-5 days if symptoms have not improved or sooner if symptoms worsen - Discussed red flags and need for immediate medical evaluation if any occur. - Discussed supportive care treatment with fluids, rest and analgesia. - Discussed expected course of illness Britt Granado APRN.ABDULKADIR documented in this encounter [facility] 10-15-2022 Miscellaneous Notes Patient calling her insurance is requesting she change to [facility] mail away pharmacy. Pending rx to file. Please advise Patient has been identified by name and date of : Patient phones for refill(s): Requested Prescriptions Pending Prescriptions Disp Refills dilTIAZem CD (CARDIZEM CD, CARTIA XT) 120 mg 24 hr capsule 90 capsule 3 Sig: Take 1 capsule by mouth once daily. lisinopril-hydroCHLOROthiazide (PRINZIDE,ZESTORETIC) 20-12.5 mg per tablet 90 tablet 1 Sig: Take 1 tablet by mouth every morning. levothyroxine (SYNTHROID) 25 mcg tablet 90 tablet 3 Sig: TAKE 1 TABLET BY MOUTH ONCE DAILY. TAKE ON AN EMPTY STOMACH atorvastatin (LIPITOR) 20 mg tablet 90 tablet 1 Sig: Take 1 tablet by mouth daily at bedtime. For cholesterol. Date of last office visit in primary care: 08/15/2022, has appt 02/20/2023 Last 2 Encounter Wt Readings: Date: Wt: 08/15/2022 78.9 kg (174 lb) 08/13/2022 79.2 kg (174 lb 9.6 oz) Previous labs/tests for medication: Thyroid: TSH Date Value 08/04/2022 2.570 mIU/L 08/02/2021 2.190 uU/mL Cholesterol: HDL Cholesterol (mg/dL) Date Value 01/29/2022 39 08/02/2021 38 LDL Cholesterol (mg/dL) Date Value 01/29/2022 86 08/02/2021 179 ALT (U/L) Date Value 10/26/2020 16 Non HDL Cholesterol (mg/dL) Date Value 01/29/2022 114 08/02/2021 213 Blood Pressure: BUN (mg/dL) Date Value 08/04/2022 12 08/02/2021 14 Sodium (mmol/L) Date Value 08/04/2022 137 08/02/2021 141 Last 1 Encounter BP Readings: Date: BP: 08/15/2022 126/74 Please advise. Thank you. Charleen Salcedo LPN documented in this encounter [facility] 08-15-2022 Instructions M Shivam Gtz PA-C - 08/15/2022 10:28 AM EDT To open eustachian tube: Take Ibuprofen 800mg every 6 hours to reduce inflammation. Flonase 2 sporays daily x 1 week before trying insufflation is a nasal steroid. It is generally well tolerated and does not absorb into your system to cause side effects such as oral of imtramuscular steroids. Use it as directed and continue it for 2-4 weeks. Make sure to tilt the bottle toward the expiration date on the label. It won;'t spray well if held the other direction. If you break out with a rash arouind the nose stop the medicine and call. Try popping your ears by pinching your nose, holding you lips closed and swallowing. If this doesn't work pinch the opposite side of your nose close, gently blow against pressure as you then close the affected nostril and try to cathryn open the tube. Do not blow forcefully as this can damage your ear drum. Yawning, chewing gum, or blowing up balloons might also help them pop open. If that doesn't help, you may try Sudafed 12h behind the counter(you have to sign this out) as directed. If the ear fails to open over 4-6 weeks, we can refer to ENT a possible ear tube. If symptoms fail to improve in 5-7 days, or worsen, call the office: [phone]. documented in this encounter [facility] 08-15-2022 History of Present illness Narrative 62 year old female with c/o 6 months follow up 08/13/2022 conjunctivitis rx azithromycin 1% ophth gtts prescribed but had to swith to polytrim Wpw (vlupt-jianxawcf-cqujx syndrome) (primary encounter diagnosis) Hypertension, essential Hyperlipidemia, mixed Cardiovascular interval hx: Current meds: Atorvastatin 20 mg daily at bedtime Diltiazem CD 120 1 capsule daily Lisinopril-hydrochlorothiazide 20-12.5 mg daily Use of NTG: n/a Chest pain, arm, jaw pain, neck, or upper back pain suggestive of angina: No. SOB: No Dyspnea with exertion: No orthopnea: No racing or irregular heartbeats: No palpitations: No syncopal sx: No Unexplainable fatigue No Leg swelling: No Nausea: No diaphoresis: No Heartburn: No Claudication: No Smoking: No Following Low cholesterol, high fiber diet? Not much. Not a lot of red meat. If on statin: muscle aches? No If on statin: GI sx or diarrhea? No Additional history: Component Latest Ref Rng & Units 08/02/2021 08/04/2022 Glucose 74 - 99 mg/dL 95 98 BUN 7 - 21 mg/dL 14 12 Creatinine 0.58 - 0.96 mg/dL 0.76 0.79 Sodium 136 - 144 mmol/L 141 137 Potassium 3.7 - 5.1 mmol/L 4.1 4.2 Chloride 97 - 105 mmol/L 105 100 CO2 22 - 30 mmol/L 25 28 Anion Gap 9 - 18 mmol/L 11 9 Calcium 8.5 - 10.2 mg/dL 9.6 10.3 (H) eGFR- >60 eGFR-All Other Races . >60 eGFR >=60 mL/min/1.73m 86 Component Latest Ref Rng & Units 01/29/2022 Cholesterol, Total <200 mg/dL 153 Triglyceride <150 mg/dL 142 HDL Cholesterol >39 mg/dL 39 (L) Non HDL Cholesterol <130 mg/dL 114 Fasting Time hrs 15 VLDL Cholesterol <30 mg/dL 28 TC:HDL Ratio <5.10 3.92 LDL Cholesterol <100 mg/dL 86 LDL:HDL Ratio <2.54 2.21 AST 13 - 35 U/L 20 CK 42 - 196 U/L 85 Acquired hypothyroidism Current medication: Levothyroxine 25 mcg daily AC Taking as directed on an empty stomach? Yes. Thyroid pain: No. Mass effect: No. Change in energy level/ fatigue? No. Sleep disturbance ?No. Temperature Intolerance: cold No, hot No. In females, menstrual cycle issues? climacteric, If yes: Change in bowel habits? No. If yes: Constipation? No. If yes: Diarrhea? No. If yes: Weight changes?No. Memory issues: No. Diaphoresis: No. Numbness, tingling none Change in hair or skin? No. If yes: Other symptoms: sleep is good. Uses melatonin 10mg at night. Last 2 Encounter Wt Readings: Date: Wt: 08/27/2021 78.9 kg (174 lb) 08/09/2021 80.4 kg (177 lb 3.2 oz) Last thyroid labs: TSH Date Value 08/04/2022 2.570 mIU/L 08/02/2021 2.190 uU/mL 10/26/2020 2.010 uU/mL ) Elevated glucose Hemoglobin A1C (%) Date Value 01/29/2022 5.2 ) HISTORIES FAMILY HISTORY Problem Relation Age of Onset Hypertension Mother Diabetes Father Hypertension Father Diabetes Brother Breast Cancer Paternal Grandmother Stroke Paternal Grandfather GI Son IBS PAST MEDICAL HISTORY Diagnosis Date A-fib (HCC) RVR Diffuse cystic mastopathy left Hypertension Hypothyroidism Persistent atrial fibrillation (HCC) 04/15/2016 PVC (premature ventricular contraction) SVT (supraventricular tachycardia) (HCC) Tachyarrhythmia 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 Martinez COLONOSCOPY FLX DX W/COLLJ SPEC WHEN PFRMD 07/06/2015 Colonoscopy EP STUDY 06/02/16 Dr. Martinez EVENT MONITOR 07/02/2016 30 day OOPHORECTOMY PARTIAL/TOTAL UNI/BI 10/04/08 right ovary PAST SURGICAL HISTORY OF d&c PAST SURGICAL HISTORY OF 10/04/07 excision pelvic dermoid cyst, teratoma PLCMT LOCALZTN CLIP,PERC,DURING BREAST BX 10/04/07 RIGHT TONSILLECTOMY & ADENOIDECTOMY <AGE 14 ALEX CUT BX BREAST MASS Right 08/22/2016 UNLISTED PROCEDURE DENTOALVEOLAR STRUCTURES wisdom teeth US BRST CYST ASP PUNC RT 02/24/09 Right breast cysts x 3 aspirated Social History Tobacco Use Smoking status: Never Smokeless tobacco: Never Substance Use Topics Alcohol use: Yes Alcohol/week: 3.0 standard drinks Types: 3 Glasses of wine per week Comment: moderate Drug use: No ACTIVE PROBLEM LIST Hypothyroidism Hypertension, Essential 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 1.5 mL 0 atorvastatin (LIPITOR) 20 mg tablet Take 1 tablet by mouth daily at bedtime. For cholesterol. 90 tablet 1 lisinopril-hydroCHLOROthiazide (PRINZIDE,ZESTORETIC) 20-12.5 mg per tablet Take 1 tablet by mouth every morning. 90 tablet 1 benzonatate (TESSALON PERLES) 100 mg capsule Take 1-2 capsules by mouth three times daily as needed. 30 capsule 0 dilTIAZem CD (CARDIZEM CD, CARTIA XT) 120 mg 24 hr capsule Take 1 capsule by mouth once daily. 90 capsule 3 levothyroxine (SYNTHROID) 25 mcg tablet TAKE 1 TABLET BY MOUTH ONCE DAILY. TAKE ON AN EMPTY STOMACH 90 tablet 3 MELATONIN ORAL Take by mouth. multivit with calcium,iron,min (WOMEN'S MULTIPLE VITAMINS ORAL) coenzyme Q10 (COENZYME Q-10) 100 mg cap capsule Take 200 mg by mouth. No current facility-administered medications for this visit. HIV SCREENING Never done BP CONTROLLED (<130/80) Never done DEPRESSION ASSESSMENT Never done INFLUENZA(1) due on 06/19/2022 EXAM: BP 126/74 Pulse 99 Resp 16 Wt 78.9 kg (174 lb) LMP 07/19/2015 SpO2 97% BMI 28.64 kg/m Pleasant well appearing woman in no acute distress. Alert and oriented all spheres. Normal affect and cognition. Speech normal. No deficits to learning or comprehension. Skin warm, dry, pink to lips and nailbeds. Normal turgor. Respirations regular and unlabored. Chest is normal shape. Lungs are clear to all hamlin with good air exchange through out. HRRR without murmur or gallop. No lifts, heaves, or rubs. Extrem: no clubbing or cyanosis. Edema: none. Extremities are warm and pink with prompt capillary refill. ASSESSMENT/PLAN: 1. WPW (Hxscp-Lcplwetaj-Frpvx syndrome) - ICD9: 426.7, ICD10: I45.6 (primary diagnosis) Stable, asymptomatic. Conitnue meds 2. Hypertension, essential - ICD9: 401.9, ICD10: I10 - good control - Continue current medication(s) - Recommended regular aerobic exercise. - Recommend home blood pressure monitoring, to bring results in on next visit - Goal of BP <130/80 3. Acquired hypothyroidism - ICD9: 244.9, ICD10: E03.9 - Instructed patient on importance of taking on an empty stomach either first thing in the morning or at bedtime. Stable Continue levothyroixine and follow lab 4. Need for influenza vaccination - ICD9: V04.81, ICD10: Z23 - INFLUENZA VACCINE QUADRIVALENT 6 MO - 64 YRS IM Markie Gtz PA-C Some of this note may have been copied and pasted for the purpose of history context and comparison. documented in this encounter [facility] 08-13-2022 History of Present illness Narrative 08/13/2022 Patient presents with: Conjunctivitis: Right eye matted shut when awoke this AM SUBJECTIVE: This is a 62 year old that is here today for Above Complaints.. Woke up this Am with yellow drainage from eye and it was matted shut. Reports eye feels itchy. 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 Admits to a hx of seasonal allergies. Does not wear contact lenses. Has not used any OTC treatments. Denies fevers, chills, visual changes, eye pain or swelling. PAST MEDICAL HISTORY Diagnosis Date A-fib ([facility]) RVR Diffuse cystic mastopathy left Hypertension Hypothyroidism Persistent atrial fibrillation ([facility]) 04/15/2016 PVC (premature ventricular contraction) SVT (supraventricular tachycardia) ([facility]) Tachyarrhythmia WPW (Vmgyc-Znxiqqmzb-Qosop syndrome) 04/15/2016 ALLERGIES Seasonal Allergies MEDICATIONS Current Outpatient Medications Medication Sig atorvastatin (LIPITOR) 20 mg tablet Take 1 tablet by mouth daily at bedtime. For cholesterol. lisinopril-hydroCHLOROthiazide (PRINZIDE,ZESTORETIC) 20-12.5 mg per tablet Take 1 tablet by mouth every morning. benzonatate (TESSALON PERLES) 100 mg capsule Take 1-2 capsules by mouth three times daily as needed. dilTIAZem CD (CARDIZEM CD, CARTIA XT) 120 mg 24 hr capsule Take 1 capsule by mouth once daily. levothyroxine (SYNTHROID) 25 mcg tablet TAKE 1 TABLET BY MOUTH ONCE DAILY. TAKE ON AN EMPTY STOMACH MELATONIN ORAL Take by mouth. multivit with calcium,iron,min (WOMEN'S MULTIPLE VITAMINS ORAL) coenzyme Q10 (COENZYME Q-10) 100 mg cap capsule Take 200 mg by mouth. No current facility-administered medications for this visit. Medications and allergies reviewed by this provider. SOCIAL HISTORY Social History Tobacco Use Smoking status: Never Smokeless tobacco: Never Substance Use Topics Alcohol use: Yes Alcohol/week: 3.0 standard drinks Types: 3 Glasses of wine per week Comment: moderate Drug use: No REVIEW OF SYSTEMS All other reviewed and negative other than HPI. OBJECTIVE: BP 142/82 Pulse 92 Temp 36.8 C (98.3 F) Resp 16 Wt 79.2 kg (174 lb 9.6 oz) LMP 07/19/2015 SpO2 99% BMI 28.74 kg/m . Vital signs reviewed by this provider. APPEARANCE Well appearing, alert, in no acute distress, well-hydrated, well nourished. EYES Anicteric sclera. Pupils are equally round and reactive to light. Extraocular movements are intact. mild erythema of conjunctiva. No active drainage, periorbital swelling, tenderness, or surrounding erythema HIV SCREENING Never done BP CONTROLLED (<130/80) Never done DEPRESSION ASSESSMENT Never done INFLUENZA(1) due on 06/19/2022 MAMMOGRAM due on 02/13/2023 PAP TESTING due on 02/13/2023 ANNUAL PCP TEAM CHRONIC DISEASE VISIT due on 08/13/2023 HPV TESTING due on 10/30/2023 COLORECTAL CANCER SCREENING due on 07/06/2025 DIABETES SCREEN due on 08/04/2025 LIPID SCREEN due on 01/29/2027 DTAP,TDAP,TD(4 - Td or Tdap) due on 11/12/2027 HEPATITIS C SCREENING Completed SHINGRIX VACCINE Completed COVID-19 VACCINE Completed ASSESSMENT/PLAN: 1. 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 Patient advised if symptoms do not improve or if symptoms worsen sooner, to contact their primary care physician. Potential red flag symptoms discussed with the patient. Reviewed appropriate action plan to take if red flag symptoms occur. Patient agreeable to treatment plan. I spent a total of 22 minutes on the date of the service which included preparing to see the patient, [id number] patient care, completing clinical documentation, obtaining and/or reviewing separately obtained history, performing a medically appropriate examination, counseling and educating the patient/family/caregiver, and ordering medications, tests, or procedures. documented in this encounter [facility] 07-25-2022 Miscellaneous Notes Patient phones requesting refills as follows: Requested Prescriptions Pending Prescriptions Disp Refills atorvastatin (LIPITOR) 20 mg tablet 90 tablet 1 Sig: Take 1 tablet by mouth daily at bedtime. For cholesterol. lisinopril-hydroCHLOROthiazide (PRINZIDE,ZESTORETIC) 20-12.5 mg per tablet 90 tablet 1 Sig: Take 1 tablet by mouth every morning. SHARAN 02/13/22 NOV 08/15/22 Please review and advise. Mat Bailey LPN documented in this encounter [facility] 02-13-2022 History of Present illness Narrative 61 year old female with c/o here for follow up. No current concerns. Wpw (ozseo-lbzbbcnnr-pfkvi syndrome) (primary encounter diagnosis) Hypertension, essential Hyperlipidemia, mixed Cardiovascular interval hx: Current meds: Atorvastatin 20 mg daily at bedtime Diltiazem CD 120 1 capsule daily Lisinopril hydrochlorothiazide 20-12.5 mg daily Lisinopril 10 mg 2 tablets once daily Use of NTG: n/a Chest pain, arm, jaw pain, neck, or upper back pain suggestive of angina: No. SOB: No Dyspnea with exertion: No orthopnea: No racing or irregular heartbeats: No palpitations: No syncopal sx: No Unexplainable fatigue No Leg swelling: No Nausea: No diaphoresis: No Heartburn: No Claudication: No Smoking: No Following Low cholesterol, high fiber diet? No If on statin: muscle aches? No If on statin: GI sx or diarrhea? No Additional history: Component Latest Ref Rng & Units 01/29/2022 Cholesterol, Total <200 mg/dL 153 Triglyceride <150 mg/dL 142 HDL Cholesterol >39 mg/dL 39 (L) Non HDL Cholesterol <130 mg/dL 114 Fasting Time hrs 15 VLDL Cholesterol <30 mg/dL 28 TC:HDL Ratio <5.10 3.92 LDL Cholesterol <100 mg/dL 86 LDL:HDL Ratio <2.54 2.21 AST 13 - 35 U/L 20 CK 42 - 196 U/L 85 Acquired hypothyroidism Current medication: Levothyroxine 25 mcg daily AC Taking as directed on an empty stomach? Yes. Thyroid pain: No. Mass effect: No. Change in energy level/ fatigue? No. Sleep disturbance ?No. Temperature Intolerance: cold No, hot No. In females, menstrual cycle issues? climacteric, If yes: Change in bowel habits? No. If yes: Constipation? No. If yes: Diarrhea? No. If yes: Weight changes?No. Memory issues: No. Diaphoresis: No. Numbness, tingling none Change in hair or skin? No. If yes: Other symptoms: Last 2 Encounter Wt Readings: Date: Wt: 08/27/2021 78.9 kg (174 lb) 08/09/2021 80.4 kg (177 lb 3.2 oz) Last thyroid labs: TSH (uU/mL) Date Value 08/02/2021 2.190 10/26/2020 2.010 ) Elevated glucose Component Latest Ref Rng & Units 01/29/2022 Hemoglobin A1C 4.3 - 5.6 % 5.2 Estimated Average Glucose mg/dL 103 HISTORIES FAMILY HISTORY Problem Relation Age of Onset Hypertension Mother Diabetes Father Hypertension Father Diabetes Brother Breast Cancer Paternal Grandmother Stroke Paternal Grandfather GI Son IBS PAST MEDICAL HISTORY Diagnosis Date A-fib (HCC) RVR Diffuse cystic mastopathy left Hypertension Hypothyroidism Persistent atrial fibrillation (HCC) 04/15/2016 PVC (premature ventricular contraction) SVT (supraventricular tachycardia) ([facility]) Tachyarrhythmia WPW (Yiyol-Ewuswjioa-Dasoj syndrome) 04/15/2016 PAST SURGICAL HISTORY Procedure Laterality Date ANESTH, SECTION BREAST BIOPSY W/ULTRASOUND GUIDANCE Right 04/20/2017 U/S mammotone bx right breast 9 Oclock plus 6cm BREAST BX US GUIDED Right 03/24/2017 BX BREAST PERC NEED W/GUID 04/17/10 U/S needle core right breast 6 Oclock BX BREAST PERC VACUUM/ROTN 10/04/07 RIGHT CATHETER, ABLATION 06/02/16 Dr. Martinez COLONOSCOP W/ OR W/O BRSH SPEC 07/06/2015 Colonoscopy DENTAL SURGERY PROCEDURE wisdom teeth EP STUDY 06/02/16 Dr. Martinez EVENT MONITOR 07/02/2016 30 day PAST SURGICAL HISTORY OF d&c PAST SURGICAL HISTORY OF 10/04/07 excision pelvic dermoid cyst, teratoma PLCMT LOCALZTN CLIP,PERC,DURING BREAST BX 10/04/07 RIGHT REMOVAL OF OVARY(S) 10/04/08 right ovary REMOVE TONSILS/ADENOIDS,<12 Y/O ALEX CUT BX BREAST MASS Right 08/22/2016 US BRST CYST ASP PUNC RT 02/24/09 Right breast cysts x 3 aspirated Social History Tobacco Use Smoking status: Never Smoker Smokeless tobacco: Never Used Substance Use Topics Alcohol use: Yes Alcohol/week: 3.0 standard drinks Types: 3 Glasses of wine per week Comment: moderate Drug use: No ACTIVE PROBLEM LIST Hypothyroidism Hypertension, Essential Wpw (Tjdkj-Xxpscssjz-Gduxa Syndrome) Melanocytic Nevus of Trunk Current Outpatient Medications Medication Sig Dispense Refill atorvastatin (LIPITOR) 20 mg tablet Take 1 tablet by mouth daily at bedtime. For cholesterol. 90 tablet 1 dilTIAZem CD (CARDIZEM CD, CARTIA XT) 120 mg 24 hr capsule Take 1 capsule by mouth once daily. 90 capsule 3 levothyroxine (SYNTHROID) 25 mcg tablet TAKE 1 TABLET BY MOUTH ONCE DAILY. TAKE ON AN EMPTY STOMACH 90 tablet 3 lisinopril-hydroCHLOROthiazide (PRINZIDE,ZESTORETIC) 20-12.5 mg per tablet Take 1 tablet by mouth every morning. 30 tablet 5 lisinopril (ZESTRIL, PRINIVIL) 10 mg tablet Take 2 tablets by mouth once daily. 90 tablet 1 MELATONIN ORAL Take by mouth. multivit with calcium,iron,min (WOMEN'S MULTIPLE VITAMINS ORAL) coenzyme Q10 (CO Q-10) 100 mg cap capsule Take 200 mg by mouth. No current facility-administered medications for this visit. BP CONTROLLED (<130/80) Never done PAP TESTING due on 10/30/2021 MAMMOGRAM due on 02/20/2022 EXAM: BP 120/72 Pulse 96 Resp 16 Wt 79.8 kg (176 lb) LMP 07/19/2015 SpO2 97% BMI 28.97 kg/m Pleasant adult woman in no acute distress. Alert and oriented all spheres. Normal affect and cognition. Speech normal. No deficits to learning or comprehension. Skin warm, dry, pink to lips and nailbeds. Normal turgor. Respirations regular and unlabored. Chest is normal shape. Lungs are clear to all hamlin with good air exchange through out. HRRR without murmur or gallop. No lifts, heaves, or rubs. Extrem: no clubbing or cyanosis. Edema: none. Extremities are warm and pink with prompt capillary refill. ASSESSMENT/PLAN: 1. WPW (Zdtda-Hdkgyrqoa-Spdwf syndrome) - ICD9: 426.7, ICD10: I45.6 (primary diagnosis) Stable, controlled on medication 2. Hypertension, essential - ICD9: 401.9, ICD10: I10 - good control - Continue current medication(s) - Recommended regular aerobic exercise. - Recommend home blood pressure monitoring, to bring results in on next visit - Goal of BP <130/80 3. Hyperlipidemia, mixed - ICD9: 272.2, ICD10: E78.2 - good control - Continue current medication. - Encouraged following a low fat, low cholesterol diet. - Discussed the benefits of regular aerobic exercise and weight loss. 4. Acquired hypothyroidism - ICD9: 244.9, ICD10: E03.9 - Instructed patient on importance of taking on an empty stomach either first thing in the morning or at bedtime. Stable 5. Elevated glucose - ICD9: 790.29, ICD10: R73.09 Continue to follow F/u with labs 6 months, Markie Gtz PA-C documented in this encounter [facility] 01-22-2022 Miscellaneous Notes Pending Prescriptions Disp Refills ATORVASTATIN 20 MG TABLET 90 tablet 1 Sig: Take 1 tablet by mouth daily at bedtime. For cholesterol. NIRMALA: No SHARAN 08/09/21 NOV 02/13/22 Gayle Ding Ma documented in this encounter [facility] 01-13-2022 Miscellaneous Notes Pending Prescriptions Disp Refills DILTIAZEM SR 120 MG 24 HR CAP 90 capsule 3 Sig: Take 1 capsule by mouth once daily. NIRMALA: No LEVOTHYROXINE 25 MCG TABLET 90 tablet 3 Sig: TAKE 1 TABLET BY MOUTH ONCE DAILY. TAKE ON AN EMPTY STOMACH NIRMALA: No SHARAN 08/09/21 NOV 02/13/22 Gayle Ding Ma documented in this encounter [facility] 04-15-2016 History of Past i llness Narrative Problem Noted Date Resolved Date Persistent atrial fibrillation 04/15/2016 1 11/02/2016 Special screening for malignant neoplasms, colon 07/06/2015 07/06/2015 A-fib 09/02/2017 Overview: RVR documented as of this encounter (statuses as of 01/14/2022) [facility] History of Past illness Narrative* Problem Noted Date Resolved Date Persistent atrial fibrillation 04/15/2016 1 11/02/2016 Special screening for malignant neoplasms, colon 07/06/2015 07/06/2015 A-fib 09/02/2017 Overview: RVR documented as of this encounter (statuses as of 01/22/2022) [facility] History of Past illness Narrative* Problem Noted Date Resolved Date Persistent atrial fibrillation 04/15/2016 1 11/02/2016 Special screening for malignant neoplasms, colon 07/06/2015 07/06/2015 A-fib 09/02/2017 Overview: RVR documented as of this encounter (statuses as of 02/14/2022) [facility] History of Past illness Narrative* Problem Noted Date Resolved Date Persistent atrial fibrillation 04/15/2016 1 11/02/2016 Special screening for malignant neoplasms, colon 07/06/2015 07/06/2015 A-fib 09/02/2017 Overview: RVR documented as of this encounter (statuses as of 07/25/2022) [facility] History of Past illness Narrative* Problem Noted Date Resolved Date Persistent atrial fibrillation 04/15/201611/02/2016 Special screening for malignant neoplasms, colon 07/06/2015 07/06/2015 A-fib 09/02/2017 Overview: RVR documented as of this encounter (statuses as of 08/13/2022) [facility] History of Past illness Narrative* Problem Noted Date Resolved Date Persistent atrial fibrillation 04/15/2016 1 11/02/2016 Special screening for malignant neoplasms, colon 07/06/2015 07/06/2015 A-fib 09/02/2017 Overview: RVR documented as of this encounter (statuses as of 08/15/2022) [facility] History of Past illness Narrative* Problem Noted Date Resolved Date Persistent atrial fibrillation 04/15/2016 1 11/02/2016 Special screening for malignant neoplasms, colon 07/06/2015 07/06/2015 A-fib 09/02/2017 Overview: RVR documented as of this encounter (statuses as of 10/22/2022) [facility] of Past illness Narrative* Problem Noted Date Resolved Date Persistent atrial fibrillation 04/15/2016 1 11/02/2016 Special screening for malignant neoplasms, colon 07/06/2015 07/06/2015 A-fib 09/02/2017 Overview: RVR documented as of this encounter (statuses as of 01/01/2023) [facility] of Past illness Narrative* Problem Noted Date Resolved Date Persistent atrial fibrillation 04/15/2016 1 11/02/2016 Special screening for malignant neoplasms, colon 07/06/2015 07/06/2015 A-fib 09/02/2017 Overview: RVR documented as of this encounter (statuses as of 01/02/2023) [facility] of Past illness Narrative* Problem Noted Date Resolved Date Persistent atrial fibrillation 04/15/2016 1 11/02/2016 Special screening for malignant neoplasms, colon 07/06/2015 07/06/2015 A-fib 09/02/2017 Overview: RVR documented as of this encounter (statuses as of 02/20/2023) [facility] of Past illness Narrative* Problem Noted Date Resolved Date Persistent atrial fibrillation 04/15/2016 1 11/02/2016 Special screening for malignant neoplasms, colon 07/06/2015 07/06/2015 A-fib 09/02/2017 Overview: RVR documented as of this encounter (statuses as of 02/23/2023) [facility] of Past illness Narrative* Problem Noted Date Diagnosed Date Resolved Date Persistent atrial fibrillation 04/15/2016 09/02/2017 Special screening for malign ant neoplasms, colon 07/06/2015 07/06/2015 A-fib 09/02/2017 Overview: RVR documented as of this encounter (statuses as of 08/25/2023) [facility] of Past illness Narrative* Problem Noted Date Diagnosed Date Resolved Date Persistent atrial fibrillation 04/15/2016 09/02/2017 Special screening for malign ant neoplasms, colon 07/06/2015 07/06/2015 A-fib 09/02/2017 Overview: RVR documented as of this encounter (statuses as of 09/02/2023) [facility] History of Past illness Narrative* Problem Noted Date Diagnosed Date Resolved Date Persistent atrial fibrillation 04/15/2016 09/02/2017 Special screening for malign ant neoplasms, colon 07/06/2015 07/06/2015 A-fib 09/02/2017 Overview: RVR documented as of this encounter (statuses as of 01/19/2024) [facility] History of Past illness Narrative* Problem Noted Date Diagnosed Date Resolved Date Persistent atrial fibrillation 04/15/2016 09/02/2017 Special screening for malign ant neoplasms, colon 07/06/2015 07/06/2015 A-fib 09/02/2017 Overview: RVR documented as of this encounter (statuses as of 01/25/2024) [facility] History of Past illness Narrative* Problem Noted Date Diagnosed Date Resolved Date Persistent atrial fibrillation 04/15/2016 09/02/2017 Special screening for malign ant neoplasms, colon 07/06/2015 07/06/2015 A-fib 09/02/2017 Overview: RVR documented as of this encounter (statuses as of 02/01/2024) [facility] [place] [facility]* Diagnosis WPW (Mtzjk-Dughyrdcm-Bblsn syndrome) Anomalous atrioventricular excitation Acquired hypothyroidism Unspecified hypothyroidism documented in this encounter [facility] note* Diagnosis WPW (Qvsaj-Vcnwydyen-Wokvs syndrome)- Primary Anomalous atrioventricular excitation Hypertension, essential Unspecified essential hypertension Hyperlipidemia, mixed Mixed hyperlipidemia Acquired hypothyroidism Unspecified hypothyroidism Elevated glucose Other abnormal glucose documented in this [facility] [place] noteNo assessment information availableFost[facility] Work Phone: Evaluation note* Diagnosis Eye drainage- Primary Redness or discharge of eye documented [facility] [place] [facility]* Diagnosis WPW (Ffrcs-Mskwkfnhl-Ofxpe syndrome)- Primary Anomalous atrioventricular excitation Hypertension, essential Unspecified essential hypertension Acquired hypothyroidism Unspecified hypothyroidism Need for influenza vaccination Need for prophylactic vaccination and inoculation against influenza Hyperlipidemia, mixed Mixed hyperlipidemia Elevated glucose Other abnormal glucose [facility] [place] [facility]* Diagnosis WPW (Cupwh-Xwejfnfvz-Beist syndrome) Anomalous atrioventricular excitation Acquired hypothyroidism Unspecified hypothyroidism documented [facility] [place] [facility]* Diagnosis Subacute cough- Primary Cough Post-viral cough syndrome Cough documented [facility] [place] [facility]* Diagnosis WPW (Cdvui-Frjovdsis-Tnhoj syndrome)- Primary Anomalous atrioventricular excitation Hypertension, essential Unspecified essential hypertension Hyperlipidemia, mixed Mixed hyperlipidemia Acquired hypothyroidism Unspecified hypothyroidism Wellness examination documented [facility] this [facility] [place] [facility]* Diagnosis Encounter for screening mammogram for breast cancer [facility] [place] [facility]* Diagnosis Preoperative clearance- Primary Preoperative examination, unspecified WPW (Xhjbb-Cjtuhrwcr-Dxizb syndrome) Anomalous atrioventricular excitation Hypertension, essential Unspecified essential hypertension Hyperlipidemia, mixed Mixed hyperlipidemia Acquired hypothyroidism Unspecified hypothyroidism Elevated glucose Other abnormal glucose Acute meniscal tear of left knee, sequela documented [facility] [place] [facility]* Diagnosis Acquired hypothyroidism- Primary Unspecified hypothyroidism Hypertension, essential Unspecified essential hypertension Hyperlipidemia, mixed Mixed hyperlipidemia documented in this [facility] [place] [facility]* Diagnosis Encounter for screening mammogram for breast cancer documented [facility] [place] [facility]* Diagnosis 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 Hypertension, essential Unspecified essential hypertension Hyperlipidemia, mixed Mixed hyperlipidemia Acquired hypothyroidism Unspecified hypothyroidism Elevated glucose Other abnormal glucose Wellness examination Preoperative clearance Preoperative examination, unspecified Vitamin D deficiency Unspecified vitamin D deficiency documented [facility] this [facility] [place] [facility]* Diagnosis Sgthg-Szletphkj-Hezpd (WPW) pattern- Primary documented in this [facility] [place] [facility]* Diagnosis Preop examination- Primary Preoperative examination, unspecified Disorder of right Achilles tendon documented [facility] [place] [facility]* Diagnosis Encounter for screening mammogram for breast cancer documented [facility] [place] [facility]* Diagnosis Abnormal findings on diagnostic imaging of breast- Primary Other (abnormal) findings on radiological examination of breast documented [facility] [place] [facility]* Diagnosis Subacute cough Cough documented [facility] [place] [facility]* Diagnosis Abnormal finding on radiological examination of breast- Primary Other (abnormal) findings on radiological examination of breast documented [facility] this [facility] [place] [facility]* Diagnosis Abnormal findings on diagnostic imaging of breast Other (abnormal) findings on radiological examination of breast documented [facility] [place] [facility]* Diagnosis Abnormal findings on diagnostic imaging of breast Other (abnormal) findings on radiological examination of breast documented [facility] [place] [facility]* Diagnosis Abnormal ultrasound of breast- Primary Other (abnormal) findings on radiological examination of breast documented [facility] [place] [facility]* Diagnosis Abnormal ultrasound of breast Other (abnormal) findings on radiological examination of breast documented [facility] this [facility] [place] [facility]* Diagnosis WPW (Wiayu-Wqfnsnxmj-Jkoon syndrome) Anomalous atrioventricular excitation Acquired hypothyroidism Unspecified hypothyroidism documented [facility] [place] [facility]* Diagnosis Hypertension, essential- Primary Unspecified essential hypertension WPW (Ntaxl-Buwtvlxxx-Isbau syndrome) Anomalous atrioventricular excitation Screening for depression Encounter for screening examination for other mental health and behavioral disorders Acquired hypothyroidism Unspecified hypothyroidism Melanocytic nevus of trunk Benign neoplasm of skin of trunk, except scrotum Hyperlipidemia, mixed Mixed hyperlipidemia Fibrocystic breast disease (FCBD), unspecified laterality Encounter for immunization Need for other specified prophylactic vaccination against single bacterial disease Screening for cervical cancer Screening for malignant neoplasm of the cervix documented [facility] [place] [facility]* Diagnosis Onset Date Resolution Status Admit Date Dyslipidemia chronic March 22 12:43pm HTN (hypertension) chronic March 222024 12:43pm Mild pulmonary hypertension chronic March 22, 2025 12:43pm Becoe-Pnoqhhpso-Rbtix (WPW) syndrome chronic March 22, 2025 1 2:43pm [facility] Work Phone: Progress note Author Kb Valdivia [facility] Note Date/Time March 22, 2025 1:15p [facility] [address] [place] [address] OFFICE VISIT Date of Service: 03/22/25 MR#: [id number] Acct: [id number] Name: BRITT CARBALLO Rep #: [id number] : 1960 Provider: Dr. 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 Denies any complaints. No palpitations. No chest pains. No shortness of breath. No orthopnea or PND. No ankle edema. Intake Vital Signs 04/15/24 12:07 03/22/25 07:58 Height 5 ft 6 in 5 ft 6 in Weight: 185 lb BMI 29.8 BP 140/86 H Blood Pressure Location Lt brachial Position Sitting Respiration 16 Pulse 80 Pulse Source NIBP Intake Visit Reasons: 1 Y FU Line Maintainer Required: No Accompanied by: Self Is patient in pain?: No Allergies No Known Allergies Allergy (Verified 03/22/25 13:01) Medications ?Medication ?Instructions ?Recorded ?Confirmed ?Type levothyroxine 25 mcg tablet 25 mcg PO DAILY 03/27/16 0 03/22/25 History coenzyme Q10 200 mg capsule 200 mg PO DAILY 08/22/16 0 03/22/25 History diltiazem HCl 120 mg 120 mg PO DAILY 08/22/1602/10 History capsule,extended release 24 hr atorvastatin 20 mg tablet 20 mg PO QHS 03/01/24 History lisinopril 20 1 tab PO DAILY 03/22/2402/10 History mg-hydrochlorothiazide 12.5 mg tablet multivitamin 1 tab PO DAILY 04/04/2402/10 History aspirin 81 mg tablet,delayed 81 mg PO DAILY 30 days #3 0 tabs 04/15/24 03/22/25 Rx release Ejection fraction %: 65 Have you fallen in the past year?: No FOR[facility]LY [facility], [facility] Medical History (Updated 03/22/25 @ 13:[address] Kb Valdivia MD) Sayda deformity of right heel Loose, teeth Hyperlipidemia SVT (supraventricular tachycardia) PVC (premature ventricular contraction) Diffuse cystic mastopathy of left breast Right foot pain Wears glasses Alcohol use Thyroid disease High cholesterol Non-smoker History of stress test History of echocardiogram Cardiology follow-up encounter History of atrial fibrillation History of irregular heartbeat Hypothyroid HTN (hypertension) Utbpq-Phsxckvjd-Wvvnk (WPW) syndrome Breast lesion on mammography Surgical History Hx of breast biopsy Hx of dilation and curettage Hx of section History of colonoscopy History of tonsillectomy History of arthroplasty of left knee History of cardiac radiofrequency ablation S/P right oophorectomy Family History Brother Diabetes Mother Hypertension Father Hypertension Diabetes Grandmother Breast cancer Grandfather CVA (cerebral vascular accident) Son IBS (irritable bowel syndrome) Social History Smoking Status: Never smoker alcohol intake: current alcohol intake frequency: a few times a week substance use type: does not use caffeine: Yes (2.5 cups/day) Type: coffee Number of servings: 2 ROS Const Const: Negative for fatigue, weakness, headache(s) or weight gain ENT ENT: Negative for headache(s), dizziness, Nosebleed/epistaxis or balance problems Cardio Chest Pain: No Palpitations: No Edema: None Muscle aches with walking: None Resp Respiratory: Negative for SOB with activity, SOB at rest or SOB orthopneaundefinedSOB lying down GI GI: Negative nausea, vomiting or heartburn Musc Musc: Positive for joint pain (arthritis; chronic; unchanged); Negative for muscle aches/ myalgia, muscle weakness or balance problems Neuro Neuro: Negative for dizziness, lightheadedness, near syncope, syncope, headache(s) or weakness Endo Endo: Negative for fatigue Cardiology Exam Const Appearance: comfortable and no acute distress Nutritional Appearance: well nourished Neck Neck: no JVD Carotids: Negative bruit Chest Auscultation: Bilateral: Clear to Auscultation Cardio Rate: regular rate Rhythm: regular rhythm Heart sounds: S1 normal and S2 normal Neuro General: patient alert, patient awake and patient oriented x3 Extremities Lower Extremity Edema: None: Bilateral Supplemental Info Supplemental Information Echocardiogram 04/07/2024: Interpretation Summary The left ventricular ejection fraction is 65 %. Diastolic function is indeterminate. The left atrium is mildly enlarged. Right ventricular systolic pressure estimated to be 47 mmHg. ECHOCARDIOGRAM 03/28/16: FINAL IMPRESSIONS Right Ventricle Normal right ventricular size and systolic function Left Atrium Mildly dilated left atrium Left atrium measures 21 cm2 by planimetry in the apical 4-chamber view. THAO=36.85 mL/m2. Vena Cava The inferior vena cava is dilated and collapses (<50%) with inspiration Right atrial pressure is estimated at 15 mmHg Tricuspid Valve Mild (1+) tricuspid valve regurgitation Mild pulmonary hypertension Right ventricular systolic pressure is estimated at 43 mmHg Mitral Valve Mild to moderate (1-@+) mitral valve regurgitation Left Ventricle Normal left ventricular size There is mild asymmetric hypertrophy of the upper interventricular septum Low Normal left ventricular systolic function The visually estimated LVEF is 50-55% Suspect stage II diastolic dysfunction: Pseudonormal filling pattern with evidence of elevated filling pressures. Average e/e' 13 with dilated LA. 30 DAY EVENT MONITOR 06/03/2016-07/02/2016: During the 30 day monitoring period the basic rhythm was sinus with an intermittent wandering pacemaker an intermittent first degree A_V block and an intermittent IVCD and BBB pattern with rates from 70-100 bpm. There were rare PAC's. There were rare bursts of SVT lasting 8-18 beats with rates up to 110 bpm. There were occasional PVC's including couplet and fusion complexes. Patientsymptoms of rapid heart beat correlated with sinus rhythm and an IVCD pattern.Patient symptoms of flutter correlated with sinus rhythm/tachyarrhythmia an IVCD and BBB pattern SVT and a PVC. CT CORONARY ANGIOGRAPHY 04/08/2016: IMPRESSION 1. No coronary artery calcifications are noted. The patient's overall calcium score is calculated at 0, 0th percentile of age and gender matched controls for coronary artery calcifications.. This score is generally associated with a 0.4% or less annual risk of myocardial infarction and from coronary artery disease. 2. Coronary arteries are not well visualized on the study since the protocol wasdirected towards visualization of coronary veins. 3. No true coronary sinus diverticuli are identified. A small area of dilatationat the junction of the middle cardiac vein with the coronary sinus. 4. Otherwise negative CT coronary angiography without and with intravenous contrast. Assessment and Plan Assessment and Plan (1) Qwyoe-Jjiihnzer-Bfotz (WPW) syndrome: Status: Chronic Plan: Previous attempts at ablation unsuccessful. On diltiazem as per electrophysiology. Asymptomatic for the past many years. Continue medical management. (2) HTN (hypertension): Status: Chronic Comment: PER PT, CONTROLLED ON MEDS Plan: Blood pressure mildly above goal. Continue diltiazem. Change lisinopril hydrochlorothiazide to 20/25 mg daily. (3) Dyslipidemia: Status: Chronic Plan: On atorvastatin. PCP follows labs. (4) Mild pulmonary hypertension: Status: Chronic Plan: Mildly elevated PASP reported on echocardiogram done previously at 47 mmHg. Will repeat echo. Plan Details Follow Up: 12 Months Coding Level of Care Code Off vis,est,level 4 Diagnoses Wcncu-Gnfrcudgq-Vvvlt (WPW) syndrome I45.6 HTN (hypertension) I10 Dyslipidemia E78.5 Mild pulmonary hypertension I27.20 Coding Level of Care Code Off vis,est,level 4 Diagnoses Sqfyc-Pqyqjvxmi-Sbftn (WPW) syndrome I45.6 HTN (hypertension) I10 Dyslipidemia E78.5 Mild pulmonary hypertension I27.20 Clinical Quality Measures Falls Risk Screening/Assistive Devices Have you fallen in the past year?: No Cardiac Ejection fraction %: 65 03/22/25 1315 <Electronically signed by Kb Valdivia MD> Date _ Kb Valdivia MD Cosigner Signature: Date (if applicable) CC: LANIE Hummel ~ [place] [employer] Work Phone: Reason for referral (narrative)* Diagnostic Procedure Only (Routine) - Pending Review Specialty Diagnoses / Procedures Referred By Contac t Referred To Contact [facility] Diagnoses Encounter for screening mammogram for breast cancer Procedures RANJAN SCREENING SCREENING MAMMOGRAPHY BI 2-VIEW BREAST INC CAD Markie Gtz PA-C [address] [place] [address] [facility] [address] [place] [address] Referral ID Status Reason Start Date Expiration Date Visits Requested Visits Authorized [id number] Pending Review Auto-Generat ed Referral 02/18/2023 03/19/2024 1 1 [facility] for referral (narrative)* Diagnostic Procedure Only (Routine) - Pending Review Specialty Diagnoses / Procedures Referred By Contac t Referred To Contact [facility] Diagnoses Encounter for screening mammogram for breast cancer Procedures RANJAN SCREENING SCREENING MAMMOGRAPHY BI 2-VIEW BREAST INC Markie Hu PA-C [address] [place] [address] [facility] [address] [place] [address] Referral ID Status Reason Start Date Expiration Date Visits Requested Visits Authorized [id number] Pending Review Auto-Generat ed Referral 01/27/2024 02/25/2025 1 1 T [facility] for referral (narrative)* Diagnostic Procedure Only (Routine) - New Request Specialty Diagnoses / Procedures Referred By Quentin t Referred To Contact [facility] Diagnoses Abnormal findings on diagnostic imaging of breast Procedures US BREAST LTD RIGHT US BREAST UNI REAL TIME WITH IMAGE LIMITED Radha Hummel APRN.CNP [address] [place] [address] [facility] [address] [place] [address] Referral ID Status Reason Start Date Expiration Date Visits Requested Visits Authorized [id number] New Request Auto-Generat ed Referral 06/23/2024 07/23/2025 1 1 * Diagnostic Procedure Only (Routine) - New Request Specialty Diagnoses / Procedures Referred By Contac t Referred To Contact [facility] Diagnoses Abnormal findings on diagnostic imaging of breast Procedures US BREAST LTD LEFT US BREAST UNI REAL TIME WITH IMAGE LIMITED Radha Hummel APRN.PUBLIC HEALTH EPIDEMIOLOGIST [address] [place] [address] [facility] [address] [place] [address] Referral ID Status Reason Start Date Expiration Date Visits Requested Visits Authorized [id number] New Request Auto-Generat ed Referral 06/23/2024 07/23/2025 1 1 * Diagnostic Procedure Only (Routine) - New Request Specialty Diagnoses / Procedures Referred By Aniketac t Referred To Contact [facility] Diagnoses Abnormal findings on diagnostic imaging of breast Procedures RANJAN DIAGNOSTIC BILATERAL DIAGNOSTIC MAMMOGRAPHY COMPUTER-AIDED DETCJ BI Radha Hummel APRN.PUBLIC HEALTH EPIDEMIOLOGIST [address] [place] [address] [facility] [address] [place] [address] Referral ID Status Reason Start Date Expiration Date Visits Requested Visits Authorized [id number] New Request Auto-Generat ed Referral 06/23/2024 07/23/2025 1 1 [facility] for referral (narrative)* Diagnostic Procedure Only (Routine) - Closed Specialty Diagnoses / Procedures Referred By Quentin t Referred To Contact [facility] Diagnoses Abnormal findings on diagnostic imaging of breast Procedures US BREAST LTD RIGHT US BREAST UNI REAL TIME WITH IMAGE LIMITED Radha Hummel APRN.PUBLIC HEALTH EPIDEMIOLOGIST [address] [place] [address] [facility] [address] [place] [address] Referral ID Status Reason Start Date Expiration Date V isits Requested Visits Authorized [id number] Closed Auto-Generate d Referral 06/23/2024 07/23/2025 1 1 * Diagnostic Procedure Only (Routine) - Closed Specialty Diagnoses / Procedures Referred By Contac t Referred To Contact [facility] Diagnoses Abnormal findings on diagnostic imaging of breast Procedures US BREAST LTD LEFT US BREAST UNI REAL TIME WITH IMAGE LIMITED Radha Hummel APRN.CNP [address] [place] [address] [facility] [address] [place] [address] Referral ID Status Reason Start Date Expiration Date V isits Requested Visits Authorized [id number] Closed Auto-Generate d Referral 06/23/2024 07/23/2025 1 1 [facility] for referral (narrative)* Diagnostic Procedure Only (Routine) - New Request Specialty Diagnoses / Procedures Referred By Quentin clement Referred To Contact [facility] Diagnoses Abnormal ultrasound of breast Procedures US BIOPSY BREAST RIGHT BX BREAST W/DEVICE 1ST LESION ULTRASOUND Cathy Dumont MD [address] [place] [address] [facility] [address] [place] [address] Referral ID Status Reason Start Date Expiration Date Visits Requested Visits Authorized [id number] New Request Auto-Generat ed Referral 07/25/2024 08/24/2025 1 1 [facility] for referral (narrative)* Diagnostic Procedure Only (Routine) - Closed Specialty Diagnoses / Procedures Referred By Quentin clement Referred To Contact [facility] Diagnoses Abnormal ultrasound of breast Procedures US BIOPSY BREAST RIGHT BX BREAST W/DEVICE 1ST LESION ULTRASOUND Cathy Dumont MD [address] [facility] [address] [facility] [address] [place] [address] Referral ID Status Reason Start Date Expiration Date V isits Requested Visits Authorized [id number] Closed Auto-Generate d Referral 07/25/2024 08/24/2025 1 1 [facility] for referral (narrative)No reason for referral information availableFranc[facility] Work Phone: Reason for visit Narrative* Diagnostic Procedure Only (Routine) - Closed Specialty Diagnoses / Procedures Referred By Quentin clement Referred To Contact [facility] Diagnoses Encounter for screening mammogram for breast cancer Procedures RANJAN SCREENING SCREENING MAMMOGRAPHY BI 2-VIEW BREAST INC CAD Markie Gtz PA-C [address] [place] [address] [facility] [address] [place] [address] Referral ID Status Reason Start Date Expiration Date V isits Requested Visits Authorized [id number] Closed Auto-Generate d Referral 01/27/2024 02/25/2025 1 1 [facility] for visit Narrative* Diagnostic Procedure Only (Routine) - Closed Specialty Diagnoses / Procedures Referred By Quentin clement Referred To Contact [facility] Diagnoses Abnormal findings on diagnostic imaging of breast Procedures US BREAST LTD RIGHT US BREAST UNI REAL TIME WITH IMAGE LIMITED Radha Hummel DREDGE ENGINEER.PUBLIC HEALTH EPIDEMIOLOGIST [address] [place] [id number] [facility] [address] [place] [address] Referral ID Status Reason Start Date Expiration Date V isits Requested Visits Authorized [id number] Closed Auto-Generate d Referral 06/23/2024 07/23/2025 1 1 [facility] for visit Narrative* Diagnostic Procedure Only (Routine) - Closed Specialty Diagnoses / Procedures Referred By Quentin clement Referred To Contact [facility] Diagnoses Abnormal findings on diagnostic imaging of breast Procedures RANJAN DIAGNOSTIC BILATERAL DIAGNOSTIC MAMMOGRAPHY COMPUTER-AIDED DETCJ BI Radha Hummel, DREDGE ENGINEER.PUBLIC HEALTH EPIDEMIOLOGIST [address] [place] [address] [facility] [address] [place] [address] Referral ID Status Reason Start Date Expiration Date V isits Requested Visits Authorized [id number] Closed Auto-Generate d Referral 06/23/2024 07/23/2025 1 1 [facility] for visit Narrative* Diagnostic Procedure Only (Routine) - Closed Specialty Diagnoses / Procedures Referred By Quentin clement Referred To Contact [facility] Diagnoses Abnormal ultrasound of breast Procedures US BIOPSY BREAST RIGHT BX BREAST W/DEVICE 1ST LESION ULTRASOUND GUID Cathy Ndiaye MD [address] [place] [address] [facility] [address] [place] [address] Referral ID Status Reason Start Date Expiration Date V isits Requested Visits Authorized [id number] Closed Auto-Generate d Referral 07/25/2024 08/24/2025 1 1 [facility] Summary Purpose Family History Relationship Condition Age at Onset Recorded Date/T wally brother Diabetes mellitus Unknown Relationship Condition Age at Onset Recorded Date/T wally brother Diabetes mellitus Unknown mother Hypertension Unknown father Hypertension Unknown Diabetes mellitus Unknown grandmother Malignant neoplasm of breast Unknown grandfather Cerebrovascular accident (CVA) Unknown son Irritable bowel syndrome Unknown Advance Directives Advance Directive Response Recorded Date/ Time Advance Directives Yes August 22, 2016 10:25am Living Will Yes August 22 10:25am Power of Route Manager Yes August 22, 2016 10:25am Advance Directive Response Recorded Date/ Time Advance Directives Yes August 22, 2016 9:25am Living Will Yes August 22 9:25am Power of Route Manager Yes August 22, 2016 9:25am Advance Directive Response Recorded Date/ Time Advance Directives Yes August 22, 2016 10:25am Chief Complaint and Reason for Visit Chief Complaint SCREENING Chief Complaint PRE OP Chief Complaint Admit Date 1 Y FU March 22, 2025 12:43 pm Reason for Visit Admit Date Dyslipidemia March 22, 2025 12:43 pm HTN (hypertension) March 22, 2025 12:43 pm Mild pulmonary hypertension March 22 12:43pm Mfacl-Tkkxtkyym-Kozum (WPW) syndrome Mar 12:43pm Reason for Referral Specialty Diagnoses / Procedures Referred By Contac t Referred To Contact Cardiology Diagnoses Ctgge-Imlzrvkmy-Gssff (WPW) pattern Procedures CONSULT TO CARDIOLOGY OFFICE/OUTPATIENT [facility] 60 MINUTES Markie Gtz PA-C [address] [place] [address] Referral ID Status Reason Start Date Expiration Date Visits Requested Visits Authorized [id number] Authorized PCP Requested Referral 03/03/2024 03/03/2025 1 1 Specialty Diagnoses / Procedures Referred By Quentin clement Referred To Contact General Surgery Diagnoses Abnormal finding on radiological examination of breast Procedures CONSULT TO GENERAL SURGERY OFFICE/OUTPATIENT [facility] HIGH MDM 60 MINUTES Radha Hummel APRN.PUBLIC HEALTH EPIDEMIOLOGIST [address] [place] [address] Referral ID Status Reason Start Date Expiration Date Visits Requested Visits Authorized [id number] Authorized PCP Requested Referral 07/21/2025 1 1 Additional Source Comments INFORMATION SOURCE (unrecogn ized section and content) DATE CREATED AUTHOR 12/08/2018 [facility] DATE CREATED AUTHOR AUTHOR'S ORGANIZ ATION 08/17/2024 [facility] DATE CREATED AUTHOR AUTHOR'S ORGANIZ ATION 03/01/2025 [facility] DATE CREATED AUTHOR AUTHOR'S ORGANIZ ATION 03/23/[address] [facility] Source Comments (unrecognize d section and content) In the event this informatio n is protected by the Federal Confidentiality of Alcohol and Drug Abuse Patient Records regulations: The Federal rules restrict any use of the information to criminally investigate or prosecute any alcohol or drug abuse patient.[facility] the event this information is protected by the Federal Confidentiality of Alcohol and Drug Abuse Patient Records regulations: The Federal rules restrict any use of the information to criminally investigate or prosecute any alcohol or drug abuse patient.[facility] HospitalIn the event this information is protected by the Federal Confidentiality of Alcohol and Drug Abuse Patient Records regulations: The Federal rules restrict any use of the information to criminally investigate or prosecute any alcohol or drug abuse patient.[facility] HospitalIn the event this information is protected by the Federal Confidentiality of Alcohol and Drug Abuse Patient Records regulations: The Federal rules restrict any use of the information to criminally investigate or prosecute any alcohol or drug abuse patient.[facility] HospitalIn the event this information is protected by the Federal Confidentiality of Alcohol and Drug Abuse Patient Records regulations: The Federal rules restrict any use of the information to criminally investigate or prosecute any alcohol or drug abuse patient.[facility] HospitalIn the event this information is protected by the Federal Confidentiality of Alcohol and Drug Abuse Patient Records regulations: The Federal rules restrict any use of the information to criminally investigate or prosecute any alcohol or drug abuse patient.[facility]In the event this information is protected by the Federal Confidentiality of Alcohol and Drug Abuse Patient Records regulations: The Federal rules restrict any use of the information to criminally investigate or prosecute any alcohol or drug abuse patient.[facility] HospitalIn the event this information is protected by the Federal Confidentiality of Alcohol and Drug Abuse Patient Records regulations: The Federal rules restrict any use of the information to criminally investigate or prosecute any alcohol or drug abuse patient.[facility] HospitalIn the event this information is protected by the Federal Confidentiality of Alcohol and Drug Abuse Patient Records regulations: The Federal rules restrict any use of the information to criminally investigate or prosecute any alcohol or drug abuse patient.[facility] HospitalIn the event this information is protected by the Federal Confidentiality of Alcohol and Drug Abuse Patient Records regulations: The Federal rules restrict any use of the information to criminally investigate or prosecute any alcohol or drug abuse patient.[facility] HospitalIn the event this information is protected by the Federal Confidentiality of Alcohol and Drug Abuse Patient Records regulations: The Federal rules restrict any use of the information to criminally investigate or prosecute any alcohol or drug abuse patient.[facility] HospitalIn the event this information is protected by the Federal Confidentiality of Alcohol and Drug Abuse Patient Records regulations: The Federal rules restrict any use of the information to criminally investigate or prosecute any alcohol or drug abuse patient.[facility] HospitalIn the event this information is protected by the Federal Confidentiality of Alcohol and Drug Abuse Patient Records regulations: The Federal rules restrict any use of the information to criminally investigate or prosecute any alcohol or drug abuse patient.[facility] HospitalIn the event this information is protected by the Federal Confidentiality of Alcohol and Drug Abuse Patient Records regulations: The Federal rules restrict any use of the information to criminally investigate or prosecute any alcohol or drug abuse patient.[facility] HospitalIn the event this information is protected by the Federal Confidentiality of Alcohol and Drug Abuse Patient Records regulations: The Federal rules restrict any use of the information to criminally investigate or prosecute any alcohol or drug abuse patient.[facility] HospitalIn the event this information is protected by the Federal Confidentiality of Alcohol and Drug Abuse Patient Records regulations: The Federal rules restrict any use of the information to criminally investigate or prosecute any alcohol or drug abuse patient.[facility] HospitalIn the event this information is protected by the Federal Confidentiality of Alcohol and Drug Abuse Patient Records regulations: The Federal rules restrict any use of the information to criminally investigate or prosecute any alcohol or drug abuse patient.[facility] HospitalIn the event this information is protected by the Federal Confidentiality of Alcohol and Drug Abuse Patient Records regulations: The Federal rules restrict any use of the information to criminally investigate or prosecute any alcohol or drug abuse patient.[facility] HospitalIn the event this information is protected by the Federal Confidentiality of Alcohol and Drug Abuse Patient Records regulations: The Federal rules restrict any use of the information to criminally investigate or prosecute any alcohol or drug abuse patient.[facility] HospitalIn the event this information is protected by the Federal Confidentiality of Alcohol and Drug Abuse Patient Records regulations: The Federal rules restrict any use of the information to criminally investigate or prosecute any alcohol or drug abuse patient.[facility] HospitalIn the event this information is protected by the Federal Confidentiality of Alcohol and Drug Abuse Patient Records regulations: The Federal rules restrict any use of the information to criminally investigate or prosecute any alcohol or drug abuse patient.[facility] HospitalIn the event this information is protected by the Federal Confidentiality of Alcohol and Drug Abuse Patient Records regulations: The Federal rules restrict any use of the information to criminally investigate or prosecute any alcohol or drug abuse patient.[facility] HospitalIn the event this information is protected by the Federal Confidentiality of Alcohol and Drug Abuse Patient Records regulations: The Federal rules restrict any use of the information to criminally investigate or prosecute any alcohol or drug abuse patient.[facility] HospitalIn the event this information is protected by the Federal Confidentiality of Alcohol and Drug Abuse Patient Records regulations: The Federal rules restrict any use of the information to criminally investigate or prosecute any alcohol or drug abuse patient.[facility] HospitalIn the event this information is protected by the Federal Confidentiality of Alcohol and Drug Abuse Patient Records regulations: The Federal rules restrict any use of the information to criminally investigate or prosecute any alcohol or drug abuse patient.[facility] HospitalIn the event this information is protected by the Federal Confidentiality of Alcohol and Drug Abuse Patient Records regulations: The Federal rules restrict any use of the information to criminally investigate or prosecute any alcohol or drug abuse patient.[facility] HospitalIn the event this information is protected by the Federal Confidentiality of Alcohol and Drug Abuse Patient Records regulations: The Federal rules restrict any use of the information to criminally investigate or prosecute any alcohol or drug abuse patient.[facility] HospitalIn the event this information is protected by the Federal Confidentiality of Alcohol and Drug Abuse Patient Records regulations: The Federal rules restrict any use of the information to criminally investigate or prosecute any alcohol or drug abuse patient.[facility] HospitalIn the event this information is protected by the Federal Confidentiality of Alcohol and Drug Abuse Patient Records regulations: The Federal rules restrict any use of the information to criminally investigate or prosecute any alcohol or drug abuse patient.[facility] HospitalIn the event this information is protected by the Federal Confidentiality of Alcohol and Drug Abuse Patient Records regulations: The Federal rules restrict any use of the information to criminally investigate or prosecute any alcohol or drug abuse patient.[facility] HospitalIn the event this information is protected by the Federal Confidentiality of Alcohol and Drug Abuse Patient Records regulations: The Federal rules restrict any use of the information to criminally investigate or prosecute any alcohol or drug abuse patient.[facility] HospitalIn the event this information is protected by the Federal Confidentiality of Alcohol and Drug Abuse Patient Records regulations: The Federal rules restrict any use of the information to criminally investigate or prosecute any alcohol or drug abuse patient.[facility] HospitalIn the event this information is protected by the Federal Confidentiality of Alcohol and Drug Abuse Patient Records regulations: The Federal rules restrict any use of the information to criminally investigate or prosecute any alcohol or drug abuse patient.[facility] HospitalIn the event this information is protected by the Federal Confidentiality of Alcohol and Drug Abuse Patient Records regulations: The Federal rules restrict any use of the information to criminally investigate or prosecute any alcohol or drug abuse patient.[facility] HospitalIn the event this information is protected by the Federal Confidentiality of Alcohol and Drug Abuse Patient Records regulations: The Federal rules restrict any use of the information to criminally investigate or prosecute any alcohol or drug abuse patient.[facility] HospitalIn the event this information is protected by the Federal Confidentiality of Alcohol and Drug Abuse Patient Records regulations: The Federal rules restrict any use of the information to criminally investigate or prosecute any alcohol or drug abuse patient.[facility] HospitalIn the event this information is protected by the Federal Confidentiality of Alcohol and Drug Abuse Patient Records regulations: The Federal rules restrict any use of the information to criminally investigate or prosecute any alcohol or drug abuse patient.[facility] HospitalIn the event this information is protected by the Federal Confidentiality of Alcohol and Drug Abuse Patient Records regulations: The Federal rules restrict any use of the information to criminally investigate or prosecute any alcohol or drug abuse patient.[facility] HospitalIn the event this information is protected by the Federal Confidentiality of Alcohol and Drug Abuse Patient Records regulations: The Federal rules restrict any use of the information to criminally investigate or prosecute any alcohol or drug abuse patient.[facility] HospitalIn the event this information is protected by the Federal Confidentiality of Alcohol and Drug Abuse Patient Records regulations: The Federal rules restrict any use of the information to criminally investigate or prosecute any alcohol or drug abuse patient.[facility] Reason for Visit (unrecogniz ed section and content) Reason Onset Date Comments Refill Request 01/13/2022 Reason Onset Date Comments Refill Request 01/22/2022 Reason Comments Yearly Exam Specialty Diagnoses / Procedures Referred By Contac t Referred To Contact Family Practice / FAMILY MEDICINE Diagnoses 6 month f/u Procedures 4C EST Markie Gtz PA-C [address] [place] [address] Markie Gtz PA-C [address] [place] [address] Referral ID Status Reason Start Date Expiration Date V isits Requested Visits Authorized [id number] Pending Review 02/13/2022 05/14/2022 99 99 Reason Onset Date Comments Refill Request 07/25/2022 Reason Comments Conjunctivitis Right eye matted mickey t when awoke this AM Reason Onset Date Comments 6 Month Exam Immunizations 08/15/2022 Flu vaccination Reason Onset Date Comments Refill Request 10/15/2022 Reason Comments Cough Chest congestion, fe ryann, bodyaches Reason Comments Results Reason Comments 6 Month Exam Reason Comments Pre-Op Exam Left knee- meniscus repair Dr Yan Reason Comments Release Of Medical Records Reason Comments Appointment Orders Reason Comments Yearly Exam Surgical clearance / Right achilles tendon debridement and repair Reason Comments Question r/t cardiac clearance Reason Onset Date Comments Refill Request 03/30/2024 Reason Comments Pre-Op Exam Reason Comments copy of recent labs Reason Comments Mammogram Result Call Back Reason Comments Breast Problem Reason Comments Establish Care TRANSFER CARE, JANUSZ GTZ PT Care Teams (unrecognized sec tion and content) Funnel Coater Relationship Specialty Start Date End Date Markie Gtz PA-C [address] [place] [address] PCP - General Family Practice 08/09/21 Funnel Coater Relationship Specialty Start Date End Date Markie Gtz PA-C [address] [place] [address] PCP - General Family Practice 08/09/21 Funnel Coater Relationship Specialty Start Date End Date Markie Gtz PA-C [address] [place] [address] PCP - General Family Practice 08/09/21 Funnel Coater Relationship Specialty Start Date End Date Markie Gtz PA-C [address] [place] [address] PCP - General Family Medicine 08/09/21 Funnel Coater Relationship Specialty Start Date End Date Markie Gtz PA-C [address] [place] [address] PCP - General Family Medicine 08/09/21 Funnel Coater Relationship Specialty Start Date End Date Markie Gtz PA-C [address] [place] [address] PCP - General Family Medicine 08/09/21 Funnel Coater Relationship Specialty Start Date End Date Markie Gtz PA-C [address] [place] [address] PCP - General Family Medicine 08/09/21 Funnel Coater Relationship Specialty Start Date End Date Markie Gtz PA-C [address] [place] [address] PCP - General Family Medicine 08/09/21 Funnel Coater Relationship Specialty Start Date End Date Markie Gtz PA-C [address] [place] [address] PCP - General Family Medicine 08/09/21 Funnel Coater Relationship Specialty Start Date End Date Markie Gtz PA-C [address] [place] [address] PCP - General Family Medicine 08/09/21 Funnel Coater Relationship Specialty Start Date End Date Markie Gtz PA-C [address] [place] [address] PCP - General Family Medicine 08/09/21 Team Status: Active Member Role Status Dates Dr. Ceasar Madera III, MD Family Provider Active Markie KUO PA Primary Care Provider Active Team Status: Inactive Member Role Status Dates Markie KUO PA Primary Care Provider Active Dr. Reece Frazier MD Attending Provider, Referring Pr ovider Active Funnel Coater Relationship Specialty Start Date End Date Markie Gtz PA-C [address] [place] [address] PCP - General Family Medicine 08/09/21 Team Status: Inactive Member Role Status AYAAN Jauregui Primary Care Provider Active Dr. Kobi Yan MD Attending Provider, Referring Patricia griffith Active Funnel Coater Relationship Specialty Start Date End Date Markie Gtz PA-C [address] [place] [address] PCP - General Family Medicine 08/09/21 Funnel Coater Relationship Specialty Start Date End Date Markie Gtz PA-C [address] [place] [address] PCP - General Family Medicine 08/09/21 Funnel Coater Relationship Specialty Start Date End Date Markie Gtz PA-C [address] [place] [address] PCP - General Family Medicine 08/09/21 Funnel Coater Relationship Specialty Start Date End Date Markie Gtz PA-C [address] [place] [address] PCP - General Family Medicine 08/09/21 Funnel Coater Relationship Specialty Start Date End Date Markie Gtz PA-C [address] [place] [address] PCP - General Family Medicine 08/09/21 Funnel Coater Relationship Specialty Start Date End Date Markie Gtz PA-C [address] [place] [address] PCP - General Family Medicine 08/09/21 Funnel Coater Relationship Specialty Start Date End Date Markie Gtz PA-C [address] [place] [address] PCP - General Family Medicine 08/09/21 Funnel Coater Relationship Specialty Start Date End Date Markie Gtz PA-C [address] [place] [address] PCP - General Family Medicine 08/09/21 Funnel Coater Relationship Specialty Start Date End Date Markie Gtz PA-C [address] [place] [address] PCP - General Family Medicine 08/09/21 Funnel Coater Relationship Specialty Start Date End Date Markie Gtz PA-C [address] [place] [address] PCP - General Family Medicine 08/09/21 Funnel Coater Relationship Specialty Start Date End Date Markie Gtz PA-C [address] [place] [address] PCP - General Family Medicine 08/09/21 Funnel Coater Relationship Specialty Start Date End Date Markie Gtz PA-C [address] [place] [address] PCP - General Family Medicine 08/09/21 Funnel Coater Relationship Specialty Start Date End Date Markie Gtz PA-C [address] [place] [address] PCP - General Family Medicine 08/09/21 Funnel Coater Relationship Specialty Start Date End Date Markie Gtz PA-C [address] [place] [address] PCP - General Family Medicine 08/09/21 Funnel Coater Relationship Specialty Start Date End Date Markie Gtz PA-C [address] [place] [address] PCP - General Family Medicine 08/09/21 Funnel Coater Relationship Specialty Start Date End Date Markie Gtz PA-C [address] [place] [address] PCP - General Family Medicine 08/09/21 Funnel Coater Relationship Specialty Start Date End Date Umesh Gtz PA-C PCP - General Family Medicine 08/09/21 Nori Thorpe, DREDGE ENGINEER.PUBLIC HEALTH EPIDEMIOLOGIST [address] [place] [address] Onsite Case Manager Family Medicine 09/23/24 Radha Hummel, DREDGE ENGINEER.PUBLIC HEALTH EPIDEMIOLOGIST [address] [place] [address] [facility]site [facility] 09/23/24 Funnel Coater Relationship Specialty Start Date End Date Radha Hummel, DREDGE ENGINEER.PUBLIC HEALTH EPIDEMIOLOGIST [address] [place] [address] PCP - General Family Medicine 02/28/25 Nori Thorpe, DREDGE ENGINEER.PUBLIC HEALTH EPIDEMIOLOGIST [address] [place] [address] Onsite Case Manager Family Medicine 09/23/24 Radha Hummel, DREDGE ENGINEER.PUBLIC HEALTH EPIDEMIOLOGIST [address] [place] [address] Onsite [facility] 09/23/24 Team Status: Active Member Role Status Dates Dr. Ceasar Madera III, MD Family Provider Active LANIE Alvares Primary Care Provider Active Team Status: Inactive Member Role Status Dates Markie KUO PA Referring Provider Active Start: March 22, 2025 End: March 22, 2025 Dr. Kb Valdivia MD Attending Provider Active Start: March 22, 2025 End: March 22, 2025 LANIE Alvares Primary Care Provider Active Start: March 22, 2025 End: March 22, 2025 Goals (unrecognized section and content) Goals may be documented in a n alternate sectionGoals may be documented in an alternate sectionGoals may be documented in an alternate sectionGoals may be documented in an alternate section FOR RECORDS PERTAINING TO PATIENTS WHO ARE OR HAVE BEEN ENROLLED IN A CHEMICAL DEPENDENCY/SUBSTANCEABUSE PROGRAM, SOME INFORMATION MAY BE OMITTED. This clinical summary was aggregated from multiple sources. Caution should be exercised in using it in the provision of clinical care. This summary normalizes information from multiple sources, and as a consequence, information in this document may materially change the coding, format and clinical context of patient data. In addition, data may be omitted in some cases. CLINICAL DECISIONS SHOULD BE BASED ON THE PRIMARY CLINICAL RECORDS. [facility]. provides no warranty or guarantee of the accuracy or completeness of information in this document.
[2025-04-07 08:59] LABS: Albumin, Serum 4.5 g/dL (3.4-4.8); BUN 12 mg/dL (4-19); Creatinine, Serum 0.87 mg/dL (0.70-1.20); EST Glomerular Filtration Rate 75 (>60); Globulin 2.7 g/dL (2.2-4.2); Glucose 94 mg/dL (70-99); Protein, Total 7.1 g/dL (5.9-8.4)
[2025-04-07 09:00] LABS: ALB/GLOB Ratio 1.7 RATIO (0.9-2.4); AST(SGOT) 19 U/L (<=31); Alanine Aminotransfer ALT/SGPT 18 U/L (<=34); Alkaline Phosphatase 42 U/L (35-104); Anion Gap 12 (5-15); Calcium,Total 9.5 mg/dL (7.6-11.0); Carbon Dioxide 25.3 mmol/L (21.0-32.0); Chloride 103 mmol/L (98-108); Potassium 3.6 mmol/L (3.3-5.1); Sodium Level 140 mmol/L (133-145); Total Bilirubin 0.37 mg/dL (0.00-1.30)
== END | disposition home or self-care (01) ==
LOC: LAB 07:11
PROVIDERS: PCP Clinical Nurse Specialist Adult Health; Referring Provider Internal Medicine Cardiovascular Disease; Visit Provider Internal Medicine Cardiovascular Disease
DX: I10 Essential (primary) hypertension (principal)
CPT/HCPCS: 36415; 80053

== ENCOUNTER → 2025-05-01 | Outpatient (CLI) | payer BC, SELFPAY ==
--- NOTE | 2025-05-01 14:43 | ECHOD_ITS ---
Reason For Study Reason For Study: Pulm hypertension Procedure This was a 2D Doppler, Color Flow transthoracic echocardiogram. Exam performed in department. Left Ventricle Normal LV size. Mild concentric left ventricular hypertrophy. The LV ejection fraction is 65 %. Stage 1 diastolic dysfunction. Right Ventricle Normal right ventricle. Atria The left and right atria are normal. Mitral Valve Mild (1+) mitral valve insufficiency. Tricuspid Valve Trivial tricuspid valve insufficiency. Right ventricular systolic pressure estimated to be 42 mmHg. Aortic Valve Trisinus/trileaflet aortic valve. Pulmonic Valve The pulmonic valve is not well visualized. Great Vessels Normal sized aortic root. Pericardium/Pleural No pericardial effusion. MMode/2D Measurements & Calculations LVIDd: 4.0 cm IVSd: 1.2 cm Ao root diam: 3.0 cm LVIDs: 2.3 cm LVPWd: 1.0 cm RVDd: 3.3 cm FS: 41.6 % LAV(MOD-bp): 25.8 ml LVAd ap4: 22.3 cm2 LVAd ap2: 19.4 cm2 LAV(MOD-bp) Indexed: 13.3 ml/m2 LVLd ap4: 7.3 cm LVLd ap2: 7.4 cm LAV(MOD-sp2): 23.5 ml EDV(MOD-sp4): 59.5 ml EDV(MOD-sp2): 42.5 ml LAV(MOD-sp4): 23.2 ml EDV(sp4-el): 58.0 ml EDV(sp2-el): 43.2 ml LVAs ap4: 12.6 cm2 LVAs ap2: 10.5 cm2 LVLs ap4: 6.2 cm LVLs ap2: 6.6 cm ESV(MOD-sp4): 24.6 ml ESV(MOD-sp2): 15.6 ml ESV(sp4-el): 21.6 ml ESV(sp2-el): 14.3 ml EF(MOD-sp4): 58.7 % EF(MOD-sp2): 63.3 % EF(sp4-el): 62.8 % SV(MOD-sp4): 34.9 ml SV(MOD-sp2): 26.9 ml SV(sp4-el): 36.5 ml SI(MOD-sp4): 18.1 ml/m2 SI(MOD-sp2): 13.9 ml/m2 LA A4 area: 11.0 cm2 LA dimension(2D): 3.6 cm RA A4 area: 10.4 cm2 TAPSE: 1.7 cm Time Measurements MV dec time: 0.21 sec Doppler Measurements & Calculations MV E max ayaz: 70.7 cm/sec Lat Peak E' Ayaz: 7.0 cm/sec Med Peak E' Ayaz: 6.4 cm/sec MV A max ayaz: 90.9 cm/sec E/E' lat: 10.0 E/E' med: 11.1 MV E/A: 0.78 Ao V2 max: 136.6 cm/sec LV V1 max: 116.2 cm/sec MV dec slope: 343.7 cm/sec2 Ao max P.5 mmHg LV V1 max P.4 mmHg Ao V2 mean: 93.4 cm/sec LV V1 mean P.0 mmHg Ao mean P.9 mmHg LV V1 mean: 80.6 cm/sec Ao V2 VTI: 24.1 cm LV V1 VTI: 22.0 cm AV (velocity ratio): 0.91 PA V2 max: 134.3 cm/sec TR max ayaz: 260.1 cm/sec PA V2 mean: 87.7 cm/sec TR max P.1 mmHg ECHO/Echo Complete Interpretation Summary Mild concentric left ventricular hypertrophy. The LV ejection fraction is 65 %. Stage 1 diastolic dysfunction. Mild (1+) mitral valve insufficiency. Right ventricular systolic pressure estimated to be 42 mmHg. Ordering Physician: Kb Valdivia Referring Physician: Radha Sawyer Performed By: Alivia Bills RDCS
--- OUTSIDE RECORDS SUMMARY | 2025-05-01 22:44 | XMS RPT_ITS | CCD ---
Author Organization [facility] CliniSyor Care Team Providers Care Package Liner Name Role Phone KIRIT Shay RN, Tanya A Unavailable Unavailabl e Jaspal ROCKET ENGINE COMPONENT MECHANIC, Tanya A Unavailable Unavailable Jaspal ROCKET ENGINE COMPONENT MECHANIC, Tanya A Unavailable Unavailable VITEBSKChasY, KACEY Attending Unavailable CEBUL, CEASAR Primary Care Unavailable CEBUL, CEASAR Referring Unavailable VITEBSKVICKEY KACEY Attending Unavailable CEBUL, CEASAR Referring Unavailable CEBUL, CEASAR Primary Care Unavailable Barrett SUTTON, Alexandrea Elizabeth Unavailable Markie Gtz PA-C Primary Care Provider [phone] Markie Gtz PA-C Primary Care Provider [phone] Markie Gtz PA-C Primary Care Provider [phone] Markie Gtz PA-C Primary Care Provider [phone] CATHY NDIAYE Referring Unavailable Markie GTZ Primary Care Unavailable Umesh Gtz PA-C Primary Care Provider Unavailable Haagen STORES LABORER.QUANTITATIVE ANALYST, Nori Unavailable Suppan STORES LABORER.ABDULKADIR, Radha A Unavailable Suppan STORES LABORER.QUANTITATIVE ANALYST, Radha A Unavailable Suppan STORES LABORER.ABDULKADIR, Radha A Primary Care Provi marquita SUPPJHOAN, [...] Attending Unavailable UMESH GTZ Primary Care Unavailable VINNIECATHY BONIFACIO Attending Unavailable SUPPAN, RADHA A Referring Unavailable UMESH GTZ Primary Care Unavailable SUPPAN, RADHA A Referring Unavailable Markie Heredia Referring Provider Dr. Kb Valdivia MD Attending Provider Suppan LANIE, Radha Primary Care Provider Dr. Kb Valdivia MD Referring Provider SkipKb gentile Attending Unavailable Suppan, Radha Primary Care Unavailable Markie Heredia Referring Unavailable Skip, Kb Referring Unavailable Skip, Kb Attending Unavailable Suppan, Radha Primary Care Unavailable Skip, Kb Attending Unavailable Suppan, Radha Primary Care Unavailable Skip, Kb Referring Unavailable Allergies Allergy Classification Reported Allergen(s) Allergy Type Date of Onset Reaction(s) Facility (20 sources) Seasonal allergy; Translations: [SEASONAL ALLERGIES] Propensity to adverse reactions (disorder) 1 Other: See Comments [facility] Repository Medications Current Medications Medication Drug Class(es) Dates Sig (Normalized) Sig (Original) aspirin 81 mg delayed release oral tablet (2 sources) Platelet Aggregation Inhibitor, Nonsteroidal Anti-inflammatory Drug Start: 04-15-2024 take 1 tablet by mouth once daily Aspirin 81 mg tablet,delayed release (DR/EC) Active 81 mg PO DAILY April 15, 2024 12:00am atorvastatin 20 mg oral tablet (20 sources) HMG-CoA Reductase Inhibitor Start: 08-09-2021 End: 02-28-2026 take 1 tablet by mouth at bedtime Atorvastatin 20 mg tablet Active 20 mg PO AT BEDTIME March 01, 2024 12:00am Comment on above: Take 1 tablet by betty th daily at bedtime. For cholesterol. azithromycin 10 mg/ml ophthalmic solution (1 source) [...] One tablet by mouth daily COENZYME Q10 [id number] Alexandrea Hyde MD Comment on above: Take 200 mg by mouth . hydroCHLOROthiazide 25 mg / lisinopril 20 mg oral tablet (20 sources) Thiazide Diuretic, Angiotensin Converting Enzyme Inhibitor Start: 03-22-2025 Lisinopril-Hydroc hlorothiazide 20-25 mg tablet Active 1 {tbl} PO daily March 22, 2025 12:00am Start: 11-28-2021 End: 02-28-2026 Lisinopril-Hydrochlorothiazi de 20-12.5 mg tablet Discontinued 1 {tbl} PO DAILY March 22, 2024 12:00am March 22, 2025 5:24pm Comment on above: Take 1 tablet by betty th every morning. Inhalational Spacing Device (1 source) Start: 01-01-2023 [...] calcium,iron,min (WOMEN'S MULTIPLE VITAMINS ORAL) Multivitamin tablet (2 sources) Start: 04-04-2024 Multivitamin tablet Active 1 {tbl} PO DAILY April 04, 2024 12:00am polymyxin b 47510 unt/ml / trimethoprim 1 mg/ml ophthalmic solution [...] on above: Take 2 tablets by mo [facility] once daily for 4 days. Take daily with food. levothyroxine sodium 0.025 mg oral tablet (20 sources) l-Thyroxine Start: 03-27-2016 End: 10-04-2024 take 1 tablet by mouth once daily levothyroxine (SYNTHROID) 25 mcg tablet Indications: Acquired hypothyroidism TAKE 1 TABLET BY MOUTH ONCE DAILY. TAKE ON AN EMPTY STOMACH 90 tablet 1 11/11/2024 Active Comment on above: TAKE 1 TABLET BY BETTY ONCE DAILY. TAKE ON AN EMPTY STOMACH Completed/Discontinued Medications Medication Drug Class(es) Dates Sig (Normalized) Sig (Original) acetaminophen 325 mg / oxyCODONE hydrochloride 5 mg oral tablet (2 sources) Opioid Agonist Start: 04-15-2024 End: 03-22-2025 Oxycodone-Acetamino phen (Endocet) 5-325 mg tablet Discontinued 1 {tbl} PO EVERY 6 HOURS 15 05April 15, 2024 March 22, 2025 1:03pm [id number] 200 actuat albuterol 0.09 mg/actuat metered dose inhaler (3 sources) beta2-Adrenergic Agonist Start: 01-01-2023 End: 02-20-2023 take 2 puff(s) by inhalation every six hours as needed for wheezing albuterol HFA (PROVENTIL HFA, VENTOLIN HFA) 90 mcg/actuation inhaler Indications: Post-viral cough syndrome Inhale 2 Puffs as instructed every 6 hours as needed for wheezing/shortness of breath. 1 Each 0 01/01/2023 02/20/2023 Discontinued (Course of therapy completed) Comment on above: Inhale 2 Puffs as in structed every 6 hours as needed for wheezing/shortness of breath. amoxicillin 500 mg oral capsule (2 sources) Penicillin-class Antibacterial Start: 04-08-2024 End: 03-22-2025 take 1 capsule by mouth three times daily Amoxicillin 500 mg capsule Discontinued 500 mg PO THREE TIMES A DAY April 08, 2024 12:00am March 22, 2025 1:01pm ascorbic acid 1000 mg oral tablet (2 sources) Vitamin C Start: 04-15-2024 End: 03-22-2025 take 1 g by mouth once daily Ascorbic Acid (Vitamin C) (Vitamin C) 1,000 mg tablet Discontinued 1 g PO DAILY April 15, 2024 12:00am March 22, 2025 1:02pm benzonatate 100 mg oral capsule (3 sources) [...] mg / cholecalciferol 600 unt oral tablet (2 sources) Vitamin D Start: 04-15-2024 End: 03-22-2025 Calcium Carbonate-Vitamin D3 (Os-Erica 500 + D3) 500 mg-15 mcg (600 unit) tablet Discontinued 1 {tbl} PO DAILY April 15, 2024 12:00am March 22, 2025 1:02pm 24 hr dilTIAZem hydrochloride 120 mg extended release oral capsule (20 sources) Calcium Channel Azeem Start: 08-22-2016 End: 02-28-2026 take 1 capsule by mouth once daily dilTIAZem CD (CARDIZEM CD, CARTIA XT) 120 mg 24 hr capsule Indications: WPW (Hdojk-Goiyxfmut-Un ite syndrome) , Hypertension, essential Take 1 capsule by mouth once daily. 90 capsule 1 02/28/2025 02/28/2025 Discontinued Comment on above: Take 1 capsule by mo [facility] once daily. docusate sodium 100 mg oral capsule (2 sources) Start: 04-15-2024 End: 03-22-2025 take 1 capsule by mouth once daily Docusate Sodium (Colace) 100 mg capsule Discontinued 100 mg PO DAILY 10 April 15, 2024 12:00am March 22, 2025 1:03pm Lidocaine (1 source) Antiarrhythmic, Amide Local Anesthetic Start: 08-12-2024 End: 08-12-2024 OTHER, NEEDED, Starting on Thu08/12/24 at 1321, Until Thu08/12/24 at 1321, Intraprocedure lisinopril 10 mg oral tablet (8 sources) Angiotensin Converting Enzyme Inhibitor Start: 09-17-2021 End: 02-13-2022 take 2 tablets by mouth once daily lisinopril (ZESTRIL, PRINIVIL) 10 mg tablet Take 2 tablets by mouth once daily. 90 tablet 1 09/17/2021 02/13/2022 Discontinued (Dosage adjustment) Start: 10-29-2018 End: 03-22-2024 take 1 tablet by mouth once daily Lisinopril 5 mg tablet Discontinued 5 mg PO DAILY October 29, 2018 1:00am March 22, 2024 2:33pm Comment on above: Take 2 tablets by [facility] once daily. Melatonin (17 sources) End: 02-29-2024 MELATONIN ORAL Take by mouth. 0 02/29/2024 Discontinued MELATONIN ORAL T myles by mouth. 0 Active Comment on above: Take by mouth. meloxicam 15 mg oral tablet (6 sources) Nonsteroidal Anti-inflammatory Drug Start: 3 End: take 1 tablet by mouth once meloxicam (MOBIC) 15 mg tablet Take 1 tablet by mouth every afternoon. 0 07/30/2023 02/29/2024 Discontinued Comment on above: [facility] Problems Active Problems Problem Classification Problem Date Documented Date Episodic/Chronic Cardiac dysrhythmias (20 sources) Ventricular premature depolarization; Translations: [Persistent atrial fibrillation] Onset: 04-15-2016 Resolved: 09-02-2017 09-02-2017 Chronic Conduction disorders (20 sources) Odcws-Dlzlkskny-Auoug pattern; Translations: [Pre-excitation syndrome] Onset: 04-15-2016 07-25-2016 Chronic Diabetes mellitus without complication (4 sources) Increased glucose level; Translations: [Other abnormal glucose] Episodic Disorders of lipid metabolism (16 sources) Mixed hyperlipidemia; Translations: [Mixed hyperlipidemia] Onset: [...] knee, sequela] 08-24-2023 Episodic Nonmalignant breast conditions (8 sources) Fibrocystic disease of breast; Translations: [Diffuse cystic mastopathy of right breast] Onset: 02-28-2025 10-29-2018 Chronic Nutritional deficiencies (1 source) Vitamin D deficiency; Translations: [Vitamin D deficiency, unspecified] 02-29-2024 Chronic Other and unspecified benign neoplasm (20 sources) Melanocytic nevus of trunk; Translations: [Melanocytic nevi of trunk] Onset: 08-08-2019 08-08-2019 Episodic Other circulatory disease (2 sources) H/O: atrial fibrillation; Translations: [Personal history of other diseases of the circulatory system] 03-22-2024 Episodic Comment on above: IN THE PAST Other connective tissue disease (1 source) Disorder of Achilles tendon; Translations: [Unspecified disorder of synovium and tendon, right ankle and foot] 04-06-2024 Episodic Other connective tissue disease (2 sources) Right achilles tendonitis; Translations: [Achilles tendinitis, right leg] 04-16-2024 Episodic Other connective tissue disease (2 sources) Bursitis of bursa of ankle and/or foot; Translations: [Other bursitis, not elsewhere classified, right ankle and foot] 04-16-2024 Episodic Other connective tissue disease (2 sources) Foot pain; Translations: [Pain in right foot] 03-22-2024 Episodic Other connective tissue disease (2 sources) Calcaneal spur; Translations: [Calcaneal spur, right foot] 04-16-2024 Episodic Other eye disorders (1 source) Discharge from eye; Translations: [Other specified disorders of eye and adnexa] Episodic Other lower respiratory disease (2 sources) Cough; Translations: [Subacute cough] Episodic Other lower respiratory disease (1 source) Postviral cough; Translations: [Post-viral cough syndrome] Episodic Other nervous system disorders (2 sources) Acute postoperative pain; Translations: [Other acute postprocedural pain] 04-15-2024 Episodic Pulmonary heart disease (6 sources) Pulmonary hypertension, unspecified; Translations: [Mild pulmonary [...] (1 source) Cancer cervix screening status 02-28-2025 Past or Other Problems Problem Classification Problem Date Documented Da te Episodic/Chronic Nonmalignant breast conditions (7 sources) Breast lump; Translations: [Lesion of breast] Onset: 07-25-2016 03-12-2017 Episodic Other and unspecified benign neoplasm (1 source) Melanocytic nevi of trunk; Translations: [Melanocytic nevus of trunk] Onset: 08-08-2019 Episodic Results Test Name Value Interpretation Reference Range Facility Anion gap in Serum or Plasma Ordered By: Kb Valdivia on 04-07-2025 Anion gap [Moles/Vol] 12 mmol/L 03-02 [facility] BUN/creatinine ratioOrdered By: Kb Valdivia on 04-07-2025 Urea nitrogen/Creatinine [Mass ratio] 14.0 mg/mg 08-07 [facility] Bilirubin, totalOrdered By: Kb Valdivia on 04-07-2025 Bilirubin [Mass/Vol] 0.37 mg/dL Normal 0.00-1.30 [facility] Comment on above: Performed By: #### L 500.4050 #### [facility] [address] [place], [address] Carbon dioxide, total [Moles /volume] in Central venous bloodOrdered By: Kb Valdivia on 04-07-2025 CO2 [Moles/Vol] 25.3 mmol/L Normal 21.0-32.0 [facility] Comment on above: Performed By: #### L [id number] #### [facility] [address] [place], [address] Chloride assayOrdered By: Toni Valdivia on 04-07-2025 Chloride [Moles/Vol] 103 mmol/L Normal 98-108 [facility] Comment on above: Performed By: #### L [id number] #### [facility] [address] [place], [address] Comprehensive Metabolic Prof ilon 04-07-2025 ALK PHOS 42 U/L Normal 35-104 [facility] Comment on above: Performed By: #### L [id number] #### [facility] [address] [place], [address] GAP 12 Normal 5-15 [facility] Comment on above: Performed By: #### L [id number] #### [facility] [address] [place], [address] Potassium [Moles/Vol] 3.6 mmol/L Normal 3.3-5.1 [facility] Comment on above: Performed By: #### L [id number] #### [facility] [address] [place], [address] Albumin [Mass/Vol] 4.5 g/dL Normal 3.4-4.8 [facility] Comment on above: Performed By: #### L [id number] #### [facility] [address] [place], [address] BUN/CRE 14.0 RATIO Normal 10-20 [facility] Comment on above: Performed By: #### L [id number] #### [facility] [address] [place], [address] Creatinine [Mass/Vol] 0.87 mg/dL Normal 0.70-1.20 [facility] Comment on above: Performed By: #### L [id number] #### [facility] [address] [place], [address] GFR/1.73 sq M.predicted among non-blacks MDRD (S/P/Bld) [Vol rate/Area] 75 mL/min/{1.73_m2} Normal >60 [facility] Comment on above: Result Comment: mL/m in/1.73m2 CKD-EPI Creatinine Equation (2020) Performed By: #### L [id number] #### [facility] [address] [place], [address] Globulin (S) [Mass/Vol] 2.7 g/dL Normal 2.2-4.2 [facility] Comment on above: Performed By: #### L [id number] #### [facility] [address] [place], [address] Glucose [Mass/Vol] 94 mg/dL Normal 70-99 [facility] Comment on above: Performed By: #### L [id number] #### [facility] [address] [place], [address] T PROT 7.1 g/dL Normal 5.9-8.4 [facility] Comment on above: Performed By: #### L [id number] #### [facility] [address] [place], [address] Urea nitrogen [Mass/Vol] 12 mg/dL Normal 4-19 [facility] Comment on above: Performed By: #### L [id number] #### [facility] [address] [place], [address] Comprehensive Metabolic Prof ilOrdered By: Kb Valdivia on 04-07-2025 AST [Catalytic activity/Vol] 19 U/L Normal <=31 [facility] Comment on above: Performed By: #### L [id number] #### [facility] [address] [place], [address] Glomerular filtration rate ( GFR) estimation/1.73 sq m using serum, plasma, or whole bOrdered By: Kb Valdivia on 04-07-2025 GFR/1.73 sq M.predicted among non-blacks MDRD (S/P/Bld) [Vol rate/Area] 75 mL/min/{1.73_m2} >60 [facility] Comment on above: mL/min/1.73m2 CKD-EP I Creatinine Equation (2020) Potassium measurement (mass/ volume)Ordered By: Kb Valdivia on 04-07-2025 Potassium (Unsp spec) [Mass/Vol] 3.6 mmol/L 3.3-5.1 [facility] Serum creatinine measurement (mass/volume)Ordered By: Kb Valdivia on 04-07-2025 Creatinine [Mass/Vol] 0.87 mg/dL 0.70-1.20 [facility] Serum globulin measurementOr dered By: Kb Valdivia on 04-07-2025 Globulin (S) [Mass/Vol] 2.7 g/dL 2.2-4.2 [facility] Serum glucose measurement (m ass/volume)Ordered By: Kb Valdivia on 04-07-2025 Glucose [Mass/Vol] 94 mg/dL 70-99 [facility] Serum or plasma alanine mello otransferase (ALT) measurementOrdered By: Kb Valdivia on 04-07-2025 ALT [Catalytic activity/Vol] 18 U/L Normal <=34 [facility] Comment on above: Performed By: #### L 500.4050 #### [facility] [address] [place], [address] Serum or plasma albumin raquel urement (mass/volume)Ordered By: Kb Skip on 04-07-2025 Albumin [Mass/Vol] 4.5 g/dL 3.4-4.8 [facility] Serum or plasma albumin/glob ulin mass ratioOrdered By: Kb Skip on 04-07-2025 Albumin/Globulin [Mass ratio] 1.7 {ratio} Normal 0.9-2.4 [facility] Comment on above: Performed By: #### L 500.4050 #### [facility] [address] [place], [address] Serum or plasma alkaline kelly sphatase measurementOrdered By: Kb Skip on 04-07-2025 ALP [Catalytic activity/Vol] 42 U/L 35-104 [facility] Serum or plasma calcium raquel urement (mass/volume)Ordered By: [facility]Sent[facility] Hospital[facility] on 04-07-2025 Calcium [Mass/Vol] 9.5 mg/dL Normal 7.6-11.0 [facility] Comment on above: Performed By: #### L 500.4050 #### [facility] [address] [place], [address] Serum or plasma urea nitroge n measurement (mass/volume)Ordered By: Kb Skip on 04-07-2025 Urea nitrogen [Mass/Vol] 12 mg/dL 4-19 [facility] Sodium levelOrdered By: Ivan ad Skip on 04-07-2025 Sodium [Moles/Vol] 140 mmol/L Normal 133-145 [facility] Comment on above: Performed By: #### L 500.4050 #### [facility] [address] [place], [address] Total proteinOrdered By: Ars had Skip on 04-07-2025 Protein [Mass/Vol] 7.1 g/dL 5.9-8.4 [facility] Cardiology Visit Reporton Cardiology Visit Report [facility] [address] [place] [address] OFFICE VISIT Date of Service: 03/22/25 MR#: [id number] Acct: [id number] Name: BRITT CARBALLO Rep #: [id number] : 1960 Provider: Dr. 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 Normal [facility] CBC W Auto Differential pane l (Bld)on 02-28-2025 Basophils (Bld) [#/Vol] 0.05 10*3/uL [facility] Basophils/100 WBC (Bld) 0.9 % [facility] Differential cell count method Nom (Bld) Auto [facility] Eosinophils (Bld) [#/Vol] 0.27 10*3/uL [facility] Eosinophils/100 WBC (Bld) 4.8 % [facility] Erythrocyte distribution width (RBC) [Ratio] 11.8 % 11.5 - 15.0 % [facility] Hematocrit (Bld) [Volume fraction] 42.8 % 36.0 - 46.0 % [facility] Hemoglobin (Bld) [Mass/Vol] 14.2 g/dL 11.5 - 15.5 g/dL [facility] Immature granulocytes (Bld) [#/Vol] [facility] Immature granulocytes/100 WBC (Bld) 0.2 % [facility] Lymphocytes (Bld) [#/Vol] 1.34 10*3/uL [facility] Lymphocytes/100 WBC (Bld) 23.9 % [facility] MCH (RBC) [Entitic mass] 30 pg 26.0 - 34.0 pg [facility] MCHC (RBC) [Mass/Vol] 33.2 g/dL 30.5 - 36.0 g/dL [facility] MCV (RBC) [Entitic vol] 90.5 fL 80.0 - 100.0 fL [facility] Monocytes (Bld) [#/Vol] 0.41 10*3/uL [facility] Monocytes/100 WBC (Bld) 7.3 % [facility] Neutrophils (Bld) [#/Vol] 3.52 10*3/uL [facility] Neutrophils/100 WBC (Bld) 62.9 % [facility] Nucleated RBC (Bld) [#/Vol] NINF [facility] Nucleated RBC/100 WBC (Bld) [Ratio] 0 % /100 WBC [facility] Platelet mean volume (Bld) [Entitic vol] 10.4 fL 9.0 - 12.7 fL [facility] Platelets (Bld) [#/Vol] 278 10*3/uL [facility] RBC (Bld) [#/Vol] 4.73 10*6/uL 3.90 - 5.2 0 m/uL [facility] WBC (Bld) [#/Vol] 5.6 10*3/uL [facility] Basophils (Bld) [#/Vol] 0.05 10*3/uL Normal <0.11 [facility] Comment on above: Order Comment: Speci men Type: BLOOD SPECIMENOrdering Facility: [facility] Address: [address] [place] [address] Performed By: #### 5 7021-8 ####[facility] LABCLIA [id number] [place] [address] [place] Basophils/100 WBC (Bld) 0.9 % Normal [facility] Comment on above: Order Comment: Speci men Type: BLOOD SPECIMENOrdering Facility: [facility] Address: [address] [place] [address] Performed By: #### 5 7021-8 ####[facility] LABCLIA [id number] [place] [address] [place] Differential cell count method Nom (Bld) Auto Normal [facility] Comment on above: Order Comment: Speci men Type: BLOOD SPECIMENOrdering Facility: [facility] Address: [address] [place] [address] Performed By: #### 5 7021-8 ####[facility] LABCLIA [id number] [place] [address] [place] Eosinophils (Bld) [#/Vol] 0.27 10*3/uL Normal <0.46 [facility] Comment on above: Order Comment: Speci men Type: BLOOD SPECIMENOrdering Facility: [facility] Address: [address] [place] [address] Performed By: #### 5 7021-8 ####[facility] LABCLIA [id number] [place] [id number] [place] Eosinophils/100 WBC (Bld) 4.8 % Normal [facility] Comment on above: Order Comment: Speci men Type: BLOOD SPECIMENOrdering Facility: [facility] Address: [address] [place] [address] Performed By: #### 5 7021-8 ####[facility] LABIA [id number] [address], [place] [address] [place] Erythrocyte distribution width (RBC) [Ratio] 11.8 % Normal 11.5-15.0 [facility] Comment on above: Order Comment: Speci men Type: BLOOD SPECIMENOrdering Facility: [facility] Address: [address] [place] [address] Performed By: #### 5 7021-8 ####[facility] LABIA [id number] [place] [address] [place] Hematocrit (Bld) [Volume fraction] 42.8 % Normal 36.0-46.0 [facility] Comment on above: Order Comment: Speci men Type: BLOOD SPECIMENOrdering Facility: [facility] Address: [address] [place] [address] Performed By: #### 5 7021-8 ####[facility] LABIA [id number] [place] [id number] [place] Hemoglobin (Bld) [Mass/Vol] 14.2 g/dL Normal 11.5-15.5 [facility] Comment on above: Order Comment: Speci men Type: BLOOD SPECIMENOrdering Facility: [facility] Address: [address] [place] [address] Performed By: #### 5 7021-8 ####[facility] LABCLIA [id number] [address], [place] [address] [place] Immature granulocytes (Bld) [#/Vol] 10*3/uL Normal <0.10 [facility] Comment on above: Order Comment: Speci men Type: BLOOD SPECIMENOrdering Facility: [facility] Address: [address] [place] [address] Performed By: #### 5 7021-8 ####[facility] LABCLIA [id number] [place] [address] [place] Immature granulocytes/100 WBC (Bld) 0.2 % Normal [facility] Comment on above: Order Comment: Speci men Type: BLOOD SPECIMENOrdering Facility: [facility] Address: [address] [place] [address] Performed By: #### 5 7021-8 ####[facility] LABIA [id number] [place] [address] [place] Lymphocytes (Bld) [#/Vol] 1.34 10*3/uL Normal 1.00-4.00 [facility] Comment on above: Order Comment: Speci men Type: BLOOD SPECIMENOrdering Facility: [facility] Address: [address] [place] [address] Performed By: #### 5 7021-8 ####[facility] LABCLIA [id number] [place] [address] [place] Lymphocytes/100 WBC (Bld) 23.9 % Normal [facility] Comment on above: Order Comment: Speci men Type: BLOOD SPECIMENOrdering Facility: [facility] Address: [address] [place] [address] Performed By: #### 5 7021-8 ####[facility] LABCLIA [id number] [place] [address] [place] MCH (RBC) [Entitic mass] 30.0 pg Normal 26.0-34.0 [facility] Comment on above: Order Comment: Speci men Type: BLOOD SPECIMENOrdering Facility: [facility] Address: [address] [place] [address] Performed By: #### 5 7021-8 ####[facility] LABCLIA [id number] [place] [address] [place] MCHC (RBC) [Mass/Vol] 33.2 g/dL Normal 30.5-36.0 [facility] Comment on above: Order Comment: Speci men Type: BLOOD SPECIMENOrdering Facility: [facility] Address: [address] [place] [address] Performed By: #### 5 7021-8 ####[facility] LABIA [id number] [place] [address] [place] MCV (RBC) [Entitic vol] 90.5 fL Normal 80.0-100.0 [facility] Comment on above: Order Comment: Speci men Type: BLOOD SPECIMENOrdering Facility: [facility] Address: [address] [place] [address] Performed By: #### 5 7021-8 ####[facility] LABIA [id number] [place] [address] [place] Monocytes (Bld) [#/Vol] 0.41 10*3/uL Normal <0.87 [facility] Comment on above: Order Comment: Speci men Type: BLOOD SPECIMENOrdering Facility: [facility] Address: [address] [place] [address] Performed By: #### 5 7021-8 ####[facility] LABIA [id number] [address] [place] Monocytes/100 WBC (Bld) 7.3 % Normal [facility] Comment on above: Order Comment: Speci men Type: BLOOD SPECIMENOrdering Facility: [facility] Address: [address] [place] [address] Performed By: #### 5 7021-8 ####[facility] LABCLIA [id number] [place] [address] [place] Neutrophils (Bld) [#/Vol] 3.52 10*3/uL Normal 1.45-7.50 [facility] Comment on above: Order Comment: Speci men Type: BLOOD SPECIMENOrdering Facility: [facility] Address: [address] [place] [address] Performed By: #### 5 7021-8 ####[facility] LABCLIA [id number] [place] [address] [place] Neutrophils/100 WBC (Bld) 62.9 % Normal [facility] Comment on above: Order Comment: Speci men Type: BLOOD SPECIMENOrdering Facility: [facility] Address: [address] [place] [address] Performed By: #### 5 7021-8 ####[facility] LABCLIA [id number] [place] [address] [place] Nucleated RBC (Bld) [#/Vol] 10*3/uL Normal <0.01 [facility] Comment on above: Order Comment: Speci men Type: BLOOD SPECIMENOrdering Facility: [facility] Address: [address] [place] [address] Performed By: #### 5 7021-8 ####[facility] LABCLIA [id number] [place] [address] [place] Nucleated RBC/100 WBC (Bld) [Ratio] 0.0 /100 WBC Normal [facility] Comment on above: Order Comment: Speci men Type: BLOOD SPECIMENOrdering Facility: [facility] Address: [address] [place] [address] Performed By: #### 5 7021-8 ####[facility] LABCLIA [id number] [address] [address] [id number] [address] [place] Platelet mean volume (Bld) [Entitic vol] 10.4 fL Normal 9.0-12.7 [facility] Comment on above: Order Comment: Speci men Type: BLOOD SPECIMENOrdering Facility: [facility] Address: [address] [place] [address] Performed By: #### 5 7021-8 ####[facility] LABCLIA [id number] [place] [address] [place] Platelets (Bld) [#/Vol] 278 10*3/uL Normal 150-400 [facility] Comment on above: Order Comment: Speci men Type: BLOOD SPECIMENOrdering Facility: [facility] Address: [address] [place] [address] Performed By: #### 5 7021-8 ####[facility] LABIA [id number] [place] [address] [place] RBC (Bld) [#/Vol] 4.73 10*6/uL Normal 3.90-5.20 [facility] Comment on above: Order Comment: Speci men Type: BLOOD SPECIMENOrdering Facility: [facility] Address: [address] [place] [address] Performed By: #### 5 7021-8 ####[facility] LABIA [id number] [place] [address] [place] WBC (Bld) [#/Vol] 5.60 10*3/uL Normal 3.70-11.00 [facility] Comment on above: Order Comment: Speci men Type: BLOOD SPECIMENOrdering Facility: [facility] Address: [address] [place] [address] Performed By: #### 5 7021-8 ####[facility] LABIA [id number] [place] [id number] [place] CNOVon 02-28-2025 CNOV Office Visit (FAMPWS ) FELECIA CARBALLO ([id number]) 1960 F [place] Date Time Provider Department 02/28/25 9:00 AM RADHA HUMMEL During your visit today, we recorded the following information about you: Pulse Blood pressure Weight 92/minute 116/78 83 kg Radha Hummel, [employer] 02/28/2025 9:49 AM Signed This is a 64 year old female who presents today with: Patient presents with: Establish Care: TRANSFER JANUSZ EISENBERG PT HISTORY OF PRESENT ILLNESS: Felecia Carballo is a 64 year old female. Patient presents with: Establish Care: TRANSFER JANUSZ EISENBERG PT Britt is a 64-year-old female presenting [...] questioning the need for frequent visits to [facility] for mammograms. 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 (more content not included)... Normal [facility] Comprehensive metabolic 2000 panelon 02-28-2025 Albumin [Mass/Vol] 4.6 g/dL Normal 3.9-4.9 [facility] Comment on above: Order Comment: Speci men Type: BLOOD SPECIMENOrdering Facility: [facility] Address: [address] [place] [address] Performed By: #### 2 43212-24, 2132-06 ####[facility] LABCLIA [id number] [place] [address] [place] ALP [Catalytic activity/Vol] 43 U/L Normal 34-123 [facility] Comment on above: Order Comment: Speci men Type: BLOOD SPECIMENOrdering Facility: [facility] Address: [address] [place] [address] Performed By: #### 2 43212-24, 2132-06 ####[facility] LABCLIA [id number] [address] [address] [place] ALT [Catalytic activity/Vol] 20 U/L Normal 7-38 [facility] Comment on above: Order Comment: Speci men Type: BLOOD SPECIMENOrdering Facility: [facility] Address: [address] [place] [address] Performed By: #### 2 4323-05, 2132-06 ####[facility] LABCLIA [id number] [address] [place] [address] [place] Anion gap [Moles/Vol] 15 mmol/L Normal 8-15 [facility] Comment on above: Order Comment: Speci men Type: BLOOD SPECIMENOrdering Facility: [facility] Address: [address] [place], [place] [address] Performed By: #### 2 4323-05, 2132-06 ####[facility] LABCLIA [id number] [address] [address] [place] AST [Catalytic activity/Vol] 19 U/L Normal 13-35 [facility] Comment on above: Order Comment: Speci men Type: BLOOD SPECIMENOrdering Facility: [facility] Address: [address] [place], [place] [address] Performed By: #### 2 4323-05, 2132-06 ####[facility] LABCLIA [id number] [address] [address] [place] Bilirubin [Mass/Vol] 0.4 mg/dL Normal 0.2-1.3 [facility] Comment on above: Order Comment: Speci men Type: BLOOD SPECIMENOrdering Facility: [facility] Address: [address] [place] [address] Performed By: #### 2 432-8, 2132-06 ####[facility] LABCLIA [id number] [address] [address] [place] Calcium [Mass/Vol] 10.2 mg/dL Normal 8.5-10.2 [facility] Comment on above: Order Comment: Speci men Type: BLOOD SPECIMENOrdering Facility: [facility] Address: [address] [place] [address] Performed By: #### 2 4323-8, 2132-06 ####[facility] LABCLIA [id number] [address] [address] [place] Chloride [Moles/Vol] 103 mmol/L Normal 98-107 [facility] Comment on above: Order Comment: Speci men Type: BLOOD SPECIMENOrdering Facility: [facility] Address: [address] [place], [place] [address] Performed By: #### 2 432-8, 2132-06 ####[facility] LABCLIA [id number] [address] [address] [place] CO2 [Moles/Vol] 23 mmol/L Normal 22-30 [facility] Comment on above: Order Comment: Speci men Type: BLOOD SPECIMENOrdering Facility: [facility] Address: [address] [place] [address] Performed By: #### 2 4328, 2132-06 ####[facility] LABCLIA [id number] [address] [address] [place] Creatinine [Mass/Vol] 0.85 mg/dL Normal 0.58-0.96 [facility] Comment on above: Order Comment: Speci men Type: BLOOD SPECIMENOrdering Facility: [facility] Address: [address] [place], [place] [address] Performed By: #### 2 4323-8, 2132-06 ####[facility] LABIA [id number] [address] [address] [place] Creatinine and Glomerular filtration rate.predicted panel (S/P/Bld) 78 mL/min/1.73m??? Normal >=60 [facility] Comment on above: Order Comment: Speci men Type: BLOOD SPECIMENOrdering Facility: [facility] Address: [address] [place], [place] [address] Result Comment: Heather mated Glomerular Filtration Rate [...] reflect actual GFR. Performed By: #### 2 4323-05, 2132-06 ####[facility] LABCLIA [id number] [address] [address] [place] Glucose [Mass/Vol] 108 mg/dL High 74-99 [facility] Comment on above: Order Comment: Felix saleh Type: BLOOD SPECIMENOrdering Facility: [facility] Address: [address] [place] [address] Result Comment: The [place] Diabetes Association (ADA) provides guidance for cutoff [...] Standards of Medical Care in Diabetes 2016, [place] [employer]. Diabetes Care. 2016.39(Suppl 1). Performed By: #### 2 4323-05, 2132-06 ####[facility] LABCLIA [id number] [address] [address] [place] Potassium [Moles/Vol] 4.2 mmol/L Normal 3.7-5.1 [facility] Comment on above: Order Comment: Felix saleh Type: BLOOD SPECIMENOrdering Facility: [facility] Address: [address] [place] [address] Performed By: #### 2 4323-05, 2132-06 ####[facility] LABCLIA [id number] [address] [address] [place] Protein [Mass/Vol] 7.1 g/dL Normal 6.3-8.0 [facility] Comment on above: Order Comment: Speci men Type: BLOOD SPECIMENOrdering Facility: [facility] Address: [address] [place] [address] Performed By: #### 2 432-8, 2132-06 ####[facility] LABCLIA [id number] [address] [address] [place] Sodium [Moles/Vol] 141 mmol/L Normal 136-144 [facility] Comment on above: Order Comment: Speci men Type: BLOOD SPECIMENOrdering Facility: [facility] Address: [address] [place] [address] Performed By: #### 2 8, 2132-06 ####[facility] LABCLIA [id number] [place] [address] [place] Urea nitrogen [Mass/Vol] 12 mg/dL Normal 7-21 [facility] Comment on above: Order Comment: Speci men Type: BLOOD SPECIMENOrdering Facility: [facility] Address: [address] [place] [address] Performed By: #### 2 4328, 2132-06 ####[facility] LABCLIA [id number] [place] [address] [place] LIPID PANEL, NONFASTINGon Cholesterol [Mass/Vol] 158 mg/dL Normal <200 [facility] Comment on above: Order Comment: Speci men Type: BLOOD SPECIMENOrdering Facility: [facility] Address: [address] [place] [address] Result Comment: <200 mg/dL, Desirable 200-239 mg/dL, Borderline high >239 mg/dL, High Performed By: #### L IPNF, 99322-3, 3016-3, 3024-7 ####[facility] LABCLIA [id number] [address], [facility] [place] HDL CHOLESTEROL, NF 36 mg/dL Low >39 [facility] Comment on above: Order Comment: Specchas saleh Type: BLOOD SPECIMENOrdering Facility: [facility] Address: [address] [place] [address] Result Comment: 40-5 9 mg/dL, Acceptable >59 mg/dL, High: Negative risk factor for coronary heart disease <40 mg/dL, Low: Positive risk factor for coronary heart disease Performed By: #### L TARIK, , 3015-3, 7 ####[facility] LABCLIA [id number] [address] [facility] LDL CHOLESTEROL CALCULATED, NF 87 mg/dL Normal <100 [facility] Comment on above: Order Comment: Olivi[place]as saleh Type: BLOOD SPECIMENOrdering Facility: [facility] Address: [address] [place] [address] Result Comment: <100 mg/dL, Optimal 100-129 mg/dL, Near optimal/above optimal 130-159 mg/dL, Borderline high 160-189 mg/dL, High >189 mg/dL, Very high Secondary prevention optimal LDL Cholesterol levels are recommended to be <70 mg/dL LDL cholesterol is calculated using the Murillo-NIH equation. Performed By: #### L TARIK, , 3015-12, 3024-04 ####[facility] LABCLIA [id number] [address] [facility] LDL/HDL RATIO, NF 2.42 mg/dL Normal <2.54 [facility] Comment on above: Order Comment: Felix saleh Type: BLOOD SPECIMENOrdering Facility: [facility] Address: [address] [place] [address] Result Comment: José allred: 1. National Cholesterol Education Program ATP III Guideline At-A-Glance Quick Desk Reference: National Heart, Lung, and Blood [place]. National Institutes of Health. 2001: NIH Publication No. 01-3305. 2. An International Atherosclerosis Society position paper: global recommendations for the management of dyslipidemia: executive summary, Atherosclerosis. 2014: 232(2):410-413. Performed By: #### L TARIK, , 3015-12, 3024-04 ####[facility] LABCLIA [id number] [address] [address] [place] NON HDL CHOL, NF 122 mg/dL Normal <130 [facility] Comment on above: Order Comment: Speci men Type: BLOOD SPECIMENOrdering Facility: [facility] Address: [address] [place] [address] Result Comment: <130 mg/dL, Optimal 130-159 mg/dL, Near optimal/above optimal 160-189 mg/dL, Borderline high 190-219 mg/dL, High >219 mg/dL, Very high Secondary prevention optimal non HDL Cholesterol levels are recommended to be <100 mg/dL Performed By: #### L TARIK, , 3015-12, 3024-04 ####[facility] LABCLIA [id number] [place] [address] [place] T CHOL/HDL RATIO NF 4.39 mg/dL Normal <5.10 [facility] Comment on above: Order Comment: Speci men Type: BLOOD SPECIMENOrdering Facility: [facility] Address: [address] [place] [address] Performed By: #### L TARIK, , 3015-12, 3024-04 ####[facility] LABCLIA [id number] [place] [address] [place] TRIGLYCERIDES, NF 205 mg/dL High <150 [facility] Comment on above: Order Comment: Speci men Type: BLOOD SPECIMENOrdering Facility: [facility] Address: [address] [place] [address] Result Comment: <150 mg/dL, Normal 150-199 mg/dL, Borderline high 200-499 mg/dL, High >499 mg/dL, Very high Performed By: #### L IPNF, , 3015-12, 3024-04 ####[facility] LABCLIA [id number] [place] [address] [place] VLDL CHOLESTEROL, NF 32 mg/dL High <30 [facility] Comment on above: Order Comment: Speci men Type: BLOOD SPECIMENOrdering Facility: [facility] Address: [address] [place] [address] Performed By: #### L IPNF, , 3016-3, 3024-7 ####[facility] LABCLIA [id number] [place] [address] [place] Magnesium SerPl-mCncon 02-28 Magnesium [Mass/Vol] 2.2 mg/dL Normal 1.7-2.3 [facility] Comment on above: Order Comment: Speci men Type: BLOOD SPECIMENOrdering Facility: [facility] Address: [address] [place] [address] Performed By: #### L IPNF, , 3015-3, 3024-7 ####[facility] LABCLIA [id number] [place] [address] [place] T4 Free SerPl-mCncon 025 Free T4 [Mass/Vol] 1.5 ng/dL Normal 0.9-1.7 [facility] Comment on above: Order Comment: Speci men Type: BLOOD SPECIMENOrdering Facility: [facility] Address: [address] [place] [address] Performed By: #### L IPNF, , 3015-3, 3024-7 ####[facility] LABCLIA [id number] [place] [id number] [place] TSH SerPl-aCncon 02-28-2025 TSH Qn 2.160 m[IU]/L Normal 0.270-4.200 [facility] Comment on above: Order Comment: Speci men Type: BLOOD SPECIMENOrdering Facility: [facility] Address: [address] [place] [address] Performed By: #### L IPNF, 08933-9, 3016-3, 3024-7 ####[facility] [id number] [facility] Vit B12 SerPl-Jt 05-13-2 025 Cobalamin (Vitamin B12) [Mass/Vol] 320 pg/mL Normal 232-1245 [facility] Comment on above: Order Comment: Speci men Type: BLOOD SPECIMENOrdering Facility: [facility] Address: [address] [place] [address] [place] [address] Performed By: #### 2 4323-8, 2132-9 ####[facility] [id number] [address] 08-16-2024 CNPN Telephone (ASWSTR) FELECIA CARBALLO ([id number]) 1960 [facility] Date Time Provider Department 08/16/24 CATHY NDIAYE [...] screening for malignant neoplasms, colo*07/06/2015 07/06/2015 WPW (Ekvlb-Jutstnnme-Owwdi syndrome) [I45.6] 04/15/2016 Persistent atrial fibrillation (HCC) [I48.19] 04/15/2016 09/02/2017 A-fib (HCC) [I48.91] 09/02/2017 Melanocytic nevus of trunk [D22.5] 08/08/2019 Encounter Status:Closed by CATHY NDIAYE on 08/16/24 [facility] CNPN Telephone (RADMN) FELECIA CARBALLO ([id number]) 1960 [facility] Date Time Provider Department 08/16/24 WHITNEY BAEZA RADMN During your visit today, we recorded [...] screening for malignant neoplasms, colo*07/06/2015 07/06/2015 WPW (Qqfwm-Rsutrvpvl-Tpfrl syndrome) [I45.6] 04/15/2016 Persistent atrial fibrillation (HCC) [I48.19] 04/15/2016 09/02/2017 A-fib (HCC) [I48.91] 09/02/2017 Melanocytic nevus of trunk [D22.5] 08/08/2019 Encounter Status:Closed by WHITNEY BAEZA on 08/16/24 Normal [facility] DBT Breast - right diagnosti c for [...] Melissa Jean M.D. Electronically signed on: 08/12/2024 Physician Underwriter: ROBERT Transcribe Date/Time: Aug 12 2024 1:38P Dictated by : MELISSA JEAN MD This examination was interpreted and the report reviewed and electronically signed by: MELISSA JEAN MD on Aug 12 2024 2:12PM EST [facility] * * *Final Report* * * DATE OF EXAM: Aug 12 2024 2:08PM AAW 0629 - RANJAN SENTHILG Earnest BISHOP RT / PROCEDURE REASON: Abnormal ultrasound of breast * * * * Physician Interpretation * * * * [facility] BREAST [facility] [address] [facility] [place] [address] HISTORY: 64 year old patient presents for [...] stable and consistent with benign fibroglandular tissue. [facility] Provider, Ccfemi Sindhu chu [place] - 08/12/2024 * * *Final Report* * * DATE OF EXAM: Aug 12 2024 2:08PM AAW 0629 - RANJAN SENTHILG Earnest DARIO RT / PROCEDURE REASON: Abnormal ultrasound of breast * * * * Physician Interpretation * * * * [facility] [address] [facility] [place] [address] HISTORY: 64 year old patient presents for [...] Melissa Jean M.D. Electronically signed on: 08/12/2024 Physician Underwriter: ROBERT Transcribe Date/Time: Aug 12 2024 1:38P Dictated by : MELISSA JEAN MD This examination was interpreted and the report reviewed and electronically signed by: MELISSA JEAN MD on Aug 12 2024 2:12PM EST [facility] Radiology Study observation (narrative) [facility] RANJAN BISHOP RTon 024 RANJAN BISHOP RT * * *Final Report* * * * * * SEE BOTTOM OF REPORT FOR ADDENDED TEXT * * * DATE OF EXAM: Aug 12 2024 2:08PM AAW 0629 - RANJAN BISHOP RT / PROCEDURE REASON: Abnormal ultrasound of breast * * * * Physician Interpretation * * * * [facility] [address] [facility] [place] [address] - - - - - - - [...] Melissa Jean M.D. Electronically signed on: 08/12/2024 Physician Underwriter: ROBERT Transcribe Date/Time: Aug 12 2024 1:38P Dictated by : MELISSA JEAN MD This examination was interpreted and the report reviewed and electronically signed by: MELISSA JEAN MD on Aug 12 2024 2:12PM EST This document has been addended by: MELISSA JEAN MD on Aug 16 2024 11:02AM EST [id number] Normal [facility] US BIOPSY BREAST RTon [facility] US BIOPSY BREAST RT * * *Final Report* * * * * * SEE BOTTOM OF REPORT FOR ADDENDED TEXT * * * DATE OF EXAM: Aug 12 2024 1:34PM AAW 0598 - [facility] US BIOPSY BREAST RT / PROCEDURE REASON: Abnormal ultrasound of breast * * * * Physician Interpretation * * * * [facility] [address] [place] [address] - - - - - - - [...] Melissa Jean M.D. Electronically signed on: 08/12/2024 Physician Underwriter: ROBERT Transcribe Date/Time: Aug 12 2024 12:58P Dictated by : MELISSA JEAN MD This examination was interpreted and the report reviewed and electronically signed by: MELISSA JEAN MD on Aug 12 2024 2:12PM EST This document has been addended by: MELISSA JEAN MD on Aug 16 2024 11:02AM EST [id number] Normal [facility] No Panel InformationOrdered By: Ccf Provider on 08-12-2024 [facility] SURGICAL PATHOLOGYon 024 CASE REPORT Normal [facility] Comment on above: Order Comment: Speci men Type: TISSUE SPECIMEN Ordering Facility: [facility] Address: [address] [place] [address] Result Comment: Surg [facility] Pathology Report Case: [id number] Authorizing Provider: Melissa Jean MD Collected: 08/12/2024 01:23 PM Ordering Location: [facility]LE[facility] Received: 08/15/2024 09:14 AM [facility] Pathologist: Bonnie Boo MD Specimen: Breast, Right, Core Biopsy, r/o papilloma time collected 1323 formalin 1323 coil clip Performed By: #### S #### [facility] CLIA [id number] [address] CLINICAL HISTORY abnormal exam Normal [facility] Comment on above: Order Comment: Speci men Type: TISSUE SPECIMEN Ordering Facility: [facility] Address: [address] [place] [address] Result Comment: Comm ent: Ultrasound Biopsy Performed By: #### S #### [facility] CLIA [id number] [address] FINAL DIAGNOSIS Normal [facility] Comment on above: Order Comment: Speci men Type: TISSUE SPECIMEN Ordering Facility: [facility] Address: [address] [place] [address] Result Comment: A. R ight breast, coil clip, ultrasound-guided core biopsy: -- Benign breast tissue with fibrous stroma and fragments of cyst wall. Performed By: #### S #### [facility] CLIA [id number] [address] [place] [address] FINAL PERFORMING LAB Normal [facility] Comment on above: Order Comment: Speci men Type: TISSUE SPECIMEN Ordering Facility: [facility] Address: [address] [place] [address] Result Comment: Diag nostic interpretation performed at [facility], [address] [place] [address] CLIA# [id number] [employer] Kiln Feeder: Anderson Odom M.D. Performed By: #### S #### [facility] CLIA [id number] [address] [place] [address] GROSS DESCRIPTION Normal [facility] Comment on above: Order Comment: Speci men Type: TISSUE SPECIMEN Ordering Facility: [facility] Address: [address] [place] [address] Result Comment: A. B reast, Right, Core Biopsy Received in formalin labeled right breast core biopsy coil clip are multiple white cylindrical segments of tissue aggregating to 0.8 x 0.5 x 0.1 cm. The specimens are totally submitted in formalin in 1 cassette. Time removed from patient is 1:23 PM on 08/12/2024. Time placed in formalin is 1:23 PM on 08/12/2024. Gross examination performed at [facility], [address] [place] [address] CLIA# [id number] KVB August 15, 2024 12:00 PM Performed By: #### S #### [facility] CLIA [id number] [address] [place] [address] US Guidance for biopsy of Br east [...] Melissa Jean M.D. Electronically signed on: 08/12/2024 Physician Underwriter: ROBERT Transcribe Date/Time: Aug 12 2024 12:58P Dictated by : MELISSA JEAN MD This examination was interpreted and the report reviewed and electronically signed by: MELISSA JEAN MD on Aug 12 2024 2:12PM EST [facility] * * *Final Report* * * DATE OF EXAM: Aug 12 2024 1:34PM [facility] 0598 - RANJAN US BIOPSY BREAST RT / PROCEDURE REASON: Abnormal ultrasound of breast * * * * Physician Interpretation * * * * [facility] [address] [facility] [place] [address] HISTORY: 64 year old patient presents for [...] stable and consistent with benign fibroglandular tissue. [facility] Provider, Ccf [facility] - 08/12/2024 * * *Final Report* * * DATE OF EXAM: Aug 12 2024 1:34PM [facility] 0598 - RANJAN US BIOPSY BREAST RT / PROCEDURE REASON: Abnormal ultrasound of breast * * * * Physician Interpretation * * * * [address] [place] [address] HISTORY: 64 year old patient presents for [...] Melissa Jean M.D. Electronically signed on: 08/12/2024 Physician Underwriter: ROBERT Transcribe Date/Time: Aug 12 2024 12:58P Dictated by : MELISSA JEAN MD This examination was interpreted and the report reviewed and electronically signed by: MELISSA JEAN MD on Aug 12 2024 2:12PM EST [facility] Radiology Study observation (narrative) [facility] Dwain 07-29-2024 [facility] Telephone ([employer]) FELECIA CARBALLO ([id number]) 1960 F [facility] Date Time Provider Department 07/29/24 CATHY NDIAYE During your visit today, we recorded the following information about you: Izabel Holden RN 07/29/2024 9:33 AM Signed Pt calling in inquiring about referral to [facility] breast center. She was unsure as to whether she was supposed to call them or not. This Nurse advised patient that [facility] normailly contacts the patient and this process can take some time. This Nurse advised patient to call back if she still hasn't heard from them next week. She verbalized understanding.KIRIT Albrecht Breanna 07/29/2024 9:49 AM Signed Follow up email sent to [facility] breast schedulers Melissa and Yusuf Piper [employer] Allergies As of Date: 07/29/2024 Noted Allergy [...] screening for malignant neoplasms, colo*07/06/2015 07/06/2015 WPW (Rwodh-Uabjkpvhd-Onpha syndrome) [I45.6] 04/15/2016 Persistent atrial fibrillation (HCC) [I48.19] 04/15/2016 09/02/2017 A-fib (HCC) [I48.91] 09/02/2017 Melanocytic nevus of trunk [D22.5] 08/08/2019 Encounter Status:Closed by DAE PIPER on 07/29/24 [facility] CNOVon 07-25-2024 CNOV Office Visit (GENSWS ) FELECIA CARBALLO ([id number]) 1960 [facility] Date Time Provider Department 07/25/24 11:45 AM CATHY NDIAYE During your visit today, we [...] contraction) SVT (supraventricular tachycardia) (HCC) Tachyarrhythmia WPW (Gwnip-Graythkyu-Ublpx syndrome) 04/15/2016 PAST SURGICAL HISTORY Procedure Laterality [...] auscultated. N (more content not included)... Normal [facility] 07-21-2024 [facility] FELECIA CARBALLO ([id number]) 1960 [facility] Date Time Provider Department 07/21/24 [facility] During your visit today, we recorded the following information about you: Radha Hummel APRN.ABDULKADIR 07/21/2024 12:18 PM Signed Please let pt. [...] Order(s):CONSULT TO GENERAL SURGERY [9011] Order #: [id number]: 1 FUTURE Prescriptions as of 07/21/2024 - [...] screening for malignant neoplasms, colo*07/06/2015 07/06/2015 WPW (Ekpvs-Hrnevmchj-Tmmus syndrome) [I45.6] 04/15/2016 Persistent atrial fibrillation (HCC) [I48.19] 04/15/2016 09/02/2017 A-fib (HCC) [I48.91] 09/02/2017 Melanocytic nevus of trunk [D22.5] 08/08/2019 Encounter Status:Closed by MELISSA LOMBARDI on 07/21/24 Normal [facility] DBT Breast - bilateral diagn ostic [...] breast tissue. Interpreting Radiologist: Francheska Gonsalves M.D. Physician Underwriter: ROBERT Transcribe Date/Time: Jul 20 2024 1:21P Dictated by: FRANCHESKA GONSALVES MD This examination was interpreted and the report reviewed and electronically signed by: FRANCHESKA GONSALVES MD on Jul 20 2024 1:47PM [facility] DIVISION OF RADIOLOGY * * *Final Report* * * DATE OF EXAM: Jul 20 2024 1:35PM [facility] 0627 - RANJAN SENTHILG Earnest WALTON / PROCEDURE REASON: Abnormal findings on diagnostic imaging of breast * * * * Physician Interpretation * * * * RESULT: [place] [address] HISTORY: Patient is 64 years old and [...] resembles fibroglandular tissue. DIVISION OF RADIOLOGY Provider, Radha Peacock - 07/20/2024 * * *Final Report* * * DATE OF EXAM: Jul 20 2024 1:35PM [facility] 0627 - RANJAN TYLER WALTON / PROCEDURE REASON: Abnormal findings on diagnostic imaging of breast * * * * Physician Interpretation * * * * RESULT: [place] [address] HISTORY: Patient is 64 years old and [...] breast tissue. Interpreting Radiologist: Francheska Gonsalves M.D. Physician Underwriter: ROBERT Transcribe Date/Time: Jul 20 2024 1:21P Dictated by: FRANCHESKA GONSALVES MD This examination was interpreted and the report reviewed and electronically signed by: FRANCHESKA GONSALVES MD on Jul 20 2024 1:47PM EST [facility] DBT Breast - bilateral diagn ostic for implantOrdered By: Ccf Provider on 07-20-2024 [facility] RANJAN DIAG W DARIO BILon 2023 RANJAN DIAG W DARIO ANTON * * *Final Report* * * DATE OF EXAM: Jul 20 2024 1:35PM W 0627 - RANJAN DIAG W DARIO ANTON / PROCEDURE REASON: Abnormal findings on diagnostic imaging of breast * * * * Physician Interpretation * * * * RESULT: [place] [id number] HISTORY: Patient is 64 years old and [...] breast tissue. Interpreting Radiologist: Francheska Gonsalves M.D. Physician Underwriter: ROBERT Transcribe Date/Time: Jul 20 2024 1:21P Dictated by: FRANCHESKA GONSALVES MD This examination was interpreted and the report reviewed and electronically signed by: FRANCHESKA GONSALVES MD on Jul 20 2024 1:47PM EST [id number] Normal [facility] US BREAST LTD LTon 07-20 [facility] BREAST LTD LT * * *Final Report* * * DATE OF EXAM: Jul 20 2024 2:04PM WRU 0593 - [facility] BREAST LTD LT / PROCEDURE REASON: Abnormal findings on diagnostic imaging of breast * * * * Physician Interpretation * * * * [place] [address] HISTORY: Patient is 64 years old and [...] if the patient has dense breast tissue. Physician Underwriter: ROBERT Transcribe Date/Time: Jul 20 2024 1:47P Dictated by : FRANCHESKA GONSALVES MD This examination was interpreted and the report reviewed and electronically signed by: FRANCHESKA GONSALVES MD on Jul 20 2024 2:25PM EST [id number] Normal [facility] US BREAST LTD RTon 07-20 [facility] BREAST LTD RT * * *Final Report* * * DATE OF EXAM: Jul 20 2024 2:03PM [facility] 0594 - [facility] US BREAST LTD RT / PROCEDURE REASON: Abnormal findings on diagnostic imaging of breast * * * * Physician Interpretation * * * * [place] [address] HISTORY: Patient is 64 years old and [...] if the patient has dense breast tissue. Physician Underwriter: ROBERT Transcribe Date/Time: Jul 20 2024 1:48P Dictated by : FRANCHESKA GONSALVES MD This examination was interpreted and the report reviewed and electronically signed by: FRANCHESKA GONSALVES MD on Jul 20 2024 2:25PM EST [id number] Normal [facility] No Panel Informationon 07-20 Radiology Study observation (narrative) [facility] US Breast - left limitedon 1 IMPRESSION: [...] if the patient has dense breast tissue. Physician Underwriter: ROBERT Transcribe Date/Time: Jul 20 2024 1:47P Dictated by : FRANCHESKA GONSALVES MD This examination was interpreted and the report reviewed and electronically signed by: FRANCHESKA GONSALVES MD on Jul 20 2024 2:25PM EST DIVISION OF RADIOLOGY * * *Final Report* * * DATE OF EXAM: Jul 20 2024 2:04PM U 0593 - RANJAN US BREAST LTD LT / PROCEDURE REASON: Abnormal findings on diagnostic imaging of breast * * * * Physician Interpretation * * * * [place] [id number] HISTORY: Patient is 64 years old and [...] of clinical concern. DIVISION OF RADIOLOGY Provider, [facility] - 07/20/2024 * * *Final Report* * * DATE OF EXAM: Jul 20 2024 2:04PM [facility] 0593 - [facility] BREAST LTD LT / PROCEDURE REASON: Abnormal findings on diagnostic imaging of breast * * * * Physician Interpretation * * * * [place] [id number] HISTORY: Patient is 64 years old and [...] if the patient has dense breast tissue. Physician Underwriter: ROBERT Transcribe Date/Time: Jul 20 2024 1:47P Dictated by : FRANCHESKA GONSALVES MD This examination was interpreted and the report reviewed and electronically signed by: FRANCHESKA GONSALVES MD on Jul 20 2024 2:25PM EST [facility] US Breast - right limitedon 07-20-2024 IMPRESSION: [...] if the patient has dense breast tissue. Physician Underwriter: ROBERT Transcribe Date/Time: Jul 20 2024 1:48P Dictated by : FRANCHESKA GONSALVES MD This examination was interpreted and the report reviewed and electronically signed by: FRANCHESKA GONSALVES MD on Jul 20 2024 2:25PM [facility] DIVISION OF RADIOLOGY * * *Final Report* * * DATE OF EXAM: Jul 20 2024 2:03PM [facility] 0594 - RANJAN US BREAST LTD RT / PROCEDURE REASON: Abnormal findings on diagnostic imaging of breast * * * * Physician Interpretation * * * * [place] [address] HISTORY: Patient is 64 years old and [...] of clinical concern. DIVISION OF RADIOLOGY Provider, Radha Peacock - 07/20/2024 * * *Final Report* * * DATE OF EXAM: Jul 20 2024 2:03PM [facility] 0594 - RANJAN BREAST [facility] RT / PROCEDURE REASON: Abnormal findings on diagnostic imaging of breast * * * * Physician Interpretation * * * * [place] [address] HISTORY: Patient is 64 years old and [...] if the patient has dense breast tissue. 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 Service: ? Author Type: Physician Type: Letter Filed: 06/23/2024 08:18 Note Text: June 23, 2024 PID: [id number] Felecia Carballo [address] [place] [address] Dear Ms. Carballo, Your recent breast imaging [...] who ordered/prescribed your screening mammogram: Please call [phone] or EXT: [phone] to schedule an appointment for your additional [...] and reports are kept on file at [facility] as part of your permanent medical record, and are available for your continuing care. Thank you for allowing us to help in meeting your health care needs. Sincerely, Dr. Baez Interpreting Radiologist [facility] (Additional imaging) Normal [facility] 06-23-2024 [facility] Telephone (FAMPWS) FELECIA CARBALLO ([id number]) 1960 F [place] Date Time Provider Department 06/23/24 [facility] During your visit today, we recorded the following information about you: Radha Hummel, RAFAELA[facility] 06/23/2024 10:18 AM Signed Due to density [...] findings on diagnostic imaging of breast [R92.8] Order(s):[facility] DIAGNOSTIC BILATERAL [[id number]] Order #: [id number] FUTURE [facility] BREAST LTD LEFT [[id number]] Order #: [id number] 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] 08/08/2019 Encounter Status:Closed by ALVIN CARRANZA on 06/23/24 Normal [facility] SCREENINGon 06-22-2024 [facility] SCREENING * * *Final Report* * * DATE OF EXAM: Jun 22 2024 10:53AM [facility] 0581 - [facility] SCREENING / PROCEDURE REASON: Encounter for screening mammogram for breast cancer * * * * Physician Interpretation * * * * RESULT: #[id number] - [facility] SCREENING BILATERAL DIGITAL SCREENING MAMMOGRAM WITH CAD: 06/22/2024 HISTORY: /Patient has signed release for outside images that is scanned into syngo priors done at [facility] /Screening Mammogram - patient reports NO breast [...] Additional views are recommended. Susie Baez M.D., mc/penrad:06/23/2024 08:18:30 Foundation Director(s): RT Nelsy(R)(M), [facility] letter sent: Additional Imaging Needed Mammogram BI-RADS: Category 0: Incomplete: Need Additional Imaging Evaluation If this report indicates you need additional imaging, and it has NOT yet been performed, please call , to schedule. We sincerely thank you for choosing the [facility] for your breast imaging needs. Multiple national specialty organizations have released breast cancer screening guidelines for women at average risk for developing breast cancer - guidelines that are based on both evidence and opinion, yet differ on when to start and how often to screen for breast cancer. With representation from Breast Imaging, Internal Medicine, Women's Health, Family Medicine, and Medical/Surgical Oncology, the [facility] has carefully reviewed the data and reached [...] their providers when to stop screening mammograms. Physician Underwriter: Mika Transcribe Date/Time: Jun 22 2024 10:36A Dictated by: SUSIE BAEZ MD This examination was interpreted and the report reviewed and electronically signed by: SUSIE BAEZ MD on Jun 23 2024 8:18AM EST [id number] Normal [facility] Dwain 04-08-2024 CNPN Telephone (FAMPWS) FELECIA CARBALLO ([id number]) 1960 [address] [facility] Date Time Provider Department 04/08/24 NORI THORPE During your visit today, we recorded the following information about you: Nori Thorpe APRN.ABDULKADIR 04/08/2024 4:55 PM Signed Labs are all back and within normal limits. Can we please forward this to her surgeon's office. Nori Thorpe APRN.Mat Lee LPN 04/08/2024 4:59 PM Signed Results faxed to [facility]. 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 FAX: [phone]. 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] 08/08/2019 Encounter Status:Closed by MELISSA BREWSTER on 04/08/24 Normal [facility] CBC W Auto Differential pane l (Bld)on 04-06-2024 Basophils (Bld) [#/Vol] 0.08 10*3/uL [facility] Basophils/100 WBC (Bld) 1.2 % [facility] Differential cell count method Nom (Bld) Auto [facility] Eosinophils (Bld) [#/Vol] 0.33 10*3/uL [facility] Eosinophils/100 WBC (Bld) 4.8 % [facility] Erythrocyte distribution width (RBC) [Ratio] 11.5 % 11.5 - 15.0 % [facility] Hematocrit (Bld) [Volume fraction] 43.0 % 36.0 - 46.0 % [facility] Hemoglobin (Bld) [Mass/Vol] 14.5 g/dL 11.5 - 15.5 g/dL [facility] Immature granulocytes (Bld) [#/Vol] [facility] Immature granulocytes/100 WBC (Bld) 0.3 % [facility] Lymphocytes (Bld) [#/Vol] 1.78 10*3/uL [facility] Lymphocytes/100 WBC (Bld) 26.1 % [facility] MCH (RBC) [Entitic mass] 31.3 pg 26.0 - 34.0 pg [facility] MCHC (RBC) [Mass/Vol] 33.7 g/dL 30.5 - 36.0 g/dL [facility] MCV (RBC) [Entitic vol] 92.7 fL 80.0 - 100.0 fL [facility] Monocytes (Bld) [#/Vol] 0.61 10*3/uL [facility] Monocytes/100 WBC (Bld) 9.0 % [facility] Neutrophils (Bld) [#/Vol] 3.99 10*3/uL [facility] Neutrophils/100 WBC (Bld) 58.6 % [facility] Nucleated RBC (Bld) [#/Vol] NINF [facility] Nucleated RBC/100 WBC (Bld) [Ratio] 0.0 % /100 WBC [facility] Platelet mean volume (Bld) [Entitic vol] 11.2 fL 9.0 - 12.7 fL [facility] Platelets (Bld) [#/Vol] 238 10*3/uL [facility] RBC (Bld) [#/Vol] 4.64 10*6/uL 3.90 - 5.2 0 m/uL [facility] WBC (Bld) [#/Vol] 6.81 10*3/uL [facility] Comprehensive metabolic 2000 panelon 04-06-2024 Albumin [Mass/Vol] 4.6 g/dL 3.9 - 4.9 g/dL [facility] ALP [Catalytic activity/Vol] 50 U/L 34 - 123 U/L [facility] ALT [Catalytic activity/Vol] 26 U/L 7 - 38 U/L [facility] Anion gap [Moles/Vol] 15 mmol/L 8 - 15 mmol/L [facility] AST [Catalytic activity/Vol] 22 U/L 13 - 35 U/L [facility] Bilirubin [Mass/Vol] 0.2 mg/dL 0.2 - 1 .3 mg/dL [facility] Calcium [Mass/Vol] 10.2 mg/dL 8.5 - 10. 2 mg/dL [facility] Chloride [Moles/Vol] 104 mmol/L 98 - 10 7 mmol/L [facility] CO2 [Moles/Vol] 24 mmol/L 22 - 30 mmol/L [facility] Creatinine [Mass/Vol] 0.85 mg/dL 0.58 - 0.96 mg/dL [facility] GFR/1.73 sq M.predicted among non-blacks MDRD (S/P/Bld) [Vol rate/Area] 78 mL/min/{1.73_m2} - PINF [facility] Comment on above: Estimated Glomerular Filtration Rate [...] [Mass/Vol] 89 mg/dL 74 - 99 mg/dL [facility] Comment on above: The [place] Diab[employer] s Association (ADA) provides guidance for [...] Standards of Medical Care in Diabetes 2016, [place] [employer]. Diabetes Care. 2016.39(Suppl 1). Interpretation and review of laboratory results Normal [facility] Potassium [Moles/Vol] 3.7 mmol/L 3.7 - 5.1 mmol/L [facility] Protein [Mass/Vol] 7.4 g/dL 6.3 - 8.0 g/dL [facility] Sodium [Moles/Vol] 143 mmol/L 136 - 144 mmol/L [facility] Urea nitrogen [Mass/Vol] 14 mg/dL 7 - 21 mg/dL [facility] 25(OH)D3 Sheng-Jt 2023 25-hydroxyvitamin D3 [Mass/Vol] 36.1 ng/mL Normal 31.0-80.0 [facility] Comment on above: Order Comment: Speci men Type: BLOOD SPECIMENOrdering Facility: [facility] Address: [address] [place] [address] Result Comment: Clas sification of 25 [place] Vitamin D status: Deficiency/Insufficiency: < or = 30 ng/ml. Sufficiency/Optimal Levels: 31-80 ng/mL Toxicity: > 100 ng/mL. Test performed by chemiluminescent immunoassay. Performed By: #### 1 [id number] ####[facility] LABCLIA [id number] [place] [address] [place] CBC W Auto Differential pane l (Bld)on 04-05-2024 Basophils (Bld) [#/Vol] 0.08 10*3/uL Normal <0.11 [facility] Comment on above: Order Comment: Speci men Type: BLOOD SPECIMENOrdering Facility: [facility] Address: [address] [place] [address] Performed By: #### 5 7021-8 ####[facility] LABCLIA [id number] [place] [address] [place] Basophils/100 WBC (Bld) 1.2 % Normal [facility] Comment on above: Order Comment: Speci men Type: BLOOD SPECIMENOrdering Facility: [facility] Address: [address] [place] [address] Performed By: #### 5 7021-8 ####[facility] LABCLIA [id number] [place] [address] [place] Differential cell count method Nom (Bld) Auto Normal [facility] Comment on above: Order Comment: Speci men Type: BLOOD SPECIMENOrdering Facility: [facility] Address: [address] [place] [address] Performed By: #### 5 7021-8 ####[facility] LABCLIA [id number] [place] [address] [place] Eosinophils (Bld) [#/Vol] 0.33 10*3/uL Normal <0.46 [facility] Comment on above: Order Comment: Speci men Type: BLOOD SPECIMENOrdering Facility: [facility] Address: [address] [place] [address] Performed By: #### 5 7021-8 ####[facility] LABCLIA [id number] [place] [address] [place] Eosinophils/100 WBC (Bld) 4.8 % Normal [facility] Comment on above: Order Comment: Speci men Type: BLOOD SPECIMENOrdering Facility: [facility] Address: [address] [place] [address] Performed By: #### 5 7021-8 ####[facility] LABCLIA [id number] [place] [address] [place] Erythrocyte distribution width (RBC) [Ratio] 11.5 % Normal 11.5-15.0 [facility] Comment on above: Order Comment: Speci men Type: BLOOD SPECIMENOrdering Facility: [facility] Address: [address] [place] [address] Performed By: #### 5 7021-8 ####[facility] LABCLIA [id number] [place] [address] [place] Hematocrit (Bld) [Volume fraction] 43.0 % Normal 36.0-46.0 [facility] Comment on above: Order Comment: Speci men Type: BLOOD SPECIMENOrdering Facility: [facility] Address: [address] [place] [address] Performed By: #### 5 7021-8 ####[facility] LABIA [id number] [place] [address] [place] Hemoglobin (Bld) [Mass/Vol] 14.5 g/dL Normal 11.5-15.5 [facility] Comment on above: Order Comment: Speci men Type: BLOOD SPECIMENOrdering Facility: [facility] Address: [address] [place] [address] Performed By: #### 5 7021-8 ####[facility] LABIA [id number] [place] [address] [place] Immature granulocytes (Bld) [#/Vol] 10*3/uL Normal <0.10 [facility] Comment on above: Order Comment: Speci men Type: BLOOD SPECIMENOrdering Facility: [facility] Address: [address] [place] [address] Performed By: #### 5 7021-8 ####[facility] LABIA [id number] [place] [address] [place] Immature granulocytes/100 WBC (Bld) 0.3 % Normal [facility] Comment on above: Order Comment: Speci men Type: BLOOD SPECIMENOrdering Facility: [facility] Address: [address] [place] [address] Performed By: #### 5 7021-8 ####[facility] LABCLIA [id number] [place] [address] [place] Lymphocytes (Bld) [#/Vol] 1.78 10*3/uL Normal 1.00-4.00 [facility] Comment on above: Order Comment: Speci men Type: BLOOD SPECIMENOrdering Facility: [facility] Address: [address] [place] [address] Performed By: #### 5 7021-8 ####[facility] LABCLIA [id number] [place] [address] [place] Lymphocytes/100 WBC (Bld) 26.1 % Normal [facility] Comment on above: Order Comment: Speci men Type: BLOOD SPECIMENOrdering Facility: [facility] Address: [address] [place] [address] Performed By: #### 5 7021-8 ####[facility] LABCLIA [id number] [place] [address] [place] MCH (RBC) [Entitic mass] 31.3 pg Normal 26.0-34.0 [facility] Comment on above: Order Comment: Speci men Type: BLOOD SPECIMENOrdering Facility: [facility] Address: [address] [place] [address] Performed By: #### 5 7021-8 ####[facility] LABCLIA [id number] [place] [address] [place] MCHC (RBC) [Mass/Vol] 33.7 g/dL Normal 30.5-36.0 [facility] Comment on above: Order Comment: Speci men Type: BLOOD SPECIMENOrdering Facility: [facility] Address: [address] [place] [address] Performed By: #### 5 7021-8 ####[facility] LABCLIA [id number] [place] [address] [place] MCV (RBC) [Entitic vol] 92.7 fL Normal 80.0-100.0 [facility] Comment on above: Order Comment: Speci men Type: BLOOD SPECIMENOrdering Facility: [facility] Address: [address] [place] [address] Performed By: #### 5 7021-8 ####[facility] LABCLIA [id number] [place] [address] [place] Monocytes (Bld) [#/Vol] 0.61 10*3/uL Normal <0.87 [facility] Comment on above: Order Comment: Speci men Type: BLOOD SPECIMENOrdering Facility: [facility] Address: [address] [place] [address] Performed By: #### 5 7021-8 ####[facility] LABCLIA [id number] [place] [address] [place] Monocytes/100 WBC (Bld) 9.0 % Normal [facility] Comment on above: Order Comment: Speci men Type: BLOOD SPECIMENOrdering Facility: [facility] Address: [address] [place] [address] Performed By: #### 5 7021-8 ####[facility] LABCLIA [id number] [place] [address] [place] Neutrophils (Bld) [#/Vol] 3.99 10*3/uL Normal 1.45-7.50 [facility] Comment on above: Order Comment: Speci men Type: BLOOD SPECIMENOrdering Facility: [facility] Address: [address] [place] [address] Performed By: #### 5 7021-8 ####[facility] LABCLIA [id number] [place] [address] [place] Neutrophils/100 WBC (Bld) 58.6 % Normal [facility] Comment on above: Order Comment: Speci men Type: BLOOD SPECIMENOrdering Facility: [facility] Address: [address] [place] [address] Performed By: #### 5 7021-8 ####[facility] LABCLIA [id number] [place] [address] [place] Nucleated RBC (Bld) [#/Vol] 10*3/uL Normal <0.01 [facility] Comment on above: Order Comment: Speci men Type: BLOOD SPECIMENOrdering Facility: [facility] Address: [address] [place] [address] Performed By: #### 5 7021-8 ####[facility] LABCLIA [id number] [place] [address] [place] Nucleated RBC/100 WBC (Bld) [Ratio] 0.0 /100 WBC Normal [facility] Comment on above: Order Comment: Speci men Type: BLOOD SPECIMENOrdering Facility: [facility] Address: [address] [place] [address] Performed By: #### 5 7021-8 ####[facility] LABCLIA [id number] [place] [address] [place] Platelet mean volume (Bld) [Entitic vol] 11.2 fL Normal 9.0-12.7 [facility] Comment on above: Order Comment: Speci men Type: BLOOD SPECIMENOrdering Facility: [facility] Address: [address] [place] [address] Performed By: #### 5 7021-8 ####[facility] LABCLIA [id number] [place] [address] [place] Platelets (Bld) [#/Vol] 238 10*3/uL Normal 150-400 [facility] Comment on above: Order Comment: Speci men Type: BLOOD SPECIMENOrdering Facility: [facility] Address: [address] [place] [address] Performed By: #### 5 7021-8 ####[facility] LABCLIA [id number] [place] [address] [place] RBC (Bld) [#/Vol] 4.64 10*6/uL Normal 3.90-5.20 [facility] Comment on above: Order Comment: Speci men Type: BLOOD SPECIMENOrdering Facility: [facility] Address: [address] [place] [address] Performed By: #### 5 7021-8 ####[facility] LABCLIA [id number] [place] [address] [place] WBC (Bld) [#/Vol] 6.81 10*3/uL Normal 3.70-11.00 [facility] Comment on above: Order Comment: Speci men Type: BLOOD SPECIMENOrdering Facility: [facility] Address: [address] [place] [address] Performed By: #### 5 7021-8 ####[facility] LABIA [id number] [place] [address] [place] CNOVon 04-05-2024 CNOV Office Visit (PARMJIT ) FELECIA CARBALLO ([id number]) 1960 F [facility] Date Time Provider Department 04/05/24 3:40 PM NORI THORPE During your visit today, we recorded the following information about you: Pulse Respiration Blood pressure Weight 100/minute 16/minute 146/82 83.9 kg Nori Thorpe APRN.CNP 04/06/2024 9:02 AM Signed HISTORY AND PHYSICAL [...] contraction) SVT (supraventricular tachycardia) (HCC) Tachyarrhythmia 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 + Hx of WPW [...] dialysis. No history of symptoms or problems. 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 : Denies Endocrine: No history of diabetes. Has not taken steroids within the past 30 days. No history of endocrinological symptoms or problems., + hypothyroidism. Hematology: No history of bleeding or clotting disorder. Pt is not taking anti-coagulation (more content not included)... Normal [facility] metabolic 2000 panelon 04-05-2024 Albumin [Mass/Vol] 4.6 g/dL Normal 3.9-4.9 [facility] Comment on above: Order Comment: Speci men Type: BLOOD SPECIMENOrdering Facility: [facility] Address: [address] [place] [address] Performed By: #### 2 4323-8 ####[facility] LABCLIA [id number] [place] [address] [place] ALP [Catalytic activity/Vol] 50 U/L Normal 34-123 [facility] Comment on above: Order Comment: Speci men Type: BLOOD SPECIMENOrdering Facility: [facility] Address: [address] [place] [address] Performed By: #### 2 4323-8 ####[facility] LABCLIA [id number] [place] [address] [place] ALT [Catalytic activity/Vol] 26 U/L Normal 7-38 [facility] Comment on above: Order Comment: Speci men Type: BLOOD SPECIMENOrdering Facility: [facility] Address: [address] [place] [address] Performed By: #### 2 4323-8 ####[facility] LABCLIA [id number] [place] [address] [place] Anion gap [Moles/Vol] 15 mmol/L Normal 8-15 [facility] Comment on above: Order Comment: Speci men Type: BLOOD SPECIMENOrdering Facility: [facility] Address: [address] [place] [address] Performed By: #### 2 4323-8 ####[facility] LABCLIA [id number] [place] [address] [place] AST [Catalytic activity/Vol] 22 U/L Normal 13-35 [facility] Comment on above: Order Comment: Speci men Type: BLOOD SPECIMENOrdering Facility: [facility] Address: [address] [place] [address] Performed By: #### 2 4323-8 ####[facility] LABCLIA [id number] [address] [address] [place] Bilirubin [Mass/Vol] 0.2 mg/dL Normal 0.2-1.3 [facility] Comment on above: Order Comment: Speci men Type: BLOOD SPECIMENOrdering Facility: [facility] Address: [address] [place], [place] [address] Performed By: #### 2 4323-8 ####[facility] LABCLIA [id number] [place] [id number] [place] Calcium [Mass/Vol] 10.2 mg/dL Normal 8.5-10.2 [facility] Comment on above: Order Comment: Speci men Type: BLOOD SPECIMENOrdering Facility: [facility] Address: [address] [place] [address] Performed By: #### 2 4323-8 ####[facility] LABCLIA [id number] [place] [address] [place] Chloride [Moles/Vol] 104 mmol/L Normal 98-107 [facility] Comment on above: Order Comment: Speci men Type: BLOOD SPECIMENOrdering Facility: [facility] Address: [address] [place], [place] [address] Performed By: #### 2 4323-8 ####[facility] LABCLIA [id number] [place] [id number] [place] CO2 [Moles/Vol] 24 mmol/L Normal 22-30 [facility] Comment on above: Order Comment: Speci men Type: BLOOD SPECIMENOrdering Facility: [facility] Address: [address] [place], [place] [address] Performed By: #### 2 4323-8 ####[facility] LABCLIA [id number] [address] [address] [place] Creatinine [Mass/Vol] 0.85 mg/dL Normal 0.58-0.96 [facility] Comment on above: Order Comment: Felix saleh Type: BLOOD SPECIMENOrdering Facility: [facility] Address: [address] [place] [address] Performed By: #### 2 4323-8 ####[facility] LABCLIA [id number] [place] [address] [place] Creatinine and Glomerular filtration rate.predicted panel (S/P/Bld) 78 mL/min/1.73m??? Normal >=60 [facility] Comment on above: Order Comment: Felix saleh Type: BLOOD SPECIMENOrdering Facility: [facility] Address: [address] [place] [address] Result Comment: Heather mated Glomerular Filtration Rate [...] actual GFR. Performed By: #### 2 4323-8 ####[facility] LABIA [id number] [place] [address] [place] Glucose [Mass/Vol] 89 mg/dL Normal 74-99 [facility] Comment on above: Order Comment: Felix saleh Type: BLOOD SPECIMENOrdering Facility: [facility] Address: [address] [place] [address] Result Comment: The [place] [employer] (ADA) provides guidance for cutoff [...] Standards of Medical Care in Diabetes 2016, [place] [employer]. Diabetes Care. 2016.39(Suppl 1). Performed By: #### 2 4323-8 ####[facility] LABCLIA [id number] [place] [address] [place] Potassium [Moles/Vol] 3.7 mmol/L Normal 3.7-5.1 [facility] Comment on above: Order Comment: Speci men Type: BLOOD SPECIMENOrdering Facility: [facility] Address: [address] [place] [address] Performed By: #### 2 4323-8 ####[facility] LABCLIA [id number] [place] [address] [place] Protein [Mass/Vol] 7.4 g/dL Normal 6.3-8.0 [facility] Comment on above: Order Comment: Speci men Type: BLOOD SPECIMENOrdering Facility: [facility] Address: [address] [place] [address] Performed By: #### 2 4323-8 ####[facility] LABIA [id number] [place] [address] [place] Sodium [Moles/Vol] 143 mmol/L Normal 136-144 [facility] Comment on above: Order Comment: Speci men Type: BLOOD SPECIMENOrdering Facility: [facility] Address: [address] [place] [address] Performed By: #### 2 4323-8 ####[facility] LABCLIA [id number] [place] [id number] [place] Urea nitrogen [Mass/Vol] 14 mg/dL Normal 7-21 [facility] Comment on above: Order Comment: Speci men Type: BLOOD SPECIMENOrdering Facility: [facility] Address: [address] [place] [address] Performed By: #### 2 4323-8 ####[facility] LABCLIA [id number] [place] [id number] [place] HISTORY PHYSICALon HISTORY PHYSICAL HNO ID: [id number] Author: NORI THORPE APRN.QUANTITATIVE ANALYST Service: ? 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 + Hx of WPW [...] dialysis. No history of symptoms or problems. 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 Normal [facility] NICOTINE/COTININEon 04-05-20 24 Cotinine [Mass/Vol] <2 Normal <2 [facility] Comment on above: Order Comment: Speci men Type: BLOOD SPECIMENOrdering Facility: [facility] Address: [address] [place] [address] Result Comment: Acti ve tobacco product user: Nicotine concentration: 30 - 50 ng/mL Cotinine concentration: 200 - 800 ng/mL Passive exposure to tobacco: Nicotine concentration: < 2 ng/mL Cotinine concentration: < 8 ng/mL Unexposed non-tobacco user or abstinent user for > 2 weeks: Nicotine concentration: < 2 ng/mL Cotinine concentration: < 2 ng/mL This test was developed and its performance characteristics determined by [facility] Path[facility] [place] ([facility]). It has not been cleared or approved by the FDA. [facility] is regulated under CLIA as qualified to perform high-complexity testing. This test is used for clinical purposes. It should not be regarded as investigational or for research. Performed By: #### N ICOT ####[facility] LABCLIA [id number] [place] [address] [place] Nicotine [Mass/Vol] <2 Normal <2 [facility] Comment on above: Order Comment: Speci men Type: BLOOD SPECIMENOrdering Facility: [facility] Address: [address] [place] [address] Performed By: #### N ICOT ####[facility] LABCLIA [id number] [place] [address] [place] CNPNon 03-03-2024 CNPN Telephone (FAMPWS) CARBALLOFELECIA ([id number]) 1960 F [place] Date Time Provider Department 03/03/24 Markie GTZ During your visit today, we recorded the following information about you: Markie Martin, RN 03/03/2024 9:01 AM Signed Mat- [facility] [place]- reports [facility] anesthesiologist, is questioning cardiac clearance for upcoming surgery. 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 Are you going to refer patient to cardiology for clearance? Are you willing to fill out the cardiac clearance form if not referring patient to cardiology? Please phone Mat Alejandra with reply: [phone] (make sure you ask for Mat Alejandra [...] Signed Spoke with Mat at [facility] [place] [facility]esthesia is questioning why no cardiology clearance. Has no shipping technician. Was sent directly to quirk sander who declines to do a cardiac clearance. Consult first available cardiology provider with preference closest to [facility] but will take what's open. Telephone on 03/03/24 CONSULT TO CARDIOLOGY ThanksJanusz PA-C Amstutz, Melody 03/08/2024 9:15 AM Signed 1st attempt called pt about Cardio consult. LVM. Consult was scheduled at first available within [facility]. (Main [place] is June) Barbara Lemus, RN 03/08/2024 9:26 AM Signed Pt called in and reports she was able to get an appointment with Dr Skip with [facility] on 04/04/24. Canceled consult with [facility] Cardiology in June. 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 Absolute lymphocyte countOrd ered By: Kobi Yan on 08-27-2023 Lymphocytes Auto (Unsp spec) [#/Vol] 1.67 10*3/uL 0.83-4.51 [facility] Basophil percentageOrdered B y: Kobi Yan on 08-27-2023 Basophils/100 WBC (Bld) 0.8 % 0-1 [facility] Chloride [Moles/Vol] 108 mmol/L 98-107 [facility] Eosinophils/100 WBC (Bld) 5.3 % 0-5 [facility] Glucose [Mass/Vol] 115 mg/dL 74-106 [facility] Comment on above: Fasting Glucose resu lt from 100 to 125 mg/dL suggests IMPAIRED HOMEOSTASIS per A.D.A. criteria. Neutrophils (Bld) [#/Vol] 4.5 10*3/uL 2.0-7.7 [facility] Neutrophils/100 WBC (Bld) 63.0 % 47-70 [facility] Potassium [Moles/Vol] 4.0 mmol/L 3.5-5.1 [facility] Sodium [Moles/Vol] 140 mmol/L 136-145 [facility] WBC (Bld) [#/Vol] 7.2 10*3/uL 4.4-11.0 [facility] Blood erythrocytes count (nu mber/volume)Ordered By: Kobi Yan on 08-27-2023 RBC (Bld) [#/Vol] 4.51 10*6/uL 4.2-5.4 [facility] Blood hemoglobin measurement (mass/volume)Ordered By: Kobi Yan on 08-27-2023 Hemoglobin (Bld) [Mass/Vol] 14.3 g/dL 12.0-15.0 [facility] Blood lymphocytes/100 leukoc ytesOrdered By: Kobi Yan on 08-27-2023 Lymphocytes/100 WBC (Bld) 23.2 % 19-41 [facility] Blood monocytes/100 leukocyt esOrdered By: Kobi Yan on 08-27-2023 Monocytes/100 WBC (Bld) 7.6 % 0-10 [facility] Blood platelet mean volumeOr dered By: Kobi Yan on 08-27-2023 Platelet mean volume (Bld) [Entitic vol] 9.3 fL 6.2-12.0 [facility] Determination of erythrocyte mean corpuscular volume (MCV)Ordered By: Kobi Yan on 08-27-2023 MCV (RBC) [Entitic vol] 92.9 fL 81-99 [facility] Hematocrit Auto (Bld) [Volum e fraction]Ordered By: Kobi Yan on 08-27-2023 Hematocrit (Bld) [Volume fraction] 41.9 % 37-47 [facility] Laboratory - Chemistry and C hemistry - challengeOrdered By: Kobi Yan on 08-27-2023 CO2 [Moles/Vol] 29.0 mmol/L 21.0-32.0 [facility] Urea nitrogen/Creatinine [Mass ratio] 27.3 mg/mg 10-20 [facility] Laboratory - Hematology and Cell countsOrdered By: Kobi Yan on 08-27-2023 Erythrocyte distribution width (RBC) [Entitic vol] 40.1 fL 35.1-43.9 [facility] Erythrocyte distribution width (RBC) [Ratio] 11.9 % 11.6-14.6 [facility] Immature granulocytes/100 WBC (Bld) 0.100 % 0.0-0.9 [facility] [facility] Comment on above: IG% - Immature Granu locytes (promyelocytes, myelocytes and metamyelocytes) > 1% indicates that a LEFT SHIFT is Present. MCH (RBC) [Entitic mass] 31.7 pg 27.0-32.0 [facility] Nucleated RBC/100 WBC (Bld) [Ratio] 0 % 0-5 [facility] MCHC Auto (RBC) [Mass/Vol]Or dered By: Kobi Yan on 08-27-2023 MCHC (RBC) [Mass/Vol] 34.1 g/dL 32-36 [facility] No Panel InformationOrdered By: Kobi Yan on 08-27-2023 Estimated GFR (MDRD) Amer 80 mL/min >60 [facility] Comment on above: GFR Calc Estimated GFR (MDRD) Non-Af Amer 66 mL/min >60 [facility] Comment on above: Non- GFR Calc Platelets bldOrdered By: Dakota Yan on 08-27-2023 Platelets (Bld) [#/Vol] 278 10*3/uL 150-450 [facility] Serum or plasma calcium raquel urement (mass/volume)Ordered By: Kobi Yan on 08-27-2023 Calcium [Mass/Vol] 9.6 mg/dL 8.5-10.1 [facility] Serum or plasma creatinine m easurement (mass/volume)Ordered By: Kobi Yan on 08-27-2023 Creatinine [Mass/Vol] 0.92 mg/dL 0.55-1.02 [facility] Comment on above: The validity of the calculated GFR & GFRAA in patients over 70 years has not been determined. Clinical correlation is essential. Serum or plasma urea nitroge n measurement (mass/volume)Ordered By: Kobi Yan on 08-27-2023 Urea nitrogen [Mass/Vol] 25 mg/dL 7-18 [facility] Thin prep Papanicolaou smear with manual screeningOrdered By: Kobi Yan on 08-27-2023 Thin prep Papanicolaou smear with manual screening 3 5-15 [facility] XR CHEST 2V FRONTAL/LATon [facility] XR Chest PA and Lateralon IMPRESSION: No acute radiographic abnormality. Physician Underwriter: PSCB Transcribe Date/Time: Jan 01 2023 11:48A Dictated by : MANDEEP CRISTOBAL MD This examination was interpreted and the report reviewed and electronically signed by: MANDEEP CRISTOBAL MD on Jan 01 2023 11:49AM [facility] DIVISION OF RADIOLOGY * * *Final Report* [...] shows degenerative changes. DIVISION OF RADIOLOGY Provider, Radha chu Whittier - 01/01/2023 * * *Final Report* * [...] changes. IMPRESSION IMPRESSION: No acute radiographic abnormality. Physician Underwriter: PSCB Transcribe Date/Time: Jan 01 2023 11:48A Dictated by : MANDEEP CRISTOBAL MD This examination was interpreted and the report reviewed and electronically signed by: MANDEEP CRISTOBAL MD on Jan 01 2023 11:49AM EST [facility] Radiology Study observation (narrative) [facility] XR Chest PA and LateralOrder ed By: Cc Provider on 01-01-2023 [facility] Office Visit: Post Op Breast Biopsyon 09-05-2016 Dietary management education, guidance, and counseling (procedure) yes Invalid Interpretation Code [facility] [employer] Work Phone: Documentation of current medications (procedure) Done Invalid Interpretation Code [facility] [employer] Work Phone: Tobacco smoking status NHIS Never Invalid Interpretation Code [facility] [employer] Work Phone: Tobacco smoking status NHIS Never smoker [facility] [employer] Work Phone: Tobacco use [facility] Never smoker Invalid Interpretation Code [facility] [employer] Work Phone: Office Visit: New patient: A bnormal mammogramon 07-02-2016 General categories [interpretation] of Cervical or vaginal smear or scraping by Cyto stain Normal Invalid Interpretation Code [facility] [employer] Work Phone: Breast Mammogram screening Abnormal Right Invalid Interpretation Code [facility] [employer] Work Phone: Office Visit: New patient: A bnormal mammogramon 07-23-2015 Colonoscopy (procedure) Colonoscopy (procedure) Invalid Interpretation Code [facility] [employer] Work Phone: Vital Signs Date Time Vital Sign Value Performing Clinician Facility 03-22-2025 07:58-0400 Body height 167.64 cm NA Gtz PA Work Phone: [facility] 03-22-2025 07:58-0400 Body mass index (BMI) [Ratio] 29.8 kg/m2 NA Gtz PA Work Phone: [facility] 03-22-2025 07:58-0400 Body weight 83.91 kg NA Gtz PA Work Phone: [facility] 03-22-2025 07:58-0400 Diastolic blood pressure 86 mm[Hg] NA Gtz PA Work Phone: [facility] 03-22-2025 07:58-0400 Heart rate 80 /min NA Gtz PA Work Phone: [facility] 03-22-2025 07:58-0400 Respiratory rate 16 /min NA Gzt PA Work Phone: [facility] 03-22-2025 07:58-0400 Systolic blood pressure 140 mm[Hg] NA Gtz PA Work Phone: [facility] 02-28-2025 09:14-0400 Diastolic blood pressure 78 mm[Hg] Radha Suppan STORES LABORER.QUANTITATIVE ANALYST Work Phone: [facility] 02-28-2025 09:14-0400 Systolic blood pressure 116 mm[Hg] Radha Suppan STORES LABORER.QUANTITATIVE ANALYST Work Phone: [facility] 02-28-2025 08:56-0400 Body mass index (BMI) [Ratio] 30.45 kg/m2 Radha Suppan STORES LABORER.QUANTITATIVE ANALYST Work Phone: [facility] 02-28-2025 08:56-0400 Body weight 83.01 kg Radha Suppan STORES LABORER.QUANTITATIVE ANALYST Work Phone: [facility] 02-28-2025 08:56-0400 Heart rate 92 /min Radha Hummel STORES LABORER.QUANTITATIVE ANALYST Work Phone: [facility] 02-28-2025 08:56-0400 SaO2% (BldA) [Mass fraction] 98 % Radha Hummel STORES LABORER.QUANTITATIVE ANALYST Work Phone: [facility] 07-25-2024 11:30-0400 Body height 165.1 cm Cathy Ndiaye MD Work Phone: [facility] 07-25-2024 11:30-0400 Body mass index (BMI) [Ratio] 30.25 kg/m2 Cathy Ndiaye MD Work Phone: [facility] 07-25-2024 11:30-0400 Body weight 82.46 kg Cathy Ndiaye MD Work Phone: [facility] 07-25-2024 11:30-0400 Diastolic blood pressure 74 mm[Hg] Cathy Ndiaye MD Work Phone: [facility] 07-25-2024 11:30-0400 Heart rate 101 /min Cathy Ndiaye MD Work Phone: [facility] 07-25-2024 11:30-0400 SaO2% (BldA) [Mass fraction] 99 % Cathy Ndiaye MD Work Phone: [facility] 07-25-2024 11:30-0400 Systolic blood pressure 132 mm[Hg] Cathy Ndiaye MD Work Phone: [facility] 04-05-2024 15:39-0400 Body mass index (BMI) [Ratio] 30.34 kg/m2 Nori Thorpe STORES LABORER.QUANTITATIVE ANALYST Work Phone: [facility] 04-05-2024 15:39-0400 Body weight 83.92 kg Nori Thorpe STORES LABORER.QUANTITATIVE ANALYST Work Phone: [facility] 04-05-2024 15:39-0400 Diastolic blood pressure 82 mm[Hg] Nori Thorpe STORES LABORER.QUANTITATIVE ANALYST Work Phone: [facility] 04-05-2024 15:39-0400 Heart rate 100 /min Nori Haagen STORES LABORER.QUANTITATIVE ANALYST Work Phone: [facility] 04-05-2024 15:39-0400 Respiratory rate 16 /min Nori Haagen STORES LABORER.QUANTITATIVE ANALYST Work Phone: [facility] 04-05-2024 15:39-0400 Systolic blood pressure 146 mm[Hg] Nori Haagen STORES LABORER.QUANTITATIVE ANALYST Work Phone: [facility] 02-29-2024 08:53-0400 Body height 166.3 cm NA Gtz PA-C Work Phone: [facility] 02-29-2024 08:53-0400 Body mass index (BMI) [Ratio] 30.51 kg/m2 NA Gtz PA-C Work Phone: [facility] 02-29-2024 08:53-0400 Body weight 84.37 kg NA Gtz PA-C Work Phone: [facility] 02-29-2024 08:53-0400 Diastolic blood pressure 76 mm[Hg] NA Gtz PA-C Work Phone: [facility] 02-29-2024 08:53-0400 Heart rate 91 /min NA Gtz PA-C Work Phone: [facility] 02-29-2024 08:53-0400 Respiratory rate 16 /min NA Gtz PA-C Work Phone: [facility] 02-29-2024 08:53-0400 SaO2% (BldA) [Mass fraction] 98 % NA Tgz PA-C Work Phone: [facility] 02-29-2024 08:53-0400 Systolic blood pressure 130 mm[Hg] NA Gtz PA-C Work Phone: [facility] 08-24-2023 13:53-0500 Body weight 82.56 kg NA Gtz PA-C Work Phone: [facility] 08-24-2023 13:53-0500 Diastolic blood pressure 66 mm[Hg] NA Gtz PA-C Work Phone: [facility] 08-24-2023 13:53-0500 Heart rate 76 /min NA Gtz PA-C Work Phone: [facility] 08-24-2023 13:53-0500 Respiratory rate 16 /min NA Gtz PA-C Work Phone: [facility] 08-24-2023 13:53-0500 SaO2% (BldA) [Mass fraction] 96 % NA Gtz PA-C Work Phone: [facility] 08-24-2023 13:53-0500 Systolic blood pressure 118 mm[Hg] NA Gtz PA-C Work Phone: [facility] 02-20-2023 08:00-0400 Body weight 78.93 kg NA Gtz PA-C Work Phone: [facility] 02-20-2023 08:00-0400 Diastolic blood pressure 80 mm[Hg] NA Gtz PA-C Work Phone: [facility] 02-20-2023 08:00-0400 Heart rate 80 /min NA Gtz PA-C Work Phone: [facility] 02-20-2023 08:00-0400 Respiratory rate 16 /min NA Gtz PA-C Work Phone: [facility] 02-20-2023 08:00-0400 SaO2% (BldA) [Mass fraction] 98 % NA Gtz PA-C Work Phone: [facility] 02-20-2023 08:00-0400 Systolic blood pressure 122 mm[Hg] NA Gtz PA-C Work Phone: [facility] 01-01-2023 11:20-0400 Body temperature 100.51 [degF] Britt Granado STORES LABORER.QUANTITATIVE ANALYST Work Phone: [facility] 01-01-2023 11:20-0400 Body weight 79.47 kg Britt Granado STORES LABORER.QUANTITATIVE ANALYST Work Phone: [facility] 01-01-2023 11:20-0400 Diastolic blood pressure 82 mm[Hg] Britt Praisler-Wood STORES LABORER.QUANTITATIVE ANALYST Work Phone: [facility] 01-01-2023 11:20-0400 Heart rate 126 /min Britt Praisler-Wood STORES LABORER.QUANTITATIVE ANALYST Work Phone: [facility] 01-01-2023 11:20-0400 Respiratory rate 20 /min Britt Praisler-Wood STORES LABORER.QUANTITATIVE ANALYST Work Phone: [facility] 01-01-2023 11:20-0400 SaO2% (BldA) [Mass fraction] 98 % Britt Praisler-Wood STORES LABORER.QUANTITATIVE ANALYST Work Phone: [facility] 01-01-2023 11:20-0400 Systolic blood pressure 128 mm[Hg] Britt Praisler-Wood STORES LABORER.QUANTITATIVE ANALYST Work Phone: [facility] 08-15-2022 09:49-0400 Body height 170 cm NA Gtz PA-C Work Phone: [facility] 08-15-2022 09:49-0400 Body weight 78.93 kg NA Gtz PA-C Work Phone: [facility] 08-15-2022 09:49-0400 Diastolic blood pressure 74 mm[Hg] NA Gtz PA-C Work Phone: [facility] 08-15-2022 09:49-0400 Heart rate 99 /min NA Gtz PA-C Work Phone: [facility] 08-15-2022 09:49-0400 Respiratory rate 16 /min NA Gtz PA-C Work Phone: [facility] 08-15-2022 09:49-0400 SaO2% (BldA) [Mass fraction] 97 % NA Gtz PA-C Work Phone: [facility] 08-15-2022 09:49-0400 Systolic blood pressure 126 mm[Hg] NA Gtz PA-C Work Phone: [facility] 08-13-2022 08:39-0400 Body temperature 98.29 [degF] Karlie Podlogar STORES LABORER.QUANTITATIVE ANALYST Work Phone: [facility] 08-13-2022 08:39-0400 Body weight 79.2 kg Karlie Podlogar STORES LABORER.QUANTITATIVE ANALYST Work Phone: [facility] 08-13-2022 08:39-0400 Diastolic blood pressure 82 mm[Hg] Karlie Podlogar STORES LABORER.QUANTITATIVE ANALYST Work Phone: [facility] 08-13-2022 08:39-0400 Heart rate 92 /min Karlie Podlogar STORES LABORER.QUANTITATIVE ANALYST Work Phone: [facility] 08-13-2022 08:39-0400 Respiratory rate 16 /min Karlie Podlogar STORES LABORER.QUANTITATIVE ANALYST Work Phone: [facility] 08-13-2022 08:39-0400 SaO2% (BldA) [Mass fraction] 99 % Karlie Podlogar STORES LABORER.QUANTITATIVE ANALYST Work Phone: [facility] 08-13-2022 08:39-0400 Systolic blood pressure 142 mm[Hg] Karlie Podlogar STORES LABORER.QUANTITATIVE ANALYST Work Phone: [facility] 02-13-2022 16:21-0400 Body weight 79.83 kg NA Gtz PA-C Work Phone: [facility] 02-13-2022 16:21-0400 Diastolic blood pressure 72 mm[Hg] NA Gtz PA-C Work Phone: [facility] 02-13-2022 16:21-0400 Heart rate 96 /min NA Gtz PA-C Work Phone: [facility] 02-13-2022 16:21-0400 Respiratory rate 16 /min NA Gtz PA-C Work Phone: [facility] 02-13-2022 16:21-0400 SaO2% (BldA) [Mass fraction] 97 % NA Gtz PA-C Work Phone: [facility] 02-13-2022 16:21-0400 Systolic blood pressure 120 mm[Hg] [place] Gtz PA-C Work Phone: [facility] 09-05-2016 15:23-0500 BMI (Body Mass Index) 27.27 kg/m2 Tanya Jaspal [facility] [employer] Work Phone: 09-05-2016 15:23-0500 Body Temperature 98.1 [degF] Tanya Jaspal [facility] [employer] Work Phone: 09-05-2016 15:23-0500 Body weight 76.66 kg Alexandrea Hyde MD [facility] [employer] Work Phone: 09-05-2016 15:23-0500 Body weight 76.82 kg Alexandrea Hyde MD [facility] [employer] Work Phone: 09-05-2016 15:23-0500 BP Diastolic 98 mm[Hg] Tanya Jaspal [facility] [employer] Work Phone: 09-05-2016 15:23-0500 BP Systolic 160 mm[Hg] Tanya Jaspal [facility] [employer] Work Phone: 09-05-2016 15:23-0500 BSA (Body Surface Area) 1.86 m2 Tanya Jaspal [facility] [employer] Work Phone: 09-05-2016 15:23-0500 Height 167.64 cm Tanya Jaspal [facility] [employer] Work Phone: 09-05-2016 15:23-0500 Pulse (Heart Rate) 82 /min Tanya Jaspal [facility] [employer] Work Phone: 09-05-2016 15:23-0500 Pulse Oximetry 99 % Tanya Shay LPN [facility] [employer] Work Phone: 09-05-2016 15:23-0500 Respiratory Rate 16 /min Tanya Jaspal [facility] [employer] Work Phone: 09-05-2016 15:23-0500 Weight 76.66 kg Tanya Shay LPN [facility] [employer] Work Phone: 09-05-2016 15:23-0500 Weight 76.82 kg Tanya Shay JAYDA [facility] [employer] Work Phone: Encounters Encounter Date Encounter Type Care Provider Facility Start: 05-01-2025 ambulatory Kb Valdivia Facility:[facility] Start: 04-07-2025 End: 04-07-2025 ambulatory Markie KUO Work Phone: [facility] Work Phone: Start: 04-07-2025 End: 04-07-[address] Kb Valdivia MD -Laboratory Work Phone: Start: 04-07-2025 End: 04-07-2025 ambulatory Kb Skip Facility:[facility] Start: 03-22-2025 End: 03-22-[address] Kb Valdivia MD -[facility] Work Phone: Start: 03-22-2025 End: 03-22-2025 ambulatory Markie KUO Work Phone: [facility] Work Phone: Start: 02-28-2025 End: 02-28-2025 Office outpatient visit 25 minutes Radha Hummel APRN.QUANTITATIVE ANALYST Work Phone: [facility] Comment on above: Hypertension, essent ial (Primary Dx); WPW (Azbon-Cjetxsvvm-Ciibv syndrome); Screening for depression; Encounter for screening examination for other mental health and behavioral disorders; Acquired hypothyroidism; Melanocytic nevus of trunk; Hyperlipidemia, mixed; Fibrocystic breast disease (FCBD), unspecified laterality; Encounter for immunization; Screening for cervical cancer Start: 02-28-2025 End: 02-28-2025 ambulatory RADHA HUMMEL Facility:[facility] Start: 10-03-2024 End: 10-04-2024 ambulatory Nori Thorpe APRN.QUANTITATIVE ANALYST Work Phone: [facility] Comment on above: Medications Start: 08-16-2024 End: 08-16-2024 Telephone encounter Whitney Baeza RN Mammography Comment on above: Results Start: 08-12-2024 ambulatory CATHY NDIAYE Facili ty:[facility] Start: 08-12-2024 End: 08-12-2024 Subsequent hospital visit by physician Stereo/Ultrasound Biopsy [facility] Comment on above: Abnormal ultrasound of breast [R92.8] Start: 08-11-2024 End: 08-11-2024 ambulatory Sonali Good MD Work Phone: Mammography Comment on above: Breast Problem Start: 08-11-2024 End: 08-11-2024 Patient encounter procedure Sonali Good MD Work Phone: Mammography Start: 08-10-2024 End: 08-11-2024 ambulatory Markie Gtz PA-C Work Phone: [facility] Comment on above: Physical Start: 07-29-2024 End: 07-29-2024 Telephone encounter Cathy Ndiaye MD Work Phone: General Surgery Start: 07-25-2024 End: 07-25-2024 ambulatory UMESH GTZ Facility:[facility] Start: 07-25-2024 End: 07-25-2024 Patient encounter procedure Cathy Ndiaye MD Work Phone: General Surgery Comment on above: Abnormal ultrasound of breast (Primary Dx) Start: 07-21-2024 End: 07-21-2024 Telephone encounter Radha Hummel APRN.CNP Work Phone: [facility] Start: 07-20-2024 End: 07-20-2024 ambulatory UMESH GTZ Facility:[facility] Start: 07-20-2024 End: 07-20-2024 Subsequent hospital visit by physician [facility] Work Phone: Radiology Comment on above: Abnormal findings on diagnostic imaging of breast [R92.8] Start: 06-28-2024 End: 06-28-2024 Telephone encounter Susie Baez MD Work Phone: Mammography Comment on above: Mammogram Result Erica l Back Start: 06-23-2024 End: 06-24-2024 Documentation procedure Mammography Coordinator [facility] Department Start: 06-23-2024 End: 06-24-2024 Letter encounter Mammography Coordinator [facility] Department Start: 06-23-2024 End: 06-23-2024 Telephone encounter Radha Hummel APRN.QUANTITATIVE ANALYST Work Phone: [facility] Start: 06-22-2024 End: 06-22-2024 ambulatory UMESH GTZ Facility:[facility] Start: 06-22-2024 End: 06-22-2024 Subsequent hospital visit by physician Screen Mammo [facility] Comment on above: Encounter for screen ing mammogram for breast cancer [Z12.31] Start: 04-08-2024 Telephone encounter Nori monreal APRN.CNP Work Phone: [facility] Comment on above: copy of recent labs Results Start: 04-05-2024 Encounter for other preprocedural examination RADHA HUMMEL [facility] Start: 04-05-2024 End: 04-05-2024 ambulatory UMESH GTZ Facility:[facility] Start: 04-05-2024 End: 04-05-2024 Patient encounter procedure Nori Tohrpe APRN.CNP Work Phone: [facility] [place] Comment on above: Preop examination (P rimary Dx); Disorder of right Achilles tendon Start: 04-05-2024 End: 04-05-2024 Preprocedural examination done Nori Thorpe APRN.CNP Work Phone: [facility] Work Phone: Start: 03-30-2024 Refill Markie madison PA-C Work Phone: [facility] Comment on above: Refill Request Start: 03-03-2024 Telephone encounter Markie Gtz PA-C Work Phone: [facility] [place] Comment on above: Question r/t cardiac clearance Start: 03-02-2024 Chart abstracting Markie rendon PA-C Work Phone: [facility] Start: 02-29-2024 End: 02-29-2024 Patient encounter procedure Markie Shivam Gtz PA-C Work Phone: [facility] Comment on above: WPW (Ezra-Parkinson -White syndrome) (Primary Dx); Hypertension, essential; Hyperlipidemia, mixed; Acquired hypothyroidism; Elevated glucose; Wellness examination; Preoperative clearance; Vitamin D deficiency Start: 02-29-2024 End: 02-29-2024 Patient encounter status Markie Shivam KUO-Aayush Work Phone: [facility] Start: 02-29-2024 End: 02-29-2024 Preoperative state Markie Shivam KUO-Aayush Work Phone: [facility] Start: 01-27-2024 ambulatory Markie Shivam Dario KUO-C Work Phone: [facility] [place] Start: 01-24-2024 Get Medical Advice Markie Gtz PA-C Work Phone: [facility] Comment on above: Labs ordered Start: 01-18-2024 Telephone encounter Markie Shivam Gtz PA-C Work Phone: [facility] Comment on above: Appointment; Orders Start: 09-02-2023 Telephone encounter Markie Shivam Ulisses WHALEN Work Phone: [facility] Comment on above: Release Of Medical R ecords Start: 08-27-2023 End: 08-27-2023 ambulatory [facility] Work Phone: Start: 08-27-2023 End: 08-27-2023 Patient encounter procedure [facility]-Pulmonary Services/Neurology Work Phone: Start: 08-24-2023 End: 08-24-2023 Patient encounter procedure Markie Shivam Ulisses WHALEN Work Phone: [facility] Comment on above: Preoperative clearan ce (Primary Dx); WPW (Ckzes-Kdifjennr-Tcofq syndrome); Hypertension, essential; Hyperlipidemia, mixed; Acquired hypothyroidism; Elevated glucose; Acute meniscal tear of left knee, sequela Start: 08-24-2023 End: 08-24-2023 Preoperative state Markie Shivam Ulisses PA-C Work Phone: [facility] Work Phone: Start: 04-20-2023 End: 04-20-2023 ambulatory [facility] Work Phone: Start: 04-20-2023 End: 04-20-2023 Patient encounter procedure [facility]-Outpatient Breast Imaging Work Phone: Start: 02-20-2023 End: 02-20-2023 Patient encounter procedure Markie Shivam Ulisses PA-C Work Phone: [facility] Comment on above: WPW (Ezra-Parkinson -White syndrome) (Primary Dx); Hypertension, essential; Hyperlipidemia, mixed; Acquired hypothyroidism; Wellness examination Start: 02-20-2023 End: 02-20-2023 Patient encounter status Markie Shivam Gtz PA-C Work Phone: [facility] Start: 02-18-2023 ambulatory Markie Shivam Dario on PA-C Work Phone: [facility] [place] Start: 01-02-2023 Telephone encounter Silviano KUO Work Phone: [facility] Comment on above: Results Start: 01-01-2023 End: 01-01-2023 Subsequent hospital visit by physician [facility] Work Phone: Radiology Comment on above: Subacute cough [R05. 2] Start: 01-01-2023 End: 01-01-2023 Patient encounter procedure Britt Granado APRN.CNP Work Phone: [facility] Comment on above: Subacute cough (Prim elise Dx); Post-viral cough syndrome Start: 10-15-2022 Refill Markie Bishop on PA-C Work Phone: [facility] Comment on above: Refill Request Start: 08-15-2022 End: 08-15-2022 Patient encounter procedure Markie Gtz PA-C Work Phone: [facility] Comment on above: WPW (Ezra-Parkinson -White syndrome) (Primary Dx); Hypertension, essential; Acquired hypothyroidism; Need for influenza vaccination; Hyperlipidemia, mixed; Elevated glucose Start: 08-13-2022 End: 08-13-2022 Patient encounter procedure Karlie Phan APRN.QUANTITATIVE ANALYST Work Phone: [facility] Comment on above: Eye drainage (Primar y Dx) Start: 07-25-2022 Refill Markie Bishop on PA-C Work Phone: [facility] Comment on above: Refill Request Start: 02-21-2022 End: 02-21-2022 [facility] Start: 02-13-2022 End: 02-13-2022 Patient encounter procedure Markie Bishopon PA-C Work Phone: [facility] Comment on above: WPW (Ezra-Parkinson -White syndrome) (Primary Dx); Hypertension, essential; Hyperlipidemia, mixed; Acquired hypothyroidism; Elevated glucose Start: 01-22-2022 Refill Markie Bishop on PA-C Work Phone: [facility] Comment on above: Refill Request Start: 01-13-2022 Refill Ccf Provider [facility] [place] rohan [place] Comment on above: Refill Request Start: 12-28-2018 Patient encounter procedure KACEY MARTINEZ Facility:[facility] Start: 12-22-2017 End: 12-22-2017 Patient encounter procedure KACEYCachorro MARTINEZ Facility:[facility] Procedures Date Procedure Procedure Detail Performing Clinician Start: 02-28-2025 Adult depression scr eening assessment Radha Hummel APRN.QUANTITATIVE ANALYST Work Phone: Start: 08-12-2024 Digital breast tomosynthesis unilateral Cathy Ndiaye MD Work Phone: Start: 08-12-2024 Bx breast w/device 1 st lesion ultrasound guid Cathy Ndiaye MD Work Phone: Start: 07-20-2024 End: 07-20-2024 Us breast uni real time with image limited Radha uHmmel APRN.QUANTITATIVE ANALYST Work Phone: Start: 07-20-2024 Digital breast tomosynthesis bilateral Ccf Provider Start: 03-02-2024 Hemoglobin A1c/Hemoglobin.total in Blood [facility]cf Provider Start: 02-29-2024 Adult depression scr eening assessment Screen [facility] Start: 02-19-2024 Lipid 1996 panel - S deuce or Plasma NA Gtz PA-C Work Phone: Start: 04-20-2023 Screening mammography Start: 02-06-2023 Lipid 1996 panel - S deuce or Plasma NA Gtz PA-C Work Phone: Start: 01-01-2023 Radiologic exam ches t 2 views Britt Granado APRN.[facility] Work Phone: Start: 08-15-2022 INFLUENZA VACCINE QUADRIVALENT 6 MO - 64 YRS IM Markie Langley Ulisses PA-C Work Phone: Start: 02-21-2022 Screening mammography [...] RSV Vaccine (1 - 1-dose 75+ series) [facility] Start: 02-18-2029 Lipid panel Lipid Screening [facility] Start: 02-07-2028 Lipid 1996 panel - Serum or Plasma Lipid Screening [facility] Start: 02-07-2028 Lipid panel Lipid Screening [facility] Start: 02-07-2028 LIPID SCREEN LIPID SCREEN [facility] Start: 11-12-2027 Urine microalbumin profile [facility] Start: 04-05-2027 Diabetes Screening Diabetes Screenin g [facility] Start: 03-02-2027 Diabetes Screening Diabetes Screenin g [facility] Start: 02-18-2027 Diabetes Screening Diabetes Screenin g [facility] Start: 01-29-2027 LIPID SCREEN LIPID SCREEN [facility] Start: 08-02-2026 LIPID SCREEN LIPID SCREEN [facility] Start: 03-01-2026 End: 03-01-2026 Patient encounter procedure 03/01/2026 9:00 AM EDT Office Visit [facility] [place] [address] [place], [place] [id number] Radha Hummel, STORES LABORER.QUANTITATIVE ANALYST [address] [place] [address] Physical [facility] [place] Comment on above: Physical Start: 02-28-2026 Annual PCP Team Impregnating Tank Operator blaze Disease Visit Annual PCP Team Chronic Disease Visit [facility] Start: 02-28-2026 Anxiety Screening Anxiety Screening [facility] Start: 02-28-2026 BP Controlled (<130/80) BP Controlle d (<130/80) [facility] Start: 02-28-2026 Covid-19 Vaccine () Covid-19 Vaccine () [facility] Comment on above: Postponed from 06/19 (Declined at this time) Start: 02-28-2026 Depression Screening Depression Scre ening [facility] Start: 08-04-2025 DIABETES SCREEN DIABETES SCREEN [facility] Start: 08-04-2025 Diabetes Screening Diabetes Screenin g [facility] Start: 07-31-2025 End: 03-30-2026 DBT Breast - bilateral screening RANJAN SCREENING W DARIO Radiology Routine Fibrocystic breast disease (FCBD), unspecified laterality Expected: 07/31/2025, Expires: 03/30/2026 [facility] Work Phone: Comment on above: Expected: 07/31/2025 , Expires: 03/30/2026 Start: 07-31-2025 End: 07-31-2025 Patient encounter procedure 07/31/2025 9:10 AM EDT Appointment Mammogram [address] [place] [address] Fibrocystic breast disease (FCBD), unspecified laterality [N60.19] Mammogram Comment on above: Fibrocystic breast d isease (FCBD), unspecified laterality [N60.19] Start: 07-20-2025 Screening for malign ant neoplasm of breast Mammogram Screening [facility] Start: 07-06-2025 Colonoscopy COLONOSCOPY [facility] Start: 07-06-2025 COLORECTAL CANCER SCREENING COLORECTAL CANCER SCREENING [facility] Start: 07-06-2025 Screening for malign ant neoplasm of colon [facility] Start: 06-22-2025 Screening for malign ant neoplasm of breast Mammogram Screening [facility] Start: 06-19-2025 Influenza vaccination Influenz a Vaccine (Season Ended) [facility] Start: 05-31-2025 Screening for malign ant neoplasm of cervix Cervical Cancer Screening [facility] Comment on above: Postponed from 10/30 (Currently Scheduled) Start: 04-07-2025 End: 04-07-2025 Patient encounter procedure 04/07/2025 9:15 AM EDT Office Visit OB/Gynecology [address] [place] [address] Tanya Fontanez APRN.QUANTITATIVE ANALYST [address] [place] [address] Screening for cervical cancer [Z12.4] OB/Gynecology Comment on above: Screening for cervic al cancer [Z12.4] Start: 04-05-2025 Annual PCP Team Impregnating Tank Operator blaze Disease Visit Annual PCP Team Chronic Disease Visit [facility] Start: 02-28-2025 Annual PCP Team Impregnating Tank Operator blaze Disease Visit Annual PCP Team Chronic Disease Visit [facility] Start: 02-28-2025 Anxiety Screening Anxiety Screening [facility] Start: 02-28-2025 End: 05-30-2025 Cobalamin (Vitamin B12) [Mass/volume] in Serum or Plasma [facility] Comment on above: Expected: 02/28/2025 , Expires: 05/30/2025 Start: 02-28-2025 End: 05-30-2025 Comprehensive metabolic 2000 panel - Serum or Plasma [facility] Comment on above: Expected: 02/28/2025 , Expires: 05/30/2025 Start: 02-28-2025 Depression Screening Depression Scre ening [facility] Start: 02-28-2025 End: 05-30-2025 LIPID PANEL, NONFASTING [facility] Comment on above: Expected: 02/28/2025 , Expires: 05/30/2025 Start: 02-28-2025 End: 05-30-2025 Magnesium [Mass/volume] in Serum or Plasma [facility] Comment on above: Expected: 02/28/2025 , Expires: 05/30/2025 Start: 02-28-2025 End: 05-30-2025 Thyrotropin [Units/volume] in Serum or Plasma [facility] Comment on above: Expected: 02/28/2025 , Expires: 05/30/2025 Start: 02-28-2025 End: 05-30-2025 Thyroxine (T4) free [Mass/volume] in Serum or Plasma [facility] Comment on above: Expected: 02/28/2025 , Expires: 05/30/2025 Start: 02-28-2025 End: 02-28-2025 Patient encounter procedure [facility] Comment on above: Yearly exam physical Start: 01-29-2025 DIABETES SCREEN DIABETES SCREEN [facility] Start: 08-24-2024 Annual PCP Team Impregnating Tank Operator blaze Disease Visit Annual PCP Team Chronic Disease Visit [facility] Start: 08-24-2024 BP Controlled (<130/80) BP Controlle d (<130/80) [facility] Start: 08-12-2024 End: 08-12-2024 Patient encounter procedure 08/12/2024 1:30 PM EDT Appointment [facility] [address] [place] [address] right breast ultrasound guided biopsy Dr. Ndiaye referred [facility] Comment on above: right breast ultraso und guided biopsy Dr. Ndiaye referred Start: 07-25-2024 End: 07-25-2024 Patient encounter procedure 07/25/2024 11:45 AM EDT Office Visit General Surgery [address] [place] [address] Cathy Ndiaye MD [address] [place] [id number] rt breast consult General Surgery Comment on above: rt breast consult Start: 07-20-2024 End: 07-20-2024 Patient encounter procedure 07/20/2024 1:00 PM EDT Appointment Mammogram [address] [place] [id number] Comp- B/L CB asyms (US needs scheduled) Mammogram Comment on above: Comp- B/L CB asyms ( US needs scheduled) Start: 06-19-2024 Covid-19 Vaccine ( season) Covid-19 Vaccine () [facility] Start: 06-19-2024 Influenza vaccination Influenza Vacc ine (#1) [facility] Start: 04-05-2024 End: 04-05-2024 Patient encounter procedure 04/05/2024 3:40 PM EDT Office Visit Family Medicine [place] [address] [place], [place] [id number] Nori Thorpe APRN.QUANTITATIVE ANALYST [address] [facility] [place] [address] Pro op clearance [facility] Comment on above: Pro op clearance Start: 02-29-2024 End: 05-30-2024 25-hydroxyvitamin D3 [Mass/volume] in Serum or Plasma VITAMIN D 25 HYDROXY Lab Routine Preoperative clearance Expected: 02/29/2024, Expires: 05/30/2024 [facility] Work Phone: Comment on above: Expected: 02/29/2024 , Expires: 05/30/2024 Start: 02-29-2024 End: 05-30-2024 CBC W Auto Differential panel - Blood CBC + DIFF Lab Routine Acquired hypothyroidism Hypertension, essential Hyperlipidemia, mixed Expected: 02/29/2024, Expires: 05/30/2024 [facility] Work Phone: Comment on above: Expected: 02/29/2024 , Expires: 05/30/2024 Start: 02-29-2024 End: 05-30-2024 Comprehensive metabolic 2000 panel - Serum or Plasma COMP METABOLIC PANEL Lab Routine Acquired hypothyroidism Hypertension, essential Hyperlipidemia, mixed Expected: 02/29/2024, Expires: 05/30/2024 [facility] Work Phone: Comment on above: Expected: 02/29/2024 , Expires: 05/30/2024 Start: 02-29-2024 End: 05-30-2024 Lipid 1996 panel - Serum or Plasma LIPID PANEL BASIC Lab Routine Acquired hypothyroidism Hypertension, essential Hyperlipidemia, mixed Expected: 02/29/2024, Expires: 05/30/2024 [facility] Work Phone: Comment on above: Expected: 02/29/2024 , Expires: 05/30/2024 Start: 02-29-2024 End: 05-30-2024 NICOTINE/COTININE NICOTINE/COTININE Lab Routine Preoperative clearance Expected: 02/29/2024, Expires: 05/30/2024 [facility] Comment on above: Expected: 02/29/2024 , Expires: 05/30/2024 Start: 02-29-2024 End: 05-30-2024 Thyrotropin [Units/volume] in Serum or Plasma TSH BLD Lab Routine Acquired hypothyroidism Hypertension, essential Hyperlipidemia, mixed Expected: 02/29/2024, Expires: 05/30/2024 [facility] Work Phone: Comment on above: Expected: 02/29/2024 , Expires: 05/30/2024 Start: 02-21-2024 ANNUAL PCP TEAM ELEVATOR OPERATOR SERVICE BLAZE DISEASE VISIT ANNUAL PCP TEAM CHRONIC DISEASE VISIT [facility] Start: 02-21-2024 PAP TESTING PAP TESTING [facility] Comment on above: Postponed from 10/30 (Declined at this time) Start: 02-21-2024 Screening for malign ant neoplasm of cervix Pap Testing [facility] Comment on above: Postponed from 10/30 (Declined at this time) Start: 10-30-2023 HPV TESTING HPV TESTING [facility] Start: 10-30-2023 Screening for malign ant neoplasm of cervix HPV Testing [facility] Start: 10-26-2023 DIABETES SCREEN DIABETES SCREEN [facility] Start: 10-19-2023 Behavioral Health Screening Behavioral Health Screening [facility] Start: 10-19-2023 Depression Assessment Depression Ass essment [facility] Start: 08-15-2023 ANNUAL PCP TEAM ELEVATOR OPERATOR SERVICE BLAZE DISEASE VISIT ANNUAL PCP TEAM CHRONIC DISEASE VISIT [facility] Start: 08-15-2023 BP CONTROLLED (<130/80) BP CONTROLLE D (<130/80) [facility] Start: 08-13-2023 ANNUAL PCP TEAM ELEVATOR OPERATOR SERVICE BLAZE DISEASE VISIT ANNUAL PCP TEAM CHRONIC DISEASE VISIT [facility] Start: 06-19-2023 Covid-19 Vaccine () Covid-19 Vaccine () [facility] Start: 06-19-2023 Influenza vaccination Influenza Vacc ine (#1) [facility] Start: 02-20-2023 End: 04-22-2023 Comprehensive metabolic 2000 panel - Serum or Plasma COMP METABOLIC PANEL Lab Routine WPW (Dryry-Lfuivgsoe-Qpvob syndrome) Hypertension, essential Hyperlipidemia, mixed Expected: 02/20/2023, Expires: 04/22/2023 [facility] Work Phone: Comment on above: Expected: 02/20/2023 , Expires: 04/22/2023 Start: 02-20-2023 End: 04-22-2023 Lipid 1996 panel - Serum or Plasma LIPID PANEL BASIC Lab Routine Hyperlipidemia, mixed Expected: 02/20/2023, Expires: 04/22/2023 [facility] Work Phone: Comment on above: Expected: 02/20/2023 , Expires: 04/22/2023 Start: 02-13-2023 ANNUAL PCP TEAM ELEVATOR OPERATOR SERVICE BLAZE DISEASE VISIT ANNUAL PCP TEAM CHRONIC DISEASE VISIT [facility] Start: 02-13-2023 BP CONTROLLED (<130/80) BP CONTROLLE D (<130/80) [facility] Start: 02-13-2023 End: 04-15-2023 Lipid 1996 panel - Serum or Plasma LIPID PANEL BASIC Lab Routine Hyperlipidemia, mixed Expected: 02/13/2023, Expires: 04/15/2023 [facility] Work Phone: Comment on above: Expected: 02/13/2023 , Expires: 04/15/2023 Start: 02-13-2023 Mammography MAMMOGRAM [facility] Comment on above: Postponed from 02/20 (Currently Scheduled) Start: 02-13-2023 PAP TESTING PAP TESTING [facility] Comment on above: Postponed from 10/30 (Currently Scheduled) Start: 10-19-2022 DEPRESSION ASSESSMENT DEPRESSION ASS ESSMENT [facility] Start: 08-15-2022 End: 10-15-2022 Basic metabolic 2000 panel - Serum or Plasma BASIC METABOLIC PNL Lab Routine WPW (Wqvwh-Pewymatrh-Wzjdm syndrome) Hypertension, essential Acquired hypothyroidism Elevated glucose Expected: 08/15/2022, Expires: 10/15/2022 [facility] Work Phone: Comment on above: Expected: 08/15/2022 , Expires: 10/15/2022 Start: 08-15-2022 End: 10-15-2022 Comprehensive metabolic 2000 panel - Serum or Plasma COMP METABOLIC PANEL Lab Routine Hypertension, essential Hyperlipidemia, mixed Elevated glucose Expected: 08/15/2022, Expires: 10/15/2022 [facility] Work Phone: Comment on above: Expected: 08/15/2022 , Expires: 10/15/2022 Start: 08-15-2022 End: 10-15-2022 Thyrotropin [Units/volume] in Serum or Plasma TSH BLD Lab Routine Acquired hypothyroidism Expected: 08/15/2022, Expires: 10/15/2022 [facility] Work Phone: Comment on above: Expected: 08/15/2022 , Expires: 10/15/2022 Start: 08-09-2022 ANNUAL PCP TEAM ELEVATOR OPERATOR SERVICE BLAZE DISEASE VISIT ANNUAL PCP TEAM CHRONIC DISEASE VISIT [facility] Start: 08-09-2022 HIV SCREENING HIV SCREENING [facility] Comment on above: Postponed from 03/07 (Declined at this time) Start: 08-07-2022 Adult depression screening assessment DEPRESSION SCREENING [facility] Start: 06-19-2022 Influenza vaccination INFLUENZA (#1) [facility] Start: 2022 RSV Vaccine (1 - 1-d ose 60+ series) RSV Vaccine (1 - 1-dose 60+ series) [facility] Start: 02-20-2022 Mammography [facility] Start: 02-20-2022 Screening for malign ant neoplasm of breast Mammogram Screening [facility] Start: 10-30-2021 PAP TESTING PAP TESTING [facility] Start: 10-30-2021 Screening for malign ant neoplasm of cervix [facility] Start: 10-19-2021 DEPRESSION ASSESSMENT DEPRESSION ASS ESSMENT [facility] Start: 03-24-2017 End: 03-24-2017 Appointment Appointment [facility] Work Phone: Start: 03-12-2017 End: 03-12-2017 Bx breast 1st Lesion US imag Bx Breast, device placement, US guidance [facility] Work Phone: Start: 03-02-2017 End: 02-23-2017 Mammogram, both breasts Mammogram, Diagnostic, both breasts [facility] Work Phone: Start: 03-02-2017 End: 02-23-2017 Us exam, breast(s) US Breast(s) [facility] Work Phone: Start: 01-23-2017 End: 09-05-2016 Follow Up Appt Other Follow Up Appt Other [facility] Work Phone: Start: 01-23-2017 End: 09-05-2016 Follow Up Appt Other Follow Up Appt Other [facility] Work Phone: Start: 09-05-2016 End: 09-08-2016 Primary Care Physician Primary Care Physician Ceasar Madera, [facility], [address] [place], [address] [facility] Work Phone: Start: 09-05-2016 End: 09-08-2016 Primary Care Physician Primary Care Physician Ceasar [place], [facility], [address] [place], [address] [facility] Work Phone: Start: 08-12-2016 End: 08-12-2016 Bx breast w/device 1st lesion ultrasound guid Bx Breast, device placement, US guidance [facility] Work Phone: Start: 08-12-2016 End: 08-12-2016 Bx breast 1st Lesion US imag Bx Breast, device placement, US guidance [facility] Work Phone: Start: 07-25-2016 End: 07-25-2016 Follow Up after Imaging/labs Follow Up after Imaging/labs [facility] Work Phone: Start: 07-25-2016 End: 08-11-2016 Us guidance needle placement img s&i Ultrasonic guidance for needle placement biopsy, aspiration, imaging [facility] Work Phone: Start: 07-25-2016 End: 08-11-2016 Echo guide for biopsy Ultrasonic guidance for needle placement biopsy, aspiration, imaging [facility] Work Phone: Start: 07-25-2016 End: 07-25-2016 Follow Up after Imaging/labs Follow Up after Imaging/labs [facility] Work Phone: Start: 2012 Pneumococcal Vaccine : 50+ (1 of 1 - PCV) Pneumococcal Vaccine: 50+ (1 of 1 - PCV) [facility] Start: 2007 COLOGUARD (FIT-DNA) COLOGUARD (FIT-D NA) [facility] Start: [address] COLONOGRAPHY [facility] Start: 2007 FECAL OCCULT BLOOD FECAL OCCULT BLOO D [facility] Start: 2007 Screening for malign ant neoplasm of colon [facility] Start: 2007 SIGMOIDOSCOPY SIGMOIDOSCOPY [facility] Start: 1980 BP CONTROLLED (<130/80) BP CONTROLLE D (<130/80) [facility] Start: 1980 HIV SCREENING HIV SCREENING [facility] Influenza virus A an d B RNA and SARS-CoV-2 (COVID-19) N gene panel - Respiratory specimen by SOFI with probe detection COVID WITH FLUA+B, ROUTINE Microbiology Routine Subacute cough 01/01/2023 1:15 PM EDT [facility] Work Phone: End: 03-19-2024 RANJAN SCREENING RANAJN SCREENING Radiology Routine Encounter for screening mammogram for breast cancer 1 Occurrences starting 02/18/2023 until 03/19/2024 [facility] Work Phone: Comment on above: 1 Occurrences starti ng 02/18/2023 until 03/19/2024 End: 07-23-2025 MG Breast - bilateral Diagnostic RANJAN DIAGNOSTIC BILATERAL Radiology Routine Abnormal findings on diagnostic imaging of breast 1 Occurrences starting 06/23/2024 until 07/23/2025 [facility] Work Phone: Comment on above: 1 Occurrences starti ng 06/23/2024 until 07/23/2025 End: 02-25-2025 MG Breast Screening RANJAN SCREENING Radiology Routine Encounter for screening mammogram for breast cancer 1 Occurrences starting 01/27/2024 until 02/25/2025 [facility] Work Phone: Comment on above: 1 Occurrences starti ng 01/27/2024 until 02/25/2025 MG Breast Screening RANJAN SCREENIN G Radiology Routine Encounter for screening mammogram for breast cancer 06/22/2024 10:53 AM EDT [facility] Work Phone: End: 08-12-2024 SURGICAL PATHOLOGY SURGICAL PATHOLOGY Lab Routine ONCE for 1 Occurrences starting 08/12/2024 until 08/12/2024 [facility] Work Phone: Comment on above: ONCE for 1 Occurrenc es starting 08/12/2024 until 08/12/2024 End: 07-23-2025 US Breast - left limited US BREAST LTD LEFT Radiology Routine Abnormal findings on diagnostic imaging of breast 1 Occurrences starting 06/23/2024 until 07/23/2025 [facility] Comment on above: 1 Occurrences starti ng 06/23/2024 until 07/23/2025 End: 07-23-2025 US Breast - right limited US BREAST LTD RIGHT Radiology Routine Abnormal findings on diagnostic imaging of breast 1 Occurrences starting 06/23/2024 until 07/23/2025 [facility] Comment on above: 1 Occurrences starti ng 06/23/2024 until 07/23/2025 End: 08-24-2025 US Guidance for biopsy of Breast - right US BIOPSY BREAST RIGHT Radiology Routine Abnormal ultrasound of breast 1 Occurrences starting 07/25/2024 until 08/24/2025 [facility] Work Phone: Comment on above: 1 Occurrences starti ng 07/25/2024 until 08/24/2025 [facility] Immunizations Immunization Date Immunization Notes Care Provider Meagan jessica 02-28-2025 pneumococcal conjuga te (PCV20) vaccine, 20 valent (PREVNAR 20) Radha Suppan STORES LABORER.QUANTITATIVE ANALYST Work Phone: [facility] 02-28-2025 pneumococcal Conjugate, unspecified formulation Radha Suppan STORES LABORER.QUANTITATIVE ANALYST Work Phone: [facility] 09-21-2023 COVID-19 vaccine, ag e 12+ yr, season (Definiens) [place] KUO-Aayush Work Phone: [facility] 09-21-2023 Influenza, injectabl e, Madin Myla Canine Kidney, preservative free, quadrivalent Radha Suppan STORES LABORER.QUANTITATIVE ANALYST Work Phone: [facility] 09-21-2023 influenza, injectabl e, quadrivalent, preservative free NA Ulisses KUO-C Work Phone: [facility] 09-21-2023 influenza virus vaccine, unspecified formulation Screen Wstr [facility] 08-15-2022 influenza, injectabl e, quadrivalent, contains preservative NA Gtz PA-C Work Phone: [facility] 08-15-2022 influenza virus vaccine, unspecified formulation NA Gtz PA-C Work Phone: [facility] 08-09-2021 influenza, injectabl e, quadrivalent, contains preservative Ccf Provider [facility] 10-26-2020 zoster vaccine recombinant Ccf Provider [facility] Work Phone: 08-24-2020 zoster vaccine recombinant Ccf Provider [facility] 08-02-2020 influenza virus vaccine, unspecified formulation Ccf Provider [facility] 08-02-2020 Seasonal, quadrivalent, recombinant, injectable influenza vaccine, preservative free Ccf Provider [facility] 08-08-2019 influenza, injectabl e, quadrivalent, contains preservative [facility] 08-17-2018 influenza virus vaccine, unspecified formulation [facility] 08-17-2018 influenza, injectabl e, quadrivalent, contains preservative [facility] Work Phone: 11-12-2017 tetanus toxoid, reduced diphtheria toxoid, and acellular pertussis vaccine, adsorbed [facility] 09-02-2017 influenza, injectabl e, quadrivalent, preservative free [facility] Work Phone: 09-05-2016 influenza, injectabl e, quadrivalent, contains preservative [facility] 09-05-2016 tuberculin skin test ; purified protein derivative solution, intradermal Screen [facility] 08-10-2009 influenza virus vaccine, whole virus [facility] 11-01-2007 influenza virus vaccine, unspecified formulation [facility] Work Phone: 11-01-2007 measles, mumps and rubella virus vaccine [facility] Work Phone: 11-01-2007 tetanus toxoid, reduced diphtheria toxoid, and acellular pertussis vaccine, adsorbed [facility] Work Phone: 11-01-2007 tuberculin skin test ; purified protein derivative solution, intradermal Screen [facility] Work Phone: 11-04-2004 diphtheria and tetan us toxoids, adsorbed for pediatric use [facility] 11-04-2004 tuberculin skin test ; purified protein derivative solution, intradermal Screen [facility] 05-10-2001 hepatitis B vaccine, adult dosage [facility] 05-10-2001 tuberculin skin test ; purified protein derivative solution, intradermal Screen [facility] Payers Date Payer Category Payer Self-pay [id number] 2024 Blue Cross [facility] [id number] 2024 Unknown [id number] 2023 Private Health Insurance [id number] 2021 Private Health Insurance ANIBAL SINGER OAP [id number] 2021-Present [phone] [address] [place] [address] Open Access [id number] 2021 Private Health Insurance [id number] 2016 Unknown [id number] 1960 Unknown [id number] 1960 Unknown [id number] Unknown [facility] PACKAGE PLAN [id number] Unknown [id number] Unknown [id number] Unknown [id number] Social History Date Type Detail Facility Start: 07-18-2016 End: 04-08-2024 Tobacco smoking status NHIS Never smoked tobacco [facility] Start: 09-16-2021 End: 02-28-2025 Alcohol intake Current drinker of alcohol (finding) [facility] Start: 09-16-2021 End: 08-24-2023 Alcohol intake [facility] Start: 08-22-2020 End: 02-14-2023 History SDOH Alcohol Frequency 4 [facility] Start: 08-22-2020 End: 02-14-2023 History SDOH Alcohol Std Drinks 1 [facility] Start: 07-18-2016 History SDOH Alcohol Comment moderate [facility] Start: 08-22-2020 End: 02-14-2023 History SDOH Social Connections Phone 3 [facility] Start: 08-22-2020 End: 02-14-2023 History SDOH Social Connections Get Together 5 [facility] Start: 08-22-2020 End: 02-14-2023 History SDOH Social Connections Catholic 98 [facility] Start: 08-22-2020 End: 02-14-2023 History SDOH Social Connections Membership 2 [facility] Start: 08-22-2020 Education 12 [facility] Start: 1960 Sex Assigned At Not on file [facility] Start: 10-29-2018 End: 10-29-2018 Tobacco smoking status NHIS Unknown if ever smoked [facility] Start: 1960 Sex Assigned At Female [facility] Start: 07-18-2016 Tobacco use and exposure Smoke less tobacco non-user [facility] Start: 07-11-2022 End: 08-15-2022 Exposure to SARS-CoV-2 (event) Not sure [facility] Work Phone: Start: 02-14-2023 End: 08-24-2023 Social connection and isolation panel [facility] How often do you att end jew or uatsdin services? Patient refused [facility] Do you belong to any clubs or organizations such as jew groups, unions, fraternal or athletic groups, or school groups? No [facility] Are you now , , , , never or living with a partner? [facility] How often to you hav e a drink containing alcohol? 2-3 time sa week [facility] How many standard dr inks containing alcohol do you have on a typical day? 1 or 2 [facility] How often do you hav e 6 or more drinks on 1 occasion? Never [facility] Do you feel stress - tense, restless, nervous, or anxious, or unable to sleep at night because your mind is troubled all the time - these days [OSQ] Only a little [facility] (I/We) worried delano er (my/our) food would run out before (I/we) got money to buy more. Never true [facility] Do you feel stress - tense, restless, nervous, or anxious, or unable to sleep at night because your mind is troubled all the time - these days [OSQ] Not at all [facility] How often to you hav e a drink containing alcohol? 2-4 times a month [facility] Medical Equipment Procedure Code Equipment Code Equipment Origin al Text Equipment Identifier Dates Repair, tendon, Achilles GRAFT JACKET FDA Start: 04-15-2024 Repair, tendon, Achilles PUTTY,BONE .5CC DBX FDA Start: 04-15-2024 Repair, tendon, Achilles VIAFLOW, 1CC FDA Start: 04-15-2024 Repair, tendon, Achilles Tendon/ligament bone anchor, bioabsorbable [id number] FDA Start: 04-15-2024 Repair, tendon, Achilles ()[id number], [id number] FDA Start: 04-15-2024 Repair, tendon, Achilles ()[id number] FDA Start: 04-15-2024 Repair, tendon, Achilles GRAFT JACKET FDA Start: 04-15-2024 Repair, tendon, Achilles PUTTY,BONE .5CC DBX FDA Start: 04-15-2024 Repair, tendon, Achilles VIAFLOW, 1CC FDA Start: 04-15-2024 Functional Status Date Assessment Result Facility 05-25-2015 Are you deaf, or do you have serious difficulty hearing 05/25/2015 10:58 AM Lyla Castillo LPN No [facility] 05-25-2015 Are you blind, or do you have serious difficulty seeing, even when wearing glasses No 05/25/2015 10:58 AM Lyla Castillo LPN No [facility] 05-25-2015 Do you have serious difficulty walking or climbing stairs No 05/25/2015 10:58 AM Lyla Castillo LPN No [facility] 05-25-2015 Do you have difficul ty dressing or bathing No 05/25/2015 10:58 AM EDLyla Abebe LPN No [facility] 05-25-2015 Because of a physica l, mental, or emotional condition, do you have difficulty doing errands alone such as visiting a physician's office or shopping No 05/25/2015 10:58 AM Lyla Castillo LPN No [facility] Mental Status Date Assessment Result Facility 05-25-2015 Because of a physica l, mental, or emotional condition, do you have serious difficulty concentrating, remembering, or making decisions No 05/25/2015 10:58 AM Lyla Castillo LPN No [facility] Clinical Notes 04-15-2016 to 03-22-2025 Note Date & Type Note Facility 03-22-2025 Evaluation note Diagnosis Onset Date Resolution Dyslipidemia chronic March 22 12:43pm HTN (hypertension) chronic March 222024 12:43pm Mild pulmonary hypertension chronic March 22, 2025 12:43pm Xbbmw-Dzlkcuaxa-Kzgqu (WPW) syndrome chronic March 22, 2025 12:43pm [facility] Work Phone: 1(464) 578-577406-04-2025 Progress [facility] [place] [facility] [place], [place] [id number] OFFICE VISIT Date of Service: 03/22/25 MR#: [id number] Acct: [id number] Name: BRITT CARBALLO Rep #: [id number] : 1960 Provider: Dr. 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 Deniesany complaints. No palpitations. No chest pains. No shortness of breath. No orthopnea or PND. No ankle edema. Intake Vital Signs 04/15/24 12:07 03/22/25 07:58 Height 5 ft 6 in 5 ft 6 in Weight: 185 lb BMI 29.8 BP 140/86 H Blood Pressure Location Lt brachial Position Sitting Respiration 16 Pulse 80 Pulse Source NIBP Intake Visit Reasons: 1 Y FU Devops Architect Required: No Accompanied by: Self Is patient [...] History of irregular heartbeat Hypothyroid HTN (hypertension) Bsqcm-Lpdnideqv-Xelxs (WPW) syndrome Breast lesion on mammography Surgical [...] intermittent IVCD and BBB pattern with rates ayel64-423 bpm. There were rare PAC's. There were [...] Assessment and Plan Assessment and Plan (1) Ddzdv-Mrgtiqljz-Oirqt (WPW) syndrome: Status: Chronic Plan: Previous attempts at ablation unsuccessful. On diltiazem as per electrophysiology. Asymptomatic forthe past many years. Continue medical management. (2) [...] of Care Code Off vis,est,level 4 Diagnoses Qwxzg-Hdpsepcjr-Wblfl (WPW) syndrome I45.6 HTN (hypertension) I10 Dyslipidemia E78.5 Mild pulmonary hypertension I27.20 Coding Level of Care Code Off vis,est,level 4 Diagnoses Wfove-Klbplmdjx-Rpjjw (WPW) syndrome I45.6 HTN (hypertension) I10 Dyslipidemia E78.5 Mild pulmonary hypertension I27.20 Clinical Quality Measures Falls Risk Screening/Assistive Devices Have you fallen in the past year?: No Cardiac Ejection fraction %: 65 03/22/25 1315 > Date _ Kb Valdivia MD Cosigner Signature: Date (if applicable) CC: LANIE Hummel ~ [facility]05-13-2025 Instructions* Patient Instructions* Radha Hummel APRN.CNP - 02/28/2025 9:23 AM EDT - Please schedule your routine mammogram appointment in July in [place] for your right breast imaging (use the prescription provided if needed). - Follow the lab orders for your thyroid screening; have your blood drawn as scheduled so we can review your thyroid levels. - For your left knee discomfort when using the elliptical, use an lnoe-kqt-adfdwkh knee sleeve for support and consider applying Voltaren (diclofenac) gel morning and night as needed. - Consider the one-time pneumonia vaccine; contact our office if you want more details or to arrange for it. - SAND PLANT ATTENDANT consult placed documented in this encounterHol[facility]-2025 NoteHNO ID: [id number] Author: RADHA HUMMEL APRN.QUANTITATIVE ANALYST Service: ? Author Type: Nurse Practitioner Type: [...] questioning the need for frequent visits to [facility] for mammograms. Left Knee Pain: - History [...] PVC (premature ventricular contraction) SVT (supraventricular tachycardia) ([facility]) Tachyarrhythmia WPW (Lfmlg-Hewwwrjeq-Rfxup syndrome) 04/15/2016 PAST SURGICAL HISTORY Procedure Laterality [...] EXTREMITIES: Normal, no defo (more content not included)...[facility]05-13-2025 History of Present illness Narrative* Radha Hummel APRN.[facility] - 02/28/2025 9:03 AM EDT This is a 64 year old female [...] questioning the need for frequent visits to [facility] for mammograms. Left Knee Pain: - History [...] contraction) SVT (supraventricular tachycardia) (H[facility]) Tachyarrhythmia WPW (Aeizt-Idyzrjtvh-Zrujk syndrome) 04/15/2016 PAST SURGICAL HISTORY Procedure Laterality [...] - MAGNESIUM - VITAMIN B12 2. WPW (Rtdaz-Bzgadqquj-Jewoz syndrome) - ICD9: 426.7, ICD10: I45.6 Had [...] m Radha Hummel APRN.CNP documented in this encounterHol[facility]-29-[facility] Telephone encounter Note * Telephone Encounter - Cathy Ndiaye MD - 08/16/2024 10:38 AM EDT Told patient pathology report - no breast cancer seen. Can follow up with her PCP for repeat right breast mammograms in 6 months. Patient acknowledges the above [facility] Work Phone: [phone]) 121-795910-29-2024 Miscellaneous Notes* Telephone Encounter - Cathy Ndiaye MD - 08/16/2024 10:38 AM EDT Told patient pathology report - no breast cancer seen. Can follow up with her PCP for repeat right breast mammograms in 6 months. Patient acknowledges the above documented in this encounterHol[facility]10-25-[facility]24 History of Present illness Narrative* Esha Herring RT(R) - 08/12/2024 1:30 PM EDT Radiology Service Progress Note PATIENT NAME: Felecia Carballo DATE OF SERVICE: August 12, 2024 TIME: 1:36 PM PATIENT IDENTITY VERIFICATION COMPLETED USING TWO (2) IDENTIFIERS: Name and Date of confirmedby patient verbally. FALL SCREENING: Has the patient had 2 falls in the last year or 1 fall with injury or currently using an Ambulatory Assistive Device (Walker, Cane, Wheelchair, Crutches, etc.)? No PATIENT GENDER DATA: Female. status: : No status: NO. PATIENT RELEVANT IMPLANT DATA REVIEWED: Not Applicable PATIENT PRESENTS WITH AN IMPLANTABLE OR ATTACHED THERMIT WELDING MACHINE OPERATOR: No RADIOLOGY DEPARTMENT: Biopsy PERIPHERAL IV DATA: Not applicable SIGNED BY: JINNY Cruz) August 12, 2024 1:36 PM documented in this encounterHolzer Medical Center [facility]10-25-2024 NoteHNO ID: [id number] Author: ESHA HERRING RT(R) Service: ? Author [...] PATIENT PRESENTS WITH AN IMPLANTABLE OR ATTACHED THERMIT WELDING MACHINE OPERATOR: No RADIOLOGY DEPARTMENT: Biopsy PERIPHERAL IV DATA: Not applicable SIGNED BY: RT Anthony(R) August 12, 2024 1:36 [facility]10-24-2024 NoteHNO ID: [id number] Author: SONALI GOOD MD Service: ? Author Type: Physician Type: Progress Notes Filed: 08/11/2024 21:03 Note Text: Patient had imaging performed at [facility]. I agree with recommendation for right ultrasound guided biopsy of the mass in the 7:00/retroareolar position. [facility]10-24-2024 History of Present illness Narrative* Sonali Good MD - 08/11/2024 9:03 PM EDT Patient had imaging performed at [facility]. I agree with recommendation for right ultrasound guided biopsy of the mass in the 7:00/retroareolar position. documented in this encounterHolzer [facility]10-11-2024 Telephone encounter Note * Telephone Encounter - Dae Piper - 07/29/2024 9:49 AM EDT Follow up email sent to [facility] breast schedulers Melissa and Yusuf Piper Residential Finish Carpenter [facility]10-11-2024 Miscellaneous Notes* Telephone Encounter - Dae Piper - 07/29/2024 9:49 AM EDT Follow up email sent to [facility] breast schedulers Melissa and Yusuf Piper Residential Finish Carpenter * Telephone Encounter - Izabel Holden RN - 07/29/2024 9:29 AM EDT Pt calling in inquiring about referral to [facility] breast center. She was unsure as to whether she was supposed to call them or not. This Nurse advised patient that [facility] normailly contacts the patient and this process can take some time. This Nurse advised patient to call back if she still hasn't heard from them next week. She verbalized understanding.Izabel Holden RN documented in this encounterHolzer Medical Center [facility]10-11-2024 Telephone encounter Note * Telephone Encounter - Izabel Holden RN - 07/29/2024 9:29 AM EDT Pt calling in inquiring about referral to [facility] breast center. She was unsure as to whether she was supposed to call them or not. This Nurse advised patient that [facility] normailly contacts the patient and this process can take some time. This Nurse advised patient to call back if she still hasn't heard from them next week. She verbalized understanding.Izabel Holden RN [facility]10-07-2024 NoteHNO ID: [id number] Author: CATHY NDIAYE MD Service: ? Author [...] PVC (premature ventricular contraction) SVT (supraventricular tachycardia) ([facility]) Tachyarrhythmia WPW (Gvles-Ssrzsqpij-Akmrr syndrome) 04/15/2016 PAST SURGICAL HISTORY Procedure Laterality [...] OF 10/04/07 excision pelvic dermoid cyst, [facility],PERC,DURING BREAST BX 10/04/07 RIGHT TONSILLECTOMY [...] no axillary adenopathy de (more content not included)...[facility]10-07-2024 History of Present illness Narrative* Cathy Ndiaye MD - 07/25/2024 12:00 PM EDT Felecia Carballo 1960 REFERRING PHYSICIAN: Radha Hummel [...] gynecological history is as follows: menarche age [age], (twin), first at age 25, breast feeding history 2 years, denies exogenous hormones use, menopause early 50s She denies chest pain, shortness of breath or neurological deficits PAST MEDICAL HISTORY Diagnosis Date A-fib (HCC) RVR Diffuse cystic mastopathy left Hypertension Hypothyroidism Persistent atrial fibrillation (HCC) 04/15/2016 PVC (premature ventricular contraction) SVT (supraventricular tachycardia) ([facility]) Tachyarrhythmia WPW (Jdofg-Vwzuixrzd-Vaoxs syndrome) 04/15/2016 PAST SURGICAL HISTORY Procedure Laterality [...] nourished, well hydrated in no acute distress. Thepatient is oriented to time, place, and person. VITALS: Blood pressure 132/74, pulse 101, height 165.1 cm (5' 5), weight 82.5 kg (181 lb 12.8 oz),last menstrual period 07/19/2015, SpO2 99%. Body mass index is 30.25 kg/m . Head - Normocephalic. EOM intact with sclera clear and no icterus noted. Mouth with mucus membranesmoist. Neck - supple with no jugular venous distention noted. Trachea is midline. No thyroid enlargement or thyroid nodules detected. No masses noted. Chest/breast - no asymmetry of breasts noted, no suspicious skin lesions noted, no nipple dischargeand both nipples everted, no breast masses noted [...] breast biopsy; patient to be referred to [facility] breast imaging center. I have explained the [...] Low Cathy Ndiaye MD documented in this encounterHolzer [facility]10-03-2024 Telephone encounter Note * Telephone Encounter - Melissa Lombardi MA - 07/21/2024 1:44 PM EDT Pt was already notified and scheduled with [facility] on 07/25/24 [facility]10-03-2024 Miscellaneous Notes* Telephone Encounter - Melissa Lombardi MA - 07/21/2024 1:44 PM EDT Pt was already notified and scheduled with [facility] on 07/25/24 * Telephone Encounter - Radha Hummel APRN.CNP - 07/21/2024 12:14 PM EDT Please let pt. Know that there is an abnormality on mammogram in right breast. We cannot know what it is until a biopsy is complete. I am referring her to [facility] for further evaluation documented in this encounterHolzer Medical Center [facility]10-03-2024 Telephone encounter Note * Telephone Encounter - Radha Hummel APRN.CNP - 07/21/2024 12:14 PM EDT Please let pt. Know that there is an abnormality on mammogram in right breast. We cannot know what it is until a biopsy is complete. I am referring her to [facility] for further evaluation [facility]10-02-2024 History of Present illness Narrative* Jannet Ram, RT(R) - 07/20/2024 1:00 PM EDT Radiology Service Progress Note PATIENT NAME: Felecia Carballo DATE OF SERVICE: July 20, 2024 TIME: 12:59 PM PATIENT IDENTITY VERIFICATION COMPLETED USING TWO (2) IDENTIFIERS: Name and Date of confirmedby patient verbally. FALL SCREENING: Has the patient had 2 falls in the last year or 1 fall with injury or currently using an Ambulatory Assistive Device (Walker, Cane, Wheelchair, Crutches, etc.)? No PATIENT GENDER DATA: Female. status: : No status: NO. PATIENT RELEVANT IMPLANT DATA REVIEWED: Not Applicable PATIENT PRESENTS WITH AN IMPLANTABLE OR ATTACHED THERMIT WELDING MACHINE OPERATOR: No RADIOLOGY DEPARTMENT: Mammography PERIPHERAL IV DATA: Not applicable SIGNED BY: RT Rebecca(R) July 20, 2024 12:59 PM documented in this encounterHolzer Medical Center [facility]10-02-2024 NoteHNO ID: [id number] Author: JANNET RAM RT(R) Service: ? Author Type: Technologist Type: [...] PATIENT PRESENTS WITH AN IMPLANTABLE OR ATTACHED THERMIT WELDING MACHINE OPERATOR: No RADIOLOGY DEPARTMENT: Mammography PERIPHERAL IV DATA: Not applicable SIGNED BY: RT Rebecca(R) July 20, 2024 12:59 [facility]09-10-2024 Telephone encounter Note* Telephone Encounter - Luis Santiago - 06/28/2024 8:42 AM EDT Patient called to schedule CB imaging [facility] Work Phone: 1(224) 289-879009-10-2024 Miscellaneous Notes* Telephone Encounter - Luis Santiago - 06/28/2024 8:42 AM EDT Patient called to schedule CB imaging documented in this encounterHolzer Medical Center [facility]09-05-2024 Telephone encounter Note * Telephone Encounter - Alvin Carranza LPN - 06/23/2024 4:05 PM EDT Patient notified. Given number to call and set up additional images. [facility]09-05-2024 Miscellaneous Notes* Telephone Encounter - Alvin Carranza LPN - 06/23/2024 4:05 PM EDT Patient notified. Given number to call and set up additional images. * Telephone Encounter - Radha Hummel APRN.CNP - 06/23/2024 10:16 AM EDT Due to density and asymmetry, mammogram and ultrasound need done. An order has been placed. Please call to schedule. documented in this encounterHolzer Medical Center [facility]09-05-2024 Telephone encounter Note * Telephone Encounter - Radha Hummel APRN.CNP - 06/23/2024 10:16 AM EDT Due to density and asymmetry, mammogram and ultrasound need done. An order has been placed. Please call to schedule. [facility]09-05-2024 Note* Letter - Coordinator, Mammography - 06/23/2024 8:18 AM EDT June 23, 2024 PID: [id number] Felecia Carballo [address] [place] [address] Dear Ms. Carballo, Your recent breast imaging [...] breast cancer. Your breast tissue is dense. Insome people with dense tissue, other imaging tests in addition to a mammogram may help find cancers. Talk to your healthcare provider about breast density, risks for breast cancer, and your individual situation. If you have a healthcare provider who ordered/prescribed your screening mammogram: Please call [phone] or EXT: [phone] to schedule an appointment for your additional imaging (if youhave not already done so). If you DO [...] and reports are kept on file at [facility] as part of your permanent medical record, and are available for your continuing care. Thank you for allowing us to help in meeting your health care needs. Sincerely, Dr. Baez Interpreting Radiologist [facility] (Additional imaging) [facility]09-05-2024 Miscellaneous Notes* Letter - Coordinator, Mammography - 06/23/2024 8:18 AM EDT June 23, 2024 PID: [id number] Felecia Carballo [address] [place] [address] Dear Ms. Carballo, Your recent breast imaging [...] breast cancer. Your breast tissue is dense. Insome people with dense tissue, other imaging tests in addition to a mammogram may help find cancers. Talk to your healthcare provider about breast density, risks for breast cancer, and your individual situation. If you have a healthcare provider who ordered/prescribed your screening mammogram: Please call [phone] or EXT: [phone] to schedule an appointment for your additional imaging (if youhave not already done so). If you DO [...] and reports are kept on file at [facility] as part of your permanent medical record, and are available for your continuing care. Thank you for allowing us to help in meeting your health care needs. Sincerely, Dr. Baez Interpreting Radiologist [facility] (Additional imaging) documented in this encounterHolzer Medical Center – [facility]09-04-2024 History of Present illness Narrative* Vic King Mammo Tech - 06/22/2024 10:50 AM EDT Radiology Service Progress Note PATIENT NAME: Felecia Carballo DATE OF SERVICE: June 22, 2024 TIME: 10:53 AM PATIENT IDENTITY VERIFICATION COMPLETED USING TWO (2) IDENTIFIERS: Name and Date of confirmedby patient verbally. FALL SCREENING: Has the patient had 2 falls in the last year or 1 fall with injury or currently using an Ambulatory Assistive Device (Walker, Cane, Wheelchair, Crutches, etc.)? No PATIENT GENDER DATA: Female. status: : No status: NO. PATIENT RELEVANT IMPLANT DATA REVIEWED: Not Applicable PATIENT PRESENTS WITH AN IMPLANTABLE OR ATTACHED THERMIT WELDING MACHINE OPERATOR: No RADIOLOGY DEPARTMENT: Mammography PERIPHERAL IV DATA: Not applicable SIGNED BY: Supa Whittington June 22, 2024 10:53 AM documented in this encounterHolzer Medical Center [facility]09-04-2024 NoteHNO ID: [id number] Author: VIC KING Mammo Tech Service: ? Author Type: Food And Beverage Coordinator Type: Progress Notes Filed: 06/22/2024 10:53 Note [...] PATIENT PRESENTS WITH AN IMPLANTABLE OR ATTACHED THERMIT WELDING MACHINE OPERATOR: No RADIOLOGY DEPARTMENT: Mammography PERIPHERAL IV DATA: Not applicable SIGNED BY: Supa Whittington June 22, 2024 10:53 [facility]06-21-2024 Telephone encounter Note* Telephone Encounter - Mat Bailey LPN - 04/08/2024 4:58 PM EDT Results faxed to [facility]. F# [phone] [facility]06-21-2024 Miscellaneous Notes* Telephone Encounter - Mat Bailey LPN - 04/08/2024 4:58 PM EDT Results faxed to [facility]. F# [phone] * Telephone Encounter - Nori Thorpe APRN.CNP - 04/08/2024 4:55 PM EDT Labs are all back and within normal limits. Can we please forward this to her surgeon's office. Nori Thorpe APRN.CNP documented in this encounterHolzer [facility] Center – [place]06-21-2024 Telephone encounter Note * Telephone Encounter - Nori Thorpe APRN.CNP - 04/08/2024 4:55 PM EDT Labs are all back and within normal limits. Can we please forward this to her surgeon's office. Nori Thorpe APRN.ABDULKADIR [facility] Work Phone: 1(730) 772-411606-21-2024 Telephone encounter Note* Telephone Encounter - Melissa Brewster LPN - 04/08/2024 10:14 AM EDT [facility] calling for copies of labs done for surgical clearance. FAX: [phone]. Pt identified with name and date of . Done. Melissa Brewster LPN [facility] [place]-21-2024 Miscellaneous Notes* Telephone Encounter - Melissa Brewster LPN - 04/08/2024 10:14 AM EDT [facility] calling for copies of labs done for surgical clearance. FAX: [phone]. Pt identified with name and date of . Done. 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 90 tablet 3 atorvastatin (LIPITOR) 20 mg tablet Take 1 tablet by mouth daily at bedtime. For cholesterol. 90 tablet 3 levothyroxine (SYNTHROID) 25 mcg tablet TAKE 1 TABLET BY MOUTH ONCE DAILY. TAKE ON AN EMPTY [id number] tablet 3 dilTIAZem CD (CARDIZEM CD, CARTIA [...] symptoms or problems Cardiovascular: Negative for: Recent NJ, CHF, DVT/PE, NJ, Valvular Heart Disease. + Hx of WPW and afib (resolved). + HTN and hyperlipidemia. GI: No history of GI symptoms or problems. No history of esophageal varices, recent ascites, or ETOH greater than 2 drinks per day. : No history of UTI in past 6 weeks. No history of renal failure. Not currently on or requiring dialysis. No history of symptoms or problems. 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 : Denies Endocrine: No history of diabetes. Has not taken steroids within the past 30 days. No history of endocrinological symptoms or problems., + hypothyroidism. Hematology: No history of bleeding or clotting disorder. Pt is not taking anti- coagulation or platelet medications. No history of hematological [...] such as golf, bowling, dancing, doubles tennis, orthrowing a baseball or football (6.00 METs) Do [...] needed for worsening/no improvement. Nori Thorpe APRN.ABDULKADIR [facility] [place]06-18-2024 History and physical note* Nori Thorpe APRN.CNP - 04/05/2024 3:50 PM EDT HISTORY AND PHYSICAL EXAMINATION SUBJECTIVE 64 year [...] PVC (premature ventricular contraction) SVT (supraventricular tachycardia) ([facility]) Tachyarrhythmia WPW (Pmjrv-Qqpclwmco-Ebycg syndrome) 04/15/2016 PAST SURGICAL HISTORY Procedure Laterality [...] ACTIVE PROBLEM LIST Hypothyroidism Hypertension, Essential Wpw (Hydpj-Ptgsqjjfc-Qrszi Syndrome) Melanocytic Nevus of Trunk Current Outpatient Medications Medication Sig Dispense Refill lisinopril-hydroCHLOROthiazide (ZESTORETIC) 20-12.5 mg per tablet Take 1 tablet by mouth every morning. 90 tablet 3 atorvastatin (LIPITOR) 20 mg tablet Take 1 tablet by mouth daily at bedtime. For cholesterol. 90 tablet 3 levothyroxine (SYNTHROID) 25 mcg tablet TAKE 1 TABLET BY MOUTH ONCE DAILY. TAKE ON AN EMPTY [id number] tablet 3 dilTIAZem CD (CARDIZEM CD, CARTIA [...] symptoms or problems Cardiovascular: Negative for: Recent NJ, CHF, DVT/PE, NJ, Valvular Heart Disease. + Hx of WPW and afib (resolved). + HTN and hyperlipidemia. GI: No history of GI symptoms or problems. No history of esophageal varices, recent ascites, or ETOH greater than 2 drinks per day. : No history of UTI in past 6 weeks. No history of renal failure. Not currently on or requiring dialysis. No history of symptoms or problems. 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 : Denies Endocrine: No history of diabetes. Has not taken steroids within the past 30 days. No history of endocrinological symptoms or problems., + hypothyroidism. Hematology: No history of bleeding or clotting disorder. Pt is not taking anti- coagulation or platelet medications. No history of hematological [...] such as golf, bowling, dancing, doubles tennis, orthrowing a baseball or football (6.00 METs) Do [...] as needed for worsening/no improvement. Nori Thorpe APRN.QUANTITATIVE ANALYST documented in this encounterHolzer Medical Center – [place]06-12-2024 Telephone encounter Note * Telephone Encounter - Alvin Carranza LPN - 03/30/2024 8:47 AM EDT Prescription Refill Information The patient has been [...] with this provider/department: Yes yearly with Janusz andupmicah per op with Nori Requested Prescriptions Pending Prescriptions Disp Refills lisinopril-hydroCHLOROthiazide (ZESTORETIC) 20-12.5 mg per tablet 90 tablet 3 Sig: Take 1 tablet by mouth every morning. atorvastatin (LIPITOR) 20 mg tablet 90 tablet 3 Sig: Take 1 tablet by mouth daily at bedtime. For cholesterol. Alvin Carranza LPN March 30, 2024 8:47 AM [facility]-12[facility] Miscellaneous Notes* Telephone Encounter - Alvin Carranza LPN - 03/30/2024 8:47 AM EDT Prescription Refill Information The patient has been [...] with this provider/department: Yes yearly with Janusz irizarry per op with Nori Requested Prescriptions Pending Prescriptions Disp Refills lisinopril-hydroCHLOROthiazide (ZESTORETIC) 20-12.5 mg per tablet 90 tablet 3 Sig: Take 1 tablet by mouth every morning. atorvastatin (LIPITOR) 20 mg tablet 90 tablet 3 Sig: Take 1 tablet by mouth daily at bedtime. For cholesterol. Alvin Carranza LPN March 30, 2024 8:47 AM documented in this encounterHolzer Medical Center – [place]05-21-2024 Miscellaneous Notes* Telephone Encounter - Barbara Lemus RN - 03/08/2024 9:25 AM EDT Pt called in and reports she was able to get an appointment with Dr Valdivia with [facility] on 04/04/24. Canceled consult with [facility] in June. * Telephone Encounter - Laina Linn - 03/08/2024 9:13 AM EDT 1st attempt called pt about Cardio consult. LVM. Consult was scheduled at first available within [facility]. ([facility] [place] is June) * Telephone Encounter - Markie Gtz PA-C - 03/03/2024 2:03 PM EDT Spoke with Mat at [facility] [place] [facility] is questioning why no cardiology clearance. Has no shipping technician. Was sent directly to quirk sander who declines to do a cardiac clearance. Consult first available cardiology provider with preference closest to [facility] but will take what's open. Telephone on 03/03/24 CONSULT TO CARDIOLOGY Thanks, Janusz Gtz PA-C * Telephone Encounter - Markie Gtz PA-C - 03/03/2024 1:13 PM EDT Phoned and left message with my number, advised as written in chart that she had ablation and has had no symptoms since then. If still concerned, I can order cardiac clearance. Janusz Gtz PA-C * Telephone Encounter - Markie Martin RN - 03/03/2024 8:55 AM EDT [facility] anesthesiologist, is questioning cardiac clearance for upcoming surgery. 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 Are you going to refer patient to cardiology for clearance? Are you willing to fill out the cardiac clearance form if not referring patient to cardiology? Please phone Mat Alejandra with reply: [phone] (make sure you ask for Mat Alejandra b/c they have several Mat's there) documented in this encounterHolzer Medical Center [facility] [place]05-21-2024 Telephone encounter Note * Telephone Encounter - Barbara Lemus RN - 03/08/2024 9:25 AM EDT Pt called in and reports she was able to get an appointment with Dr Valdivia with [facility] on 04/04/24. Canceled consult with [facility] in June. [facility] Telephone encounter Note* Telephone Encounter - Laina Linn - 03/08/2024 9:13 AM EDT 1st attempt called pt about Cardio consult. LVM. Consult was scheduled at first available within [facility]. ([facility] [place] is June) [facility]-16-[facility] Telephone encounter Note* Telephone Encounter - Markie Gtz PA-C - 03/03/2024 2:03 PM EDT Spoke with Mat at [facility] is questioning why no cardiology clearance. Has no shipping technician. Was sent directly to [facility] sander who declines to do a cardiac clearance. Consult first available cardiology provider with preference closest to [facility] but will take what's open. Telephone on 03/03/24 CONSULT TO CARDIOLOGY Janusz Ingram PA-C [facility] [place]-16-2024 Telephone encounter Note* Telephone Encounter - Markie Gtz PA-C - 03/03/2024 1:13 PM EDT Phoned and left message with my number, advised as written in chart that she had ablation and has had no symptoms since then. If still concerned, I can order cardiac clearance. Janusz Gtz PA-C [facility]05-16-2024 Telephone encounter Note* Telephone Encounter - Markie Martin RN - 03/03/2024 8:55 AM EDT [facility]- reports [facility] anesthesiologist, is questioning cardiac clearance for upcoming surgery. 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 Are you going to refer patient to cardiology for clearance? Are you willing to fill out the cardiac clearance form if not referring patient to cardiology? Please phone Mat Alejandra with reply: [phone] (make sure you ask for Mat Alejandra b/c they have several Mat's there) [facility] [place]-13[facility] Note* Addendum Note - Markie Gtz PA-C - 02/29/2024 5:50 PM EDTAddended by: Markie GTZ on: 02/29/2024 05:50 PM Modules accepted: Orders [facility]05-13-2024 Miscellaneous Notes* Addendum Note - Markie Gtz PA-C - 02/29/2024 5:50 PM EDTAddended by: Markie GTZ on: 02/29/2024 05:50 PM Modules accepted: Orders documented in this encounterHolzer Medical Center – [place]05-13-2024 Instructions* Patient Instructions* Markie Gtz PA-C - 02/29/2024 10:20 AM EDT Please hold all OTC medicines or supplement 1 week prior to surgery. If needed you may use OTC Tylenol for pain. You make take all your other medications with a sip of water the morning of your surgery. Do well!!!! documented in this encounterHolzer Medical Center – [place]05-13-2024 History of Present illness Narrative* Markie Gtz PA-C - 02/29/2024 9:00 AM EDT HISTORY AND PHYSICAL EXAMINATION SERVICE DATE: 02/29/2024\ [...] No. Additional history of potential concern: Wpw (vpvcc-ylukoxeeg-kyfyk syndrome) (primary encounter diagnosis) Hypertension, essential Hyperlipidemia, mixed Cardiovascular interval hx: no recent sx Hx WPW diagnosis: Lecturer In Marketing:Birttany Alvarez QUANTITATIVE ANALYST 12/23/2017 EKG MSR at 71BPM, WPW Atrial ablation Dr. Young 05/21/2016 Admitted through ER to [facility] with palpitation 2015, was found to have [...] conduction up to 290 ms cycle length. Lecturer In Marketing: Current meds: Atorvastatin 20 mg daily at [...] Abs Lymph 1.00 - 4.00 k/uL 1.49 Greenwood% % 7.2 Abs [place]wood <0.87 k/uL 0.40 Eosin% % 5.4 Abs [...] kidney stones, recurrent UTI or kidney infection. Menarchal, early fifties No abnormal paps. [facility] Skin: Lots of moles. denies unusual rashes. No history of skin cancer, bleeding/changing moles, or unusual skin lesions. Neurologic: Denies recurrent CAMPOS, change in vision, hearing or smell, tremors, [...] meniscal surgery, [facility]. Pain is severe enoughto keep her from doing activities, steady, chronic [...] PVC (premature ventricular contraction) SVT (supraventricular tachycardia) ([facility]) Tachyarrhythmia WPW (Ducjf-Dslzadhyl-Bsmkf syndrome) 04/15/2016 PAST SURGICAL HISTORY Procedure Laterality [...] this very pleasant woman. ASSESSMENT/PLAN: 1. WPW (Ebmje-Pzgeqikyc-Daily syndrome) - ICD9: 426.7, ICD10: I45.6 (primary [...] loss. BMI 30.51 kg/(m^2) - Pap per SAND PLANT ATTENDANT consult - complete outstanding mammogram - Mammogram [...] DATE: 02/29/2024 TIME: 10:07 AM PAGER/CONTACT #: [phone] Some of this note may have been copied and pasted for the purpose of history context and comparison. All questions listed were asked and adjusted for changes in prior data. Markie Gtz PA-C documented in this encounterHolzer Medical Center [facility] [place]04-01-2024 Miscellaneous Notes* Telephone Encounter - Markie Gtz PA-C - 01/18/2024 4:14 PM EDT Telephone on 01/18/24 TSH BLD LIPID PANEL BASIC COMP METABOLIC PANEL CBC + DIFF Thanks, Janusz Gtz PA-C * Telephone Encounter - Melissa Lombardi MA - 01/18/2024 4:10 PM EDT Please file lab orders for pt's upcoming physical in february * Telephone Encounter - Melissa Lombardi MA - 01/18/2024 4:05 PM EDT Call to pt to set up pre-op appt for achilles tendon repair, [facility]. Can schedule with Janusz or Esmer. Transferred to wheel lacer and truer to set up due to insurance. Melissa Lombardi MA documented in this encounterHolzer Medical Center – [place]11-15-2023 Miscellaneous Notes* Telephone Encounter - Roxane Rodriguez RN - 09/02/2023 12:47 PM EST Cassandra akins [facility] [place] calls to request most recent OV note with Janusz Gtz and cardiology. Faxed per request to [phone]. Roxane Rodriguez RN documented in this encounterHolzer Medical Center – [place]11-06-2023 Instructions* Patient Instructions* Markie Gtz PA-C - 08/24/2023 2:17 PM EST Please stop all over the counter medications 7 days prior to surgery including any anti-inflammatory medications. You may take Tylenol is needed for pain. Please hold Meloxicam for 1 week prior to surgery. You may take you other medications with a sip of water on the day of your surgery. documented in this encounterHolzer Medical Center – [place]11-06-2023 History of Present illness Narrative* Markie Gtz PA-C - 08/24/2023 2:00 PM EST HISTORY AND PHYSICAL EXAMINATION SERVICE DATE: 08/24/2023\ SERVICE TIME: 6:55 AM PRIMARY CARE PHYSICIAN: Markie Gtz PA-C Patient presents for consultation from Dr. Yan for medical preop clearance. My findings and recommendations will be communicated through this medical record. Upcoming surgery for: 09/02/2023 for meniscal repair left knee. History surgical problem: Left knee started 2 weeks ago walking in cool weather at the [facility]. Had sudden pain and unable to move. MRI demonstrated arthritis Pertinent history and review: Current signs of infection: No. Chest pain: No. Cardiac history or testing: none Shortness of breath: No. Pulmonary testing to date: none Known sleep apnea: No. Hx of clotting issues: No. Current bleeding or bruising: No. Additional history of potential concern: Wpw (fpwzg-mizgbxhkm-ytgtl syndrome) (primary encounter diagnosis) Hypertension, essential Hyperlipidemia, [...] Is the patient having any pain? Currently /10, left knee. Taking Meloxicam. General: No weight [...] dialysis. No history of symptoms or problems. 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 : N/A Endocrine: No history of diabetes. Has not taken steroids within the past 30 days. No history of endocrinological symptoms or problems. Hematology: No history of bleeding or clotting disorder. Pt is not taking anti- coagulation or platelet medications. No history of hematological [...] PVC (premature ventricular contraction) SVT (supraventricular tachycardia) ([facility]) Tachyarrhythmia WPW (Xlkai-Hprlvvlmo-Tbmxt syndrome) 04/15/2016 PAST SURGICAL HISTORY Procedure Laterality [...] findings as indicated by your orders through [facility]. Please don't hesitate to contact me if you have questions or need and additional assistance. 2. WPW (Dzxbr-Zsjlrtxgw-Ozhnf syndrome) - ICD9: 426.7, ICD10: I45.6 Stable, [...] knee, sequela - ICD9: 905.7, ICD10: S83.207S Markie Gtz PA-C Clinical Risk Factors for [...] DATE: 08/24/2023 TIME: 6:55 AM PAGER/CONTACT #: [phone] documented in this encounterHolzer Medical Center [facility] [place]05-05-2023 History of Present illness Narrative* Markie Gtz PA-C - 02/20/2023 8:00 AM EDT 62 year old female with c/o here for 6 month follow up Wpw (zhnuj-jbiwejlgg-bcdzv syndrome) (primary encounter diagnosis) Hypertension, essential Hyperlipidemia, [...] PVC (premature ventricular contraction) SVT (supraventricular tachycardia) ([facility]) Tachyarrhythmia WPW (Uyfsm-Kmsngpzpr-Akbrn syndrome) 04/15/2016 PAST SURGICAL HISTORY Procedure Laterality [...] ACTIVE PROBLEM LIST Hypothyroidism Hypertension, Essential Wpw (Laqcb-Ftotkpouc-Netar Syndrome) Melanocytic Nevus of Trunk Current Outpatient [...] MOUTH ONCE DAILY. TAKE ON AN EMPTY [id number] tablet 3 atorvastatin (LIPITOR) 20 mg tablet [...] with prompt capillary refill ASSESSMENT/PLAN: 1. WPW (Obqce-Bgydwcsrn-Rxare syndrome) - ICD9: 426.7, ICD10: I45.6 (primary [...] diet of 1000 mg/day for under 50, 1200- 1500 mg/day for 50+ - Mammogram ordered - [...] year Markie Gtz PA-C documented in this encounterHolzer Medical Center – [place]03-17-2023 Miscellaneous Notes* Telephone Encounter - Heydi Girard MA - 01/02/2023 8:09 AM EDT Pt was notified of the results. Pt verbalized understanding. Heydi Girard MA * Telephone Encounter - AYAAN Hedrick - 01/02/2023 7:11 AM EDT Negative for COVID and flu documented in this encounterHolzer Medical Center – [place]03-16-2023 Instructions* Patient Instructions* Britt Granado APRN.CNP - 01/01/2023 12:24 PM EDT ASSESSMENT/PLAN: 1. Subacute cough - ICD9: 786.2, ICD10: R05.2 (primary diagnosis) - XR CHEST 2V FRONTAL/LAT Radiologist IMPRESSION: No acute radiographic abnormality. Physician Underwriter: JAKE Transcribe Date/Time: Jan 01 2023 11:48A [...] expected course of illness Britt Granado APRN.ABDULKADIR COUGH: The body has a cough reflex [...] than 4-6 weeks requires medical evaluation [facility]. Treatment of cough includes measures [...] or other serious complaints. documented in this encounterHolzer Medical Center – [place]03-16-2023 History of Present illness Narrative* Britt Granado APRN.CNP - 01/01/2023 11:24 AM EDT Subjective Cough Associated symptoms include chills. Pertinent [...] PVC (premature ventricular contraction) SVT (supraventricular tachycardia) ([facility]) Tachyarrhythmia WPW (Barjc-Pnadxxlbn-Nzjry syndrome) 04/15/2016 PAST SURGICAL HISTORY Procedure Laterality [...] FRONTAL/LAT Radiologist IMPRESSION: No acute radiographic abnormality. Physician Underwriter: JAKE Transcribe Date/Time: Jan 01 2023 11:48A [...] Discussed expected course of illness Britt Granado APRN.CNP documented in this encounterHolzer Medical Center – [place]12-28-2022 Miscellaneous Notes* Telephone Encounter - Charleen Salcedo JAYDA - 10/15/2022 2:47 PM EST Patient calling her insurance is requesting she [...] you. Charleen Salcedo LPN documented in this encounterHolzer Medical Center – [place]10-28-2022 Instructions* Patient Instructions* Markie Gzt PA-C - 08/15/2022 10:28 AM EDT To open eustachian tube: Take Ibuprofen 800mg every 6 hours to reduce inflammation. Flonase 2 sporays daily x 1 week before trying insufflation is a nasal steroid. It is generally well tolerated and does not absorb into your system to cause side effects such as oral of imtramuscularsteroids. Use it as directed and continue it for 2-4 weeks. Make sure to tilt the bottle toward theexpiration date on the label. It won;'t spray [...] 5-7 days, or worsen, call the office: [phone]. documented in this encounterHolzer Medical Center – [place]10-28-2022 History of Present illness Narrative* Markie Gtz PA-C - 08/15/2022 9:20 AM EDT 62 year old female with c/o 6 months follow up 08/13/2022 conjunctivitis rx azithromycin 1% ophth gtts prescribed but had to swith to polytrim Wpw (hsvfw-qhcxubwvw-omvfi syndrome) (primary encounter diagnosis) Hypertension, essential Hyperlipidemia, [...] contraction) SVT (supraventricular tachycardia) ([facility]) Tachyarrhythmia WPW (Mckjl-Ndhnobzkp-Mfrdz syndrome) 04/15/2016 PAST SURGICAL HISTORY Procedure Laterality [...] ACTIVE PROBLEM LIST Hypothyroidism Hypertension, Essential Wpw (Vpsbq-Smvlhnwks-Bqinp Syndrome) Melanocytic Nevus of Trunk Current Outpatient [...] MOUTH ONCE DAILY. TAKE ON AN EMPTY [id number] tablet 3 MELATONIN ORAL Take by mouth. [...] with prompt capillary refill. ASSESSMENT/PLAN: 1. WPW (Krams-Tzcgfgolh-Okpeu syndrome) - ICD9: 426.7, ICD10: I45.6 (primary [...] history context and comparison. documented in this encounterHolzer Medical Center – [place]10-26-2022 History of Present illness Narrative* Karlie Phan, RAFAELA.QUANTITATIVE ANALYST - 08/13/2022 8:40 AM EDT 08/13/2022 Patient presents with: Conjunctivitis: Right eye [...] any OTC treatments. Denies fevers, chills, visual changes,eye pain or swelling. PAST MEDICAL HISTORY Diagnosis Date A-fib ([facility]) RVR Diffuse cystic mastopathy left Hypertension Hypothyroidism Persistent atrial fibrillation ([facility]) 04/15/2016 PVC (premature ventricular contraction) SVT (supraventricular tachycardia) ([facility]) Tachyarrhythmia WPW (Nhjng-Cuvxjabli-Sxcqb syndrome) 04/15/2016 ALLERGIES Seasonal Allergies MEDICATIONS Current [...] which included preparing to see the patient, djhg-rp-iiuy patient care, completing clinical documentation, obtaining and/or reviewing separately obtained history, performing a medically appropriate examination, counseling and educating the pat ient/family/caregiver, and ordering medications, tests, or procedures. documented in this encounterHolzer Medical Center – [place]10-07-2022 Miscellaneous Notes* Telephone Encounter - Mat Bailey LPN - 07/25/2022 3:21 PM EDT Patient phones requesting refills as follows: Requested Prescriptions Pending Prescriptions Disp Refills atorvastatin (LIPITOR) 20 mg tablet 90 tablet 1 Sig: Take 1 tablet by mouth daily at bedtime. For cholesterol. lisinopril-hydroCHLOROthiazide (PRINZIDE,ZESTORETIC) 20-12.5 mg per tablet 90 tablet 1 Sig: Take 1 tablet by mouth every morning. SHARAN 02/13/22 NOV 08/15/22 Please review and advise. Mat Bailey LPN documented in this encounterHolzer Medical Center – [place]04-28-2022 History of Present illness Narrative* Markie Gtz PA-C - 02/13/2022 4:20 PM EDT 61 year old female with c/o here for follow up. No current concerns. Wpw (zqqgl-qmqxkvhwh-eiwic syndrome) (primary encounter diagnosis) Hypertension, essential Hyperlipidemia, [...] PVC (premature ventricular contraction) SVT (supraventricular tachycardia) ([facility]) Tachyarrhythmia WPW (Qxwcs-Futjonzpr-Yshtb syndrome) 04/15/2016 PAST SURGICAL HISTORY Procedure Laterality [...] OF 10/04/07 excision pelvic dermoid cyst, teratoma PLCTN LOCALZTN CLIP,PERC,DURING BREAST BX 10/04/07 RIGHT REMOVAL [...] ACTIVE PROBLEM LIST Hypothyroidism Hypertension, Essential Wpw (Ygckq-Kixmjctzg-Uqdjm Syndrome) Melanocytic Nevus of Trunk Current Outpatient [...] MOUTH ONCE DAILY. TAKE ON AN EMPTY [id number] tablet 3 lisinopril-hydroCHLOROthiazide (PRINZIDE,ZESTORETIC) 20-12.5 mg per [...] with prompt capillary refill. ASSESSMENT/PLAN: 1. WPW (Fpvtz-Snsrtwfqc-Lkxwo syndrome) - ICD9: 426.7, ICD10: I45.6 (primary [...] to follow F/u with labs 6 months, M Shivam Gtz PA-C documented in this encounterHolzer Medical Center – [place]04-06-2022 Miscellaneous Notes* Telephone Encounter - Gyale Ding Ma - 01/22/2022 4:13 PM EDT Pending Prescriptions Disp Refills ATORVASTATIN 20 MG TABLET 90 tablet 1 Sig: Take 1 tablet by mouth daily at bedtime. For cholesterol. NIRMALA: No SHARAN 08/09/21 NOV 02/13/22 Gayle Ding Ma [facility] Miscellaneous Notes* Telephone Encounter - Gayle Ding Ma - 01/13/2022 4:26 PM EDT Pending Prescriptions Disp Refills DILTIAZEM SR 120 MG 24 HR CAP 90 capsule 3 Sig: Take 1 capsule by mouth once daily. NIRMALA: No LEVOTHYROXINE 25 MCG TABLET 90 tablet 3 Sig: TAKE 1 TABLET BY MOUTH ONCE DAILY. TAKE ON AN EMPTY STOMACH NIRMALA: No SHARAN 08/09/21 NOV 02/13/22 Gayle Ding Ma [facility] History of Past illness Narrative* Problem Noted Date Resolved Date Persistent atrial fibrillation 04/15/2016 1 11/02/2016 Special screening for malignant neoplasms, colon 07/06/2015 07/06/2015 A-fib 09/02/2017 Overview: RVR documented as of this encounter (statuses as of 01/14/2022) [facility] of Past illness Narrative* Problem Noted Date Resolved Date Persistent atrial fibrillation 04/15/201611/02/2016 Special screening for malignant neoplasms, colon 07/06/2015 07/06/2015 A-fib 09/02/2017 Overview: RVR documented as of this encounter (statuses as of 01/22/2022) [facility] of Past illness Narrative* Problem Noted Date Resolved Date Persistent atrial fibrillation 04/15/201611/02/2016 Special screening for malignant neoplasms, colon 07/06/2015 07/06/2015 A-fib 09/02/2017 Overview: RVR documented as of this encounter (statuses as of 02/14/2022) [facility] of [facility] illness Narrative* Problem Noted Date Resolved Date Persistent atrial fibrillation 04/15/2016 1 11/02/2016 Special screening for malignant neoplasms, colon 07/06/2015 07/06/2015 A-fib 09/02/2017 Overview: RVR documented as of this encounter (statuses as of 07/25/2022) [facility] of Past illness Narrative* Problem Noted Date Resolved Date Persistent atrial fibrillation 04/15/2016 1 11/02/2016 Special screening for malignant neoplasms, colon 07/06/2015 07/06/2015 A-fib 09/02/2017 Overview: RVR documented as of this encounter (statuses as of 08/13/2022) [facility] of [facility] illness Narrative* Problem Noted Date Resolved Date Persistent atrial fibrillation 04/15/2016 1 11/02/2016 Special screening for malignant neoplasms, colon 07/06/2015 07/06/2015 A-fib 09/02/2017 Overview: RVR documented as of this encounter (statuses as of 08/15/2022) [facility] of [facility] illness Narrative* Problem Noted Date Resolved Date Persistent atrial fibrillation 04/15/201611/02/2016 Special screening for malignant neoplasms, colon 07/06/2015 07/06/2015 A-fib 09/02/2017 Overview: RVR documented as of this encounter (statuses as of 10/22/2022) [facility] of [facility] illness Narrative* Problem Noted Date Resolved Date Persistent atrial fibrillation 04/15/2016 1 11/02/2016 Special screening for malignant neoplasms, colon 07/06/2015 07/06/2015 A-fib 09/02/2017 Overview: RVR documented as of this encounter (statuses as of 01/01/2023) [facility] of [facility] illness Narrative* Problem Noted Date Resolved Date Persistent atrial fibrillation 04/15/201611/02/2016 Special screening for malignant neoplasms, colon 07/06/2015 07/06/2015 A-fib 09/02/2017 Overview: RVR documented as of this encounter (statuses as of 01/02/2023) [facility] of [facility] illness Narrative* Problem Noted Date Resolved Date Persistent atrial fibrillation 04/15/201611/02/2016 Special screening for malignant neoplasms, colon 07/06/2015 07/06/2015 A-fib 09/02/2017 Overview: RVR documented as of this encounter (statuses as of 02/20/2023) [facility] of [facility] illness Narrative* Problem Noted Date Resolved Date Persistent atrial fibrillation 04/15/2016 1 11/02/2016 Special screening for malignant neoplasms, colon 07/06/2015 07/06/2015 A-fib 09/02/2017 Overview: RVR documented as of this encounter (statuses as of 02/23/2023) [facility] of [facility] illness Narrative* Problem Noted Date Diagnosed Date Resolved Date Persistent atrial fibrillation 04/15/2016 09/02/2017 Special screening for malign ant neoplasms, colon 07/06/2015 07/06/2015 A-fib 09/02/2017 Overview: RVR documented as of this encounter (statuses as of 08/25/2023) [facility] of [facility] illness Narrative* Problem Noted Date Diagnosed Date Resolved Date Persistent atrial fibrillation 04/15/2016 09/02/2017 Special screening for malign ant neoplasms, colon 07/06/2015 07/06/2015 A-fib 09/02/2017 Overview: RVR documented as of this encounter (statuses as of 09/02/2023) [facility] of [facility] illness Narrative* Problem Noted Date Diagnosed Date Resolved Date Persistent atrial fibrillation 04/15/2016 09/02/2017 Special screening for malign ant neoplasms, colon 07/06/2015 07/06/2015 A-fib 09/02/2017 Overview: RVR documented as of this encounter (statuses as of 01/19/2024) [facility] of [facility] illness Narrative* Problem Noted Date Diagnosed Date Resolved Date Persistent atrial fibrillation 04/15/2016 09/02/2017 Special screening for malign ant neoplasms, colon 07/06/2015 07/06/2015 A-fib 09/02/2017 Overview: RVR documented as of this encounter (statuses as of 01/25/2024) [facility] of [facility] illness Narrative* Problem Noted Date Diagnosed Date Resolved Date Persistent atrial fibrillation 04/15/2016 09/02/2017 Special screening for malign ant neoplasms, colon 07/06/2015 07/06/2015 A-fib 09/02/2017 Overview: RVR documented as of this encounter (statuses as of 02/01/2024) [facility] [place] [facility]* Diagnosis 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 Acquired hypothyroidism Unspecified hypothyroidism documented in this encounter [facility] [place] [facility]* Diagnosis WPW (Pcufg-Pfzghqwmg-Bbqov syndrome)- Primary Anomalous atrioventricular excitation Hypertension, essential Unspecified essential hypertension Hyperlipidemia, mixed Mixed hyperlipidemia Acquired hypothyroidism Unspecified hypothyroidism Elevated glucose Other abnormal glucose [facility] encounter [facility] [place] noteNo assessment information availableWFirelands Regional [facility] Work Phone: Evaluation note* Diagnosis Eye drainage- Primary Redness or discharge of eye documented [facility] encounter [facility] [place] [facility]* Diagnosis WPW (Bcsut-Tuwwqddtx-Neaxx syndrome)- Primary Anomalous atrioventricular excitation Hypertension, essential Unspecified essential hypertension Acquired hypothyroidism Unspecified hypothyroidism Need for influenza vaccination Need for prophylactic vaccination and inoculation against influenza Hyperlipidemia, mixed Mixed hyperlipidemia Elevated glucose Other abnormal glucose [facility] [place] [facility]* Diagnosis WPW (Tmymt-Aodnsfdkq-Nnmpn syndrome) Anomalous atrioventricular excitation Acquired hypothyroidism Unspecified hypothyroidism documented [facility] [place] [facility]* Diagnosis Subacute cough- Primary Cough Post-viral cough syndrome Cough documented [facility] [place] [facility]* Diagnosis WPW (Vqtbm-Wyroekaxi-Rppps syndrome)- Primary Anomalous atrioventricular excitation Hypertension, essential Unspecified essential hypertension Hyperlipidemia, mixed Mixed hyperlipidemia Acquired hypothyroidism Unspecified hypothyroidism Wellness examination documented [facility] this encounter [facility] [place] [facility]* Diagnosis Encounter for screening mammogram for breast cancer [facility]* Diagnosis Preoperative clearance- Primary Preoperative examination, unspecified WPW (Njzns-Dvucbbmtp-Pxggt syndrome) Anomalous atrioventricular excitation Hypertension, essential Unspecified essential hypertension Hyperlipidemia, mixed Mixed hyperlipidemia Acquired hypothyroidism Unspecified hypothyroidism Elevated glucose Other abnormal glucose Acute meniscal tear of left knee, sequela documented [facility] this [facility] [place] [facility]* Diagnosis Acquired hypothyroidism- Primary Unspecified hypothyroidism Hypertension, essential Unspecified essential hypertension Hyperlipidemia, mixed Mixed hyperlipidemia documented [facility] [place] [facility]* Diagnosis Encounter for screening mammogram for breast cancer [facility]* Diagnosis WPW (Twmnp-Luogfcsjo-Nmhof syndrome)- Primary Anomalous atrioventricular excitation Hypertension, essential Unspecified essential hypertension Hyperlipidemia, mixed Mixed hyperlipidemia Acquired hypothyroidism Unspecified hypothyroidism Elevated glucose Other abnormal glucose Wellness examination Preoperative clearance Preoperative examination, unspecified Vitamin D deficiency Unspecified vitamin D deficiency documented [facility] this encounter [facility] [place] [facility]* Diagnosis Zevro-Boohixfgl-Hdcwn (WPW) pattern- Primary [facility] [place] [facility]* Diagnosis Preop examination- Primary Preoperative examination, unspecified Disorder of right Achilles tendon documented in this encounter [facility] note* Diagnosis Encounter for screening mammogram for breast cancer documented in this encounter [facility] [place] [facility]* Diagnosis Abnormal findings on diagnostic imaging of breast- Primary Other (abnormal) findings on radiological examination of breast documented in this encounter [facility] [place] [facility]* Diagnosis Subacute cough Cough [facility] [place] [facility]* Diagnosis Abnormal finding on radiological examination of breast- Primary Other (abnormal) findings on radiological examination of breast documented in this encounter [facility] [place] [facility]* Diagnosis Abnormal findings on diagnostic imaging of breast Other (abnormal) findings on radiological examination of breast documented [facility] [place] [facility]* Diagnosis Abnormal findings on diagnostic imaging of breast Other (abnormal) findings on radiological examination of breast documented in this encounter [facility] [place] [facility]* Diagnosis Abnormal ultrasound of breast- Primary Other (abnormal) findings on radiological examination of breast [facility] [place] [facility]* Diagnosis Abnormal ultrasound of breast Other (abnormal) findings on radiological examination of breast [facility] [place] [facility]* Diagnosis WPW (Esdew-Hluutnndk-Ophru syndrome) Anomalous atrioventricular excitation Acquired hypothyroidism Unspecified hypothyroidism [facility] [place] [facility]* Diagnosis Hypertension, essential- Primary Unspecified essential hypertension WPW (Byres-Fqdnltknc-Xnseu syndrome) Anomalous atrioventricular excitation Screening for depression [...] of the cervix documented [facility] this encounter [facility] [place] [facility]* Diagnosis Onset Date Resolution Status Admit Date Dyslipidemia chronic March 22 12:43pm HTN (hypertension) chronic March 222024 12:43pm Mild pulmonary hypertension chronic March 22, 2025 12:43pm Svpqq-Lkvnaebqd-Wqkur (WPW) syndrome chronic March 22, 2025 1 2:43pm [facility] Work Phone: Progress note Author Kb Valdivia [facility] Note Date/Time March 22, 2025 1:15p m [facility] [address] [place] [address] OFFICE VISIT Date of Service: 03/22/25 MR#: [id number] Acct: [id number] Name: BRITT CARBALLO Rep #: [id number] : 1960 Provider: Dr. 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 Accompanied by: Self Is patient [...] History of irregular heartbeat Hypothyroid HTN (hypertension) Peaan-Qjqqzdynv-Gzbym (WPW) syndrome Breast lesion on mammography Surgical [...] Assessment and Plan Assessment and Plan (1) Plcjd-Mksduvvyo-Znkpo (WPW) syndrome: Status: Chronic Plan: Previous attempts [...] of Care Code Off vis,est,level 4 Diagnoses Aithc-Fstqhavlz-Fujrm (WPW) syndrome I45.6 HTN (hypertension) I10 Dyslipidemia E78.5 Mild pulmonary hypertension I27.20 Coding Level of Care Code Off vis,est,level 4 Diagnoses Ewpvi-Umbpshomd-Metdm (WPW) syndrome I45.6 HTN (hypertension) I10 Dyslipidemia E78.5 Mild pulmonary hypertension I27.20 Clinical Quality Measures Falls Risk Screening/Assistive Devices Have you fallen in the past year?: No Cardiac Ejection fraction %: 65 03/22/25 1315 <Electronically signed by Kb Valdivia MD> Date _ Kb Valdivia MD Cosigner Signature: Date (if applicable) CC: LANIE Hummel ~ [facility] Work Phone: Reeiwk for referral (narrative)* Diagnostic Procedure Only (Routine) - Pending Review Specialty Diagnoses / Procedures Referred By Quentin clement Referred To Contact [facility] Diagnoses Encounter for screening mammogram for breast cancer Procedures RANJAN SCREENING SCREENING MAMMOGRAPHY BI 2-VIEW BREAST INC CAD Markie Gtz PA-C [address] [place] [address] [facility] [address] [place] [address] Referral ID Status Reason Start Date Expiration Date Visits Requested Visits Authorized [id number] Pending Review Auto-Generat ed Referral 02/18/2023 03/19/2024 1 1 [facility] for referral (narrative)* Diagnostic Procedure Only (Routine) - Pending Review Specialty Diagnoses / Procedures Referred By Quentin t Referred To Contact [facility] Diagnoses Encounter for screening mammogram for breast cancer Procedures RANJAN SCREENING SCREENING MAMMOGRAPHY BI 2-VIEW BREAST INC Markie Hu PA-C [address] [place] [address] [facility] [address] [place] [address] Referral ID Status Reason Start Date Expiration Date Visits Requested Visits Authorized [id number] Pending Review Auto-Generat ed Referral 01/27/2024 02/25/2025 1 1 [facility] for referral (narrative)* Diagnostic Procedure Only (Routine) - New Request Specialty Diagnoses / Procedures Referred By Quentin t Referred To Contact [facility] Diagnoses Abnormal findings on diagnostic imaging of breast Procedures US BREAST LTD RIGHT US BREAST UNI REAL TIME WITH IMAGE LIMITED Radha Hummel, RAFAELA.QUANTITATIVE ANALYST [address] [place] [address] [facility] [address] [place] [address] Referral ID Status Reason Start Date Expiration Date Visits Requested Visits Authorized [id number] New Request Auto-Generat ed Referral 06/23/2024 07/23/2025 1 1 * Diagnostic Procedure Only (Routine) - New Request Specialty Diagnoses / Procedures Referred By Contac t Referred To Contact [facility] Diagnoses Abnormal findings on diagnostic imaging of breast Procedures US BREAST LTD LEFT US BREAST UNI REAL TIME WITH IMAGE LIMITED Radha Hummel APRN.QUANTITATIVE ANALYST [address] [place] [address] [facility] [address] [place] [address] Referral ID Status Reason Start Date Expiration Date Visits Requested Visits Authorized [id number] New Request Auto-Generat ed Referral 06/23/2024 07/23/2025 1 1 * Diagnostic Procedure Only (Routine) - New Request Specialty Diagnoses / Procedures Referred By Quentin t Referred To Contact [facility] Diagnoses Abnormal findings on diagnostic imaging of breast Procedures RANJAN DIAGNOSTIC BILATERAL DIAGNOSTIC MAMMOGRAPHY COMPUTER-AIDED DETCJ BI Radha Hummel APRN.QUANTITATIVE ANALYST [address] [place] [address] [facility] [address] [place] [address] Referral ID Status Reason Start Date Expiration Date Visits Requested Visits Authorized [id number] New Request Auto-Generat ed Referral 06/23/2024 07/23/2025 1 1 [facility] for referral (narrative)* Diagnostic Procedure Only (Routine) - Closed Specialty Diagnoses / Procedures Referred By Quentin t Referred To Contact [facility] Diagnoses Abnormal findings on diagnostic imaging of breast Procedures US BREAST LTD RIGHT US BREAST UNI REAL TIME WITH IMAGE LIMITED Radha Hummel APRN.QUANTITATIVE ANALYST [address] [place] [address] [facility] [address] [place] [address] Referral ID Status Reason Start Date Expiration Date V isits Requested Visits Authorized [id number] Closed Auto-Generate d Referral 06/23/2024 07/23/2025 1 1 * Diagnostic Procedure Only (Routine) - Closed Specialty Diagnoses / Procedures Referred By Contac t Referred To Contact [facility] Diagnoses Abnormal findings on diagnostic imaging of breast Procedures US BREAST LTD LEFT US BREAST UNI REAL TIME WITH IMAGE LIMITED Radha Hummel APRN.CNP [address] [place] [address] [facility] [address] [place] [address] Referral ID Status Reason Start Date Expiration Date V isits Requested Visits Authorized [id number] Closed Auto-Generate d Referral 06/23/2024 07/23/2025 1 1 [facility] for referral (narrative)* Diagnostic Procedure Only (Routine) - New Request Specialty Diagnoses / Procedures Referred By Contac t Referred To Contact [facility] Diagnoses Abnormal ultrasound of breast Procedures US BIOPSY BREAST RIGHT BX BREAST W/DEVICE 1ST LESION ULTRASOUND Cathy Dumont MD [address] [place] [address] [facility] [address] [place] [address] Referral ID Status Reason Start Date Expiration Date Visits Requested Visits Authorized [id number] New Request Auto-Generat ed Referral 07/25/2024 08/24/2025 1 1 [facility] for referral (narrative)* Diagnostic Procedure Only (Routine) - Closed Specialty Diagnoses / Procedures Referred By Contac t Referred To Contact [facility] Diagnoses Abnormal ultrasound of breast Procedures US BIOPSY BREAST RIGHT BX BREAST W/DEVICE 1ST LESION ULTRASOUND Cathy Dumont MD [address] [facility] [place] [address] [facility] [address] [facility] [place] [address] Referral ID Status Reason Start Date Expiration Date V isits Requested Visits Authorized [id number] Closed Auto-Generate d Referral 07/25/2024 08/24/2025 1 1 [facility] for referral (narrative)No reason for referral information availableSt. [facility] Work Phone: Reason for visit Narrative* Diagnostic Procedure Only (Routine) - Closed Specialty Diagnoses / Procedures Referred By Quentin clement Referred To Contact [facility] Diagnoses Encounter for screening mammogram for breast cancer Procedures RANJAN SCREENING SCREENING MAMMOGRAPHY BI 2-VIEW BREAST INC CAD Markie Gtz PA-C [address] [place] [address] [facility] [address] [place] [address] Referral ID Status Reason Start Date Expiration Date V isits Requested Visits Authorized [id number] Closed Auto-Generate d Referral 01/27/2024 02/25/2025 1 1 [facility] for visit Narrative* Diagnostic Procedure Only (Routine) - Closed Specialty Diagnoses / Procedures Referred By Quentin clement Referred To Contact [facility] Diagnoses Abnormal findings on diagnostic imaging of breast Procedures US BREAST LTD RIGHT US BREAST UNI REAL TIME WITH IMAGE LIMITED Radha Hummel APRN.QUANTITATIVE ANALYST [address] [place] [address] [facility] [address] [place] [address] Referral ID Status Reason Start Date Expiration Date V isits Requested Visits Authorized [id number] Closed Auto-Generate d Referral 06/23/2024 07/23/2025 1 1 [facility] for visit Narrative* Diagnostic Procedure Only (Routine) - Closed Specialty Diagnoses / Procedures Referred By Quentin clement Referred To Contact [facility] Diagnoses Abnormal findings on diagnostic imaging of breast Procedures RANJAN DIAGNOSTIC BILATERAL DIAGNOSTIC MAMMOGRAPHY COMPUTER-AIDED DETCJ BI Radha Hummel APRN.QUANTITATIVE ANALYST [address] [place] [address] [facility] [address] [place] [address] Referral ID Status Reason Start Date Expiration Date V isits Requested Visits Authorized [id number] Closed Auto-Generate d Referral 06/23/2024 07/23/2025 1 1 [facility]* Diagnostic Procedure Only (Routine) - Closed Specialty Diagnoses / Procedures Referred By Contac t Referred To Contact [facility] Diagnoses Abnormal ultrasound of breast Procedures US BIOPSY BREAST RIGHT BX BREAST W/DEVICE 1ST LESION ULTRASOUND Cathy Dumont MD [address] [place] [address] [facility] [address] [place] [address] Referral ID Status Reason Start Date Expiration Date V isits Requested Visits Authorized [id number] Closed Auto-Generate d Referral 07/25/2024 08/24/2025 1 1 [facility] Summary Purpose Family History No Family History Records Found Relationship Condition Age at Onset Recorded Date/T wally brother Diabetes mellitus Unknown Relationship Condition Age at Onset Recorded Date/T wally brother Diabetes mellitus Unknown mother Hypertension Unknown father Hypertension Unknown Diabetes mellitus Unknown grandmother Malignant neoplasm of breast Unknown grandfather Cerebrovascular accident (CVA) Unknown son Irritable bowel syndrome Unknown Advance Directives No Advanced Directives Records Found Advance Directive Response Recorded Date/ Time Advance Directives Yes August 22, 2016 10:25am Living Will Yes August 22 10:25am Power of E Commerce Specialist Yes August 22, 2016 10:25am Advance Directive Response Recorded Date/ Time Advance Directives Yes August 22, 2016 9:25am Living Will Yes August 22 9:25am Power of E Commerce Specialist Yes August 22, 2016 9:25am Advance Directive Response Recorded Date/ Time Advance Directives Yes August 22, 2016 10:25am Chief Complaint and Reason for Visit Chief Complaint Admit Date 1 Y FU March 22, 2025 12:43 pm E ORDER April 07, 2025 7:06 am Reason for Visit Admit Date Dyslipidemia March 22, 2025 12:43 pm HTN (hypertension) March 22, 2025 12:43 pm Mild pulmonary hypertension March 22 12:43pm Khoyf-Godxolwpj-Bxnqx (WPW) syndrome Mar 12:43pm Chief Complaint SCREENING Chief Complaint PRE OP Chief Complaint Admit Date 1 Y March 22, 2025 12:43 pm Reason for Referral Specialty Diagnoses / Procedures Referred By Quentin t Referred To Contact Cardiology Diagnoses Rtryz-Eepyaucga-Ntcjg (WPW) pattern Procedures CONSULT TO CARDIOLOGY OFFICE/OUTPATIENT [facility] 60 MINUTES Markie Gtz PA-C [address] [place] [address] Referral ID Status Reason Start Date Expiration Date Visits Requested Visits Authorized [id number] Authorized PCP Requested Referral 03/03/2024 03/03/2025 1 1 Specialty Diagnoses / Procedures Referred By Quentin clement Referred To Contact General Surgery Diagnoses Abnormal finding on radiological examination of breast Procedures CONSULT TO GENERAL SURGERY OFFICE/OUTPATIENT [facility] 60 MINUTES Radha Hummel APRN.CNP [address] [place] [address] Referral ID Status Reason Start Date Expiration Date Visits Requested Visits Authorized [id number] Authorized PCP Requested Referral 07/21/2025 1 1 Additional Source Comments INFORMATION SOURCE (unrecogn ized section and content) DATE CREATED AUTHOR 12/08/2018 [facility] DATE CREATED AUTHOR AUTHOR'S ORGANIZ ATION 08/17/2024 [facility] DATE CREATED AUTHOR AUTHOR'S ORGANIZ ATION 03/01/2025 [facility] DATE CREATED AUTHOR AUTHOR'S ORGANIZ ATION 04/30/[address] [facility] Source Comments (unrecognize d section and content) In the event this informatio n is protected by the Federal Confidentiality of Alcohol and Drug Abuse Patient Records regulations: The Federal rules restrict any use of the information to criminally investigate or prosecute any alcohol or drug abuse patient.[facility] [place] the event this information is protected by the Federal Confidentiality of Alcohol and Drug Abuse Patient Records regulations: The Federal rules restrict any use of the information to criminally investigate or prosecute any alcohol or drug abuse patient.[facility] [place]In the event this information is protected by the Federal Confidentiality of Alcohol and Drug Abuse Patient Records regulations: The Federal rules restrict any use of the information to criminally investigate or prosecute any alcohol or drug abuse patient.[facility] [place]In the event this information is protected by the Federal Confidentiality of Alcohol and Drug Abuse Patient Records regulations: The Federal rules restrict any use of the information to criminally investigate or prosecute any alcohol or drug abuse patient.[facility] [place]In the event this information is protected by the Federal Confidentiality of Alcohol and Drug Abuse Patient Records regulations: The Federal rules restrict any use of the information to criminally investigate or prosecute any alcohol or drug abuse patient.[facility] [place]In the event this information is protected by the Federal Confidentiality of Alcohol and Drug Abuse Patient Records regulations: The Federal rules restrict any use of the information to criminally investigate or prosecute any alcohol or drug abuse patient.[facility] JacksonIn the event this information is protected by the Federal Confidentiality of Alcohol and Drug Abuse Patient Records regulations: The Federal rules restrict any use of the information to criminally investigate or prosecute any alcohol or drug abuse patient.[facility] [place]In the event this information is protected by the Federal Confidentiality of Alcohol and Drug Abuse Patient Records regulations: The Federal rules restrict any use of the information to criminally investigate or prosecute any alcohol or drug abuse patient.[facility] [place]In the event this information is protected by the Federal Confidentiality of Alcohol and Drug Abuse Patient Records regulations: The Federal rules restrict any use of the information to criminally investigate or prosecute any alcohol or drug abuse patient.[facility] [place]In the event this information is protected by the Federal Confidentiality of Alcohol and Drug Abuse Patient Records regulations: The Federal rules restrict any use of the information to criminally investigate or prosecute any alcohol or drug abuse patient.[facility] [place]In the event this information is protected by the Federal Confidentiality of Alcohol and Drug Abuse Patient Records regulations: The Federal rules restrict any use of the information to criminally investigate or prosecute any alcohol or drug abuse patient.[facility] [place]In the event this information is protected by the Federal Confidentiality of Alcohol and Drug Abuse Patient Records regulations: The Federal rules restrict any use of the information to criminally investigate or prosecute any alcohol or drug abuse patient.[facility] [place]In the event this information is protected by the Federal Confidentiality of Alcohol and Drug Abuse Patient Records regulations: The Federal rules restrict any use of the information to criminally investigate or prosecute any alcohol or drug abuse patient.[facility] [place]In the event this information is protected by the Federal Confidentiality of Alcohol and Drug Abuse Patient Records regulations: The Federal rules restrict any use of the information to criminally investigate or prosecute any alcohol or drug abuse patient.[facility] [place]In the event this information is protected by the Federal Confidentiality of Alcohol and Drug Abuse Patient Records regulations: The Federal rules restrict any use of the information to criminally investigate or prosecute any alcohol or drug abuse patient.[facility] [place]In the event this information is protected by the Federal Confidentiality of Alcohol and Drug Abuse Patient Records regulations: The Federal rules restrict any use of the information to criminally investigate or prosecute any alcohol or drug abuse patient.[facility] [place]In the event this information is protected by the Federal Confidentiality of Alcohol and Drug Abuse Patient Records regulations: The Federal rules restrict any use of the information to criminally investigate or prosecute any alcohol or drug abuse patient.[facility] JacksonIn the event this information is protected by the Federal Confidentiality of Alcohol and Drug Abuse Patient Records regulations: The Federal rules restrict any use of the information to criminally investigate or prosecute any alcohol or drug abuse patient.[facility] [place]In the event this information is protected by the Federal Confidentiality of Alcohol and Drug Abuse Patient Records regulations: The Federal rules restrict any use of the information to criminally investigate or prosecute any alcohol or drug abuse patient.[facility] JacksonIn the event this information is protected by the Federal Confidentiality of Alcohol and Drug Abuse Patient Records regulations: The Federal rules restrict any use of the information to criminally investigate or prosecute any alcohol or drug abuse patient.[facility] JacksonIn the event this information is protected by the Federal Confidentiality of Alcohol and Drug Abuse Patient Records regulations: The Federal rules restrict any use of the information to criminally investigate or prosecute any alcohol or drug abuse patient.[facility] JacksonIn the event this information is protected by the Federal Confidentiality of Alcohol and Drug Abuse Patient Records regulations: The Federal rules restrict any use of the information to criminally investigate or prosecute any alcohol or drug abuse patient.[facility] [place]In the event this information is protected by the Federal Confidentiality of Alcohol and Drug Abuse Patient Records regulations: The Federal rules restrict any use of the information to criminally investigate or prosecute any alcohol or drug abuse patient.[facility] [place]In the event this information is protected by the Federal Confidentiality of Alcohol and Drug Abuse Patient Records regulations: The Federal rules restrict any use of the information to criminally investigate or prosecute any alcohol or drug abuse patient.[facility] [place]In the event this information is protected by the Federal Confidentiality of Alcohol and Drug Abuse Patient Records regulations: The Federal rules restrict any use of the information to criminally investigate or prosecute any alcohol or drug abuse patient.[facility] [place]In the event this information is protected by the Federal Confidentiality of Alcohol and Drug Abuse Patient Records regulations: The Federal rules restrict any use of the information to criminally investigate or prosecute any alcohol or drug abuse patient.[facility] [place]In the event this information is protected by the Federal Confidentiality of Alcohol and Drug Abuse Patient Records regulations: The Federal rules restrict any use of the information to criminally investigate or prosecute any alcohol or drug abuse patient.[facility] [place]In the event this information is protected by the Federal Confidentiality of Alcohol and Drug Abuse Patient Records regulations: The Federal rules restrict any use of the information to criminally investigate or prosecute any alcohol or drug abuse patient.[facility] [place]In the event this information is protected by the Federal Confidentiality of Alcohol and Drug Abuse Patient Records regulations: The Federal rules restrict any use of the information to criminally investigate or prosecute any alcohol or drug abuse patient.[facility] [place]In the event this information is protected by the Federal Confidentiality of Alcohol and Drug Abuse Patient Records regulations: The Federal rules restrict any use of the information to criminally investigate or prosecute any alcohol or drug abuse patient.[facility] [place]In the event this information is protected by the Federal Confidentiality of Alcohol and Drug Abuse Patient Records regulations: The Federal rules restrict any use of the information to criminally investigate or prosecute any alcohol or drug abuse patient.[facility] [place]In the event this information is protected by the Federal Confidentiality of Alcohol and Drug Abuse Patient Records regulations: The Federal rules restrict any use of the information to criminally investigate or prosecute any alcohol or drug abuse patient.[facility] [place]In the event this information is protected by the Federal Confidentiality of Alcohol and Drug Abuse Patient Records regulations: The Federal rules restrict any use of the information to criminally investigate or prosecute any alcohol or drug abuse patient.[facility] [place]In the event this information is protected by the Federal Confidentiality of Alcohol and Drug Abuse Patient Records regulations: The Federal rules restrict any use of the information to criminally investigate or prosecute any alcohol or drug abuse patient.[facility] [place]In the event this information is protected by the Federal Confidentiality of Alcohol and Drug Abuse Patient Records regulations: The Federal rules restrict any use of the information to criminally investigate or prosecute any alcohol or drug abuse patient.[facility] [place]In the event this information is protected by the Federal Confidentiality of Alcohol and Drug Abuse Patient Records regulations: The Federal rules restrict any use of the information to criminally investigate or prosecute any alcohol or drug abuse patient.[facility] [place]In the event this information is protected by the Federal Confidentiality of Alcohol and Drug Abuse Patient Records regulations: The Federal rules restrict any use of the information to criminally investigate or prosecute any alcohol or drug abuse patient.[facility] [place]In the event this information is protected by the Federal Confidentiality of Alcohol and Drug Abuse Patient Records regulations: The Federal rules restrict any use of the information to criminally investigate or prosecute any alcohol or drug abuse patient.[facility] [place]In the event this information is protected by the Federal Confidentiality of Alcohol and Drug Abuse Patient Records regulations: The Federal rules restrict any use of the information to criminally investigate or prosecute any alcohol or drug abuse patient.[facility] JacksonIn the event this information is protected by the Federal Confidentiality of Alcohol and Drug Abuse Patient Records regulations: The Federal rules restrict any use of the information to criminally investigate or prosecute any alcohol or drug abuse patient.[facility] Reason for Visit (unrecogniz ed section and content) Reason Onset Date Comments Refill Request 01/13/2022 Reason Onset Date Comments Refill Request 01/22/2022 Reason Comments Yearly Exam Specialty Diagnoses / Procedures Referred By Contac t Referred To Contact Family Practice / FAMILY MEDICINE Diagnoses 6 month f/u Procedures 4C EST Markie Gtz PA-C [address] [place] [address] Markie Gtz PA-C [address] [place] [address] Referral ID Status Reason Start Date Expiration Date V isits Requested Visits Authorized [id number] Pending Review 02/13/2022 05/14/2022 99 99 Reason [...] Breast Problem Reason Comments Establish Care TRANSFER CAREJANUSZ PT Care Teams (unrecognized sec tion and content) Package Liner Relationship Specialty Start Date End Date Markie Gtz PA-C [address] [place], [place] [id number] PCP - General Family Practice 08/09/21 Package Liner Relationship Specialty Start Date End Date Markie Gtz PA-C [address] [facility] [place] [address] PCP - General Family Practice 08/09/21 Package Liner Relationship Specialty Start Date End Date Markie Gtz PA-C [address] [facility] [place] [address] PCP - General Family Practice 08/09/21 Package Liner Relationship Specialty Start Date End Date Markie Gtz PA-C [address] [facility] [place] [address] PCP - General Family Medicine 08/09/21 Package Liner Relationship Specialty Start Date End Date Markie Gtz PA-C [address] [facility] [place] [address] PCP - General Family Medicine 08/09/21 Package Liner Relationship Specialty Start Date End Date Markie Gtz PA-C [address] [facility] [place] [address] PCP - General Family Medicine 08/09/21 Package Liner Relationship Specialty Start Date End Date Markie Gtz PA-C [address] [facility] [place] [address] PCP - General Family Medicine 08/09/21 Package Liner Relationship Specialty Start Date End Date Markie Gtz PA-C [address] [facility] [place] [address] PCP - General Family Medicine 08/09/21 Package Liner Relationship Specialty Start Date End Date Markie Gtz PA-C [address] [facility] [place] [address] PCP - General Family Medicine 08/09/21 Package Liner Relationship Specialty Start Date End Date Markie Gtz PA-C [address] [facility] [place] [address] PCP - General Family Medicine 08/09/21 Package Liner Relationship Specialty Start Date End Date Markie Gtz PA-C [address] [place], [place] [id number] PCP - General Family Medicine 08/09/21 Team Status: Active Member Role Status Dates Dr. Ceasar Madera III, MD Family Provider Active Markie Gtz PA, PA Primary Care Provider Active Team Status: Inactive Member Role Status Dates Markie KUO PA Primary Care Provider Active Dr. Reece Frazier MD Attending Provider, Referring Pr jolie Active Package Liner Relationship Specialty Start Date End Date Markie Gtz PA-C [address] [place] [address] PCP - General Family Medicine 08/09/21 Team Status: Inactive Member Role Status Dates Markie KUO PA Primary Care Provider Active Dr. Kobi Yan MD Attending Provider, Referring P rosamantha Active Package Liner Relationship Specialty Start Date End Date Markie Gtz PA-C [address] [place] [address] PCP - General Family Medicine 08/09/21 Package Liner Relationship Specialty Start Date End Date Markie Gtz PA-C [address] [place] [address] PCP - General Family Medicine 08/09/21 Package Liner Relationship Specialty Start Date End Date Markie Gtz PA-C [address] [place] [address] PCP - General Family Medicine 08/09/21 Package Liner Relationship Specialty Start Date End Date Markie Gtz PA-C [address] [place] [address] PCP - General Family Medicine 08/09/21 Package Liner Relationship Specialty Start Date End Date Markie Gtz PA-C [address] [facility] [place] [address] PCP - General Family Medicine 08/09/21 Package Liner Relationship Specialty Start Date End Date Markie Gtz PA-C [address] [place] [address] PCP - General Family Medicine 08/09/21 Package Liner Relationship Specialty Start Date End Date Markie Gtz PA-C [address] [place] [address] PCP - General Family Medicine 08/09/21 Package Liner Relationship Specialty Start Date End Date Markie Gtz PA-C [address] [place] [address] PCP - General Family Medicine 08/09/21 Package Liner Relationship Specialty Start Date End Date Markie Gtz PA-C [address] [place] [address] PCP - General Family Medicine 08/09/21 Package Liner Relationship Specialty Start Date End Date Markie Gtz PA-C [address] [place] [address] PCP - General Family Medicine 08/09/21 Package Liner Relationship Specialty Start Date End Date Markie Gtz PA-C [address] [facility] [place] [address] PCP - General Family Medicine 08/09/21 Package Liner Relationship Specialty Start Date End Date Markie Gtz PA-C [address] [facility] [place] [address] PCP - General Family Medicine 08/09/21 Package Liner Relationship Specialty Start Date End Date Markie Gtz PA-C [address] [facility] [place] [address] PCP - General Family Medicine 08/09/21 Package Liner Relationship Specialty Start Date End Date Markie Gtz PA-C [address] [facility] [place] [address] PCP - General Family Medicine 08/09/21 Package Liner Relationship Specialty Start Date End Date Markie Gtz PA-C [address] [facility] [place] [address] PCP - General Family Medicine 08/09/21 Package Liner Relationship Specialty Start Date End Date Markie Gtz PA-C [address] [facility] [place] [address] PCP - General Family Medicine 08/09/21 Package Liner Relationship Specialty Start Date End Date Umesh Gtz PA-C PCP - General Family Medicine 08/09/21 Nori Thorpe, STORES LABORER.QUANTITATIVE ANALYST [address] [facility] [address] Instrument Specialist Family Medicine 09/23/24 Radha Hummel STORES LABORER.QUANTITATIVE ANALYST [address] [facility] [place] [address] Instrument Specialist Family Medicine 09/23/24 Package Liner Relationship Specialty Start Date End Date Radha Hummel STORES LABORER.QUANTITATIVE ANALYST [address] [facility] [place], [place] [address] PCP - General Family Medicine 02/28/25 Nori Thorpe APRN.QUANTITATIVE ANALYST [address] [place], [place] [address] [facility] 09/23/24 Radha Hummel APRN.QUANTITATIVE ANALYST [address] [place], [place] [address] [facility] 09/23/24 Team Status: Active Member Role Status Dates Dr. Ceasar Madera III, MD Family Provider Active Radha Hummel , [employer] MAT[employer]S BUYER Primary Care Provider Active Team Status: Inactive Member Role Status Dates Markie KUO PA Referring Provider Active Start: March 22, 2025 End: March 22, 2025 Dr. Kb Valdivia MD Attending Provider Active Start: March 22, 2025 End: March 22, 2025 Radha Hummel [employer] BU[employer]ER Primary Care Provider Active Start: March 22, 2025 End: March 22, 2025 Team Status: Active Member Role Status Dates Radha Hummel [employer] BUYER Primary Care Provider Active Team Status: Inactive Member Role Status Dates Radha Hummel [employer] BUYER Primary Care Provider Active Start: April 07, 2025 End: April 07, 2025 Dr. Kb Valdivia MD Attending Provider Active Start: April 07, 2025 End: April 07, 2025 Dr. Kb Valdivia MD Referring Provider Active Start: April 07, 2025 End: April 07, 2025 Goals (unrecognized section and content) Goals [...] BE BASED ON THE PRIMARY CLINICAL RECORDS. [facility]. provides no warranty or guarantee of the accuracy or completeness of information in this document.
== END | disposition home or self-care (01) ==
LOC: CVS 14:41
PROVIDERS: PCP Clinical Nurse Specialist Adult Health; Referring Provider Internal Medicine Cardiovascular Disease; Visit Provider Internal Medicine Cardiovascular Disease
DX: I27.20 Pulmonary hypertension, unspecified (principal)
CPT/HCPCS: 93306